=== PATIENT | female | born 1985 | race Hispanic/Latino ===

== ENCOUNTER 2024-09-19 13:52 | Emergency (ER) | payer OTHER ==
--- OUTSIDE RECORDS SUMMARY | 2024-09-19 14:16 | XMS REPORT | Continuity of Care Document ---
Author Name Unknown Address [address] [facility] [address] [place] [address] [facility] thconnect Address [address] [facility] [address] [place] [address] Care Team Providers Care Monogram Technician Name Role Phone Alva Ga Primary Care Physician [phone] Deuce Jordan Attending Clinician Unavailable HAMDIA BLANCO Attending Clinician Unavailable Hamida Blanco MD Attending Clinician [phone] ZACH LARSEN Attending Clinician Unavailable Pob, [facility] Main Attending Clinician Unavailangel luis e Doctor Unassigned, [place] Attending Clinician U navailable JONNA CELESTE Attending Clinician Unavailable Zach Larsen MD Attending Clinician [phone] SUE BACA Attending Clinician Unavailab le RADIOLOGY Attending Clinician Unavailable Zach Larsen MD Attending Clinician [phone] Armando Hebert MD Attending Clinician [phone] GISELA DISLA Attending Clinician Unavailable GISELA DISLA Attending Clinician Unavailable SOLA CARR Attending Clinician Unavaila SOLA Alegria Attending Clinician Unavaila ble Lab, Ang - Db Attending Clinician Unavailable Jonna Espinal Attending Clinician [phone] WHIT MCKINNON Attending Clinician Unavailabl Jordan Askew MDair M Attending Clinician [phone] , [facility] Sleep Lab Bed Attending Clinician Unavail able Lilly CRONIN, Sola Whittington Attending Clinician + [phone] ARMANDO HEBERT Attending Clinician Unavailable [facility] Main Attending Clinician Unavailangel luis Whalen MD, Radha M Attending Clinician [phone] ELHAM RAMOS Attending Clinician Unavailable Doctor Unassigned, [place] Attending Clinician U navailable GINA MUNROE Attending Clinician Unavailab gillian Charamandeep MAGNETIC TAPE TYPEWRITER OPERATORGina Attending Clinician [phone] JELANI PALMA Attending Clinician Unavailable Radiology Attending Clinician Unavailable GLORIA ULU Attending Clinician Unavailable GLORIA LUU Attending Clinician Unavailable DAVE UMAÑA Attending Clinician Unavailable MARCO A DOWELL Attending Clinician Unavailable Char Whitney Attending Clinician [phone] Jes Rich MD Attending Clinician [phone] JES RICH Attending Clinician Unavailable ADRY HARKINS Attending Clinician Unavailable Kesha Gordon Attending Clinician [phone], [employer] Attending Clinician Valencia vailable Adry Urbina Attending Clinician [phone] LOIDA OLMEDO Attending Clinician Unavailable LOIDA OLMEDO Attending Clinician Unavailable CHAR MATHEW Attending Clinician Unavailable Sue Baca DO Attending Clinician [phone] [facility] Attending Clinician UnavailJEAN CLAUDE Hwang Attending Clinician Unavailab le Pcp-Lab Attending Clinician Unavailable KRISTYN CASH Attending Clinician Unavailable KRISTYN CASH Attending Clinician Unavailable DARREN DECKER Attending Clinician Unavailable DARREN DECKER Attending Clinician Unavailable YANETH HUTCHINS Attending Clinician YANETH Bradford Attending Clinician LINCOLN Vargas Attending Clinician Unavailable LINCOLN GARZA Attending Clinician Unavailable Abril Helm MD Attending Clinician [phone] ABRIL HELM Attending Clinician UnavailABRIL Tony Attending Clinician UnavailCASEY Alexandre Attending Clinician UnavailJean Claude Peterson MD Attending Clinician [phone] PEDRO LUIS PELAYO Attending Clinician Unavailable AMARA HELMS Attending Clinician Unavailable Amara Helms MD Attending Clinician [phone] VIVI ERWIN Attending Clinician Unavailable Vivi Humphries Attending Clinician [phone] ISHMAEL ALLEN Attending Clinician Unavail able ISHMAEL ALLEN Attending Clinician Unavail able Ishmael Allen MD Attending Clinician [phone] TAMMI GREEN Attending Clinician Unavailable Tammi Green MD Attending Clinician [phone] [facility] Attending Clinician Unavailable AISHA FIELDS Attending Clinician Unavailable TANNER CAMARA Attending Clinician Unavailable Tanner Turner Attending Clinician [phone] Unknown, Attending Attending Clinician Unavailab Yahaira Ferguson MD Attending Clinician [phone] YAHAIRA HERNANDEZ Attending Clinician Unavailable 1, Carol Mda Procedure Rm Attending Clinician Unav ailable LAINA MUIR Attending Clinician Unavaila Laina Beck Attending Clinician [phone] Елена Laguerre MD Attending Clinician [phone] ELHAM COTTON Attending Clinician Unavailable Elham Mak Attending Clinician [phone] Niki Gastelum RN Attending Clinician Unavailab ЕЛЕНА Jain Attending Clinician Unavailable Deuce Jordan Admitting Clinician Unavailable WHIT MCKINNON Admitting Clinician Unavailabl GINA Barclay Admitting Clinician Unavailab ALVA Song Admitting Clinician Unavail able MARCO A DOWELL Admitting Clinician Unavailable LOIDA OLMEDO Admitting Clinician Unavailable YANETH HUTCHINS Admitting Clinician UnaISHMAEL Smith Admitting Clinician Unavail able VIVI ERWIN Admitting Clinician Unavailable CASEY VALDEZ Admitting Clinician UnavailDARREN Marks Admitting Clinician Unavailable ABRIL HELM Admitting Clinician UnavailAbril Tony MD Admitting Clinician [phone] JR KENNY Admitting Clinician Unavailable Payers Payer Name Policy Type Policy Number Effective Date Expirati on Date Source Problems Condition Name Condition Details Condition Category Status Onset Date Resolution Date Last Treatment Date Treating Clinician Comments Source Chest pain, unspecifie d type Chest pain, unspecifie d type Disease Active 5-24 00:00: 00 [facility] Morbid obesity Morbid obesity Disease Active 5-24 00:00: 00 [facility] Snores Snores Disease Active 24 00:00: 00 [facility] Morbid obesity with body mass index of 40.0-49.9 Morbid obesity with body mass index of 40.0-49.9 Disease Active 7-03 00:00: 00 [facility] Thyroid cancer Thyroid cancer Disease Active 6-14 00:00: 00 [facility] Postoperat janet hypothyroi dism Postoperat janet hypothyroi dism Disease Active 6-14 00:00: 00 [facility] Allergies, Adverse Reactions, Alerts Allergy Name Allergy Type Status Severity Reaction(s) Onset Date Inactive Date Treating Clinician Comments Source codeine Propensi ty to adverse reaction to drug Active 20 00:00: 00 [facility] Codeine Hcl Drug Allergy Active Rash 2-06 00:00: 00 Chest area [facility] Sulfa Dyne Drug Allergy Active Itching 2-06 00:00: 00 Itcyh in her mouth [facility] SULFA DYNE DRUG Active High Hives 0 2-06 00:00: 00 [facility] CODEINE HCL DRUG INGREDI Active Med Hives 0 2-06 00:00: 00 [facility] Codeine Hcl Propensi ty to adverse reaction s Active Hives 0 2-06 00:00: 00 [facility] Sulfa Dyne Propensi ty to adverse reaction s Active Hives 0 2-06 00:00: 00 [facility] Sulfa Antibiot ics - CLASS Propensi ty to adverse reaction to drug Active 09-12 00:00: 00 [facility] Sulfa (Sulfona mide Antibiot ics) DA Active CT 2014-08 00:00: 00 [facility] hydrocod one DA Active CT 2014-08 00:00: 00 [facility] Sulfa (Sulfona mide Antibiot ics) DA Active CT HIVES 2014-08 00:00: 00 [facility] hydrocod one DA Active CT HIVES 2014-08 00:00: 00 [facility] NO KNOWN ALLERGIE S Drug Class Active [facility] Social History Social Habit Start Date Stop Date Quantity Comments Source Gender identity [facility] Alcoholic beverage intake 2024-06-20 00:00:00 2024-06-20 00:00:00 Lifetime non-drinker (finding) [facility] History of Social function 2024-01-08 00:00:00 2024-01-08 00:00:00 [facility] Alcohol intake 2023-11-05 00:00:00 2023-11-05 00:00:00 Lifetime non-drinker (finding) [facility] Tobacco use and exposure 2023-07-13 00:00:00 2023-07-13 00:00:00 Smokeless tobacco non-user [facility] Exposure to SARS-CoV-2 (event) 2022-12-15 00:00:00 2022-12-25 09:16:00 Not sure [facility] Sex assigned at 1985 00:00:00 1985 00:00:00 [facility] Smoking Status Start Date Stop Date Source Tobacco smoking consumption unknown [facility] Never smoked tobacco [facility] Medications Ordered Medication Name Filled Medication Name Start Date Stop Date Current Medication? Ordering Clinician Indication Dosage Frequency Signature (SIG) Comments Components Source Macrobid 100 mg capsule 1-30 00:00: 00 Yes 1mg [facility] tizanidine 4 mg tablet 09-13 00:00: 00 Yes 1mg [facility] ergocalcife rol, vitamin d2, 1,250 mcg (50,000 unit) capsule 2023-08 00:00: 00 09-14 05:59 :00 Yes [id number] Take 1 capsule by mouth weekly for 8 doses. [facility] naltrexone 50 mg tablet 2023-08 00:00: 00 10-18 05:59 :00 Yes [id number] Take 0.5 tablets by mouth daily for 7 days, THEN 0.5 tablets 2 (two) times daily for 83 days. [facility] buPROPion SR 150 mg SR tablet 2023-08 00:00: 00 10-18 05:59 :00 Yes [id number] Take 1 tablet by mouth daily for 7 days, THEN 1 tablet 2 (two) times daily for 83 days. [facility] Cymbalta 30 mg capsule,del ayed release 2023-08 00:00: 00 Yes 1mg [facility] gabapentin 100 mg capsule 2023-08 00:00: 00 Yes 1mg [facility] Imitrex 100 mg tablet 2023-08 00:00: 00 Yes 1mg [facility] Cymbalta 30 mg capsule,del ayed release 2023-08 00:00: 00 Yes 1mg [facility] levothyroxi ne (SYNTHROID) 300 mcg tablet 2023-08 13:29: 05 Yes 300ug Take 1 tablet by mouth in the morning. [facility] dexAMETHaso ne 1 mg tablet 2023-08 00:00: 00 Yes [id number] 1mg Take 1 tablet by mouth SEE-INSTRU CTIONS. Take at 23:00 for dexamethas one suppressio n test, night before blood draw [facility] glycopyrrol ate 1 mg tablet 2023-08 00:00: 00 Yes 1mg [facility] hydroxychlo roquine 200 mg tablet 2023-08 00:00: 00 Yes mg [facility] Synthroid 300 mcg tablet 2024-1 0-07 00:00: 00 Yes mcg [facility] Cymbalta 30 mg capsule,del ayed release 2023-08 0-04 00:00: 00 Yes 1mg [facility] ProAir RespiClick 90 mcg/actuati on breath activated 04-13 00:00: 00 Yes 12mcg/a ctuatio n [facility] Flonase Allergy Relief 50 mcg/actuati on nasal spray,suspe nsion 04-13 00:00: 00 Yes 2mcg/ac tuation [facility] cetirizine 10 mg tablet 04-12 00:00: 00 Yes 1mg [facility] hydroxychlo roquine 200 mg tablet 04-12 00:00: 00 Yes 1mg [facility] tizanidine 4 mg tablet 04-12 00:00: 00 Yes 1mg [facility] Synthroid 300 mcg tablet 04-12 00:00: 00 Yes 1mcg [facility] metformin ER 500 mg tablet,exte nded release 24 hr 03-25 00:00: 00 Yes mg [facility] Synthroid 175 mcg tablet 03-25 00:00: 00 Yes mcg [facility] famotidine 40 mg tablet 03-24 00:00: 00 Yes mg [facility] pantoprazol e 40 mg tablet,greg yed release 03-24 00:00: 00 Yes mg [facility] Pristiq 50 mg tablet,exte nded release 03-23 00:00: 00 Yes 1mg [facility] ergocalcife rol, vitamin d2, 1,250 mcg (50,000 unit) capsule 03-09 00:00: 00 Yes [id number] Take 1 capsule by mouth weekly. [facility] metformin ER 500 mg tablet,exte nded release 24 hr 20 00:00: 00 Yes mg [facility] norethindro ne (contracept janet) 0.35 mg tablet 03-01 00:00: 00 Yes 1mg [facility] Synthroid 175 mcg tablet 2024-0 7-16 00:00: 00 Yes mcg [facility] hydroxychlo roquine 200 mg tablet 02-08 11:11: 31 Yes 200mg Take 1 tablet by mouth in the morning and 1 tablet in the evening. [facility] famotidine 10 mg tablet 02-08 11:11: 31 Yes 10mg Take 1 tablet by mouth in the morning. [facility] Hyoscyamine Sulfate 0.125 mg TbDL 02-08 11:11: 31 Yes 1{tbl} Take 1 tablet by mouth in the morning. [facility] SYNTHROID 175 mcg tablet 02-08 00:00: 00 06-20 00:00 :00 No [id number] Take 2 tablets On Thursday thru Thursday, take one pill on Thursday Brand name only [facility] guanfacine 1 mg tablet 02-01 00:00: 00 Yes 5mg [facility] SYNTHROID 175 mcg tablet 02-01 00:00: 00 02-08 00:00 :00 No 350ug Take 2 tablets by mouth every morning. [facility] TYRVAYA 0.03 mg/spray sprm 01-25 00:00: 00 Yes [facility] hyoscyamine sulfate 0.125 mg tablet 01-21 00:00: 00 Yes mg [facility] tiZANidine 4 mg tablet 01-16 00:00: 00 Yes TAKE ONE (1) TABLET(S) BY MOUTH EVERY SIX TO EIGHT HOURS. [facility] tizanidine 4 mg tablet 01-13 00:00: 00 Yes 1mg [facility] barium sulfate (LIQUID E-Z PAQUE) 60 % (w/v) oral suspension 680 g 01-12 14:15: 00 01-12 14:35 :00 No [id number] 680g 680 g, Oral, ONCE, 1 dose, On Thu01/13/24 at 0915, Routine [facility] sod bicarb-citr ic ac-simeth (E-Z-GAS II) 2.21-1.53 gram/4 gram packet 1 Packet 01-12 14:15: 01-12 14:35 :00 No [id number] 1{packe t} 1 Packet, Oral, ONCE, 1 dose, On Thu01/13/24 at 0915, Routine [facility] metroNIDAZO LE 500 mg tablet 01-11 00:00: 00 Yes 500mg Take 1 tablet by mouth in the morning and 1 tablet at noon and 1 tablet in the evening. [facility] ciprofloxac in HCl 500 mg tablet 01-11 00:00: 00 Yes 500mg Take 1 tablet by mouth in the morning and 1 tablet in the evening. [facility] tizanidine 4 mg capsule 01-10 00:00: 00 Yes 1mg [facility] iopamidol (ISOVUE 370-500 mL) injection 130 mL 01-07 23:15: 00 01-07 23:30 :00 No [id number] 130mL 130 mL, Intravenou s, ONCE, 1 dose, On Thu01/08/24 at 1830, Routine [facility] hydroxychlo roquine 200 mg tablet 01-03 00:00: 00 Yes 1mg [facility] guanfacine 1 mg tablet 12-28 00:00: 00 Yes 5mg [facility] SYNTHROID 175MCG 08 00:00: 00 Yes Bal Benny Rose GABAPENTIN 300MG 12-20 00:00: 00 Yes Bal Benny Rose HYDROXYCHLO R 200MG 12-13 00:00: 00 Yes Bal Benny Rose KETOCONAZOL E 2% SHA 12-06 00:00: 00 Yes [facility] PANTOPRAZOL E 40MG DR 12-06 00:00: 00 Yes [facility] METRONIDAZO L 0.75% CRE 12-06 00:00: 00 Yes [facility] metronidazo le 0.75 % topical cream 12-03 00:00: 00 Yes 1% Bal Benny Rose ketoconazol e 2 % shampoo 12-03 00:00: 00 Yes 1% [facility] pantoprazol e 40 mg tablet,greg yed release 12-03 00:00: 00 Yes 1mg [facility] TAKE HALF OF A TAB BY MOUTH DAILY 11-25 00:00: 00 Yes 1 [facility] SUCRALFATE 1GM 11-18 00:00: 00 Yes [facility] sucralfate 1 gram tablet 11-18 00:00: 00 Yes 1g Take 1 tablet by mouth 4 (four) times daily. [facility] DICYCLOMINE 10MG 11-13 00:00: 00 Yes [facility] TAKE ONE (1) CAPSULE(S) BY MOUTH EVERY EIGHT HOURS NEEDED. 11-12 00:00: 00 Yes [facility] trazodone 50 mg tablet 11-08 00:00: 00 Yes 1mg [facility] traZODone 50 mg tablet 11-08 00:00: 00 Yes [id number] 50mg Take 1 tablet by mouth at bedtime. [facility] clotrimazol e 1 % vaginal cream 11-01 00:00: 00 Yes % [facility] TAKE HALF OF A TAB BY MOUTH DAILY 10-28 00:00: 00 12-28 00:00 :00 No 1 [facility] hydrocortis one 0.5 % topical cream 10-27 00:00: 00 Yes % [facility] hydrocortis one 1 % topical cream 10-27 00:00: 00 Yes % [facility] HYDROCORTIS O 1% RX CRE 10-27 00:00: 00 Yes [facility] cholestyram ine (with sugar) 4 gram powder for susp in a packet 10-23 00:00: 00 Yes gram [facility] Synthroid 175 mcg tablet 10-22 00:00: 00 Yes mcg [facility] MIX ONE (1) PACKET WITH WATER AND TAKE BY MOUTH TWICE DAILY. 10-22 00:00: 00 Yes [facility] iopamidol (ISOVUE 370-500 mL) injection 90 mL 10-16 18:45: 00 10-16 18:30 :00 No [id number] 90mL 90 mL, Intravenou s, ONCE, 1 dose, On 10/17/23 at 1245, Routine [facility] gabapentin 100 mg capsule 10-16 00:00: 00 Yes mg [facility] TAKE ONE (1) CAPSULE(S) BY MOUTH THREE TIMES A DAY FOR SEVEN DAYS, THEN TWO (2) CAPSULES THREE TIMES A DAY FOR SEVEN DAYS, THEN THREE (3) C 10-15 00:00: 00 Yes [facility] gabapentin 100 mg capsule 10-15 00:00: 00 11-29 04:59 :00 No [id number] Take 1 capsule by mouth 3 (three) times daily for 7 days, THEN 2 capsules 3 (three) times daily for 7 days, THEN 3 capsules 3 (three) times daily for 30 days. [facility] guanfacine 1 mg tablet 10-14 00:00: 00 Yes mg [facility] paroxetine 10 mg tablet 10-14 00:00: 00 Yes mg [facility] metformin ER 500 mg tablet,exte nded release 24 hr 10-13 00:00: 00 Yes mg [facility] TAKE ONE (1) TABLET(S) BY MOUTH ONCE A DAY. 10-13 00:00: 00 Yes Bal Rsoe metformin ER 500 mg 24 hr tablet 10-13 00:00: 00 Yes 500mg Take 1 tablet by mouth in the morning. [facility] TAKE 1 TABLET DAILY. 10-13 00:00: 00 12-28 00:00 :00 No 10 [facility] TAKE HALF OF A TAB BY MOUTH DAILY 10-13 00:00: 00 12-28 00:00 :00 No 1 Bal oRse TAKE 1 TABLET BY MOUTH EVERY DAY 10-09 00:00: 00 Yes 500 Bal Rose tc 99m-medrona te (DRAXIMAGE MDP-25) injection 23.3 millicurie 10-02 16:15: 00 10-02 16:15 :00 No [id number] 23.3mCi 23.3 Saranya landu s, ONCE, 1 dose, On Thu10/02/23 at 1015, Routine [facility] ibuprofen 800 mg tablet 09-24 00:00: 00 Yes mg [facility] SYNTHROID 175MCG 09-24 00:00: 00 Yes [facility] TAKE 1 TABLET DAILY. 09-23 00:00: 00 Yes 120 [facility] TAKE 1 TABLET 3 TIMES DAILY WITH FOOD NEEDED. 09-23 00:00: 00 Yes 800 [facility] GALILEO 09/05 00:00: 00 Yes [facility] TAKE HALF OF A TAB BY MOUTH DAILY 09-17 00:00: 00 12-28 00:00 :00 No 1 [facility] TAKE 1 TABLET DAILY. 09-17 00:00: 00 12-28 00:00 :00 No 25 [facility] TAKE ONE (1) TABLET(S) BY MOUTH DAILY. 09-17 00:00: 00 12-28 00:00 :00 No [facility] TAKE 1 CAPSULE BY MOUTH TWICE A DAY NEEDED 08-28 00:00: 00 12-28 00:00 :00 No 300 [facility] TAKE ONE (1) TABLET(S) BY MOUTH ONCE A DAY. - 00:00: 00 12-28 00:00 :00 No 75 [facility] DULoxetine 20 mg capsule - 00:00: 00 Yes 20mg Take 1 capsule by mouth in the morning. [facility] TAKE 1 CAPSULE BY MOUTH ONCE DAILY 08-26 00:00: 00 12-28 00:00 :00 No 10 [facility] TAKE 1 CAPSULE BY MOUTH DAILY 08-26 00:00: 00 12-28 00:00 :00 No 20 [facility] DULOXETINE 20MG DR 08-26 00:00: 00 12-28 00:00 :00 Angelique Rose TAKE ONE (1) CAPSULE(S) BY MOUTH ONCE DAILY. 08-26 00:00: 00 12-28 00:00 :00 No [facility] TAKE BY MOUTH DIRECTED BY PHYSICIANS OFFICE. 2022-08 00:00: 00 12-28 00:00 :00 Angelique Rose ergocalcife rol, vitamin d2, 1,250 mcg (50,000 unit) capsule 2022-08 00:00: 00 03-09 00:00 :00 No [id number] Take 1 capsule by mouth weekly. [facility] TAKE 1 TABLET EVERY 8 HOURS NEEDED FOR NAUSEA AND VOMITING. 2022-08 00:00: 00 12-28 00:00 :00 No 8 [facility] iopamidol (ISOVUE 370-500 mL) injection 120 mL 2022-08 16:45: 00 07-23 15:52 :00 No [id number] 120mL 120 mL, Intravenou s, ONCE, 1 dose, On [facility] 07/23/23 at 1045, Routine [facility] DULOXETINE 30MG DR 2022-08 00:00: 00 12-28 00:00 :00 Angelique Rose DULoxetine (CYMBALTA) 30 mg capsule 2022-08 00:00: 00 08-04 00:00 :00 No [id number] 30mg Take 1 capsule by mouth in the morning. [facility] TAKE 1 CAPSULE TWICE DAILY. 2022-08 00:00: 00 12-28 00:00 :00 No 50 [facility] PREGABALIN 50MG 2022-08 00:00: 00 12-28 00:00 :00 Angelique Rose SYNTHROID 175 mcg tablet 2022-08 00:00: 00 02-01 00:00 :00 No 350ug Take 2 tablets by mouth every morning. [facility] TAKE 2 TABLETS BY MOUTH EVERY MORNING. 2022-08 00:00: 00 12-28 00:00 :00 No Bal Benny Rose TAKE 1 TABLET DAILY. 2022-08 00:00: 12-28 00:00 :00 No 10 Bal Benny Rose predniSONE 10 mg tablet 2022-08 00:00: 00 08-04 00:00 :00 No 10mg Take 1 tablet by mouth in the morning. [facility] Butalbital- Acetaminoph en-Caff 50-300-40 mg per capsule 2022-08 00:00: 00 09-15 00:00 :00 No TAKE ONE (1) CAPSULE(S) BY MOUTH EVERY FOUR TO SIX HOURS NEEDED. [facility] TAKE 1 CAPLET EVERY 4-6 HOURS DAILY NEEDED. 2022-08 00:00: 00 12-28 00:00 :00 No [id number] Bal Rose TAKE 1 TABLET 3 TIMES DAILY NEEDED FOR MUSCLE SPASM. 2022-08 00:00: 00 12-28 00:00 :00 No 10 Bal Rose BUT/APAP/CA F 300MG 2022-08 00:00: 00 12-28 00:00 :00 No [facility] SYNTHROID 25MCG 2022-08 00:00: 00 12-28 00:00 :00 No [facility] SYNTHROID 300MCG 2022-08 00:00: 00 12-28 00:00 :00 Angelique Rose meloxicam 7.5 mg tablet 2022-08 00:00: 00 Yes 7.5mg Take 1 tablet by mouth in the morning. [facility] TAKE ONE (1) TABLET(S) BY MOUTH ONCE A DAY. 2022-08 00:00: 00 12-28 00:00 :00 No 75 Bal Rose sodium iodide I-131 (FOR DIAGNOSTIC) oral solution 2 millicurie 2022-08 15:30: 00 06-02 15:30 :00 No [id number] 2mCi 2 millicurie , Oral, ONCE, 1 dose, On Thu06/02/23 at 1030, Routine [facility] APPLY SPARINGLY TO AFFECTED AREA(S) ONCE DAILY. 2022-08 00:00: 00 12-28 00:00 :00 No 1 [facility] DICLOFENAC 1% GEL 2022-08 00:00: 00 12-28 00:00 :00 No Bal Rose TAKE 1 TABLET DAILY. 05-15 00:00: 00 12-28 00:00 :00 No 75 Bal Rose TAKE 1 CAPSULE EVERY 6 HOURS NEEDED. 05-15 00:00: 00 12-28 00:00 :00 No 10 [facility] SYNTHROID 25MCG 05-15 00:00: 00 12-28 00:00 :00 No [facility] SYNTHROID 300MCG 05-15 00:00: 00 12-28 00:00 :00 Angelique Rose TAKE 2 TABLETS ON DAY 1 THEN TAKE 1 TABLET A DAY FOR 4 DAYS. 05-14 00:00: 00 12-28 00:00 :00 No 250 Bal Rose USE DIRECTED BY PACKAGE INSTRUCTION S. 05-14 00:00: 00 12-28 00:00 :00 No Bal Rose methylPREDN ISolone (MEDROL, RAS,) 4 mg tablets 05-14 00:00: 00 08-04 00:00 :00 No [id number] 84mg Take 21 tablets by mouth SEE-INSTRU CTIONS. follow package directions [facility] INHALE 2 PUFFS EVERY 4 HOURS NEEDED FOR COUGH AND WHEEZE. 05-01 00:00: 00 12-28 00:00 :00 [place] [id number] Bal Rose TAKE 10 ML EVERY 4 TO 6 HOURS NEEDED. 05-01 00:00: 00 12-28 00:00 :00 No [id number] Bal Rose 300 MG NIRMATRELVI R (TWO 150 MG TABLETS) WITH 100 MG RITONAVIR (ONE 100 MG TABLET) WITH ALL THREE TABLETS TAKEN TOGETHER ORALLY TWICE DAILY FOR 5 DAYS 05-01 00:00: 00 12-28 00:00 :00 No Bal Rose TAKE ONE (1) TABLET(S) BY MOUTH AT BEDTIME NEEDED FOR MUSCLE SPASMS. 04-23 00:00: 00 12-28 00:00 :00 No Bal Benny Rose cyclobenzap rine 5 mg tablet 04-23 00:00: 00 09-15 00:00 :00 No [id number] 5mg Take 1 tablet by mouth at bedtime as needed for Muscle Spasms. [facility] iopamidol (ISOVUE 370-500 mL) injection 80 mL 03-30 15:47: 00 03-30 15:47 :00 No [id number] 80mL 80 mL, Intravenou s, ONCE, 1 dose, On Thu03/30/23 at 1100, Routine [facility] TAKE ONE (1) TABLET(S) BY MOUTH TWICE A DAY FOR ONE WEEK THEN TAKE TWO TABLETS TWICE DAILY THEREAFTER. 03-27 00:00: 00 12-28 00:00 :00 No Bal Benny Milton TAKE 1 TABLET DAILY. 03-25 00:00: 00 12-28 00:00 :00 No 300 Bal Benny Milton SYNTHROID 25MCG 03-24 00:00: 00 12-28 00:00 :00 No Bal Rose TAKE 1 TABLET DAILY. 03-19 00:00: 00 12-28 00:00 :00 No 25 Bal Rose LEVOTHYROXI N 300MCG 03-19 00:00: 00 12-28 00:00 :00 No Bal Rose LEVOTHYROXI N 25MCG 03-19 00:00: 00 12-28 00:00 :00 No Bal Rose TAKE 1 CAPSULE AT BEDTIME. 03-16 00:00: 00 12-28 00:00 :00 No 20 Bal Rose 1-2 TABS BID PRN ANXIETY 03-16 00:00: 00 12-28 00:00 :00 No 10 Bal Rose TAKE 1 CAPSULE BY MOUTH ONCE DAILY 03-10 00:00: 00 12-28 00:00 :00 No 60 Bal Rose LEVOTHYROXI N 150MCG 03-09 00:00: 00 12-28 00:00 :00 No Bal Rose CLOTRIMAZOL E 1% CRE 02-25 00:00: 00 12-28 00:00 :00 No Bal Rose ondansetron (ZOFRAN (PF)) injection 4 mg 02-16 16:44: 31 Yes 4mg 4 mg, Slow IV Push, PRN, 1 dose, Starting on Thu02/16/23 at 1144, Until Discontinu ed, Routine, Nausea and Vomiting (N/V), PACU [facility] FENTanyl PF (SUBLIMAZE (PF)) injection 25 mcg 02-16 16:44: 31 02-16 21:15 :10 No 25ug 25 mcg, Slow IV Push, Q5MIN PRN, 4 doses, Starting on Thu02/16/23 at 1144, Until Thu02/16/23 at 1615, Routine, Pain (scale 7-10), PACU [facility] lactated Ringers irrigation solution 02-16 15:39: 00 02-16 16:10 :18 No PRN, Starting on Thu02/16/23 at 1039, Until Thu02/16/23 at 1110, Routine, Intra-op [facility] EPINEPHrine 1:1,000 (1 mg/mL) (ADRENALIN) injection 02-16 15:30: 00 02-16 16:10 :18 No PRN, Starting on Thu02/16/23 at 1030, Until Thu02/16/23 at 1110, Routine, Intra-op [facility] bupivacaine (preserv free) (SENSORCAIN E MPF) 0.25 % (2.5 mg/mL) injection 02-16 15:29: 00 02-16 16:10 :18 No PRN, Starting on Thu02/16/23 at 1029, Until Thu02/16/23 at 1110, Routine, Intra-op [facility] lactated ringers IV infusion 1,000 mL 02-16 12:15: 00 02-16 12:37 :00 No 1000mL at 42 mL/hr, 1,000 mL, IV Infusion, ONCE, 1 dose, On Thu02/16/23 at 0715, Routine, DSU Pre-op [facility] TRAMADOL HCL 50MG 02-16 00:00: 00 12-28 00:00 :00 No Bal Rose aspirin 325 mg tablet 02-16 00:00: 00 03-17 04:59 :00 No [id number] 325mg Take 1 tablet by mouth in the morning and 1 tablet in the evening. Take with meals. Do all this for 28 days. [facility] traMADoL 50 mg tablet 02-16 00:00: 00 02-24 04:59 :00 No [id number] 50mg Take 1 tablet by mouth every 6 (six) hours as needed for Pain (scale 4-6) or Pain (scale 7-10) for up to 7 days. Indication s: acute pain [facility] PANTOPRAZOL E 40MG DR 02-09 00:00: 00 12-28 00:00 :00 No Bal Rose TAKE 1 TABLET AT BEDTIME NEEDED. 01-30 00:00: 00 12-28 00:00 :00 No 10 Bal Rose TAKE 1 TABLET EVERY 12 HOURS DAILY. 01-30 00:00: 00 12-28 00:00 :00 No 250 Bal Rose APPLY SPARINGLY TO AFFECTED AREA(S) TWICE DAILY 01-29 00:00: 00 12-28 00:00 :00 No 1 Bal Rose TAKE 1 TABLET TWICE DAILY UNTIL FINISHED. 01-29 00:00: 00 12-28 00:00 :00 No 500 Bal Rose clotrimazol e 1 % topical cream 01-29 00:00: 00 08-04 00:00 :00 No 1{appli cator} Apply 1 Applicator to area(s) in the morning and 1 Applicator in the evening. [facility] TAKE 1 CAPSULES TWICE DAILY NEEDED FOR ANXIETY 01-28 00:00: 00 12-28 00:00 :00 No 25 Bal Rose LEVOTHYROXI N 150MCG 01-28 00:00: 00 12-28 00:00 :00 No Bal Rose levothyroxi ne (SYNTHROID) 150 mcg tablet 01-28 00:00: 00 05-11 00:00 :00 No [id number] 150ug Take 1 tablet by mouth every morning. [facility] pantoprazol e 40 mg EC tablet 01-14 00:00: 00 Yes 40mg Take 1 tablet by mouth in the morning. [facility] SYNTHROID 300MCG 01-14 00:00: 00 12-28 00:00 :00 No Bal Rose PANTOPRAZOL E 40MG DR 12-31 00:00: 00 12-28 00:00 :00 No [id number] Bal Rose CELECOXIB 200MG 12-25 00:00: 00 12-28 00:00 :00 No Bal Rose celecoxib (CELEBREX) 200 mg capsule 12-25 00:00: 00 01-25 04:59 :00 No [id number] 200mg Take 1 capsule by mouth in the morning for 30 days. [facility] TAKE 1 TABLET BY MOUTH DAILY 12-11 00:00: 00 12-28 00:00 :00 No 5 Bal Rose TAKE 1 TABLET DAILY. 12-05 00:00: 00 12-28 00:00 :00 No 300 Bal Rose PANTOPRAZOL E 40MG DR 12-05 00:00: 00 12-28 00:00 :00 No Bal Rose TAKE 1 CAPSULE BY MOUTH ONCE DAILY 12-05 00:00: 00 12-28 00:00 :00 No 100 Bal Rose gabapentin 100 mg capsule 12-05 00:00: 00 04-09 00:00 :00 No 100mg Take 1 capsule by mouth in the morning. As needed [facility] TAKE 1 TABLET DAILY. 11-12 00:00: 00 12-28 00:00 :00 No 20 Bal Rose TAKE 1 TABLET TWICE DAILY. 11-12 00:00: 00 12-28 00:00 :00 No 10 Bal Rose TAKE 1 CAPSULE AT BEDTIME. 11-12 00:00: 00 12-28 00:00 :00 No 300 Abldemarcus Rose VENTOLIN HFA 200 INH 11-06 00:00: 00 12-28 00:00 :00 No Bal F Milton TAKE 1 CAPSULE AT BEDTIME. 315 00:00: 00 12-28 00:00 :00 No 10 Baldemarucs Rose SYNTHROID 300MCG 3- 00:00: 00 12-28 00:00 :00 No Bal F Milton TAKE 1 TABLET DAILY. 3-10 00:00: 00 12-28 00:00 :00 No 300 Bal Rose TAKE 1 TABLET DAILY. 3-06 00:00: 00 12-28 00:00 :00 No 300 Baldemarcus Rose TAKE 1 TABLET DAILY. 3-03 00:00: 00 12-28 00:00 :00 No 300 Baldemarcus Rose TAKE 1 TABLET DAILY. 3- 00:00: 00 12-28 00:00 :00 No 5 Bal Benny Milton INHALE 2 PUFFS TWICE DAILY. RINSE MOUTH AFTER USE. 2- 00:00: 00 12-28 00:00 :00 No [id number] Bal Benny Milton USE 1 SPRAY IN EACH NOSTRIL ONCE DAILY. 2- 00:00: 00 12-28 00:00 :00 No 50 Bal F Milton INHALE 1 TO 2 PUFFS EVERY 6 HOURS NEEDED. 09-30 00:00: 00 12-28 00:00 :00 [place] [id number] Bal Rose TAKE 2 TABS DAILY THE FIRST 5 DAYS, THEN 1 TAB DAILY THE 2ND 5 DAYS, THEN HALF TAB DAILY THE LAST 5 DAYS 09-30 00:00: 00 12-28 00:00 :00 No 20 Bal Rose FLUTICASONE 50MCG RX SPR 09-30 00:00: 00 12-28 00:00 :00 No Bal Rose INHALE TWO (2) PUFF(S) BY MOUTH TWICE DAILY. RINSE MOUTH AFTER USE. 09-30 00:00: 00 12-28 00:00 :00 No Bal Rose ipratropium -albuteroL (DUONEB) 0.5 mg-3 mg(2.5 mg base)/3 mL nebulizer solution 3 mL 09-23 02:00: 00 09-23 01:11 :00 No [id number] 3mL [facility] albuterol 90 mcg/actuati on inhaler 09-22 00:00: 00 Yes [id number] 2{puff} Inhale 2 Puffs every 4 (four) hours as needed for Shortness of Breath or Wheezing. [facility] BENZONATATE 100MG 09-22 00:00: 00 12-28 00:00 :00 Angelique Bal Rose PREDNISONE 20MG 09-22 00:00: 00 12-28 00:00 :00 No Bal Rose INHALE 2 PUFFS EVERY 4 HOURS NEEDED FOR SHORTNESS OF BREATH OR WHEEZING. 09-22 00:00: 00 12-28 00:00 :00 No Bal Benny Rose benzonatate 100 mg capsule 2 00:00: 00 08-04 00:00 :00 No [id number] 200mg Take 2 capsules by mouth every 8 (eight) hours as needed for Cough. [facility] guaiFENesin 400 mg tablet 2-06 00:00: 00 02-16 00:00 :00 No [id number] 400mg Take 1 tablet by mouth every 4 (four) hours as needed for Cough. [facility] predniSONE 20 mg tablet 2- 00:00: 00 09-28 05:59 :00 No [id number] 40mg Take 2 tablets by mouth in the morning for 5 days. [facility] TAKE 1 TABLET DAILY. 09-12 00:00: 00 12-28 00:00 :00 No 10 Bal Zapata Milton TAKE 1 TABLET BID NEEDED 09-12 00:00: 00 12-28 00:00 :00 No 600 Bal Benny Milton INSTILL 4 DROPS IN THE AFFECTED EAR(S) TWICE DAILY 09-12 00:00: 00 12-28 00:00 :00 No 301 Bal Benny Milton VIENVA 0.1-20 mg-mcg per tablet 09-12 00:00: 00 02-16 00:00 :00 No 1{tbl} Take 1 tablet by mouth in the morning. [facility] predniSONE 10 mg tablet 09-12 00:00: 00 09-22 00:00 :00 No 10mg Take 10 mg by mouth in the morning. [facility] VENTOLIN HFA 200 INH 09-01 00:00: 00 12-28 00:00 :00 No Bal Rose SYNTHROID 200MCG 08-28 00:00: 00 12-28 00:00 :00 No Bal Rose SYNTHROID ORAL 08-28 00:00: 00 07-09 00:00 :00 No 325ug Take 325 mcg by mouth. [facility] FLUCONAZOLE 150MG TAB 08-27 00:00: 00 12-28 00:00 :00 No Bal Rose SYNTHROID 50 mcg tablet 08-27 00:00: 00 01-28 00:00 :00 No TAKE ONE (1) TABLET BY MOUTH ONCE A DAY. [facility] PANTOPRAZOL E 40MG TAB 2021-08 00:00: 00 12-28 00:00 :00 Angelique Rose NAPROXEN 500MG (D1-18) Tablets 2021-08 00:00: 00 12-28 00:00 :00 Angelique Rose ONDANSETRON 4MG ODT 2021-08 00:00: 00 12-28 00:00 :00 Angelique Rose GABAPENTIN 100MG 2021-08 00:00: 00 12-28 00:00 :00 Angelique Rose SYNTHROID 50MCG TAB 2021-08 00:00: 00 12-28 00:00 :00 Angelique Rose CEPHALEXIN 500MG (G-25) Capsules 2021-08 00:00: 00 12-28 00:00 :00 Angelique Rose TAKE 1 TABLET BY MOUTH EVERY 8 HOURS NEEDED FOR PAIN 2021-08 00:00: 00 12-28 00:00 :00 Angelique Rose SYNTHROID 200 MCG Tablets 2021-08 00:00: 00 12-28 00:00 :00 Angelique Rose FLUCONAZOLE 150MG Tablets 2021-08 00:00: 00 12-28 00:00 :00 Angelique Rose Dose Unknown 2021-08 00:00: 00 12-28 00:00 :00 Angelique Rose SYMBICORT 80-4.5 INH 2021-08 00:00: 00 12-28 00:00 :00 Angelique Rose NITROFUR MON 100MG 2021-08 00:00: 00 12-28 00:00 :00 Angelique Rose Dose Unknown 2021-08 00:00: 00 12-28 00:00 :00 Angelique Rose MONTELUKAST 10MG TAB 2021-08 00:00: 00 12-28 00:00 :00 Angelique Rose BUPROP 24 XL 150MG TAB 2021-08 00:00: 00 12-28 00:00 :00 No Bal Zapata Milton Dose Unknown 2021-08 00:00: 00 12-28 00:00 :00 No Bal F Milton Dose Unknown 2021-08 00:00: 00 12-28 00:00 :00 No Bal F Milton Dose Unknown 2021-08 00:00: 00 12-28 00:00 :00 No Bal F Milton Dose Unknown 2021-08 00:00: 00 12-28 00:00 :00 No Bal F Milton Dose Unknown 2021-08 00:00: 00 12-28 00:00 :00 No Bal Zapata Milton Dose Unknown 2021-08 00:00: 00 12-28 00:00 :00 No Bal F Milton Dose Unknown 2021-08 00:00: 00 12-28 00:00 :00 No Bal F Milton Dose Unknown 2021-08 00:00: 00 12-28 00:00 :00 No Bal Rose TAKE 1 TABLET DAILY. 2021-08 00:00: 00 12-28 00:00 :00 No 120unit Bal Rose AZITHROMYCI N 250MG 05-08 00:00: 00 12-28 00:00 :00 No [id number] Bal Rose TAKE ONE (1) TABLET BY MOUTH ONCE A DAY. 05-08 00:00: 00 12-28 00:00 :00 No Bal Rose SYNTHROID 50MCG 4-13 00:00: 00 12-28 00:00 :00 No [id number] Bal Rose Immunizations Ordered Immunization Name Filled Immunization Name Date Status Comments Source Influenza, injectable, Madin Kavita Canine Kidney, preservative-free, quadrivalent Influenza, injectable, Madin Kavita Canine Kidney, preservative-free, quadrivalent 2019-05-12 00:00:00 Completed Bal Rose Influenza, injectable, Madin Simpson Canine Kidney, preservative-free, quadrivalent Influenza, injectable, Madin Simpson Canine Kidney, preservative-free, quadrivalent 2019-05-12 00:00:00 Completed Bal Rose Influenza Virus Vaccine Quad IM, Preserv and ABX Free 6 MO-64 YRS (FLUCELVAX) 2019-05-12 00:00:00 Completed [facility] Influenza, seasonal, inj Influenza, seasonal, inj 2019-04-17 00:00:00 Completed Bal Rose Influenza, seasonal, inj Influenza, seasonal, inj 2019-04-17 00:00:00 Completed Bal Rose Influenza, split virus, trivalent, PF (AFLURIA/FLUARIX/FL ULAVAL/FLUZONE) 2019-04-17 00:00:00 Completed Tdap Tdap 2017-08-27 00:00:00 Completed Bal Rose Tdap Tdap 2017-08-27 00:00:00 Completed Baldemarcus Rose TDAP 2017-08-27 00:00:00 Completed Influenza Virus Vaccine Quad IM, Preserv and ABX Free 6 MO-64 YRS (FLUCELVAX) Unknown Completed [facility] Flu Trivalent Unknown Completed [facility] TDAP Unknown Completed [facility] Influenza Virus Vaccine Quad IM, Preserv and ABX Free 6 MO-64 YRS (FLUCELVAX) Unknown Completed [facility] Flu Trivalent Unknown Completed [facility] TDAP Unknown Completed [facility] Influenza Virus Vaccine Quad IM, Preserv and ABX Free 6 MO-64 YRS (FLUCELVAX) Unknown Completed [facility] Influenza, split virus, trivalent, PF (AFLURIA/FLUARIX/FL ULAVAL/FLUZONE) Unknown Completed [facility] TDAP Unknown Completed [facility] Influenza Virus Vaccine Quad IM, Preserv and ABX Free 6 MO-64 YRS (FLUCELVAX) Unknown Completed [facility] Influenza, split virus, trivalent, PF (AFLURIA/FLUARIX/FL ULAVAL/FLUZONE) Unknown Completed [facility] TDAP Unknown Completed [facility] Vital Signs Vital Name Observation Time Observation Value Comments S ource Systolic blood pressure 2024-06-20 19:09:00 111 mm[Hg] [facility] Diastolic blood pressure 2024-06-20 19:09:00 79 mm[Hg] [facility] Heart rate 2024-06-20 19:09:00 81 /min [facility] Body height 2024-06-20 19:09:00 175.3 cm [facility] Body weight 2024-06-20 19:09:00 130.001 kg [facility] BMI 2024-06-20 19:09:00 42.32 kg/m2 [facility] Oxygen saturation in Arterial blood by Pulse oximetry 2024-06-20 19:09:00 100 /min [facility] Systolic blood pressure 2024-02-09 16:07:00 111 mm[Hg] [facility] Diastolic blood pressure 2024-02-09 16:07:00 76 mm[Hg] [facility] Heart rate 2024-02-09 16:07:00 77 /min [facility] Body temperature 2024-02-09 16:07:00 36.94 Tejal [facility] Respiratory rate 2024-02-09 16:07:00 14 /min [facility] Body height 2024-02-09 16:07:00 175.3 cm [facility] Body weight 2024-02-09 16:07:00 130.455 kg [facility] BMI 2024-02-09 16:07:00 42.47 kg/m2 [facility] Heart rate 2024-01-09 00:45:00 71 /min [facility] Oxygen saturation in Arterial blood by Pulse oximetry 2024-01-09 00:45:00 99 /min [facility] Systolic blood pressure 2024-01-09 00:30:00 126 mm[Hg] [facility] Diastolic blood pressure 2024-01-09 00:30:00 80 mm[Hg] [facility] Body temperature 2024-01-09 00:24:00 36.67 Tejal [facility] Respiratory rate 2024-01-09 00:24:00 16 /min [facility] Body height 2024-01-08 21:26:00 175.3 cm [facility] Body weight 2024-01-08 21:26:00 128.368 kg [facility] BMI 2024-01-08 21:26:00 41.79 kg/m2 [facility] Systolic blood pressure 2024-01-08 19:08:00 106 mm[Hg] [facility] Diastolic blood pressure 2024-01-08 19:08:00 67 mm[Hg] [facility] Heart rate 2024-01-08 19:08:00 77 /min [facility] Respiratory rate 2024-01-08 19:08:00 20 /min [facility] Body height 2024-01-08 19:08:00 175.3 cm [facility] Body weight 2024-01-08 19:08:00 128.549 kg [facility] BMI 2024-01-08 19:08:00 41.85 kg/m2 [facility] Oxygen saturation in Arterial blood by Pulse oximetry 2024-01-08 19:08:00 98 /min [facility] Body temperature 2023-12-01 13:47:00 36.5 Tejal [facility] Body weight 2023-12-01 13:47:00 130.182 kg [facility] BMI 2023-12-01 13:47:00 42.38 kg/m2 [facility] Body height 2023-11-11 14:03:00 175.3 cm [facility] Body weight 2023-11-11 14:03:00 131.044 kg [facility] BMI 2023-11-11 14:03:00 42.66 kg/m2 [facility] Systolic blood pressure 2023-11-05 18:54:00 122 mm[Hg] [facility] Diastolic blood pressure 2023-11-05 18:54:00 78 mm[Hg] [facility] Heart rate 2023-11-05 18:54:00 75 /min [facility] Body temperature 2023-11-05 18:54:00 36.72 Tejal [facility] Body height 2023-11-05 18:54:00 175.3 cm [facility] Body weight 2023-11-05 18:54:00 134.265 kg [facility] BMI 2023-11-05 18:54:00 43.71 kg/m2 [facility] Oxygen saturation in Arterial blood by Pulse oximetry 2023-11-05 18:54:00 100 /min [facility] Systolic blood pressure 2023-10-16 14:27:00 113 mm[Hg] [facility] Diastolic blood pressure 2023-10-16 14:27:00 76 mm[Hg] [facility] Heart rate 2023-10-16 14:27:00 71 /min [facility] Body height 2023-10-16 14:27:00 175.3 cm [facility] Body weight 2023-10-16 14:27:00 130.908 kg [facility] BMI 2023-10-16 14:27:00 42.62 kg/m2 [facility] Oxygen saturation in Arterial blood by Pulse oximetry 2023-10-16 14:27:00 99 /min [facility] Body height 2023-10-14 16:23:00 175.3 cm [facility] Body weight 2023-10-14 16:23:00 129.819 kg [facility] BMI 2023-10-14 16:23:00 42.26 kg/m2 [facility] Body temperature 2023-10-08 14:13:00 36.44 Tejal [facility] Body weight 2023-10-08 14:13:00 131.362 kg [facility] BMI 2023-10-08 14:13:00 42.77 kg/m2 [facility] Systolic blood pressure 2023-09-15 16:37:00 108 mm[Hg] [facility] Diastolic blood pressure 2023-09-15 16:37:00 72 mm[Hg] [facility] Heart rate 2023-09-15 16:37:00 73 /min [facility] Body temperature 2023-09-15 16:37:00 36.28 Tejal [facility] Body height 2023-09-15 16:37:00 175.3 cm [facility] Body weight 2023-09-15 16:37:00 132.36 kg [facility] BMI 2023-09-15 16:37:00 43.09 kg/m2 [facility] Oxygen saturation in Arterial blood by Pulse oximetry 2023-09-15 16:37:00 98 /min [facility] Systolic blood pressure 2023-09-15 14:53:00 114 mm[Hg] [facility] Diastolic blood pressure 2023-09-15 14:53:00 79 mm[Hg] [facility] Heart rate 2023-09-15 14:53:00 71 /min [facility] Body temperature 2023-09-15 14:53:00 35.78 Tejal [facility] Respiratory rate 2023-09-15 14:53:00 16 /min [facility] Body height 2023-09-15 14:53:00 175.3 cm [facility] Body weight 2023-09-15 14:53:00 131.725 kg [facility] BMI 2023-09-15 14:53:00 42.88 kg/m2 [facility] Oxygen saturation in Arterial blood by Pulse oximetry 2023-09-15 14:53:00 100 /min [facility] Systolic blood pressure 2023-08-07 15:04:00 103 mm[Hg] [facility] Diastolic blood pressure 2023-08-07 15:04:00 69 mm[Hg] [facility] Heart rate 2023-08-07 15:04:00 74 /min [facility] Body height 2023-08-07 15:04:00 175.3 cm [facility] Body weight 2023-08-07 15:04:00 130.636 kg [facility] BMI 2023-08-07 15:04:00 42.53 kg/m2 [facility] Oxygen saturation in Arterial blood by Pulse oximetry 2023-08-07 15:04:00 100 /min [facility] Systolic blood pressure 2023-08-06 22:09:00 112 mm[Hg] [facility] Diastolic blood pressure 2023-08-06 22:09:00 74 mm[Hg] [facility] Heart rate 2023-08-06 22:09:00 75 /min [facility] Body temperature 2023-08-06 22:09:00 36.83 Tejal [facility] Respiratory rate 2023-08-06 22:09:00 18 /min [facility] Body height 2023-08-06 22:09:00 175.3 cm [facility] Body weight 2023-08-06 22:09:00 130.636 kg [facility] BMI 2023-08-06 22:09:00 42.53 kg/m2 [facility] Oxygen saturation in Arterial blood by Pulse oximetry 2023-08-06 22:09:00 100 /min [facility] Systolic blood pressure 2023-08-06 20:27:00 112 mm[Hg] [facility] Diastolic blood pressure 2023-08-06 20:27:00 78 mm[Hg] [facility] Heart rate 2023-08-06 20:27:00 78 /min [facility] Respiratory rate 2023-08-06 20:27:00 18 /min [facility] Body height 2023-08-06 20:27:00 175.3 cm [facility] Body weight 2023-08-06 20:27:00 130.636 kg [facility] BMI 2023-08-06 20:27:00 42.53 kg/m2 [facility] Systolic blood pressure 2023-08-04 14:29:00 111 mm[Hg] [facility] Diastolic blood pressure 2023-08-04 14:29:00 77 mm[Hg] [facility] Heart rate 2023-08-04 14:29:00 66 /min [facility] Body temperature 2023-08-04 14:29:00 36.5 Tejal [facility] Respiratory rate 2023-08-04 14:29:00 16 /min [facility] Body height 2023-08-04 14:29:00 175.3 cm [facility] Body weight 2023-08-04 14:29:00 130.908 kg [facility] BMI 2023-08-04 14:29:00 42.62 kg/m2 [facility] Oxygen saturation in Arterial blood by Pulse oximetry 2023-08-04 14:29:00 94 /min [facility] Systolic blood pressure 2023-07-21 14:52:00 102 mm[Hg] [facility] Diastolic blood pressure 2023-07-21 14:52:00 68 mm[Hg] [facility] Heart rate 2023-07-21 14:52:00 65 /min [facility] Respiratory rate 2023-07-21 14:52:00 12 /min [facility] Body height 2023-07-21 14:52:00 175.3 cm [facility] Body weight 2023-07-21 14:52:00 131.543 kg [facility] BMI 2023-07-21 14:52:00 42.83 kg/m2 [facility] Oxygen saturation in Arterial blood by Pulse oximetry 2023-07-21 14:52:00 99 /min [facility] Systolic blood pressure 2023-07-16 20:17:00 112 mm[Hg] [facility] Diastolic blood pressure 2023-07-16 20:17:00 73 mm[Hg] [facility] Heart rate 2023-07-16 20:17:00 76 /min [facility] Oxygen saturation in Arterial blood by Pulse oximetry 2023-07-16 20:17:00 99 /min [facility] Body temperature 2023-07-16 20:16:00 36.94 Tejal [facility] Respiratory rate 2023-07-16 20:16:00 18 /min [facility] Body height 2023-07-16 20:16:00 175.3 cm [facility] Body weight 2023-07-16 20:16:00 131.543 kg [facility] BMI 2023-07-16 20:16:00 42.83 kg/m2 [facility] Systolic blood pressure 2023-07-13 16:48:00 115 mm[Hg] [place] [facility] Diastolic blood pressure 2023-07-13 16:48:00 79 mm[Hg] [facility] Heart rate 2023-07-13 16:48:00 75 /min [facility] Respiratory rate 2023-07-13 16:48:00 18 /min [facility] Body height 2023-07-13 16:48:00 175.3 cm [facility] Body weight 2023-07-13 16:48:00 133.267 kg [facility] BMI 2023-07-13 16:48:00 43.39 kg/m2 [facility] Oxygen saturation in Arterial blood by Pulse oximetry 2023-07-13 16:48:00 99 /min [facility] Systolic blood pressure 2023-07-07 16:29:00 106 mm[Hg] [facility] Diastolic blood pressure 2023-07-07 16:29:00 74 mm[Hg] [facility] Heart rate 2023-07-07 16:29:00 88 /min [facility] Body height 2023-07-07 16:29:00 175.3 cm [facility] Body weight 2023-07-07 16:29:00 132.45 kg [facility] BMI 2023-07-07 16:29:00 43.12 kg/m2 [facility] Oxygen saturation in Arterial blood by Pulse oximetry 2023-07-07 16:29:00 99 /min [facility] Systolic blood pressure 2023-06-25 14:45:00 117 mm[Hg] [facility] Diastolic blood pressure 2023-06-25 14:45:00 81 mm[Hg] [facility] Heart rate 2023-06-25 14:45:00 69 /min [facility] Respiratory rate 2023-06-25 14:45:00 18 /min [facility] Body height 2023-06-25 14:45:00 175.3 cm [facility] Body weight 2023-06-25 14:45:00 132.904 kg [facility] BMI 2023-06-25 14:45:00 43.25 kg/m2 [facility] Systolic blood pressure 2023-06-08 13:59:00 110 mm[Hg] [facility] Diastolic blood pressure 2023-06-08 13:59:00 76 mm[Hg] [facility] Heart rate 2023-06-08 13:59:00 72 /min [facility] Body height 2023-06-08 13:59:00 175.3 cm [facility] Body weight 2023-06-08 13:59:00 134.9 kg [facility] BMI 2023-06-08 13:59:00 43.92 kg/m2 [facility] Oxygen saturation in Arterial blood by Pulse oximetry 2023-06-08 13:59:00 98 /min [facility] Systolic blood pressure 2023-06-03 00:43:00 122 mm[Hg] [facility] Diastolic blood pressure 2023-06-03 00:43:00 94 mm[Hg] [facility] Heart rate 2023-06-03 00:43:00 84 /[facility] Body temperature 2023-06-03 00:43:00 36.56 Tejal [facility] Respiratory rate 2023-06-03 00:43:00 20 /min [facility] Body height 2023-06-03 00:43:00 175.3 cm [facility] Body weight 2023-06-03 00:43:00 102.059 kg [facility] BMI 2023-06-03 00:43:00 33.23 kg/m2 [facility] Oxygen saturation in Arterial blood by Pulse oximetry 2023-06-03 00:43:00 99 /min [facility] Body height 2023-05-14 13:50:00 175.3 cm [facility] Body weight 2023-05-14 13:50:00 131.135 kg [facility] BMI 2023-05-14 13:50:00 42.69 kg/m2 [facility] Systolic blood pressure 2023-05-11 19:24:00 119 mm[Hg] [facility] Diastolic blood pressure 2023-05-11 19:24:00 80 mm[Hg] [facility] Heart rate 2023-05-11 19:24:00 70 /min [facility] Body height 2023-05-11 19:24:00 175.3 cm [facility] Body weight 2023-05-11 19:24:00 130.772 kg [facility] BMI 2023-05-11 19:24:00 42.57 kg/m2 [facility] Oxygen saturation in Arterial blood by Pulse oximetry 2023-05-11 19:24:00 99 /min [facility] Systolic blood pressure 2023-04-23 14:30:00 116 mm[Hg] [facility] Diastolic blood pressure 2023-04-23 14:30:00 80 mm[Hg] [facility] Heart rate 2023-04-23 14:30:00 65 /min [facility] Body height 2023-04-23 14:30:00 175.3 cm [facility] Body weight 2023-04-23 14:30:00 131.407 kg [facility] BMI 2023-04-23 14:30:00 42.78 kg/m2 [facility] Oxygen saturation in Arterial blood by Pulse oximetry 2023-04-23 14:30:00 99 /min [facility] Systolic blood pressure 2023-04-21 15:43:00 106 mm[Hg] [facility] Diastolic blood pressure 2023-04-21 15:43:00 75 mm[Hg] [facility] Heart rate 2023-04-21 15:43:00 74 /min Unive [facility] Respiratory rate 2023-04-21 15:43:00 18 /min [facility] Body height 2023-04-21 15:43:00 175.3 cm [facility] Body weight 2023-04-21 15:43:00 131.316 kg [facility] BMI 2023-04-21 15:43:00 42.75 kg/m2 [facility] Oxygen saturation in Arterial blood by Pulse oximetry 2023-04-21 15:43:00 97 /min [facility] Systolic blood pressure 2023-04-13 23:03:00 115 mm[Hg] [facility] Diastolic blood pressure 2023-04-13 23:03:00 78 mm[Hg] [facility] Heart rate 2023-04-13 23:03:00 79 /min [facility] Body temperature 2023-04-13 23:03:00 37.06 Tejal [facility] Respiratory rate 2023-04-13 23:03:00 16 /min [facility] Body weight 2023-04-13 23:03:00 128.822 kg [facility] BMI 2023-04-13 23:03:00 41.94 kg/m2 [facility] Oxygen saturation in Arterial blood by Pulse oximetry 2023-04-13 23:03:00 98 /min [facility] Systolic blood pressure 2023-04-09 15:46:00 117 mm[Hg] [facility] Diastolic blood pressure 2023-04-09 15:46:00 73 mm[Hg] [facility] Heart rate 2023-04-09 15:46:00 74 /min [facility] Body height 2023-04-09 15:46:00 175.3 cm [facility] Body weight 2023-04-09 15:46:00 129.23 kg [facility] BMI 2023-04-09 15:46:00 42.07 kg/m2 [facility] Oxygen saturation in Arterial blood by Pulse oximetry 2023-04-09 15:46:00 98 /min [facility] Systolic blood pressure 2023-04-06 18:07:00 110 mm[Hg] [facility] Diastolic blood pressure 2023-04-06 18:07:00 71 mm[Hg] [facility] Heart rate 2023-04-06 18:07:00 82 /min Unive [facility] Body temperature 2023-04-06 18:07:00 37.44 Tejal [facility] Body height 2023-04-06 18:07:00 175.3 cm [facility] Body weight 2023-04-06 18:07:00 128.096 kg [facility] BMI 2023-04-06 18:07:00 41.70 kg/m2 [facility] Oxygen saturation in Arterial blood by Pulse oximetry 2023-04-06 18:07:00 99 /min [facility] Body height 2023-03-26 14:09:00 175.3 cm [facility] Body weight 2023-03-26 14:09:00 129.547 kg [facility] BMI 2023-03-26 14:09:00 42.18 kg/m2 [facility] Systolic blood pressure 2023-03-24 13:57:00 104 mm[Hg] [facility] Diastolic blood pressure 2023-03-24 13:57:00 57 mm[Hg] [facility] Heart rate 2023-03-24 13:57:00 67 /min Unive [facility] Respiratory rate 2023-03-24 13:57:00 18 /min [facility] Body height 2023-03-24 13:57:00 175.3 cm [facility] Body weight 2023-03-24 13:57:00 131.135 kg [facility] BMI 2023-03-24 13:57:00 42.69 kg/m2 [facility] Oxygen saturation in Arterial blood by Pulse oximetry 2023-03-24 13:57:00 100 /min [facility] Respiratory rate 2023-02-16 17:39:00 15 /min [facility] Oxygen saturation in Arterial blood by Pulse oximetry 2023-02-16 17:39:00 95 /min [facility] Systolic blood pressure 2023-02-16 17:34:00 106 mm[Hg] [facility] Diastolic blood pressure 2023-02-16 17:34:00 70 mm[Hg] [facility] Heart rate 2023-02-16 17:33:00 71 /min Unive [facility] Body temperature 2023-02-16 16:08:00 36.33 Tejal [facility] Body height 2023-02-10 19:00:00 175.3 cm [facility] Body weight 2023-02-10 19:00:00 129.275 kg [facility] BMI 2023-02-10 19:00:00 42.09 kg/m2 [facility] Respiratory rate 2023-02-16 16:16:00 12 /min [facility] Oxygen saturation in Arterial blood by Pulse oximetry 2023-02-16 16:16:00 100 /min [facility] Systolic blood pressure 2023-02-16 16:13:00 112 mm[Hg] [facility] Diastolic blood pressure 2023-02-16 16:13:00 77 mm[Hg] [facility] Body temperature 2023-02-16 16:08:00 36.33 Tejal [facility] Heart rate 2023-02-16 12:29:00 79 /min Unive [facility] Body height 2023-02-10 19:00:00 175.3 cm [facility] Body weight 2023-02-10 19:00:00 129.275 kg [facility] BMI 2023-02-10 19:00:00 42.09 kg/m2 [facility] Systolic blood pressure 2023-01-30 13:03:00 132 mm[Hg] [facility] Diastolic blood pressure 2023-01-30 13:03:00 80 mm[Hg] [facility] Heart rate 2023-01-30 13:03:00 64 /min Unive [facility] Body height 2023-01-30 13:03:00 175.3 cm [facility] Body weight 2023-01-30 13:03:00 130.182 kg [facility] BMI 2023-01-30 13:03:00 42.38 kg/m2 [facility] Oxygen saturation in Arterial blood by Pulse oximetry 2023-01-30 13:03:00 98 /min [facility] Systolic blood pressure 2023 14:34:00 104 mm[Hg] [facility] Diastolic blood pressure 2023 14:34:00 72 mm[Hg] [facility] Heart rate 2023 14:34:00 76 /min [facility] Body height 2023 14:34:00 175.3 cm [facility] Body weight 2023 14:34:00 129.638 kg [facility] BMI 2023 14:34:00 42.21 kg/m2 [facility] Oxygen saturation in Arterial blood by Pulse oximetry 2023 14:34:00 97 /min [facility] Systolic blood pressure 2022-12-26 16:12:00 103 mm[Hg] [facility] Diastolic blood pressure 2022-12-26 16:12:00 71 mm[Hg] [facility] Heart rate 2022-12-26 16:12:00 78 /min Unive [facility] Respiratory rate 2022-12-26 16:12:00 20 /min [facility] Body height 2022-12-26 16:12:00 175.3 cm [facility] Body weight 2022-12-26 16:12:00 126.644 kg [facility] BMI 2022-12-26 16:12:00 41.23 kg/m2 [facility] Oxygen saturation in Arterial blood by Pulse oximetry 2022-12-26 16:12:00 100 /min [facility] Body height 2022-12-25 15:19:00 175.3 cm [facility] Body weight 2022-12-25 15:19:00 127.007 kg [facility] BMI 2022-12-25 15:19:00 41.35 kg/m2 [facility] Systolic blood pressure 2022-12-13 18:26:00 109 mm[Hg] [facility] Diastolic blood pressure 2022-12-13 18:26:00 75 mm[Hg] [facility] Heart rate 2022-12-13 18:26:00 85 /min Unive [facility] Body temperature 2022-12-13 18:26:00 37 Tejal [facility] Respiratory rate 2022-12-13 18:26:00 17 /min [facility] Body weight 2022-12-13 18:26:00 127.234 kg [facility] BMI 2022-12-13 18:26:00 41.42 kg/m2 [facility] Oxygen saturation in Arterial blood by Pulse oximetry 2022-12-13 18:26:00 100 /min [facility] Systolic blood pressure 2022-09-23 00:55:00 113 mm[Hg] [facility] Diastolic blood pressure 2022-09-23 00:55:00 74 mm[Hg] [facility] Heart rate 2022-09-23 00:55:00 78 /min Unive [facility] Body temperature 2022-09-23 00:55:00 36.67 Tejal [facility] Respiratory rate 2022-09-23 00:55:00 15 /min [facility] Body height 2022-09-23 00:55:00 175.3 cm [facility] Body weight 2022-09-23 00:55:00 124.512 kg [facility] BMI 2022-09-23 00:55:00 40.54 kg/m2 [facility] Oxygen saturation in Arterial blood by Pulse oximetry 2022-09-23 00:55:00 99 /min [facility] BP Systolic 2024-09-15 08:54:00 142 mm[Hg] Tez Rose BP Diastolic 2024-09-15 08:54:00 84 mm[Hg] Luke Rose Weight Measured 2024-09-15 08:54:00 281.00 pounds Bal Rose Height Measured 2024-09-15 08:54:00 69.00 inches [facility] Body Temperature 2024-09-15 08:54:00 97.90 degrees Bal F [facility] Heart Rate 2024-09-15 08:54:00 82.00 /min Alexandra en F [facility] Respiratory Rate 2024-09-15 08:54:00 18.00 /min Bal F [facility] BP Systolic 2024-09-13 17:10:00 125 mm[Hg] Step hen F [facility] BP Diastolic 2024-09-13 17:10:00 79 mm[Hg] Luke phen F [facility] Weight Measured 2024-09-13 17:10:00 280.00 pounds Bal F [facility] Height Measured 2024-09-13 17:10:00 69.00 inches Bal [facility] Body Temperature 2024-09-13 17:10:00 98.40 degrees Bal F [facility] Heart Rate 2024-09-13 17:10:00 89.00 /min Alexandra en [facility] Respiratory Rate 2024-09-13 17:10:00 Bal F Milton BP Systolic 2024-07-22 14:22:00 113 mm[Hg] Step hen F [facility] BP Diastolic 2024-07-22 14:22:00 67 mm[Hg] Luke phen F [facility] Weight Measured 2024-07-22 14:22:00 286.40 pounds Bal F [facility] Height Measured 2024-07-22 14:22:00 69.00 inches Bal F [facility] Body Temperature 2024-07-22 14:22:00 98.40 degrees Bal F [facility] Heart Rate 2024-07-22 14:22:00 83.00 /min Alexandra en [facility] Respiratory Rate 2024-07-22 14:22:00 Bal F Milton BP Systolic 2024-07-07 08:11:00 124 mm[Hg] Step hen F [facility] BP Diastolic 2024-07-07 08:11:00 83 mm[Hg] Luke phen F [facility] Weight Measured 2024-07-07 08:11:00 289.40 pounds Bal F [facility] Height Measured 2024-07-07 08:11:00 69.00 inches Bal F [facility] Body Temperature 2024-07-07 08:11:00 98.20 degrees Bal F [facility] Heart Rate 2024-07-07 08:11:00 71.00 /min Alexandra en [facility] Respiratory Rate 2024-07-07 08:11:00 Bal F Milton BP Systolic 2024-07-04 17:22:00 113 mm[Hg] Step hen F [facility] BP Diastolic 2024-07-04 17:22:00 76 mm[Hg] Luke phen F [facility] Weight Measured 2024-07-04 17:22:00 287.40 pounds Bal F [facility] Height Measured 2024-07-04 17:22:00 69.00 inches Bal F [facility] Body Temperature 2024-07-04 17:22:00 97.90 degrees Bal F [facility] Heart Rate 2024-07-04 17:22:00 96.00 /min Alexandra en F [facility] Respiratory Rate 2024-07-04 17:22:00 Bal F Milton BP Systolic 2024-06-07 17:23:00 111 mm[Hg] Step hen F [facility] BP Diastolic 2024-06-07 17:23:00 76 mm[Hg] Luke phen F [facility] Weight Measured 2024-06-07 17:23:00 283.20 pounds Bal F [facility] Height Measured 2024-06-07 17:23:00 69.00 inches Bal F [facility] Body Temperature 2024-06-07 17:23:00 97.90 degrees Bal F [facility] Heart Rate 2024-06-07 17:23:00 87.00 /min Alexandra en F [facility] Respiratory Rate 2024-06-07 17:23:00 17.00 /min Bal F [facility] BP Systolic 2024-05-20 17:42:00 107 mm[Hg] Step hen F [facility] BP Diastolic 2024-05-20 17:42:00 73 mm[Hg] Luke phen F [facility] Weight Measured 2024-05-20 17:42:00 280.80 pounds Bal F [facility] Height Measured 2024-05-20 17:42:00 69.00 inches Bal F [facility] Body Temperature 2024-05-20 17:42:00 Bal F [facility] Heart Rate 2024-05-20 17:42:00 72.00 /min Alexandra en F [facility] Respiratory Rate 2024-05-20 17:42:00 Bal F Milton BP Systolic 2024-04-12 11:50:00 106 mm[Hg] Step hen F [facility] BP Diastolic 2024-04-12 11:50:00 72 mm[Hg] Luke phen F [facility] Weight Measured 2024-04-12 11:50:00 287.40 pounds Bal F [facility] Height Measured 2024-04-12 11:50:00 69.00 inches Bal F [facility] Body Temperature 2024-04-12 11:50:00 98.20 degrees Bal F [facility] Heart Rate 2024-04-12 11:50:00 84.00 /min Alexandra en [facility] Respiratory Rate 2024-04-12 11:50:00 19.00 /min Bal F [facility] BP Systolic 2024-03-01 13:46:00 Step hen F [facility] BP Diastolic 2024-03-01 13:46:00 Luke phen F [place] Weight Measured 2024-03-01 13:46:00 287.00 pounds Bal F [facility] Height Measured 2024-03-01 13:46:00 Bal F [facility] Body Temperature 2024-03-01 13:46:00 Bal F [facility] Heart Rate 2024-03-01 13:46:00 Alexandra en F [facility] Respiratory Rate 2024-03-01 13:46:00 Bal F Milton BP Systolic 2024-03-01 13:13:00 118 mm[Hg] Step hen F [facility] BP Diastolic 2024-03-01 13:13:00 79 mm[Hg] Luke phen F [facility] Weight Measured 2024-03-01 13:13:00 287.00 pounds Bal F [facility] Height Measured 2024-03-01 13:13:00 69.00 inches Bal F [facility] Body Temperature 2024-03-01 13:13:00 99.10 degrees Bal F [facility] Heart Rate 2024-03-01 13:13:00 97.00 /min Alexandra en F [facility] Respiratory Rate 2024-03-01 13:13:00 18.00 /min Bal F [facility] BP Systolic 2024-02-01 13:45:00 117 mm[Hg] Step hen F [facility] BP Diastolic 2024-02-01 13:45:00 81 mm[Hg] Luke phen F [facility] Weight Measured 2024-02-01 13:45:00 286.20 pounds Bal F [facility] Height Measured 2024-02-01 13:45:00 69.00 inches Bal F [facility] Body Temperature 2024-02-01 13:45:00 98.00 degrees Bal F [facility] Heart Rate 2024-02-01 13:45:00 80.00 /min Alexandra en F [facility] Respiratory Rate 2024-02-01 13:45:00 18.00 /min Bal F [facility] BP Systolic 2024-01-11 08:34:00 111 mm[Hg] Step hen F [facility] BP Diastolic 2024-01-11 08:34:00 78 mm[Hg] Luke phen F [facility] Weight Measured 2024-01-11 08:34:00 284.20 pounds Bal F [facility] Height Measured 2024-01-11 08:34:00 69.00 inches Bal F [facility] Body Temperature 2024-01-11 08:34:00 98.00 degrees Bal F Milton Heart Rate 2024-01-11 08:34:00 63.00 /min Alexandra en F [facility] Respiratory Rate 2024-01-11 08:34:00 18.00 /min Bal F [facility] BP Systolic 2024-01-06 14:56:00 114 mm[Hg] Step hen F [facility] BP Diastolic 2024-01-06 14:56:00 70 mm[Hg] Luke phen F [facility] Weight Measured 2024-01-06 14:56:00 283.20 pounds Bal F [facility] Height Measured 2024-01-06 14:56:00 69.00 inches Bal F [facility] Body Temperature 2024-01-06 14:56:00 98.20 degrees Bal F [facility] Heart Rate 2024-01-06 14:56:00 85.00 /min Alexandra en F [facility] Respiratory Rate 2024-01-06 14:56:00 18.00 /min Bal F [facility] BP Systolic 2024-01-04 10:10:00 108 mm[Hg] Step hen F [facility] BP Diastolic 2024-01-04 10:10:00 73 mm[Hg] Luke phen F [facility] Weight Measured 2024-01-04 10:10:00 286.00 pounds Bal F [facility] Height Measured 2024-01-04 10:10:00 69.00 inches Bal F [facility] Body Temperature 2024-01-04 10:10:00 98.20 degrees Bal F [facility] Heart Rate 2024-01-04 10:10:00 84.00 /min Alexandra en F [place] Respiratory Rate 2024-01-04 10:10:00 Bal F Milton BP Systolic 2023-12-25 09:30:00 121 mm[Hg] Step hen F [facility] BP Diastolic 2023-12-25 09:30:00 88 mm[Hg] Luke phen F [place] Weight Measured 2023-12-25 09:30:00 285.60 pounds Bal F [place] Height Measured 2023-12-25 09:30:00 69.00 inches Bal F [facility] Body Temperature 2023-12-25 09:30:00 98.20 degrees Bal F Milton Heart Rate 2023-12-25 09:30:00 79.00 /min Alexandra en F [facility] Respiratory Rate 2023-12-25 09:30:00 18.00 /min Bal F [facility] BP Systolic 2023-12-04 13:39:00 116 mm[Hg] Step hen F [facility] BP Diastolic 2023-12-04 13:39:00 74 mm[Hg] Luke phen F [facility] Weight Measured 2023-12-04 13:39:00 286.20 pounds Bal F [facility] Height Measured 2023-12-04 13:39:00 69.00 inches Bal F [facility] Body Temperature 2023-12-04 13:39:00 98.20 degrees Bal F [facility] Heart Rate 2023-12-04 13:39:00 77.00 /min Alexandra en F [facility] Respiratory Rate 2023-12-04 13:39:00 18.00 /min Bal F [facility] BP Systolic 2023-11-05 11:05:00 118 mm[Hg] Step hen F [facility] BP Diastolic 2023-11-05 11:05:00 78 mm[Hg] Luke phen F [facility] Weight Measured 2023-11-05 11:05:00 290.40 pounds Bal F [facility] Height Measured 2023-11-05 11:05:00 69.00 inches Bal F [facility] Body Temperature 2023-11-05 11:05:00 98.20 degrees Bal F Milton Heart Rate 2023-11-05 11:05:00 78.00 /min Alexandra en F [facility] Respiratory Rate 2023-11-05 11:05:00 19.00 /min Bal F [facility] BP Systolic 2023-10-28 09:16:00 110 mm[Hg] Step hen F [facility] BP Diastolic 2023-10-28 09:16:00 67 mm[Hg] Luke phen F [facility] Weight Measured 2023-10-28 09:16:00 290.40 pounds Bal F [facility] Height Measured 2023-10-28 09:16:00 69.00 inches Bal F [facility] Body Temperature 2023-10-28 09:16:00 98.20 degrees Bal F [facility] Heart Rate 2023-10-28 09:16:00 80.00 /min Alexandra en F [facility] Respiratory Rate 2023-10-28 09:16:00 18.00 /min Bal F [facility] BP Systolic 2023-09-30 08:41:00 112 mm[Hg] Step hen F [facility] BP Diastolic 2023-09-30 08:41:00 68 mm[Hg] Luke phen F [facility] Weight Measured 2023-09-30 08:41:00 291.20 pounds Bal F [facility] Height Measured 2023-09-30 08:41:00 69.00 inches Bal F [facility] Body Temperature 2023-09-30 08:41:00 98.30 degrees Bal F Milton Heart Rate 2023-09-30 08:41:00 65.00 /min Alexandra en F [facility] Respiratory Rate 2023-09-30 08:41:00 18.00 /min Bal F [facility] BP Systolic 2023-09-23 09:00:00 115 mm[Hg] Step hen F [facility] BP Diastolic 2023-09-23 09:00:00 67 mm[Hg] Luke phen F [facility] Weight Measured 2023-09-23 09:00:00 287.20 pounds Bal F Milton Height Measured 2023-09-23 09:00:00 69.00 inches Bal F [facility] Body Temperature 2023-09-23 09:00:00 98.30 degrees Bal F Milotn Heart Rate 2023-09-23 09:00:00 75.00 /min Alexandra en F [facility] Respiratory Rate 2023-09-23 09:00:00 18.00 /min Bal F [facility] BP Systolic 2023-09-10 13:25:00 106 mm[Hg] Step hen F Milton BP Diastolic 2023-09-10 13:25:00 72 mm[Hg] Luke phen F [facility] Weight Measured 2023-09-10 13:25:00 289.60 pounds Bal F [facility] Height Measured 2023-09-10 13:25:00 69.00 inches Bal F [facility] Body Temperature 2023-09-10 13:25:00 98.90 degrees Bal F [facility] Heart Rate 2023-09-10 13:25:00 84.00 /min Alexandra en F [facility] Respiratory Rate 2023-09-10 13:25:00 18.00 /min Bal F [facility] Height Measured 2023-08-28 09:19:00 69.00 inches Bal F [facility] Body Temperature 2023-08-28 09:19:00 98.20 degrees Bal F Milton Heart Rate 2023-08-28 09:19:00 75.00 /min Alexandra en F [facility] Respiratory Rate 2023-08-28 09:19:00 18.00 /min Bal F [facility] BP Systolic 2023-08-28 09:19:00 103 mm[Hg] Step hen F Milton BP Diastolic 2023-08-28 09:19:00 70 mm[Hg] Luke phen F [facility] Weight Measured 2023-08-28 09:19:00 289.80 pounds Bal F Milton BP Systolic 2023-07-31 10:23:00 114 mm[Hg] Step hen F Milton BP Diastolic 2023-07-31 10:23:00 74 mm[Hg] Luke phen F [facility] Weight Measured 2023-07-31 10:23:00 285.00 pounds Bal F [facility] Height Measured 2023-07-31 10:23:00 69.00 inches Bal F [facility] Body Temperature 2023-07-31 10:23:00 98.20 degrees Bal F Milton Heart Rate 2023-07-31 10:23:00 75.00 /min Alexandra en F [facility] Respiratory Rate 2023-07-31 10:23:00 18.00 /min Bal F [facility] BP Systolic 2023-07-10 13:49:00 108 mm[Hg] Step hen F [facility] BP Diastolic 2023-07-10 13:49:00 72 mm[Hg] Luke phen F [facility] Weight Measured 2023-07-10 13:49:00 290.60 pounds Bal F [facility] Height Measured 2023-07-10 13:49:00 69.00 inches Bal Rose Body Temperature 2023-07-10 13:49:00 98.30 degrees Bal Rose Heart Rate 2023-07-10 13:49:00 83.00 /min Alexandra en Benny Rose Respiratory Rate 2023-07-10 13:49:00 17.00 /min Bal Rose BP Systolic 2023-06-26 08:53:00 106 mm[Hg] Step hen Benny Rose BP Diastolic 2023-06-26 08:53:00 70 mm[Hg] Luke Rose Weight Measured 2023-06-26 08:53:00 292.40 pounds Bal Rose Height Measured 2023-06-26 08:53:00 69.00 inches Bal Rose Body Temperature 2023-06-26 08:53:00 98.30 degrees Bal Rose Heart Rate 2023-06-26 08:53:00 68.00 /min Alexandra en Benny Rose Respiratory Rate 2023-06-26 08:53:00 Bal Rose Procedures Procedure Date / Time Performed Performing Clinician Source MR ABDOMEN WO CONTRAST MRCP 2024-01-29 16:15:32 Whit Mckinnon [facility] TRANSTHORACIC ECHO (TTE) COMPLETE 2024-01-20 15:35:56 Armando Hebert [facility] FL BARIUM SWALLOW ESOPHAGUS 2024-01-13 14:34:25 Whit Mckinnon [facility] CT ANGIOGRAM ABDOMEN/PELVIS 2024-01-08 23:22:36 Gina Munroe [facility] POCT TEST 2024-01-08 22:34:00 Gina Munroe [facility] TEST, SERUM 2024-01-08 21:57:00 Shaneka Gina Tarsha [facility] TROPONIN I 2024-01-08 21:57:00 Shaneka Gina Tarsha [facility] BASIC METABOLIC PANEL (NA, K , CL, CO2, GLUCOSE, BUN, CREATININE, CA) 2024-01-08 21:57:00 Shaneka Gina Tarsha [facility] CBC WITH DIFF 2024-01-08 21:57:00 Shaneka Gina Tarsha [facility] N-TERMINAL PRO-BNP 2024-01-08 21:57:00 Gina Munroe [facility] US ABDOMEN LIMITED 2024-01-06 13:50:47 Whit Mckinnon [facility] MR KNEE RIGHT WO CONTRAST 2023-12-15 13:24:27 Nain Richardson [facility] XR LUMBAR SPINE 2 VW 2023-12-01 14:58:00 Thierno Rodgers [facility] XR HIPS 2 VW RIGHT 2023-12-01 13:37:00 Gloria Luu [facility] XR KNEE 4+ VW RIGHT 2023-12-01 13:37:00 Carla Cologneyoni [facility] VENOUS REFLUX DUPLEX RIGHT - BY VASCULAR LAB 2023-11-17 13:36:11 Marco A Dowell [facility] SLEEP STUDY DATA REPORT 2023-09-29 06:01:00 Doctor Unassigned, [place] [facility] URINALYSIS 2023-09-15 18:29:00 Sue Baca [facility] C4 COMPLEMENT 2023-09-15 18:06:00 Sue Baca [facility] HEPATITIS B SURFACE ANTIGEN 2023-09-15 18:06:00 Sue Baca [facility] HCV ANTIBODY 2023-09-15 18:06:00 Sue Baca [facility] ANTI-CENTROMERE B 2023-09-15 18:06:00 Sue Baca [facility] ANTI-SSB(LA) 2023-09-15 18:06:00 Sue Baca [facility] ANTIPHOSPHOLIPID ANTIBODY TESTS AND EVALUATION 2023-09-15 18:06:00 Sue Baca [facility] ANTIPHOSPHOLIPID ANTIBODY EVALUATION-LT BLUE 2023-09-15 18:06:00 Sue Baca [facility] ANTIPHOSPHOLIPID ANTIBODY EVALUATION-SST 2023-09-15 18:06:00 Sue Baca [facility] XR KNEE 3 VW RIGHT 2023-09-11 21:06:32 Requisition, Paper [facility] US PELVIS COMPLETE WITH TRANSVAGINAL 2023-08-13 19:16:39 Yaneth Hutchins [facility] GAMMA GLUTAMYLTRANSFERASE 2023-08-07 16:14:00 Whit Mckinnon [facility] HEPATIC FUNCTION PANEL (23097) (ALB,T.PRO,BILI T,BU/BC,ALT,AST,ALK PHOS) 2023-08-07 16:14:00 Whit Mckinnon [facility] BASIC METABOLIC PANEL (NA, K , CL, CO2, GLUCOSE, BUN, CREATININE, CA) 2023-08-07 16:14:00 Pratibha Whit [facility] ALPHA FETOPROTEIN 2023-08-07 16:14:00 Pratibha [facility] CBC WITH DIFF 2023-08-07 16:14:00 Pratibha [facility] PROTHROMBIN TIME / INR 2023-08-07 16:14:00 Pratibha Whit [facility] ACTIVATED PARTIAL THRMPLAS FREDY 2023-08-07 16:14:00 Pratibha [facility] HEPATITIS B SURFACE ANTIBODY 2023-08-07 16:14:00 Pratibha [facility] HEPATITIS B SURFACE ANTIGEN 2023-08-07 16:14:00 Pratibha [facility] HCV ANTIBODY 2023-08-07 16:14:00 Pratibha [facility] HBC ANTIBODY (IGM & IGG) 2023-08-07 16:14:00 Pratibha [facility] HAV ANTIBODY (IGG AND IGM) 2023-08-07 16:14:00 Pratibha [facility] CERULOPLASMIN 2023-08-07 16:14:00 Pratibha [facility] ALPHA 1 ANTITRYPSIN 2023-08-07 16:14:00 Prat[facility]ha [facility] ANTI-NUCLEAR ANTIBODY SCREEN 2023-08-04 15:23:00 Sue Baca [facility] HCV ANTIBODY 2023-08-04 15:23:00 Sue Baca [facility] ANTI-NUCLEAR ANTIBODY TITER 2023-08-04 15:23:00 Sue Baca [facility] ANTI-NUCLEAR ANTIBODY-PATHOLOGIST INTERPRETATION 2023-08-04 15:23:00 Sue Baca [facility] REFERRAL- REQUEST/RESPONSE 2023-07-31 06:01:00 Doctor Unassigned, [place] [facility] CT ANGIOGRAM ABDOMEN/PELVIS 2023-07-23 15:51:43 Marco A Dowell [facility] REFERRAL- REQUEST/RESPONSE 2023-07-13 06:01:00 Doctor Unassigned, [place] [facility] [id number] Ultrasound, Pelvic (nonobstetric), Real Time With Image Documentation; Complete 2023-07-02 00:00:00 Bal Rose PATIENT QUESTIONNAIRE 2023-06-25 06:01:00 Doctor Unassigned, [place] [facility] DUPLEX VENOUS LEGS BILATERAL - BY VASCULAR LAB 2023-06-22 17:50:53 Vivi Erwin [facility] MR BRAIN WO CONTRAST 2023-06-21 22:54:42 Ishmael Allen [facility] REFERRAL- REQUEST/RESPONSE 2023-06-05 05:01:00 Doctor Unassigned, [place] [facility] NM THYROID WHOLE BODY TUMOR 2023-06-04 16:54:00 Darren Decker [facility] CONSENT/REFUSAL FOR DIAGNOSI S AND TREATMENT 2023-06-02 23:53:42 Doctor Unassigned, [place] [facility] FREE T4 2023-06-02 15:17:00 Darren Decker [facility] THYROID STIMULATING HORMONE 2023-06-02 15:17:00 Darren Decker [facility] REFERRAL- REQUEST/RESPONSE 2023-05-15 05:01:00 Doctor Unassigned, [place] [facility] MR HIP RIGHT WO CONTRAST 2023-04-29 13:39:53 Vivi Erwin [facility] [id number] Removal Impacted Cerumen Requiring Instrumentation, Unilateral 2023-04-28 00:00:00 Bal Rose REFERRAL- REQUEST/RESPONSE 2023-04-21 05:01:00 Doctor Unassigned, [place] [facility] POCT MOLECULAR STREP 2023-04-13 23:25:00 Unknown, Attending [facility] POCT SARS-COV-2 ANTIGEN (BINAX NOW) 2023-04-13 23:00:00 Tanner Camara [facility] POCT URINALYSIS AUTO 2023-04-06 18:13:00 Laina Muir [facility] BI ULTRASOUND BREAST COMPLET E RIGHT 2023-04-01 15:36:10 Requisition, Paper [facility] BI ULTRASOUND BREAST LIMITED LEFT 2023-04-01 15:36:10 Lena Sellers [facility] BI DIAGNOSTIC TOMOSYNTHESIS BILATERAL 2023-04-01 15:09:58 Requisition, Paper [facility] CT SOFT TISSUE NECK W CONTRAST 2023-03-30 15:56:56 Casey Valdez [facility] REFERRAL- REQUEST/RESPONSE 2023-03-10 05:01:00 Doctor Unassigned, [place] [facility] US HEAD NECK 2023-02-24 15:47:00 Darren Decker [facility] MENISCECTOMY 2023-02-16 14:44:00 Abril Helm [facility] POCT TEST 2023-02-16 12:23:00 Jelani Kurtz [facility] POCT TEST 2023-02-16 12:23:00 Jelani Kurtz [facility] DAY SURGERY - ADC 2023-02-16 05:01:00 Doctor Unassigned, [place] [facility] INSURANCE CORRESPONDENCE 2023-02-11 05:01:00 Doctor Unassigned, [place] [facility] XR CHEST 1 VW 2023-02-10 14:28:20 Vivi Erwin [facility] EXTERNAL PROVIDER RECORDS 2023-02-03 05:01:00 Doctor Unassigned, [place] [facility] EXTERNAL PROVIDER RECORDS 2023-02-03 05:01:00 Doctor Unassigned, [place] [facility] DSU PRE-OP 2023-01-30 05:01:00 Doctor Unassigned, [place] [facility] MR KNEE RIGHT WO CONTRAST 2023-01-28 13:41:40 Vivi Erwin [facility] REFERRAL- REQUEST/RESPONSE 2023-01-07 05:01:00 Doctor Unassigned, [place] [facility] REFERRAL- REQUEST/RESPONSE 2022-12-09 05:01:00 Doctor Unassigned, [place] [facility] ASSIGNMENT OF BENEFITS 2022-11-27 18:56:21 Doctor Unassigned, [place] [facility] REFERRAL- REQUEST/RESPONSE 2022-09-12 06:01:00 Doctor Unassigned, [place] [facility] US PELVIS COMPLETE WITH TRANSVAGINAL 2022-08-07 19:52:50 Requisition, Paper [facility] NO SHOW OR MISSED APPOINTMEN T POLICY ACKNOWLEDGEMENT 2022-08-07 19:06:15 Doctor Unassigned, [place] [facility] PATIENT FINANCIAL POLICY 2022-08-07 19:05:32 Doctor Unassigned, [place] [facility] NOTICE OF PRIVACY PRACTICES 2022-08-07 19:05:14 Doctor Unassigned, [place] [facility] CONSENT/REFUSAL FOR DIAGNOSI S AND TREATMENT 2022-08-07 19:04:58 Doctor Unassigned, [place] [facility] ASSIGNMENT OF BENEFITS 2022-08-07 19:04:42 Doctor Unassigned, [place] [facility] Encounters Start Date/Time End Date/Time Encounter Type Admission Type Attending [facility] Care Department Encounter ID Source 2020-05-17 00:17:00 Inpatient LESLIE MendezEmmanuel wynnu [facility] [id number] [facility] 2024-09-17 10:38:10 2024-09-17 10:38:10 Outpatient SFA [facility] [id number] Bal Benny Milton 2024-09-15 08:45:39 2024-09-15 08:45:39 Outpatient SFA [facility] [id number] Bal Zapata Milton 2024-09-15 00:00:00 2024-09-15 00:00:00 Outpatient Visit [facility] [id number] Bal Zapata Milton 2024-09-13 17:10:20 2024-09-13 17:10:20 Outpatient SFA [facility] [id number] Bal Rose 2024-09-13 00:00:00 2024-09-13 00:00:00 Outpatient Visit SFA [id number] Bal Rose 2024-07-25 00:00:00 2024-08-27 18:17:58 Patient Secure Msg Hamida Blanco [facility] TREASURE?[facility] 1.2.840.114 350.1.13.10 4.2.7.2.686 [id number] [facility] 2024-08-24 09:58:41 2024-08-24 09:58:41 Outpatient SFA [facility] [id number] Bal Rose 2024-08-18 00:00:00 2024-08-18 14:07:29 Patient Secure Msg Hamida Blanco [facility] [place] [facility] 1.2.840.114 350.1.13.10 4.2.7.2.686 [id number] [facility] 2024-07-25 00:00:00 2024-07-25 16:51:21 Patient Secure Msg Hamida Blanco [facility] TREASURE?[facility] [facility] BU[facility] 1.2.840.114 350.1.13.10 4.2.7.2.686 [id number] [facility] 2024-07-25 00:00:00 2024-07-25 16:41:03 Patient Secure Msg Hamida Blanco [facility] TREASURE?[facility] [facility] 1.2.840.114 350.1.13.10 4.2.7.2.686 [id number] [facility] 2024-07-22 00:00:00 2024-07-22 00:00:00 Outpatient Visit SFA [id number] Bal Rose 2024-07-19 00:00:00 2024-07-19 08:53:45 Patient Secure Msg Hamida Blanco [facility] TREASURE?[facility] [facility] BU[facility] 1.2.840.114 350.1.13.10 4.2.7.2.686 [id number] [facility] 2024-07-19 00:00:00 2024-07-19 08:48:23 Patient Secure Msg Hamida Blanco [facility] TREASURE?[facility] BU[facility] 1.2840.114 350.1.13.10 4.2.7.2.686 [id number] [facility] 2024-07-18 00:00:00 2024-07-18 13:30:51 Patient Secure Msg Hamida Blanco [facility] 1.2840.114 350.1.13.10 4.2.7.2.686 [id number] [facility] 2024-07-18 00:00:00 2024-07-18 10:44:24 [facility] [facility] BU[facility] 1.2840.114 350.1.13.10 4.2.7.2.686 [id number] [facility] 2024-07-16 08:30:00 2024-07-16 08:45:00 Ditch Rider Visit Reganb, Adc Lab Main Hamida Blanco Angelia Jefferson, Adc Lab Main [facility] NAL BUILDING 1.2840.114 350.1.13.10 4.2.7.2.686 [id number] [facility] 2024-07-16 08:30:00 2024-07-16 08:30:00 Outpatient R HAMIDA BLANCO [facility] [id number] [facility] 2024-07-07 09:07:55 2024-07-07 09:07:55 Outpatient SFA SFA [id number] Bal Rose 2024-07-07 00:00:00 2024-07-07 00:00:00 Outpatient Visit SFA [id number] Bal Rose 2024-07-04 17:15:13 2024-07-04 17:15:13 Outpatient SFA SFA [id number] Bal Rose 2024-07-04 00:00:00 2024-07-04 00:00:00 Outpatient Visit SFA [id number] Bal Rose 2024-06-20 13:00:00 2024-06-20 13:54:46 Outpatient R UMACHARMAINEChristopher [facility] [id number] [facility] 2024-06-20 13:00:00 2024-06-20 13:54:46 Office Visit Hamida Blanco. [facility] MEDICAL OFFICE BUILDING 1.2.840.114 350.1.13.10 4.2.7.2.686 [id number] [facility] 2024-06-07 17:18:53 2024-06-07 17:18:53 Outpatient SFA SFA [id number] Bal Rose 2024-06-07 00:00:00 2024-06-07 00:00:00 Outpatient Visit SFA [id number] Bal Rose 2024-05-20 17:41:48 2024-05-20 17:41:48 Outpatient SFA SFA [id number] Bal Rose 2024-05-20 00:00:00 2024-05-20 00:00:00 Outpatient Visit SFA [id number] Bal Rose 2024-03-24 00:00:00 2024-04-30 18:28:58 Patient Secure Msg Doctor Unassigned, [place] Doctor Unassigned, [place] [facility] 1.2.840.114 350.1.13.10 4.2.7.2.686 [id number] [facility] 2024-03-17 00:00:00 2024-04-23 18:26:01 Patient Secure Msg Doctor Unassigned, [place] Doctor Unassigned, [place] [facility] BUILD[facility] 1..840.114 350.1.13.10 4.2.7.2.686 [id number] [facility] 2024-04-13 13:49:23 2024-04-13 13:49:23 Outpatient SFA [facility] [id number] Bal Rose 2024-04-13 00:00:00 2024-04-13 00:00:00 Outpatient Visit SFA [id number] Bal Rose 2024-04-12 11:42:31 2024-04-12 11:42:31 Outpatient SFA SFA [id number] Bal Zapata Milton 2024-04-12 00:00:00 2024-04-12 00:00:00 Outpatient Visit SFA [id number] Bal Zapata Milton 2024-03-21 00:00:00 2024-03-29 13:16:14 Telephone Zach Larsen [facility] BUILDING 1.2.840.114 350.1.13.10 4.2.7.2.686 [id number] [facility] 2024-03-29 08:30:00 2024-03-29 08:30:00 Outpatient SUE SIMPSON [facility] [id number] [facility] 2024-03-25 00:00:00 2024-03-25 00:00:00 Outpatient Visit [facility] [id number] Bal Rose 2024-03-23 08:08:01 2024-03-23 08:08:01 Outpatient SFA [facility] [id number] Bal Rose 2024-03-21 00:00:00 2024-03-21 00:00:00 Outpatient R CHAVA [facility] [id number] [facility] 2024-03-16 00:00:00 2024-03-16 00:00:00 Outpatient R RADIOLOGY [facility] [id number] [facility] 2024-03-08 00:00:00 2024-03-11 15:42:04 Telephone Chava Lobojules [facility] 1.2.840.114 350.1.13.10 4.2.7.2.686 [id number] [facility] 2024-03-09 00:00:00 2024-03-09 00:00:00 Outpatient R RADIOLOGY [facility] [id number] [facility] 2024-03-01 13:08:08 2024-03-01 13:08:08 Outpatient SFA [facility] [id number] Bal Rose 2024-03-01 00:00:00 2024-03-01 00:00:00 Outpatient Visit [facility] [id number] Bal Rose 2024-03-01 00:00:00 2024-03-01 00:00:00 Outpatient Visit [facility] [id number] Bal Rose 2024 00:00:00 2024-02-27 18:24:31 Patient Secure Armando Houser [facility] BUILDING 1.2.840.114 350.1.13.10 4.2.7.2.686 [id number] [facility] 2024-02-23 00:00:00 2024-02-23 00:00:00 Outpatient R CHAVAZACH [facility] [id number] [facility] 2024-02-22 00:00:00 2024-02-22 00:00:00 Outpatient R RADIOLOGY [facility] [id number] [facility] 2024-02-22 00:00:00 2024-02-22 00:00:00 Outpatient R RADIOLOGY [facility] [id number] [facility] 2024-02-15 20:00:00 2024-02-15 20:00:00 Outpatient R SOLA CARR STRADECurt [facility] [id number] [facility] 2024-01-08 00:00:00 2024-02-13 18:20:24 Patient Secure Armando Houser [facility] BUILDING 1.2.840.114 350.1.13.10 4.2.7.2.686 [id number] [facility] 2024-02-10 00:00:00 2024-02-10 00:00:00 Outpatient R RADIOLOGY [facility] [id number] [facility] 2024-02-09 11:00:00 2024-02-09 12:35:26 Outpatient R CHAVA ZACH [facility] [id number] [facility] 2024-02-09 11:00:00 2024-02-09 12:35:26 [facility] 1.2.840.114 350.1.13.10 4.2.7.2.686 [id number] [facility] 2024-02-09 12:00:00 2024-02-09 12:12:30 Ditch Rider Visit Lab, [place] - Alfa Chava [facility] MEDICAL OFFICE BUILDING 1.84.114 350.1.13.10 4.2.7.2.686 [id number] [facility] 2024-02-02 00:00:00 2024-02-02 16:36:35 Refill Chava [facility] MEDICAL OFFICE BUILDING 1.84.114 350.1.13.10 4.2.7.2.686 [id number] [facility] 2024-02-02 15:43:52 2024-02-02 15:43:52 Outpatient SFA [facility] [id number] Bal Rose 2024-02-01 00:00:00 2024-02-02 15:27:[address] [facility] 1.840.114 350.1.13.10 4.2.7.2.686 [id number] [facility] 2024-02-01 13:35:15 2024-02-01 13:35:15 Outpatient SFA [facility] [id number] Bal Rose 2024-02-01 00:00:00 2024-02-01 00:00:00 Outpatient Visit [facility] [id number] Bal Rose 2024-01-29 10:01:59 2024-01-29 23:59:00 Outpatient R WHIT MCKINNON [facility] [id number] [facility] 2024-01-29 10:01:59 2024-01-29 23:59:00 Hospital Encounter Whit Mckinnon [facility] 1.84.114 350.1.13.10 4.2.7.2.686 [id number] [facility] 2024-01-28 10:00:00 2024-01-28 10:00:00 Outpatient R GISELA DISLA NAIF GISELA [facility] [id number] [facility] 2024-01-28 09:00:06 2024-01-28 09:00:06 Outpatient SFA SFA [id number] Bal Rose 2024-01-25 00:00:00 2024-01-25 00:00:00 Outpatient R PRATIBHA WHIT [facility] [id number] [facility] 2024 20:00:00 2024 22:30:00 Ditch Rider Visit 1, Adc Sleep Lab Bed Nano Carrsunny Nelsy [facility] 1..840.114 350.1.13.10 4.2.7.2.686 [id number] [facility] 2024 20:00:00 2024 20:00:00 Outpatient R SOLA CARR STRADECurt [facility] [id number] [facility] 2024-01-20 09:39:16 2024-01-20 23:59:00 Outpatient R SHERRY HEBERTARAMIS [facility] [id number] [facility] 2024-01-20 09:39:16 2024-01-20 23:59:00 Hospital Encounter Sherry Hebertaramis [facility] 1..840.114 350.1.13.10 4.2.7.2.686 [id number] [facility] 2024-01-20 11:00:00 2024-01-20 11:15:00 Ditch Rider Visit Pob, Adc Lab Main Armando Hebert Radha Whalen [facility] 1..840.114 350.1.13.10 4.2.7.2.686 [id number] [facility] 2024-01-19 10:06:00 2024-01-19 10:06:00 Outpatient SFA [facility] [id number] Bal Rose 2024-01-18 08:30:00 2024-01-18 08:30:00 Outpatient R ELHAM RAMOS [facility] [id number] [facility] 2024-01-13 08:47:31 2024-01-13 23:59:00 Outpatient R WHIT MCKINNON [facility] [id number] [facility] 2024-01-13 08:30:00 2024-01-13 23:59:00 Hospital Encounter Whit Mckinnon [facility] 1.840.114 350.1.13.10 4.2.7.2.686 [id number] [facility] 2024-01-11 08:33:00 2024-01-11 08:33:00 Outpatient SFA [facility] [id number] Bal Rose 2024-01-11 00:00:00 2024-01-11 00:00:00 Outpatient Visit [facility] [id number] Bal Rose 2023-12-05 00:00:00 2024-01-09 18:09:52 Patient Secure Msg Doctor Unassigned, [place] [facility] 1..840.114 350.1.13.10 4.2.7.2.686 [id number] [facility] 2024-01-08 16:29:00 2024-01-08 19:54:00 Emergency X SHANEKA [facility] ERT [id number] [facility] 2024-01-08 16:29:00 2024-01-08 19:54:00 Emergency Gina Munroe [facility] 1.840.114 350.1.13.10 4.2.7.2.686 [id number] [facility] 2024-01-08 14:45:00 2024-01-08 16:28:00 [facility] 1.2.840.114 350.1.13.10 4.2.7.2.686 [id number] [facility] 2024-01-08 15:00:00 2024-01-08 15:15:00 Ditch Rider Visit Pob, Adc Lab Main Anup [facility] 1.2.840.114 350.1.13.10 4.2.7.2.686 [id number] [facility] 2024-01-08 14:20:00 2024-01-08 14:39:01 Outpatient R ANUP [facility] [id number] [facility] 2024-01-08 14:20:00 2024-01-08 14:39:01 Office Visit Anup [facility] 1.2.840.114 350.1.13.10 4.2.7.2.686 [id number] [facility] 2024-01-07 08:15:00 2024-01-07 08:15:00 Outpatient R GISELA DISLA JAMES [facility] [id number] [facility] 2024-01-06 08:12:52 2024-01-06 23:59:00 Outpatient R WHIT MCKINNON [facility] [id number] [facility] 2024-01-06 08:12:52 2024-01-06 23:59:00 Hospital Encounter Whit Mckinnon [facility] 1.2.840.114 350.1.13.10 4.2.7.2.686 [id number] [facility] 2024-01-06 14:52:02 2024-01-06 14:52:02 Outpatient DANNY [facility] [id number] Bal Rose 2024-01-06 00:00:00 2024-01-06 00:00:00 Outpatient Visit SFA [id number] Bal Rose 2024-01-05 11:30:00 2024-01-05 11:30:00 Outpatient R ZACH LARSEN [facility] [id number] [facility] 2024-01-04 15:19:41 2024-01-04 15:19:41 Outpatient [facility] [id number] Bal Rose 2024-01-04 00:00:00 2024-01-04 00:00:00 Outpatient Visit [facility] [id number] Bal Rose 2023-12-31 09:00:00 2023-12-31 09:00:00 Outpatient R JELANI PALMA [facility] [id number] [facility] 2023-12-29 10:09:20 2023-12-29 10:09:20 Outpatient [facility] [id number] Bal Rose 2023-11-24 00:00:00 2023-12-26 18:09:07 Patient Secure Msg Doctor Unassigned, [place] [facility] [id number] [facility] 2023-12-25 09:23:18 2023-12-25 09:23:18 Outpatient [facility] [id number] Bal Rose 2023-12-25 00:00:00 2023-12-25 00:00:00 Outpatient Visit [facility] [id number] Bal Rose 2023-12-15 07:28:56 2023-12-15 23:59:00 Outpatient R RADIOLOGY [facility] [id number] [facility] 2023-12-15 07:28:56 2023-12-15 23:59:00 Hospital Encounter Radiology [facility] [id number] [id number] [facility] 2023-12-10 08:30:00 2023-12-10 08:30:00 Outpatient R JELANI PALMA [facility] [id number] [facility] 2023-12-09 09:19:19 2023-12-09 09:19:19 Outpatient SFA S[facility] [id number] Bal Rose 2023-12-04 13:34:42 2023-12-04 13:34:42 Outpatient SFA [facility] [id number] Bal Rose 2023-12-04 00:00:00 2023-12-04 00:00:00 Outpatient Visit [facility] [id number] Bal Rose 2023-12-01 09:51:39 2023-12-01 23:59:00 Hospital Encounter Gloria Luu [facility] [id number] [id number] 4.2.7.2.686 [id number] [facility] 2023-12-01 08:19:03 2023-12-01 09:50:00 Outpatient R GLORIA LUU BARDIA [facility] [id number] [facility] 2023-12-01 08:19:03 2023-12-01 09:50:00 Hospital Encounter Gloria Luu [facility] 1.2.840.114 350.1.13.10 4.2.7.2.686 [id number] [facility] 2023-12-01 08:20:00 2023-12-01 09:34:52 Office Visit Gloria Luu [facility] 1.2.840.114 350.1.13.10 4.2.7.2.686 [id number] [facility] 2023-11-26 09:35:40 2023-11-26 09:35:40 Outpatient DANNY [facility] [id number] Bal Rose 2023-11-23 08:20:00 2023-11-23 08:20:00 Outpatient R UMAÑA DAVE [facility] [id number] [facility] 2023-11-20 09:00:00 2023-11-20 09:00:00 Outpatient R [facility] [id number] [facility] 2023-11-17 07:44:51 2023-11-17 23:59:00 Outpatient R MARCO A DOWELL [facility] [id number] [facility] 2023-11-17 07:44:51 2023-11-17 23:59:00 Hospital Encounter Marco [facility] 1..840.114 350.1.13.10 4.2.7.2.686 [id number] [facility] 2023-11-17 00:00:00 2023-11-17 00:00:00 Telephone Char Mathew [facility] 1..840.114 350.1.13.10 4.2.7.2.686 [id number] [facility] 2023-11-12 09:30:00 2023-11-12 09:30:00 Outpatient R JELANI PALMA [facility] [id number] [facility] 2023-11-11 09:00:00 2023-11-11 09:15:00 Office Visit Jes Rich [facility] [employer] [facility]. 1.2.840.114 350.1.13.10 4.2.7.2.686 [id number] [facility] 2023-11-11 09:00:00 2023-11-11 09:00:00 Outpatient R JES RICH SEPEHR [facility] [id number] [facility] 2023-11-09 08:30:00 2023-11-09 08:30:00 Outpatient R JONNA CELESTE [facility] [id number] [facility] 2023-11-05 15:15:00 2023-11-05 15:15:00 Outpatient MARCO A QUISPE [facility] [id number] [facility] 2023-11-05 14:00:00 2023-11-05 14:44:59 Outpatient R MARCO A DOWELL [facility] [id number] [facility] 2023-11-05 14:00:00 2023-11-05 14:44:59 Office Visit Marco A Dowell [facility] 1.2.840.114 350.1.13.10 4.2.7.2.686 [id number] [facility] 2023-11-05 10:58:12 2023-11-05 10:58:12 Outpatient SFA SFA [id number] Bal Rose 2023-10-29 08:58:33 2023-10-29 08:58:33 Outpatient SFA SFA [id number] Bal Rose 2023-10-28 09:01:16 2023-10-28 09:01:16 Outpatient SFA SFA [id number] Bal Rose 2023-10-27 14:53:50 2023-10-27 14:53:50 Outpatient SFA SFA [id number] Bal Rose 2023-10-22 14:15:00 2023-10-22 14:15:00 Outpatient MARCO A QUISPE [facility] [id number] [facility] 2023-10-21 11:15:00 2023-10-21 11:23:00 Outpatient ADRY HENRY [facility] [id number] [facility] 2023-10-21 11:15:00 2023-10-21 11:23:00 Ancillary Visit Kesha Head 1, [employer] Adry Harkins [facility]. 1..840.114 350.1.13.10 4.2.7.2.686 [id number] [facility] 2023-10-17 10:58:29 2023-10-17 23:59:00 Outpatient R LOIDA OLMEDO LUPITA [facility] [id number] [facility] 2023-10-17 10:58:29 2023-10-17 23:59:00 Hospital Encounter Loida Olmedo [facility] 1..840.114 350.1.13.10 4.2.7.2.686 [id number] [facility] 2023-10-16 08:30:00 2023-10-16 09:09:19 [facility] [id number] [facility] 2023-10-16 08:30:00 2023-10-16 09:09:19 Office Visit Elham Ramos [facility] 1..840.114 350.1.13.10 4.2.7.2.686 [id number] [facility] 2023-10-15 11:07:17 2023-10-15 11:07:17 Outpatient SFA [facility] [id number] Bal F Milton 2023-10-14 10:30:00 2023-10-14 11:06:57 Outpatient R JES RICH SEPEHR [facility] [id number] [facility] 2023-10-14 10:30:00 2023-10-14 11:06:57 Office Visit Jes Rich [facility] 1..840.114 350.1.13.10 4.2.7.2.686 [id number] [facility] 2023-10-14 00:00:00 2023-10-14 00:00:00 Telephone Roula, Jonna [facility] 1.2.840.114 350.1.13.10 4.2.7.2.686 [id number] [facility] 2023-10-13 08:20:05 2023-10-13 08:20:05 Outpatient SFA [facility] [id number] Bal Rose 2023-10-09 13:42:13 2023-10-09 13:42:13 Outpatient [facility] [id number] Bal Rose 2023-10-08 08:00:00 2023-10-08 09:18:37 Outpatient R CHAR MATHEW BRIA [facility] [id number] [facility] 2023-10-08 08:00:00 2023-10-08 09:18:37 Office Visit Char Mathew [facility] 1.2.840.114 350.1.13.10 4.2.7.2.686 [id number] [facility] 2023-10-08 00:00:00 2023-10-08 00:00:00 Patient Secure Msg Doctor Unassigned, [place] [facility] 1.2.840.114 350.1.13.10 4.2.7.2.686 [id number] [facility] 2023-10-05 00:00:00 2023-10-05 00:00:00 Telephone Sue Baca [facility] 1.2.840.114 350.1.13.10 4.2.7.2.686 [id number] [facility] 2023-10-02 09:29:16 2023-10-02 23:59:00 Hospital Encounter Sue Baca [facility] 1.2.840.114 350.1.13.10 4.2.7.2.686 [id number] [facility] 2023-10-02 09:29:09 2023-10-02 23:59:00 Outpatient SUE SIMPSON [facility] [id number] [facility] 2023-10-02 09:29:09 2023-10-02 23:59:00 Hospital Encounter Sue Baca [facility] 1.2.840.114 350.1.13.10 4.2.7.2.686 [id number] [facility] 2023-09-30 08:34:05 2023-09-30 08:34:05 Outpatient SFA [facility] [id number] Bal Rose 2023-09-29 09:30:00 2023-09-29 09:45:00 Ditch Rider Visit [facility] Sola Carr [facility] 1..840.114 350.1.13.10 4.2.7.2.686 [id number] [facility] 2023-09-29 09:30:00 2023-09-29 09:30:00 Outpatient R SOLA CARR STRADECurt [facility] [id number] [facility] 2023-09-29 00:00:00 2023-09-29 00:00:00 Orders Only Doctor Unassigned, [place] [facility] 1.2.840.114 350.1.13.10 4.2.7.2.686 [id number] [facility] 2023-09-25 11:30:00 2023-09-25 11:30:00 Outpatient SUE SIMPSON [facility] [id number] [facility] 2023-09-25 00:00:00 2023-09-25 00:00:00 Outpatient ARSENIO SIMPSONMOND [facility] [id number] [facility] 2023-09-25 00:00:00 2023-09-25 00:00:00 Patient Secure Msg Doctor Unassigned, [place] [facility] 1.2.840.114 350.1.13.10 4.2.7.2.686 [id number] [facility] 2023-09-25 00:00:00 2023-09-25 00:00:00 Patient Secure Msg Doctor Unassigned, [place] [facility] 1.2840.114 350.1.13.10 4.2.7.2.686 [id number] [facility] 2023-09-24 09:20:00 2023-09-24 09:20:00 Outpatient GLORIA LEMUS BARDIA [facility] [id number] [facility] 2023-09-23 08:55:44 2023-09-23 08:55:44 Outpatient [facility] [id number] Bal oRse 2023-09-17 08:57:26 2023-09-17 08:57:26 Outpatient [facility] [id number] Bal Rose 2023-09-16 00:00:00 2023-09-16 00:00:00 Telephone Sue Baca [facility] 1.2840.114 350.1.13.10 4.2.7.2.686 [id number] [facility] 2023-09-15 11:30:00 2023-09-15 11:45:00 Ditch Rider Visit Pcp-Lab Sue Baca [facility] 1.2.840.114 350.1.13.10 4.2.7.2.686 [id number] [facility] 2023-09-15 11:00:00 2023-09-15 11:15:46 Office Visit TaviaSue Althea [facility] 1.2.840.114 350.1.13.10 4.2.7.2.686 [id number] [facility] 2023-09-15 09:00:00 2023-09-15 09:30:00 Office Visit Jonna Celeste [facility] 1.2.840.114 350.1.13.10 4.2.7.2.686 [id number] [facility] 2023-09-15 09:00:00 2023-09-15 09:00:00 Outpatient R JONNA CELESTE [facility] [id number] [facility] 2023-09-14 09:30:00 2023-09-14 09:30:00 Outpatient R JERONIMODARREN Barrios DARREN DECKER [facility] [id number] [facility] 2023-09-11 14:40:21 2023-09-11 23:59:00 Outpatient R RADIOLOGY [facility] [id number] [facility] 2023-09-11 14:40:21 2023-09-11 23:59:00 Hospital Encounter Radiology [facility] 1.2.840.114 350.1.13.10 4.2.7.2.686 [id number] [facility] 2023-09-11 00:00:00 2023-09-11 00:00:00 Telephone Sue Baca [facility] 1.2.840.114 350.1.13.10 4.2.7.2.686 [id number] [facility] 2023-09-10 13:18:17 2023-09-10 13:18:17 Outpatient SFA [facility] [id number] Bal Rose 2023-09-08 00:00:00 2023-09-08 00:00:00 Telephone Sue Baca [facility] 1.2.840.114 350.1.13.10 4.2.7.2.686 [id number] [facility] 2023-09-08 00:00:00 2023-09-08 00:00:00 Patient Secure Msg Doctor Unassigned, [place] [facility] 1.2.840.114 350.1.13.10 4.2.7.2.686 [id number] [facility] 2023-09-07 14:30:00 2023-09-07 14:30:00 Outpatient R VELASCO-SHAISTA S, YANETH VELASCO-SHAISTA S, YANETH [facility] [id number] [facility] 2023-09-01 10:00:00 2023-09-01 10:00:00 Outpatient Mitzi LOVEROULA JONNA [facility] [id number] [facility] 2023-08-28 09:20:53 2023-08-28 09:20:53 Outpatient [facility] [id number] Bal Rose 2023-08-26 00:00:00 2023-08-26 00:00:00 Patient Secure Msg Doctor Unassigned, [place] [facility] ANGUS VANN 1.2.840.114 350.1.13.10 4.2.7.2.686 [id number] [facility] 2023-08-25 00:00:00 2023-08-25 00:00:00 [facility] 1.2.840.114 350.1.13.10 4.2.7.2.686 [id number] [facility] 2023-08-20 08:04:43 2023-08-20 08:04:43 Outpatient DANNY [facility] [id number] Bal Rose 2023-08-19 09:30:00 2023-08-19 09:30:00 Outpatient JES MEHTA SEPEHR [facility] [id number] [facility] 2023-08-13 12:27:45 2023-08-13 23:59:00 Outpatient R ROD-SHAISTA S, YANETH VELASCO-SHAISTA S, YANETH [facility] [id number] [facility] 2023-08-13 12:27:45 2023-08-13 23:59:00 Hospital Encounter Yaneth Marino [facility] 1.2840.114 350.1.13.10 4.2.7.2.686 [id number] [facility] 2023-08-12 00:00:00 2023-08-12 00:00:00 Patient Secure Msg Doctor Unassigned, [place] [facility] 1.2840.114 350.1.13.10 4.2.7.2.686 [id number] [facility] 2023-08-11 10:20:48 2023-08-11 10:20:48 Outpatient SFA [facility] [id number] Bal Zapata Milton 2023-08-07 10:15:00 2023-08-07 11:35:26 Ditch Rider Visit Lab, [facility] 1.84.114 350.1.13.10 4.2.7.2.686 [id number] [facility] 2023-08-07 08:45:00 2023-08-07 09:31:56 Outpatient R ABRIL HELM CRAIG [facility] [id number] [facility] 2023-08-07 08:45:00 2023-08-07 09:31:56 Office Visit Abril Helm [facility] 1.84.114 350.1.13.10 4.2.7.2.686 [id number] [facility] 2023-08-07 00:00:00 2023-08-07 00:00:00 Telephone Sue Baca [facility] 1.0.114 350.1.13.10 4.2.7.2.686 [id number] [facility] 2023-08-06 16:30:00 2023-08-06 16:32:15 Outpatient R MARCO A DOWELL [facility] [id number] [facility] 2023-08-06 16:30:00 2023-08-06 16:32:15 Office Visit Marco A Dowell [facility] 1.2.840.114 350.1.13.10 4.2.7.2.686 [id number] [facility] 2023-08-06 14:30:00 2023-08-06 14:54:55 Office Visit Yaneth Marino [facility] 1.2840.114 350.1.13.10 4.2.7.2.686 [id number] [facility] 2023-08-05 00:00:00 2023-08-05 00:00:00 Telephone [facility] 1.2840.114 350.1.13.10 4.2.7.2.686 [id number] [facility] 2023-08-04 09:30:00 2023-08-04 09:45:00 Ditch Rider Visit Pcp-Lab Sue Baca [facility] 1.20.114 350.1.13.10 4.2.7.2.686 [id number] [facility] 2023-08-04 09:30:00 2023-08-04 09:30:00 Outpatient R SUE BACA [facility] [id number] [facility] 2023-08-04 08:30:00 2023-08-04 09:12:18 Office Visit Sue Baca [facility] 1.840.114 350.1.13.10 4.2.7.2.686 [id number] [facility] 2023-07-31 10:17:55 2023-07-31 10:17:55 Outpatient [facility] [id number] Bal Rose 2023-07-31 00:00:00 2023-07-31 00:00:00 Orders Only Doctor Unassigned, [place] [facility] 1.2.840.114 350.1.13.10 4.2.7.2.686 [id number] [facility] 2023-07-30 09:24:04 2023-07-30 09:24:04 Outpatient SFA [facility] [id number] Bal Rose 2023-07-23 08:51:36 2023-07-23 23:59:00 Outpatient MARCO A QUISPE [facility] [id number] [facility] 2023-07-23 08:51:36 2023-07-23 23:59:00 Hospital Encounter Marco A Dowell [facility] 1.2.840.114 350.1.13.10 4.2.7.2.686 [id number] [facility] 2023-07-21 09:00:00 2023-07-21 09:30:00 Office Visit Jean Claude Sho[facility] 1.2.840.114 350.1.13.10 4.2.7.2.686 [id number] [facility] 2023-07-21 09:00:00 2023-07-21 09:00:00 Outpatient JEAN CLAUDE HERNADEZ [facility] [id number] [facility] 2023-07-20 11:23:19 2023-07-20 11:23:19 Outpatient [facility] [id number] Bal Rose 2023-07-16 15:30:00 2023-07-16 15:30:00 Outpatient MARCO A QUISPE [facility] [id number] [facility] 2023-07-16 14:15:00 2023-07-16 14:32:34 Outpatient R MARCO A DOWELL [facility] [id number] [facility] 2023-07-16 14:15:00 2023-07-16 14:32:34 Office Visit Marco A Dowell [facility] 1.2840.114 350.1.13.10 4.2.7.2.686 [id number] [facility] 2023-07-13 11:00:00 2023-07-13 11:32:15 [facility] [id number] [facility] 2023-07-13 11:00:00 2023-07-13 11:32:15 Office Visit Rachel [facility] MEDICAL OFFICE BUILDING 1..840.114 350.1.13.10 4.2.7.2.686 [id number] [facility] 2023-07-13 00:00:00 2023-07-13 00:00:00 Orders Only Doctor Unassigned, [place] [facility] 1.2840.114 350.1.13.10 4.2.7.2.686 [id number] [facility] 2023-07-10 13:43:11 2023-07-10 13:43:11 Outpatient [facility] [id number] Bal Rose 2023-07-07 11:30:00 2023-07-07 11:45:00 Ditch Rider Visit Lab, Priyank Larsen [facility] [place] MEDICAL OFFICE BUILDING 1..840.114 350.1.13.10 4.2.7.2.686 [id number] [facility] 2023-07-07 10:00:00 2023-07-07 11:14:04 Outpatient R ZACH LARSEN [facility] [id number] [facility] 2023-07-07 10:00:00 2023-07-07 11:14:04 [facility] TREASURE?[facility] MED[facility] OFF[facility] BUILD[facility] 1..840.114 350.1.13.10 4.2.7.2.686 [id number] [facility] 2023-07-07 00:00:00 2023-07-07 00:00:00 Patient Secure Msg [facility] MEDICAL OFFICE BUILD[facility] 1..840.114 350.1.13.10 4.2.7.2.686 [id number] [facility] 2023-07-02 11:56:24 2023-07-02 11:56:24 Outpatient [facility]FA [facility] [id number] Bal Rose 2023-06-30 09:46:47 2023-06-30 23:59:00 Outpatient R SCOOTER [facility] [id number] [facility] 2023-06-30 09:46:47 2023-06-30 23:59:00 Hospital Encounter Scooter [facility] MEDICAL OFFICE BUILDING 1..840.114 350.1.13.10 4.2.7.2.686 [id number] [facility] 2023-06-26 08:49:20 2023-06-26 08:49:20 Outpatient SFA [facility] [id number] Bal Rose 2023-06-25 09:00:00 2023-06-25 09:29:40 Outpatient R VIVI ERWIN [facility] [id number] [facility] 2023-06-25 09:00:00 2023-06-25 09:29:40 [facility] [place] MEDICAL OFFICE BUILDING 1..840.114 350.1.13.10 4.2.7.2.686 [id number] [facility] 2023-06-25 00:00:00 2023-06-25 00:00:00 Orders Only Doctor Unassigned, [place] [facility] 1.2.840.114 350.1.13.10 4.2.7.2.686 [id number] [facility] 2023-06-22 10:59:21 2023-06-22 23:59:00 Outpatient R VIVI ERWIN [facility] [id number] [facility] 2023-06-22 10:59:21 2023-06-22 23:59:00 Hospital Encounter Vivi Erwin [facility] N[facility] BUILDING 1..840.114 350.1.13.10 4.2.7.2.686 [id number] [facility] 2023-06-22 09:02:17 2023-06-22 09:02:17 Outpatient DANNY [facility] [id number] Bal Rose 2023-06-21 15:54:40 2023-06-21 23:59:00 Outpatient ISHMAEL BURGESS HOWARD [facility] [id number] [facility] 2023-06-21 15:54:40 2023-06-21 23:59:00 Hospital Encounter Ishmael Allen [facility] 1..840.114 350.1.13.10 4.2.7.2.686 [id number] [facility] 2023-06-17 00:00:00 2023-06-17 00:00:00 Telephone Zach Larsen [facility] 1..840.114 350.1.13.10 4.2.7.2.686 [id number] [facility] 2023-06-16 11:00:00 2023-06-16 11:00:00 Outpatient R ZACH LARSEN [facility] [id number] [facility] 2023-06-10 09:53:30 2023-06-10 09:53:30 Outpatient [facility] [id number] Bal Rose 2023-06-08 09:00:00 2023-06-08 09:34:08 Outpatient ISHMAEL BURGESS HOWARD [facility] [id number] [facility] 2023-06-08 09:00:00 2023-06-08 09:34:08 Office Visit Ishmael [facility] 1.84.114 350.1.13.10 4.2.7.2.686 [id number] [facility] 2023-06-05 14:01:16 2023-06-05 14:01:16 Outpatient [facility] [id number] Bal Rose 2023-06-05 00:00:00 2023-06-05 00:00:00 Orders Only Doctor Unassigned, [place] [facility] 1..114 350.1.13.10 4.2.7.2.686 [id number] [facility] 2023-06-04 10:27:06 2023-06-04 23:59:00 Outpatient R DARREN DECKER YU [facility] [id number] [facility] 2023-06-04 10:27:06 2023-06-04 23:59:00 Hospital Encounter Darren Decker [facility] 1..114 350.1.13.10 4.2.7.2.686 [id number] [facility] [facility] 2023-06-02 19:27:00 2023-06-02 20:23:00 Emergency X TAMMI GREEN [facility] ERT [id number] [facility] 2023-06-02 19:27:00 2023-06-02 20:23:00 Emergency Tammi Green [facility] 1..114 350.1.13.10 4.2.7.2.686 [id number] [facility] 2023-06-02 09:52:20 2023-06-02 19:26:00 Hospital Encounter Darren Decker [facility] 1.2.840.114 350.1.13.10 4.2.7.2.686 [id number] [facility] 2023-06-02 08:30:00 2023-06-02 08:45:00 Ditch Rider Visit [facility] Darren Decker [facility] 1.20.114 350.1.13.10 4.2.7.2.686 [id number] [facility] 2023-06-02 08:30:00 2023-06-02 08:30:00 Outpatient R DARREN DECKER YU [facility] [id number] [facility] 2023-06-02 00:00:00 2023-06-02 00:00:00 Telephone Darren Decker [facility]?JAREK [facility] OFF[facility] 1.114 350.1.13.10 4.2.7.2.686 [id number] [facility] 2023-06-02 00:00:00 2023-06-02 00:00:00 Patient Secure Msg Jeronimo [facility] 1.2.114 350.1.13.10 4.2.7.2.686 [id number] [facility] 2023-05-29 09:35:55 2023-05-29 09:35:55 Outpatient SFA [facility] [id number] Bal Rose 2023-05-25 00:00:00 2023-05-25 00:00:00 Telephone Vivi [facility] 1.20.114 350.1.13.10 4.2.7.2.686 [id number] [facility] 2023-05-25 00:00:00 2023-05-25 00:00:00 Telephone Darren Decker [facility] [place] [facility] 1.2.840.114 350.1.13.10 4.2.7.2.686 [id number] [facility] 2023-05-20 11:00:00 2023-05-20 11:00:00 Outpatient R DARREN DECKER YU [facility] [id number] [facility] 2023-05-15 08:44:24 2023-05-15 08:44:24 Outpatient DANNY [facility] [id number] Bal Rose 2023-05-15 00:00:00 2023-05-15 00:00:00 Orders Only Doctor Unassigned, [place] [facility] 1..840.114 350.1.13.10 4.2.7.2.686 [id number] [facility] 2023-05-15 00:00:00 2023-05-15 00:00:00 Patient Secure Msg Doctor Unassigned, [place] [facility] [place] MED[facility] OFF[facility] BUILD[facility] 1.2.840.114 350.1.13.10 4.2.7.2.686 [id number] [facility] 2023-05-14 09:00:00 2023-05-14 09:15:00 Office Visit Vivi Erwin [facility]?JAREK [facility] MEDICAL OFF[facility] BUILD[facility] 1.2.840.114 350.1.13.10 4.2.7.2.686 [id number] [facility] 2023-05-14 09:00:00 2023-05-14 09:00:00 Outpatient R VIVI ERWIN [facility] [id number] [facility] 2023-05-14 00:00:00 2023-05-14 00:00:00 Telephone Darren Decker [facility] TREASURE?J[facility]K [facility] MED[facility] OFF[facility] BUILD[facility] 1.2.840.114 350.1.13.10 4.2.7.2.686 [id number] [facility] 2023-05-11 15:45:00 2023-05-11 15:45:00 Ditch Rider Visit Lab, Ang - Db Darren Decker [facility] TREASURE?[facility] 1.2.840.114 350.1.13.10 4.2.7.2.686 [id number] [facility] 2023-05-11 14:30:00 2023-05-11 14:59:25 Outpatient R DARREN DECKER [facility] [id number] [facility] 2023-05-11 14:30:00 2023-05-11 14:59:25 Office Visit Darren Decker [facility] TREASURE?[facility] 1.2.840.114 350.1.13.10 4.2.7.2.686 [id number] [facility] 2023-05-11 09:15:00 2023-05-11 09:15:00 Outpatient ABRIL SHARIF CRAIG [facility] [id number] [facility] 2023-05-06 00:00:00 2023-05-06 00:00:00 Telephone Darren Decker [facility]?J[facility]K [facility] 1..840.114 350.1.13.10 4.2.7.2.686 [id number] [facility] 2023-05-01 08:30:00 2023-05-01 08:30:00 Outpatient VIVI ARIZMENDI [facility] [id number] [facility] 2023-04-29 07:33:37 2023-04-29 23:59:00 Outpatient VIVI ARIZMENDI [facility] [id number] [facility] 2023-04-29 07:33:37 2023-04-29 23:59:00 Hospital Encounter Vivi Erwin [facility] 1.840.114 350.1.13.10 4.2.7.2.686 [id number] [facility] 2023-04-28 09:09:55 2023-04-28 09:09:55 Outpatient [facility] [id number] Bal Rose 2023-04-27 11:00:00 2023-04-27 11:00:00 Outpatient ELHAM SANCHEZ [facility] [id number] [facility] 2023-04-25 11:49:31 2023-04-25 11:49:31 Outpatient [facility] [id number] Bal Rose 2023-04-23 09:30:00 2023-04-23 10:03:52 Outpatient R YAIMA VIVI [facility] [id number] [facility] 2023-04-23 09:30:00 2023-04-23 10:03:52 Office Visit Yaima [facility]?JAREK [facility] MEDICAL OFFICE BUILDING 1.840.114 350.1.13.10 4.2.7.2.686 [id number] [facility] 2023-04-23 00:00:00 2023-04-23 00:00:00 Telephone Yaima [facility] TREASURE?JAREK [facility] MEDICAL OFF[facility] BUILD[facility] 1.2.840.114 350.1.13.10 4.2.7.2.686 [id number] [facility] 2023-04-23 00:00:00 2023-04-23 00:00:00 Patient Secure Casey Valdez [facility] 1.2.840.114 350.1.13.10 4.2.7.2.686 [id number] [facility] 2023-04-21 14:30:00 2023-04-21 14:30:00 Outpatient R ELHAM RAMOS [facility] [id number] [facility] 2023-04-21 11:43:03 2023-04-21 11:43:03 Outpatient DANNY DELGADO [id number] Bal Rose 2023-04-21 11:00:00 2023-04-21 11:15:26 [facility] [id number] [facility] 2023-04-21 11:00:00 2023-04-21 11:15:26 Office Visit Wendi Ramosssica [facility] [place] MEDICAL OFFICE BUILDING 1.840.114 350.1.13.10 4.2.7.2.686 [id number] [facility] 2023-04-21 00:00:00 2023-04-21 00:00:00 Orders Only Doctor Unassigned, [place] [facility] 1.840.114 350.1.13.10 4.2.7.2.686 [id number] [facility] 2023-04-17 00:00:00 2023-04-17 00:00:00 Patient Secure Msg Doctor Unassigned, [place] [facility] 1.2840.114 350.1.13.10 4.2.7.2.686 [id number] [facility] 2023-04-16 09:30:00 2023-04-16 09:30:00 Outpatient Mitzi CASEY VALDEZ [facility] [id number] [facility] 2023-04-15 00:00:00 2023-04-15 00:00:00 Patient Secure Msg Darren Decker [facility] [place] MEDICAL OFFICE BUILDING 1.840.114 350.1.13.10 4.2.7.2.686 [id number] [facility] 2023-04-15 00:00:00 2023-04-15 00:00:00 Telephone MarisaCasey [facility] 1.0.114 350.1.13.10 4.2.7.2.686 [id number] [facility] 2023-04-14 10:02:26 2023-04-14 10:02:26 Outpatient SFA SFA [id number] Bal Rose 2023-04-13 17:40:00 2023-04-13 19:15:03 Outpatient R TANNER CAMARA [facility] [id number] [facility] 2023-04-13 17:40:00 2023-04-13 18:00:00 Urgent Care CamaraTanner liu Unknown, Attending [facility] 1..114 350.1.13.10 4.2.7.2.686 [id number] [facility] 2023-04-13 11:25:55 2023-04-13 11:25:55 Outpatient SFA SFA [id number] Bal Rose 2023-04-13 00:00:00 2023-04-13 00:00:00 Patient Secure Yahaira Hernandez [facility] 1..114 350.1.13.10 4.2.7.2.686 [id number] [facility] 2023-04-10 00:00:00 2023-04-10 00:00:00 Telephone [facility]isa [facility] marie [facility] [place] [address] 1.0.114 350.1.13.10 4.2.7.2.686 [id number] [facility] 2023-04-10 00:00:00 2023-04-10 00:00:00 Telephone Ishmael Allen [facility] 1..114 350.1.13.10 4.2.7.2.686 [id number] [facility] 2023-04-09 11:00:00 2023-04-09 14:57:37 Outpatient R YAHAIRA HERNANDEZ [facility] [id number] [facility] 2023-04-09 11:00:00 2023-04-09 11:30:00 Office Visit Yahaira Hernandez 1, Carol Mda Procedure [facility] 1.840.114 350.1.13.10 4.2.7.2.686 [id number] [facility] 2023-04-08 07:28:28 2023-04-08 23:59:00 Outpatient ISHMAEL BURGESS HOWARD [facility] [id number] [facility] 2023-04-08 07:28:28 2023-04-08 23:59:00 Hospital Encounter Ismhael Allen [facility] 1.84.114 350.1.13.10 4.2.7.2.686 [id number] [facility] 2023-04-06 13:00:00 2023-04-06 13:49:46 Outpatient R [facility] [id number] [facility] 2023-04-06 13:00:00 2023-04-06 13:49:46 Office Visit Lily Muirtney [facility] 1.840.114 350.1.13.10 4.2.7.2.686 [id number] [facility] 2023-04-06 09:52:53 2023-04-06 09:52:53 Outpatient DANNY [facility] [id number] Bal Rose 2023-04-02 00:00:00 2023-04-02 00:00:00 Telephone 1, Carol Mda Procedure [facility] 1.84.114 350.1.13.10 4.2.7.2.686 [id number] [facility] 2023-04-01 09:05:57 2023-04-01 23:59:00 Outpatient R RADIOLOGY [facility] [id number] [facility] 2023-04-01 09:05:57 2023-04-01 23:59:00 Hospital Encounter Radiology [facility] 1.2.840.114 350.1.13.10 4.2.7.2.686 [id number] [facility] 2023-04-01 09:05:13 2023-04-01 23:59:00 Hospital Encounter Radiology [facility] 1.20.114 350.1.13.10 4.2.7.2.686 [id number] [facility] 2023-03-31 10:04:09 2023-03-31 10:04:09 Outpatient SFA [facility] [id number] Bal Rose 2023-03-31 00:00:00 2023-03-31 00:00:00 Telephone Casey Valdez [facility] 1.20.114 350.1.13.10 4.2.7.2.686 [id number] [facility] 2023-03-30 09:20:38 2023-03-30 23:59:00 Outpatient R CASEY VALDEZ [facility] [id number] [facility] 2023-03-30 09:20:38 2023-03-30 23:59:00 Hospital Encounter Casey Valdez [facility] 1.2840.114 350.1.13.10 4.2.7.2.686 [id number] [facility] 2023-03-30 00:00:00 2023-03-30 00:00:00 Patient Secure Msg Doctor Unassigned, [place] [facility] 1.2.840.114 350.1.13.10 4.2.7.2.686 [id number] [facility] 2023-03-30 00:00:00 2023-03-30 00:00:00 Telephone Ishmael Allen [facility] 1..840.114 350.1.13.10 4.2.7.2.686 [id number] [facility] 2023-03-26 09:15:00 2023-03-26 09:30:00 Office Visit Reginadyan Cecilleann marie [facility] [place] [place] 1.84.114 350.1.13.10 4.2.7.2.686 [id number] [facility] 2023-03-26 09:15:00 2023-03-26 09:15:00 Outpatient R CASEY VALDEZ [facility] [id number] [facility] 2023-03-25 11:24:10 2023-03-25 11:24:10 Outpatient [facility] [id number] Bal Rose 2023-03-25 00:00:00 2023-03-25 00:00:00 Telephone Ishmael Aleln [facility] 1..840.114 350.1.13.10 4.2.7.2.686 [id number] [facility] 2023-03-24 08:40:00 2023-03-24 10:50:00 Outpatient R ISHMAEL ALLEN [facility] [id number] [facility] 2023-03-24 08:40:00 2023-03-24 10:50:00 Office Visit Ishmael Allen [facility] 1..840.114 350.1.13.10 4.2.7.2.686 [id number] [facility] 2023-03-23 13:39:52 2023-03-23 13:39:52 Outpatient [facility] [id number] Bal Rose 2023-03-10 09:07:34 2023-03-10 09:07:34 Outpatient [facility] [id number] Bal Rose 2023-03-10 00:00:00 2023-03-10 00:00:00 Orders Only Doctor Unassigned, [place] [facility] 1.2.840.114 350.1.13.10 4.2.7.2.686 [id number] [facility] 2023-03-09 15:48:23 2023-03-09 15:48:23 Outpatient [facility] [id number] Bal Rose 2023-03-09 00:00:00 2023-03-09 00:00:00 Patient Secure Msg Doctor Unassigned, [place] [facility] [place] MEDICAL OFFICE BUILDING 1..840.114 350.1.13.10 4.2.7.2.686 [id number] [facility] 2023-03-06 00:00:00 2023-03-06 00:00:00 Telephone Ishmael Allen [facility] [place] MEDICAL OFFICE BUILDING 1.2.840.114 350.1.13.10 4.2.7.2.686 [id number] [facility] 2023-03-03 10:05:24 2023-03-03 10:05:24 Outpatient [facility] [id number] Bal Rose 2023-03-02 14:00:00 2023-03-02 14:00:00 Outpatient VIVI ARIZMENDI [facility] [id number] [facility] 2023-03-02 00:00:00 2023-03-02 00:00:00 Patient Secure Msg Doctor Unassigned, [place] [facility] 1.2.840.114 350.1.13.10 4.2.7.2.686 [id number] [facility] 2023-02-27 10:00:00 2023-02-27 10:15:00 [facility] 1..840.114 350.1.13.10 4.2.7.2.686 [id number] [facility] 2023-02-27 10:00:00 2023-02-27 10:00:00 Outpatient R ERWIN VIVI [facility] [id number] [facility] 2023-02-25 11:06:08 2023-02-25 11:06:08 Outpatient DANNY [facility] [id number] Bal Rose 2023-02-24 09:41:10 2023-02-24 23:59:00 Outpatient R JERONIMO BANKS JERONIMO [facility] [id number] [facility] 2023-02-24 09:41:10 2023-02-24 23:59:00 Hospital Encounter Darren Decker [facility] 1.840.114 350.1.13.10 4.2.7.2.686 [id number] [facility] 2023-02-24 00:00:00 2023-02-24 00:00:00 Telephone Jeronimo Banks [facility] D[facility]Y MEDICAL OFF[facility] BUILDING 1..840.114 350.1.13.10 4.2.7.2.686 [id number] [facility] 2023-02-20 11:30:00 2023-02-20 11:30:00 Outpatient R ELHAM RAMOS [facility] [id number] [facility] 2023-02-20 00:00:00 2023-02-20 00:00:00 [facility] 1..840.114 350.1.13.10 4.2.7.2.686 [id number] [facility] 2023-02-18 13:06:25 2023-02-18 13:06:25 Outpatient SFA [facility] [id number] Bal Rose 2023-02-16 07:08:00 2023-02-16 12:42:00 Outpatient R ABRIL HELM [facility] [id number] [facility] 2023-02-16 07:08:00 2023-02-16 12:42:00 Hospital Encounter Abril Helm [facility] 1.840.114 350.1.13.10 4.2.7.2.686 [id number] [facility] 2023-02-16 09:45:00 2023-02-16 11:19:00 Surgery Abril Helm [facility] [place] 1.2840.114 350.1.13.10 4.2.7.2.686 [id number] [facility] 2023-02-16 00:00:00 2023-02-16 00:00:00 Orders Only Doctor Unassigned, [place] [facility] 1.2840.114 350.1.13.10 4.2.7.2.686 [id number] [facility] 2023-02-16 00:00:00 2023-02-16 00:00:00 Telephone Abril Helm [facility] 1.2.840.114 350.1.13.10 4.2.7.2.686 [id number] [facility] 2023-02-12 08:25:02 2023-02-12 08:25:02 Outpatient SFA [facility] [id number] Bal oRse 2023-02-11 00:00:00 2023-02-11 00:00:00 Telephone Vivi Erwin [facility] [place] MED[facility] OFF[facility] BUILDING 1.2840.114 350.1.13.10 4.2.7.2.686 [id number] [facility] 2023-02-11 00:00:00 2023-02-11 00:00:00 Orders Only Doctor Unassigned, [place] [facility] 1.2840.114 350.1.13.10 4.2.7.2.686 [id number] [facility] 2023-02-10 08:45:31 2023-02-10 08:45:00 Outpatient R YAIMA VIVI [facility] [id number] [facility] 2023-02-10 08:45:00 2023-02-10 08:45:00 Hospital Encounter Vivi Erwin [facility] 1.840.114 350.1.13.10 4.2.7.2.686 [id number] [facility] 2023-02-10 08:00:00 2023-02-10 08:26:16 Ditch Rider Visit Lab, Ang - Db Abril Helm [facility] [place] MED[facility] OFF[facility] BUILDING 1.840.114 350.1.13.10 4.2.7.2.686 [id number] [facility] 2023-02-10 00:00:00 2023-02-10 00:00:00 Telephone Vivi Erwin [facility] [place] [facility] OFF[facility] BUILD[facility] 1.2840.114 350.1.13.10 4.2.7.2.686 [id number] [facility] 2023-02-09 00:00:00 2023-02-09 00:00:00 Telephone Abril Helm [facility] [place] [facility] 1.840.114 350.1.13.10 4.2.7.2.686 [id number] [facility] 2023-02-03 00:00:00 2023-02-03 00:00:00 Prep For Surgery Abril Helm [facility] MEDICAL OFFICE BUILDING 1..840.114 350.1.13.10 4.2.7.2.686 [id number] [facility] 2023-01-30 14:03:11 2023-01-30 14:03:11 Outpatient SFA [facility] [id number] Bal Rose 2023-01-30 08:00:00 2023-01-30 08:15:00 Office Visit Yaima [facility] MEDICAL OFFICE BUILDING 1..840.114 350.1.13.10 4.2.7.2.686 [id number] [facility] 2023-01-30 08:00:00 2023-01-30 08:00:00 Outpatient R YAIMA VIVI [facility] [id number] [facility] 2023-01-30 00:00:00 2023-01-30 00:00:00 Orders Only Doctor Unassigned, [place] [facility] 1.840.114 350.1.13.10 4.2.7.2.686 [id number] [facility] 2023-01-29 10:40:46 2023-01-29 10:40:46 Outpatient SFA [facility] [id number] Bal Rose 2023-01-28 07:56:14 2023-01-28 23:59:00 Outpatient R YAIMA [facility] [id number] [facility] 2023-01-28 07:56:14 2023-01-28 23:59:00 Hospital Encounter Yaima [facility] 1..840.114 350.1.13.10 4.2.7.2.686 [id number] [facility] 2023-01-28 00:00:00 2023-01-28 00:00:00 Patient Secure Darren Crenshaw [facility] TREASURE?[facility] 1.2.840.114 350.1.13.10 4.2.7.2.686 [id number] [facility] 2023-01-22 10:56:09 2023-01-22 10:56:09 Outpatient [facility] [id number] Bal Rose 2023 11:00:00 2023 11:15:00 Ditch Rider Visit Lab, Priyank Decker [facility] TREASURE?JAREK [facility]ILD[facility] 1.2.840.114 350.1.13.10 4.2.7.2.686 [id number] [facility] 2023 09:30:00 2023 10:46:04 Outpatient R DARREN DECKER [facility] [id number] [facility] 2023 09:30:00 2023 10:46:04 Office Visit Jeronimo Darren [facility] TREASURE?JAREK [facility] 1.2.840.114 350.1.13.10 4.2.7.2.686 [id number] [facility] 2023-01-14 00:00:00 2023-01-14 00:00:00 Telephone Vivi Erwin [facility] TREASURE?JAREK [facility] 1.2.840.114 350.1.13.10 4.2.7.2.686 [id number] [facility] 2023-01-08 09:02:27 2023-01-08 09:02:27 Outpatient [facility] [id number] Bal Rose 2023-01-07 00:00:00 2023-01-07 00:00:00 Telephone Yaima [facility] TREASURE?[facility] OFF[facility] BUILD[facility] 1.2.840.114 350.1.13.10 4.2.7.2.686 [id number] [facility] [facility]07 00:00:00 2023-01-07 00:00:00 Orders Only Doctor Unassigned, [place] [facility] 1.2.840.114 350.1.13.10 4.2.7.2.686 [id number] [facility] 2022-12-26 12:15:00 2022-12-26 12:30:00 Ditch Rider Visit Lab, Ishmael Fonseca [facility] [place] [facility] 1..840.114 350.1.13.10 4.2.7.2.686 [id number] [facility] 2022-12-26 10:40:00 2022-12-26 12:12:18 Outpatient R ISHMAEL ALLEN [facility] [id number] [facility] 2022-12-26 10:40:00 2022-12-26 12:12:18 [facility] 1.2.840.114 350.1.13.10 4.2.7.2.686 [id number] [facility] 2022-12-25 10:45:00 2022-12-25 11:15:00 Office Visit Vivi Erwin [facility] 1.2.840.114 350.1.13.10 4.2.7.2.686 [id number] [facility] 2022-12-25 10:45:00 2022-12-25 10:45:00 Outpatient R VIVI ERWIN [facility] [id number] [facility] 2022-12-15 00:00:00 2022-12-15 00:00:00 [place] Laguerre Amanda [facility] 1.84.114 350.1.13.10 4.2.7.2.686 [id number] [facility] 2022-12-13 13:20:00 2022-12-13 14:09:12 Outpatient R ELHAM COTTON [facility] [id number] [facility] 2022-12-13 13:20:00 2022-12-13 14:09:12 Urgent Care Elham Cotton Unknown, Attending [facility] 1.2840.114 350.1.13.10 4.2.7.2.686 [id number] [facility] 2022-12-09 00:00:00 2022-12-09 00:00:00 Orders Only Doctor Unassigned, [place] [facility] 1.20.114 350.1.13.10 4.2.7.2.686 [id number] [facility] 2022-12-05 10:11:16 2022-12-05 10:11:16 Outpatient [facility] [id number] Bal Rose 2022-11-27 13:57:34 2022-11-27 23:59:00 Outpatient R RADIOLOGY [facility] [id number] [facility] 2022-11-27 13:57:34 2022-11-27 23:59:00 Hospital Encounter Radiology [facility] 1.0.114 350.1.13.10 4.2.7.2.686 [id number] [facility] 2022-11-27 00:00:00 2022-11-27 00:00:00 Orders Only Doctor Unassigned, [place] [facility] 1.2840.114 350.1.13.10 4.2.7.2.686 [id number] [facility] 2022-11-19 13:04:31 2022-11-19 13:04:31 Outpatient [facility] [id number] Bal Rose 2022-11-12 17:31:43 2022-11-12 17:31:43 Outpatient [facility] [id number] Bal Rose 2022-11-05 10:35:06 2022-11-05 10:35:06 Outpatient [facility] [id number] Bal Rose 2022-10-16 10:27:13 2022-10-16 10:27:13 Outpatient [facility] [id number] Bal Zapata [place] 2022-09-23 00:00:00 2022-09-23 00:00:00 Letter (Out) Niki Gastelum [facility] 1.840.114 350.1.13.10 4.2.7.2.686 [id number] [facility] 2022-09-22 18:40:00 2022-09-22 19:29:34 Outpatient R ЕЛЕНА LAGUERRE [facility] [id number] [facility] 2022-09-22 18:40:00 2022-09-22 19:29:34 Urgent Care Елена Laguerre Unknown, Attending [facility] 1.2840.114 350.1.13.10 4.2.7.2.686 [id number] [facility] 2022-09-12 00:00:00 2022-09-12 00:00:00 Orders Only Doctor Unassigned, [place] [facility] 1.840.114 350.1.13.10 4.2.7.2.686 [id number] [facility] 2022-08-07 13:07:06 2022-08-07 23:59:00 Outpatient R RADIOLOGY [facility] [id number] [facility] 2022-08-07 13:00:00 2022-08-07 23:59:00 Hospital Encounter Radiology [facility] 1.2.840.114 350.1.13.10 4.2.7.2.686 [id number] [facility] 2020-05-16 12:17:00 2020-05-16 12:17:00 Outpatient Deuce Villela HCARG RMLN [id number] [facility] Results Test Description Test Time Test Comments Results Result Co mments Source CULTURE, URINE 2024-09-17 08:59:57 SPECIMEN NUMBER: [id number] CULTURE, URINE SPECIMEN NUMBER: [id number] SOURCE: URINE REPORT STATUS: FINAL FINAL REPORT: 09/17/2024 <10,000 CFU/ML UROGENITAL JOANN PRESENT NO COMMON PATHOGENS LIPID [id number] 04:26:48* Test Item Value Reference Range Interpretation Comme nts CHOLESTEROL (test code = 2210) 145 MG/DL <200 TRIGLYCERIDES (test code = 2232) 80 MG/DL <150 HDL CHOLESTEROL (test code = 2220) 46 MG/DL >39 CALC LDL CHOL (test code = 2237) 83 MG/DL <100 NOTE: CALCULATED LDL IS BASED ON TROY-MARTINEZ METHOD WHICHINCLUDES ADJUSTABLE TRIGLYCERIDE:VLDL CHOLESTEROL RATIO.THIS FACTOR VARIES BY MEASURED TRIGLYCERIDE AND NON-HDLCHOLESTEROL CONCENTRATIONS WITH INCREASED CALCULATED LDL SEENIN HIGHER TRIGLYCERIDE OR LOWER NON-HDL SPECIMENS. FOR MOREINFORMATION, SEE CLIENT ANNOUNCEMENT AT [email or web address] RISK RATIO LDL/HDL (test code = 2238) 1.80 RATIO <3.22 COMPREHENSIVE METABOLIC [id number] 04:26:48* Test Item Value Reference Range Interpretation Comme nts GLUCOSE (test code = 2217) 118 MG/DL 70-99 H BUN (test code = 2208) 10 MG/DL 6-20 CREATININE (test code = 2214) 1.04 MG/DL 0.60-1.30 eGFR (2020 CKD-EPI) (test co de = 87474) 70 ML/MIN/1.73 >60 CALC BUN/CREAT (test code = 2235) 10 RATIO 6-28 SODIUM (test code = 2231) 143 MEQ/L 133-146 POTASSIUM (test code = 2228) 3.7 MEQ/L 3.5-5.4 CHLORIDE (test code = 5) 105 MEQ/L 95-107 CARBON DIOXIDE (test code = 6) 25 MEQ/L 19-31 CALCIUM (test code = 9) 9.4 MG/DL 8.5-10.5 PROTEIN, TOTAL (test code = 2229) 7.1 G/DL 6.1-8.3 ALBUMIN (test code = 1) 4.4 G/DL 3.5-5.2 CALC GLOBULIN (test code = 2240) 2.7 G/DL 1.9-3.7 CALC A/G RATIO (test code = 2233) 1.6 RATIO 1.0-2.6 BILIRUBIN, TOTAL (test code = 2206) 0.3 MG/DL <=1.2 ALKALINE PHOSPHATASE (test code = 2203) 80 U/L 40-112 AST (test code = 2217) 14 U/L 9-40 ALT (test code = 2218) 7 U/L 5-40 TSH, THIRD [id number] 04:25:46* Test Item Value Reference Range Interpretation Comme [facility] TSH, THIRD GENERATION (test code = 2821) 14.600 UIU/ML 0.400-4.100 H UNLESS OTHERWISE INDICATED, ALL TESTING PERFORMED AT [facility] [address] [place] [address] BLANKET WEAVER: GRACE ARELLANO M.D. CLIA NUMBER [id number] [facility] [place]. [id number] FOOD ALLERGY IgE [id number] 12:53:47* Test Item Value Reference Range Interpretation Comme [facility] EGG WHITE IgE (test code = 17471) <0.10 KU/L <0.35 EGG WHITE CLASS (test code = 09747) 0 PEANUT IgE (test code = 79214) <0.10 KU/L <0.10 PEANUT CLASS (test code = 95711) 0 SOYBEAN IgE (test code = 46702) <0.10 KU/L <0.35 SOYBEAN CLASS (test code = 77783) 0 MILK IgE (test code = 27956) <0.10 KU/L <0.35 MILK CLASS (test code = 78866) 0 CLAM IgE (test code = 62684) <0.10 KU/L <0.35 CLAM CLASS (test code = 39117) 0 SHRIMP IgE (test code = 65581) <0.10 KU/L <0.35 SHRIMP CLASS (test code = 10678) 0 WALNUT IgE (test code = 29418) <0.10 KU/L <0.35 WALNUT CLASS (test code = 69874) 0 COD FISH IgE (test code = 56624) <0.10 KU/L <0.35 COD FISH CLASS (test code = 60159) 0 SCALLOP IgE (test code = 26523) <0.10 KU/L <0.35 SCALLOP CLASS (test code = 49598) 0 WHEAT IgE (test code = 83906) <0.10 KU/L <0.35 WHEAT CLASS (test code = 80294) 0 CORN IgE (test code = 72943) <0.10 KU/L <0.35 CORN CLASS (test code = 91178) 0 SESAME SEED IgE (test code = 42230) <0.10 KU/L <0.35 SESAME SEED CLASS (test code = 98209) 0 FOOD ALLERGY IgE [id number] 00:00:00* Test Item Value Reference Range Interpretation Comme nts EGG WHITE IgE (test code = 89703) <0.10 KU/L PEANUT IgE (test code = 92243) <0.10 KU/L SOYBEAN IgE (test code = 69542) <0.10 KU/L MILK IgE (test code = 97747) <0.10 KU/L CLAM IgE (test code = 29702) <0.10 KU/L SHRIMP IgE (test code = 66457) <0.10 KU/L WALNUT IgE (test code = 61408) <0.10 KU/L COD FISH IgE (test code = 81875) <0.10 KU/L SCALLOP IgE (test code = 75756) <0.10 KU/L WHEAT IgE (test code = 43627) <0.10 KU/L CORN IgE (test code = 86956) <0.10 KU/L SESAME SEED IgE (test code = 42473) <0.10 KU/L Bal F AustinFOOD ALLERGY IgE [id number] 00:00:00* Test Item Value Reference Range Interpretation Comme nts EGG WHITE IgE (test code = 23130) <0.10 KU/L PEANUT IgE (test code = 50962) <0.10 KU/L SOYBEAN IgE (test code = 16317) <0.10 KU/L MILK IgE (test code = 54917) <0.10 KU/L CLAM IgE (test code = 74097) <0.10 KU/L SHRIMP IgE (test code = 18196) <0.10 KU/L WALNUT IgE (test code = 83968) <0.10 KU/L COD FISH IgE (test code = 18878) <0.10 KU/L SCALLOP IgE (test code = 42673) <0.10 KU/L WHEAT IgE (test code = 04370) <0.10 KU/L CORN IgE (test code = 24870) <0.10 KU/L SESAME SEED IgE (test code = 61083) <0.10 KU/L Bal Zapata RUSTOD ALLERGY IgE [id number] 00:00:00* Test Item Value Reference Range Interpretation Comme nts EGG WHITE IgE (test code = 32450) <0.10 KU/L PEANUT IgE (test code = 22558) <0.10 KU/L SOYBEAN IgE (test code = 57187) <0.10 KU/L MILK IgE (test code = 61296) <0.10 KU/L CLAM IgE (test code = 13036) <0.10 KU/L SHRIMP IgE (test code = 57733) <0.10 KU/L WALNUT IgE (test code = 26783) <0.10 KU/L COD FISH IgE (test code = 34392) <0.10 KU/L SCALLOP IgE (test code = 00199) <0.10 KU/L WHEAT IgE (test code = 03553) <0.10 KU/L CORN IgE (test code = 51556) <0.10 KU/L SESAME SEED IgE (test code = 39701) <0.10 KU/L Bal F [place]eneFO[place] ALLERGY IgE [id number] 00:00:00* Test Item Value Reference Range Interpretation Comme nts EGG WHITE IgE (test code = 64747) <0.10 KU/L PEANUT IgE (test code = 69223) <0.10 KU/L SOYBEAN IgE (test code = 23471) <0.10 KU/L MILK IgE (test code = 35043) <0.10 KU/L CLAM IgE (test code = 10733) <0.10 KU/L SHRIMP IgE (test code = 24070) <0.10 KU/L WALNUT IgE (test code = 39190) <0.10 KU/L COD FISH IgE (test code = 31129) <0.10 KU/L SCALLOP IgE (test code = 44191) <0.10 KU/L WHEAT IgE (test code = 85642) <0.10 KU/L CORN IgE (test code = 57655) <0.10 KU/L SESAME SEED IgE (test code = 87053) <0.10 KU/L Bal F RUSTOD ALLERGY IgE [id number] 00:00:00* Test Item Value Reference Range Interpretation Comme nts EGG WHITE IgE (test code = 98090) <0.10 KU/L PEANUT IgE (test code = 73221) <0.10 KU/L SOYBEAN IgE (test code = 65550) <0.10 KU/L MILK IgE (test code = 98257) <0.10 KU/L CLAM IgE (test code = 51872) <0.10 KU/L SHRIMP IgE (test code = 82244) <0.10 KU/L WALNUT IgE (test code = 61057) <0.10 KU/L COD FISH IgE (test code = 63604) <0.10 KU/L SCALLOP IgE (test code = 81046) <0.10 KU/L WHEAT IgE (test code = 64693) <0.10 KU/L CORN IgE (test code = 90046) <0.10 KU/L SESAME SEED IgE (test code = 94273) <0.10 KU/L Bal F RUSTOD ALLERGY IgE [id number] 00:00:00* Test Item Value Reference Range Interpretation Comme nts EGG WHITE IgE (test code = 77410) <0.10 KU/L PEANUT IgE (test code = 39308) <0.10 KU/L SOYBEAN IgE (test code = 61762) <0.10 KU/L MILK IgE (test code = 79272) <0.10 KU/L CLAM IgE (test code = 88985) <0.10 KU/L SHRIMP IgE (test code = 29692) <0.10 KU/L WALNUT IgE (test code = 56284) <0.10 KU/L COD FISH IgE (test code = 58636) <0.10 KU/L SCALLOP IgE (test code = 09575) <0.10 KU/L WHEAT IgE (test code = 13764) <0.10 KU/L CORN IgE (test code = 33066) <0.10 KU/L SESAME SEED IgE (test code = 86079) <0.10 KU/L [facility] [id number] 17:41:19* Test Item Value Reference Range Interpretation Comme nts INTERPRETATION: (test code = 1989) (NOTE) CLASS RANGE(k u/L) INTERPRETATION 0 <0.10 Normal, no specific IgE identified 0/1 0.10-0.34 Equivocal, indeterminate significance 1 0.35-0.69 Low level specific IgE 2 0.70-3.49 Moderate level specific IgE 3 3.50-17.49 High level specific IgE 4 17.50-49.99 Very high levels 5 50.00-99.99 of specific IgE 6 >=100.00 antibodies Note: Test results reflect expanded analytic measurable range. Allergen specific IgE values of 0.10-0.34 kU/L (class 0/1) are of indeterminate significance and may require specific clinical expertise for interpretation. Other than peanut and peanut components, values in this range will not be reported with out of range flagging. Testing performed on [employer] using ImmunoCAP Specific IgE reagents. * If Antibodies are followed by an asterisk (*) they have been developed and their performance characteristics determined by [facility] ([facility]). They have not been cleared or approved by the U.S. Food and Drug Administration (FDA). The FDA has determined that such clearance or approval is not necessary. These assays are intended to be used for clinical purposes. Analyte specific reagents were used. They should not be regarded as investigational or for research. [facility] is regulated under the Clinical Laboratory Improvement Amendments of 1988 (CLIA) as qualified to perform high complexity clinical testing. UNLESS OTHERWISE INDICATED, ALL TESTING PERFORMED AT [facility] [address] [place] [address] BLANKET WEAVER: GRACE ARELLANO M.D. CLIA NUMBER [id number] [place]. [id number] 04:38:47* Test Item Value Reference Range Interpretation Comme nts TESTOSTERONE (test code = 2830) 17 NG/DL <=55 NOTE: TOTAL TESTOSTERONE ASSAY SENSITIVITY IS 12 NG/DL. TO DETERMINE NORMAL VS. SUBNORMAL TESTOSTERONE IN CHILDREN AND WOMEN, CONSIDER TESTING WITH ULTRASENSITIVE TESTOSTERONE. [id number] 00:00:00* Test Item Value Reference Range Interpretation Comme nts TESTOSTERONE (test code = 2830) 17 NG/DL Bal Zapata AustinCPL ALLERGENS [REFLEX]2024-06-02 00:00:00* Test Item Value Reference Range Interpretation Comme nts INTERPRETATION: (test code = 1989) (NOTE) Bal Zapata [id number] 00:00:00* Test Item Value Reference Range Interpretation Comme nts TESTOSTERONE (test code = 2830) 17 NG/DL Bal Zapata AustinCPL ALLERGENS [REFLEX]2024-06-02 00:00:00* Test Item Value Reference Range Interpretation Comme nts INTERPRETATION: (test code = 1989) (NOTE) Bal [id number] 00:00:00* Test Item Value Reference Range Interpretation Comme nts TESTOSTERONE (test code = 2830) 17 NG/DL Bal Zapata AustinCPL ALLERGENS [REFLEX]2024-06-02 00:00:00* Test Item Value Reference Range Interpretation Comme nts INTERPRETATION: (test code = 1989) (NOTE) Bal [id number] 00:00:00* Test Item Value Reference Range Interpretation Comme nts TESTOSTERONE (test code = 2830) 17 NG/DL Bal Zapata AustinCPL ALLERGENS [REFLEX]2024-06-02 00:00:00* Test Item Value Reference Range Interpretation Comme nts INTERPRETATION: (test code = 1989) (NOTE) Bal Zapata [id number] 00:00:00* Test Item Value Reference Range Interpretation Comme nts TESTOSTERONE (test code = 2830) 17 NG/DL Bal Zapata AustinCPL ALLERGENS [REFLEX]2024-06-02 00:00:00* Test Item Value Reference Range Interpretation Comme nts INTERPRETATION: (test code = 1989) (NOTE) Bal [id number] 00:00:00* Test Item Value Reference Range Interpretation Comme nts TESTOSTERONE (test code = 2830) 17 NG/DL Bal RoseCPL ALLERGENS [REFLEX]2024-06-02 00:00:00* Test Item Value Reference Range Interpretation Comme nts INTERPRETATION: (test code = 1989) (NOTE) Bal RoseENVIRONMENTAL IgE PANEL WITH TOTAL [id number] 16:43:34* Test Item Value Reference Range Interpretation Comme nts D. PTERONYSSINUS IgE (test c ode = 21717) <0.10 KU/L <0.35 D. PTERONYS. CLASS (test cod e = 03025) 0 D. FARINAE IgE (test code = 37195) <0.10 KU/L <0.35 D. FARINAE CLASS (test code = 76220) 0 CAT EPITHELIUM IgE (test cod e = 79478) <0.10 KU/L <0.35 CAT EPITHELIUM CLASS (test c ode = 51922) 0 DOG DANDER IgE (test code = 21848) <0.10 KU/L <0.35 DOG DANDER CLASS (test code = 96434) 0 COCKROACH, ZAMBIAN IgE (test code = 61175) <0.10 KU/L <0.35 COCKROACH, GRMN CLS (test co de = 84604) 0 CHICKEN FEATHERS IgE (test c ode = 44506) <0.10 KU/L <0.35 CHICKEN FEATHER CLS (test co de = 29235) 0 GOOSE FEATHERS IgE (test cod e = 13236) <0.10 KU/L <0.35 GOOSE FEATHERS CLASS (test c ode = 67109) 0 IMMUNOGLOBULIN E (IgE) (test code = 96038) 30 KU/L <=219 CPL [id number] 16:21:49* Test Item Value Reference Range Interpretation Comme nts INTERPRETATION: (test code = 1989) (NOTE) CLASS RANGE(k u/L) INTERPRETATION 0 <0.10 Normal, no specific IgE identified 0/1 0.10-0.34 Equivocal, indeterminate significance 1 0.35-0.69 Low level specific IgE 2 0.70-3.49 Moderate level specific IgE 3 3.50-17.49 High level specific IgE 4 17.50-49.99 Very high levels 5 50.00-99.99 of specific IgE 6 >=100.00 antibodies Note: Test results reflect expanded analytic measurable range. Allergen specific IgE values of 0.10-0.34 kU/L (class 0/1) are of indeterminate significance and may require specific clinical expertise for interpretation. Other than peanut and peanut components, values in this range will not be reported with out of range flagging. Testing performed on [employer] using ImmunoCAP Specific IgE reagents. * If Antibodies are followed by an asterisk (*) they have been developed and their performance characteristics determined by [facility] ([facility]). They have not been cleared or approved by the U.S. Food and Drug Administration (FDA). The FDA has determined that such clearance or approval is not necessary. These assays are intended to be used for clinical purposes. Analyte specific reagents were used. They should not be regarded as investigational or for research. [facility] is regulated under the Clinical Laboratory Improvement Amendments of 1988 (CLIA) as qualified to perform high complexity clinical testing. UNLESS OTHERWISE INDICATED, ALL TESTING PERFORMED AT [facility] [address] [place] [address] BLANKET WEAVER: GRACE ARELLANO M.D. CLIA NUMBER [id number] [facility] [place]. [id number] ENVIRONMENTAL IgE PANEL WITH TOTAL [id number] 00:00:00* Test Item Value Reference Range Interpretation Comme nts D. PTERONYSSINUS IgE (test c ode = 35922) <0.10 KU/L D. FARINAE IgE (test code = 88814) <0.10 KU/L CAT EPITHELIUM IgE (test cod e = 97157) <0.10 KU/L DOG DANDER IgE (test code = 91379) <0.10 KU/L COCKROACH, ZAMBIAN IgE (test code = 90898) <0.10 KU/L CHICKEN FEATHERS IgE (test c ode = 28612) <0.10 KU/L GOOSE FEATHERS IgE (test cod e = 53681) <0.10 KU/L IMMUNOGLOBULIN E (IgE) (test code = 82563) 30 KU/L Bal NorwoodL ALLERGENS [REFLEX]2024-05-23 00:00:00* Test Item Value Reference Range Interpretation Comme nts INTERPRETATION: (test code = 1989) (NOTE) Bal RoseENVIRONMENTAL IgE PANEL WITH TOTAL [id number] 00:00:00* Test Item Value Reference Range Interpretation Comme nts D. PTERONYSSINUS IgE (test c ode = 59363) <0.10 KU/L D. FARINAE IgE (test code = 65932) <0.10 KU/L CAT EPITHELIUM IgE (test cod e = 53160) <0.10 KU/L DOG DANDER IgE (test code = 28637) <0.10 KU/L COCKROACH, ZAMBIAN IgE (test code = 79488) <0.10 KU/L CHICKEN FEATHERS IgE (test c ode = 46179) <0.10 KU/L GOOSE FEATHERS IgE (test cod e = 36896) <0.10 KU/L IMMUNOGLOBULIN E (IgE) (test code = 88526) 30 KU/L Bal Zapata AustinCPL ALLERGENS [REFLEX]2024-05-23 00:00:00* Test Item Value Reference Range Interpretation Comme nts INTERPRETATION: (test code = 1989) (NOTE) Bal Zapata AustinENVIRONMENTAL IgE PANEL WITH TOTAL [id number] 00:00:00* Test Item Value Reference Range Interpretation Comme nts D. PTERONYSSINUS IgE (test c ode = 80298) <0.10 KU/L D. FARINAE IgE (test code = 42343) <0.10 KU/L CAT EPITHELIUM IgE (test cod e = 96740) <0.10 KU/L DOG DANDER IgE (test code = 47573) <0.10 KU/L COCKROACH, ZAMBIAN IgE (test code = 25270) <0.10 KU/L CHICKEN FEATHERS IgE (test c ode = 23274) <0.10 KU/L GOOSE FEATHERS IgE (test cod e = 26940) <0.10 KU/L IMMUNOGLOBULIN E (IgE) (test code = 93355) 30 KU/L Bal Benny AustinCPL ALLERGENS [REFLEX]2024-05-23 00:00:00* Test Item Value Reference Range Interpretation Comme nts INTERPRETATION: (test code = 1989) (NOTE) Bal Zapata AustinENVIRONMENTAL IgE PANEL WITH TOTAL [id number] 00:00:00* Test Item Value Reference Range Interpretation Comme nts D. PTERONYSSINUS IgE (test c ode = 05691) <0.10 KU/L D. FARINAE IgE (test code = 31863) <0.10 KU/L CAT EPITHELIUM IgE (test cod e = 95519) <0.10 KU/L DOG DANDER IgE (test code = 66975) <0.10 KU/L COCKROACH, ZAMBIAN IgE (test code = 57550) <0.10 KU/L CHICKEN FEATHERS IgE (test c ode = 19803) <0.10 KU/L GOOSE FEATHERS IgE (test cod e = 97307) <0.10 KU/L IMMUNOGLOBULIN E (IgE) (test code = 63268) 30 KU/L Bal Zapata AustinCPL ALLERGENS [REFLEX]2024-05-23 00:00:00* Test Item Value Reference Range Interpretation Comme nts INTERPRETATION: (test code = 1989) (NOTE) Bal Zapata AustinENVIRONMENTAL IgE PANEL WITH TOTAL [id number] 00:00:00* Test Item Value Reference Range Interpretation Comme nts D. PTERONYSSINUS IgE (test c ode = 46997) <0.10 KU/L D. FARINAE IgE (test code = 76816) <0.10 KU/L CAT EPITHELIUM IgE (test cod e = 34834) <0.10 KU/L DOG DANDER IgE (test code = 25718) <0.10 KU/L COCKROACH, ZAMBIAN IgE (test code = 45695) <0.10 KU/L CHICKEN FEATHERS IgE (test c ode = 67197) <0.10 KU/L GOOSE FEATHERS IgE (test cod e = 07120) <0.10 KU/L IMMUNOGLOBULIN E (IgE) (test code = 79145) 30 KU/L Bal [facility] [REFLEX]2024-05-23 00:00:00* Test Item Value Reference Range Interpretation Comme nts INTERPRETATION: (test code = 1989) (NOTE) Bal Zapata AustinENVIRONMENTAL IgE PANEL WITH TOTAL [id number] 00:00:00* Test Item Value Reference Range Interpretation Comme nts D. PTERONYSSINUS IgE (test c ode = 07126) <0.10 KU/L D. FARINAE IgE (test code = 95897) <0.10 KU/L CAT EPITHELIUM IgE (test cod e = 40905) <0.10 KU/L DOG DANDER IgE (test code = 75188) <0.10 KU/L COCKROACH, ZAMBIAN IgE (test code = 15649) <0.10 KU/L CHICKEN FEATHERS IgE (test c ode = 71908) <0.10 KU/L GOOSE FEATHERS IgE (test cod e = 99681) <0.10 KU/L IMMUNOGLOBULIN E (IgE) (test code = 71365) 30 KU/L Bal Rose[facility] ALLERGENS [REFLEX]2024-05-23 00:00:00* Test Item Value Reference Range Interpretation Comme nts INTERPRETATION: (test code = 1989) (NOTE) Bal [id number] 22:59:04* Test Item Value Reference Range Interpretation Comme nts PROGESTERONE (test code = 2790) 0.20 NG/ML SEE BELOW EXPECTED VALUES FOR PROGESTERONE MALE . . . . . . . . . . . . . . . . NG/ML <0.20 FEMALE FOLLICULAR PHASE . . . . . . . . . NG/ML <0.90 OVULATION . . . . . . . . . . . . NG/ML <12.00 LUTEAL PHASE . . . . . . . . . . . NG/ML 1.83-23.90 POSTMENOPAUSAL . . . . . . . . . . NG/ML <0.20 1ST TRIMESTER. . . . . . . . . . . NG/ML 11.00-44.30 2ND TRIMESTER. . . . . . . . . . . NG/ML 25.40-83.30 3RD TRIMESTER. . . . . . . . . . . NG/ML 58.70-214.00 [id number] 22:59:04* Test Item Value Reference Range Interpretation Comme nts PROLACTIN (test code = 2800) 10.6 NG/ML 5.0-37.0 NOTE: Methodolog y is Zen Severino Electrochemiluminescence Immunoassay (ECLIA). Values obtained with different assays/manufacturers cannot be used interchangeably. Results should not be used as sole basis to establish the presence or absence of malignancy. [id number] 22:59:04* Test Item Value Reference Range Interpretation Comme nts ESTRADIOL (test code = 2505) 55.9 PG/ML SEE BELOW EXPECTED VALUES FOR ESTRADIOL FOR FEMALES >=18 YEARS FOLLICULAR . . . . . . . . . . . . . PG/ML 12.4-233.0 OVULATION. . . . . . . . . . . . . . PG/ML 41.0-398.0 LUTEAL PHASE . . . . . . . . . . . . PG/ML 22.3-341.0 POSTMENOPAUSAL SUPPLEMENTED/NON-SUPP . PG/ML <138.0/<20.0 NOTE: TO DETERMINE NORMAL VS. SUBNORMAL ESTRADIOL IN POSTMENOPAUSAL FEMALES, CONSIDER ULTRASENSITIVE ESTRADIOL ([facility] ORDER CODE 5678). METHODOLOGY IS ZEN SEVERINO ELECTROCHEMILUMINESCENT IMMUNOASSAY WITH A LIMIT OF DETECTION OF 17 PG/ML. FSH + LH [id number] 22:59:04* Test Item Value Reference Range Interpretation Comme nts FOLLICLE STIM HORMONE (test code = 2700) 7.4 IU/L SEE BELOW EXPEC NANCY VALUES FOR FSH FOR FEMALES >17 YEARS FOLLICULAR 3.5-12.5 IU/L MID-CYCLE PEAK 4.7-21.5 IU/L LUTEAL PHASE 1.7-7.7 IU/L POSTMENOPAUSAL 25.8-134.8 IU/L LUTEINIZING HORMONE (test code = 2776) 5.0 IU/L SEE BELOW EXPEC NANCY VALUES FOR LH FOR FEMALES >17 YEARS MALES FEMALES >=18 YEARS 1.8-8.6 IU/L FOLLICULAR 2.4-12.6 IU/L MID-CYCLE PEAK 14.0-95.6 IU/L LUTEAL PHASE 1.0-11.4 IU/L POSTMENOPAUSAL 7.7-58.5 IU/L COMPREHENSIVE METABOLIC [id number] 22:28:14* Test Item Value Reference Range Interpretation Comme nts GLUCOSE (test code = 2217) 112 MG/DL 70-99 H BUN (test code = 2208) 12 MG/DL 6-20 CREATININE (test code = 2214) 0.88 MG/DL 0.60-1.30 eGFR (2020 CKD-EPI) (test co de = 21850) 86 ML/MIN/1.73 >60 CALC BUN/CREAT (test code = 2235) 14 RATIO 6-28 SODIUM (test code = 2230) 140 MEQ/L 133-146 POTASSIUM (test code = 8) 3.9 MEQ/L 3.5-5.4 CHLORIDE (test code = 2215) 104 MEQ/L 95-107 CARBON DIOXIDE (test code = 6) 23 MEQ/L 19-31 CALCIUM (test code = 9) 9.2 MG/DL 8.5-10.5 PROTEIN, TOTAL (test code = 2228) 7.1 G/DL 6.1-8.3 ALBUMIN (test code = 2200) 4.2 G/DL 3.5-5.2 CALC GLOBULIN (test code = 0) 2.9 G/DL 1.9-3.7 CALC A/G RATIO (test code = 2233) 1.4 RATIO 1.0-2.6 BILIRUBIN, TOTAL (test code = 2206) 0.2 MG/DL <=1.2 ALKALINE PHOSPHATASE (test code = 2203) 89 U/L 40-112 AST (test code = 2217) 8 U/L 9-40 L ALT (test code = 2218) <5 U/L 5-40 L HEMOGLOBIN [id number] 02:28:31* Test Item Value Reference Range Interpretation Comme nts HEMOGLOBIN A1c (test code = 74263) 5.8 % 4.2-5.6 H [employer] GUIDELINES FOR HGB A1C: PREDIABETES/INCREASED RISK . . . . . . . 5.7-6.4% DIAGNOSIS OF DIABETES . . . . . . . . . >=6.5% WITH CONFIRMATION OR APPROPRIATE SYMPTOMS NOTE: ASSAY MAY BE AFFECTED BY HEMOGLOBINOPATHIES (SICKLE CELL ANEMIA, S-C DISEASE, OTHERS) OR ARTIFICIALLY LOWERED BY DECREASED RED CELL SURVIVAL (HEMOLYTIC ANEMIAS, BLOOD LOSS, ETC.). CONSIDER ALTERNATE TESTING OR LABORATORY CONSULTATION. [id number] 00:00:00* Test Item Value Reference Range Interpretation Comme nts PROGESTERONE (test code = 2790) 0.20 NG/ML Bal [id number] 00:00:00* Test Item Value Reference Range Interpretation Comme nts PROLACTIN (test code = 2800) 10.6 NG/ML Bal [id number] 00:00:00* Test Item Value Reference Range Interpretation Comme nts ESTRADIOL (test code = 2505) 55.9 PG/ML Bal RoseFSH + LH [id number] 00:00:00* Test Item Value Reference Range Interpretation Comme christopher FOLLICLE STIM HORMONE (test code = 5940) 7.4 IU/L LUTEINIZING HORMONE (test co de = 2776) 5.0 IU/L Bal RoseHEMOGLOBIN [id number] 00:00:00* Test Item Value Reference Range Interpretation Comme christopher HEMOGLOBIN A1c (test code = 13818) 5.8 % Bal RoseCOMPREHENSIVE METABOLIC [id number] 00:00:00* Test Item Value Reference Range Interpretation Comme nts GLUCOSE (test code = 2217) 112 MG/DL BUN (test code = 2208) 12 MG/DL CREATININE (test code = 2214) 0.88 MG/DL eGFR (2020 CKD-EPI) (test co de = 77972) 86 ML/MIN/1.73 CALC BUN/CREAT (test code = 2235) 14 RATIO SODIUM (test code = 2231) 140 MEQ/L POTASSIUM (test code = 2228) 3.9 MEQ/L CHLORIDE (test code = 2215) 104 MEQ/L CARBON DIOXIDE (test code = 2206) 23 MEQ/L CALCIUM (test code = 2209) 9.2 MG/DL PROTEIN, TOTAL (test code = 2229) 7.1 G/DL ALBUMIN (test code = 2201) 4.2 G/DL CALC GLOBULIN (test code = 2240) 2.9 G/DL CALC A/G RATIO (test code = 2234) 1.4 RATIO BILIRUBIN, TOTAL (test code = 2207) 0.2 MG/DL ALKALINE PHOSPHATASE (test code = 2204) 89 U/L AST (test code = 2218) 8 U/L ALT (test code = 2219) <5 U/L Bal [id number] 00:00:00* Test Item Value Reference Range Interpretation Comme christopher PROGESTERONE (test code = 2790) 0.20 NG/ML Bal [id number] 00:00:00* Test Item Value Reference Range Interpretation Comme christopher PROLACTIN (test code = 2800) 10.6 NG/ML Bal [id number] 00:00:00* Test Item Value Reference Range Interpretation Comme nts ESTRADIOL (test code = 2505) 55.9 PG/ML Bal RoseFSH + LH [id number] 00:00:00* Test Item Value Reference Range Interpretation Comme nts FOLLICLE STIM HORMONE (test code = 0790) 7.4 IU/L LUTEINIZING HORMONE (test co de = 2776) 5.0 IU/L Bal RoseHEMOGLOBIN [id number] 00:00:00* Test Item Value Reference Range Interpretation Comme nts HEMOGLOBIN A1c (test code = 70692) 5.8 % Bal RoseCOMPREHENSIVE METABOLIC [id number] 00:00:00* Test Item Value Reference Range Interpretation Comme nts GLUCOSE (test code = 2217) 112 MG/DL BUN (test code = 2208) 12 MG/DL CREATININE (test code = 2214) 0.88 MG/DL eGFR (2020 CKD-EPI) (test co de = 38354) 86 ML/MIN/1.73 CALC BUN/CREAT (test code = 2235) 14 RATIO SODIUM (test code = 2231) 140 MEQ/L POTASSIUM (test code = 2228) 3.9 MEQ/L CHLORIDE (test code = 2215) 104 MEQ/L CARBON DIOXIDE (test code = 2206) 23 MEQ/L CALCIUM (test code = 2209) 9.2 MG/DL PROTEIN, TOTAL (test code = 2229) 7.1 G/DL ALBUMIN (test code = 2201) 4.2 G/DL CALC GLOBULIN (test code = 2240) 2.9 G/DL CALC A/G RATIO (test code = 2234) 1.4 RATIO BILIRUBIN, TOTAL (test code = 2207) 0.2 MG/DL ALKALINE PHOSPHATASE (test code = 2204) 89 U/L AST (test code = 2218) 8 U/L ALT (test code = 2219) <5 U/L Bal [id number] 00:00:00* Test Item Value Reference Range Interpretation Comme nts PROGESTERONE (test code = 2790) 0.20 NG/ML Bal [id number] 00:00:00* Test Item Value Reference Range Interpretation Comme nts PROLACTIN (test code = 2800) 10.6 NG/ML Bal [id number] 00:00:00* Test Item Value Reference Range Interpretation Comme nts ESTRADIOL (test code = 2505) 55.9 PG/ML Bal RoseFSH + LH [id number] 00:00:00* Test Item Value Reference Range Interpretation Comme nts FOLLICLE STIM HORMONE (test code = 2700) 7.4 IU/L LUTEINIZING HORMONE (test co de = 2776) 5.0 IU/L Bal RoseHEMOGLOBIN [id number] 00:00:00* Test Item Value Reference Range Interpretation Comme nts HEMOGLOBIN A1c (test code = 77318) 5.8 % Bal RoseCOMPREHENSIVE METABOLIC [id number] 00:00:00* Test Item Value Reference Range Interpretation Comme nts GLUCOSE (test code = 2217) 112 MG/DL BUN (test code = 2208) 12 MG/DL CREATININE (test code = 2214) 0.88 MG/DL eGFR (2020 CKD-EPI) (test co de = 29523) 86 ML/MIN/1.73 CALC BUN/CREAT (test code = 2235) 14 RATIO SODIUM (test code = 2231) 140 MEQ/L POTASSIUM (test code = 2228) 3.9 MEQ/L CHLORIDE (test code = 2215) 104 MEQ/L CARBON DIOXIDE (test code = 2206) 23 MEQ/L CALCIUM (test code = 2209) 9.2 MG/DL PROTEIN, TOTAL (test code = 2229) 7.1 G/DL ALBUMIN (test code = 2201) 4.2 G/DL CALC GLOBULIN (test code = 2240) 2.9 G/DL CALC A/G RATIO (test code = 2234) 1.4 RATIO BILIRUBIN, TOTAL (test code = 2207) 0.2 MG/DL ALKALINE PHOSPHATASE (test code = 2204) 89 U/L AST (test code = 2218) 8 U/L ALT (test code = 2219) <5 U/L Bal [id number] 00:00:00* Test Item Value Reference Range Interpretation Comme nts PROGESTERONE (test code = 2790) 0.20 NG/ML Bal [id number] 00:00:00* Test Item Value Reference Range Interpretation Comme nts PROLACTIN (test code = 2800) 10.6 NG/ML Bal [id number] 00:00:00* Test Item Value Reference Range Interpretation Comme nts ESTRADIOL (test code = 2505) 55.9 PG/ML Bal RoseFSH + LH [id number] 00:00:00* Test Item Value Reference Range Interpretation Comme nts FOLLICLE STIM HORMONE (test code = 6480) 7.4 IU/L LUTEINIZING HORMONE (test co de = 2776) 5.0 IU/L Bal RoseHEMOGLOBIN [id number] 00:00:00* Test Item Value Reference Range Interpretation Comme nts HEMOGLOBIN A1c (test code = 40701) 5.8 % Bal RoseCOMPREHENSIVE METABOLIC [id number] 00:00:00* Test Item Value Reference Range Interpretation Comme nts GLUCOSE (test code = 2217) 112 MG/DL BUN (test code = 2208) 12 MG/DL CREATININE (test code = 2214) 0.88 MG/DL eGFR (2020 CKD-EPI) (test co de = 34616) 86 ML/MIN/1.73 CALC BUN/CREAT (test code = 2235) 14 RATIO SODIUM (test code = 2231) 140 MEQ/L POTASSIUM (test code = 2228) 3.9 MEQ/L CHLORIDE (test code = 2215) 104 MEQ/L CARBON DIOXIDE (test code = 2206) 23 MEQ/L CALCIUM (test code = 2209) 9.2 MG/DL PROTEIN, TOTAL (test code = 2229) 7.1 G/DL ALBUMIN (test code = 2201) 4.2 G/DL CALC GLOBULIN (test code = 2240) 2.9 G/DL CALC A/G RATIO (test code = 2234) 1.4 RATIO BILIRUBIN, TOTAL (test code = 2207) 0.2 MG/DL ALKALINE PHOSPHATASE (test code = 2204) 89 U/L AST (test code = 2218) 8 U/L ALT (test code = 2219) <5 U/L Bal [id number] 00:00:00* Test Item Value Reference Range Interpretation Comme nts PROGESTERONE (test code = 2790) 0.20 NG/ML Bal [id number] 00:00:00* Test Item Value Reference Range Interpretation Comme christopher PROLACTIN (test code = 2800) 10.6 NG/ML Bal [id number] 00:00:00* Test Item Value Reference Range Interpretation Comme christopher ESTRADIOL (test code = 2505) 55.9 PG/ML Bal RoseFSH + LH [id number] 00:00:00* Test Item Value Reference Range Interpretation Comme christopher FOLLICLE STIM HORMONE (test code = 2700) 7.4 IU/L LUTEINIZING HORMONE (test co de = 2776) 5.0 IU/L Bal RoseHEMOGLOBIN [id number] 00:00:00* Test Item Value Reference Range Interpretation Comme christopher HEMOGLOBIN A1c (test code = 86585) 5.8 % Bal RoseCOMPREHENSIVE METABOLIC [id number] 00:00:00* Test Item Value Reference Range Interpretation Comme christopher GLUCOSE (test code = 2217) 112 MG/DL BUN (test code = 2208) 12 MG/DL CREATININE (test code = 2214) 0.88 MG/DL eGFR (2020 CKD-EPI) (test co de = 88506) 86 ML/MIN/1.73 CALC BUN/CREAT (test code = 2235) 14 RATIO SODIUM (test code = 2231) 140 MEQ/L POTASSIUM (test code = 2228) 3.9 MEQ/L CHLORIDE (test code = 2215) 104 MEQ/L CARBON DIOXIDE (test code = 2206) 23 MEQ/L CALCIUM (test code = 2209) 9.2 MG/DL PROTEIN, TOTAL (test code = 2229) 7.1 G/DL ALBUMIN (test code = 2201) 4.2 G/DL CALC GLOBULIN (test code = 2240) 2.9 G/DL CALC A/G RATIO (test code = 2234) 1.4 RATIO BILIRUBIN, TOTAL (test code = 2207) 0.2 MG/DL ALKALINE PHOSPHATASE (test code = 2204) 89 U/L AST (test code = 2218) 8 U/L ALT (test code = 2219) <5 U/L Bal [id number] 00:00:00* Test Item Value Reference Range Interpretation Comme nts PROGESTERONE (test code = 2790) 0.20 NG/ML Bal [id number] 00:00:00* Test Item Value Reference Range Interpretation Comme christopher PROLACTIN (test code = 2800) 10.6 NG/ML Bal RoseXqnlfhTHBOGYGDE9655-03-23 00:00:00* Test Item Value Reference Range Interpretation Comme nts ESTRADIOL (test code = 9005) 55.9 PG/ML Bal RoseFSH + LH [id number] 00:00:00* Test Item Value Reference Range Interpretation Comme christopher FOLLICLE STIM HORMONE (test code = 2700) 7.4 IU/L LUTEINIZING HORMONE (test co de = 2776) 5.0 IU/L Bal RoseHEMOGLOBIN [id number] 00:00:00* Test Item Value Reference Range Interpretation Comme christopher HEMOGLOBIN A1c (test code = 21566) 5.8 % Bal RoseCOMPREHENSIVE METABOLIC [id number] 00:00:00* Test Item Value Reference Range Interpretation Comme nts GLUCOSE (test code = 2217) 112 MG/DL BUN (test code = 2208) 12 MG/DL CREATININE (test code = 2214) 0.88 MG/DL eGFR (2020 CKD-EPI) (test co de = 32264) 86 ML/MIN/1.73 CALC BUN/CREAT (test code = 2235) 14 RATIO SODIUM (test code = 2231) 140 MEQ/L POTASSIUM (test code = 2228) 3.9 MEQ/L CHLORIDE (test code = 2215) 104 MEQ/L CARBON DIOXIDE (test code = 2206) 23 MEQ/L CALCIUM (test code = 2209) 9.2 MG/DL PROTEIN, TOTAL (test code = 2229) 7.1 G/DL ALBUMIN (test code = 2201) 4.2 G/DL CALC GLOBULIN (test code = 2240) 2.9 G/DL CALC A/G RATIO (test code = 2234) 1.4 RATIO BILIRUBIN, TOTAL (test code = 2207) 0.2 MG/DL ALKALINE PHOSPHATASE (test code = 2204) 89 U/L AST (test code = 2218) 8 U/L ALT (test code = 2219) <5 U/L Bal RosePROTHROMBIN TIME (PT)2024-03-02 00:00:00* Test Item Value Reference Range Interpretation Comme nts PROTHROMBIN TIME (PT) (test code = 1402) 12.6 SECONDS INR (test code = 14165) 0.9 Bal Zapata AustinPROTHROMBIN TIME (PT)2024-03-02 00:00:00* Test Item Value Reference Range Interpretation Comme nts PROTHROMBIN TIME (PT) (test code = 1402) 12.6 SECONDS INR (test code = 02030) 0.9 Bal Zapata AustinPROTHROMBIN TIME (PT)2024-03-02 00:00:00* Test Item Value Reference Range Interpretation Comme nts PROTHROMBIN TIME (PT) (test code = 1402) 12.6 SECONDS INR (test code = 79840) 0.9 Bal Zapata AustinPROTHROMBIN TIME (PT)2024-03-02 00:00:00* Test Item Value Reference Range Interpretation Comme nts PROTHROMBIN TIME (PT) (test code = 1402) 12.6 SECONDS INR (test code = 54581) 0.9 Bal Zapata AustinPROTHROMBIN TIME (PT)2024-03-02 00:00:00* Test Item Value Reference Range Interpretation Comme nts PROTHROMBIN TIME (PT) (test code = 1402) 12.6 SECONDS INR (test code = 25202) 0.9 Bal Zapata AustinPROTHROMBIN TIME (PT)2024-03-02 00:00:00* Test Item Value Reference Range Interpretation Comme nts PROTHROMBIN TIME (PT) (test code = 1402) 12.6 SECONDS INR (test code = 34854) 0.9 Bal Zapata AustinPROTHROMBIN TIME (PT)2024-03-02 00:00:00* Test Item Value Reference Range Interpretation Comme nts PROTHROMBIN TIME (PT) (test code = 1402) 12.6 SECONDS INR (test code = 62647) 0.9 Bal Zapata AustinPROTHROMBIN TIME (PT)2024-03-02 00:00:00* Test Item Value Reference Range Interpretation Comme nts PROTHROMBIN TIME (PT) (test code = 1402) 12.6 SECONDS INR (test code = 02636) 0.9 Bal Zapata AustinPROTHROMBIN TIME (PT)2024-03-02 00:00:00* Test Item Value Reference Range Interpretation Comme nts PROTHROMBIN TIME (PT) (test code = 1402) 12.6 SECONDS INR (test code = 65313) 0.9 Bal Zapata AustinPROTHROMBIN TIME (PT)2024-03-02 00:00:00* Test Item Value Reference Range Interpretation Comme nts PROTHROMBIN TIME (PT) (test code = 1402) 12.6 SECONDS INR (test code = 85511) 0.9 Bal Zapata AustinPROTHROMBIN TIME (PT)2024-03-02 00:00:00* Test Item Value Reference Range Interpretation Comme nts PROTHROMBIN TIME (PT) (test code = 1402) 12.6 SECONDS INR (test code = 59515) 0.9 Bal Zapata AustinPROTHROMBIN TIME (PT)2024-03-02 00:00:00* Test Item Value Reference Range Interpretation Comme nts PROTHROMBIN TIME (PT) (test code = 1402) 12.6 SECONDS INR (test code = 36679) 0.9 Bal Zapata AustinTSH, THIRD [id number] 04:33:16* Test Item Value Reference Range Interpretation Comme nts TSH, THIRD GENERATION (test code = 2821) 0.919 UIU/ML 0.400-4.100 HEMOGLOBIN [id number] 02:32:32* Test Item Value Reference Range Interpretation Comme nts HEMOGLOBIN A1c (test code = 25755) 5.8 % 4.2-5.6 H [employer] GUIDELINES FOR HGB A1C: PREDIABETES/INCREASED RISK . . . . . . . 5.7-6.4% DIAGNOSIS OF DIABETES . . . . . . . . . >=6.5% WITH CONFIRMATION OR APPROPRIATE SYMPTOMS NOTE: ASSAY MAY BE AFFECTED BY HEMOGLOBINOPATHIES (SICKLE CELL ANEMIA, S-C DISEASE, OTHERS) OR ARTIFICIALLY LOWERED BY DECREASED RED CELL SURVIVAL (HEMOLYTIC ANEMIAS, BLOOD LOSS, ETC.). CONSIDER ALTERNATE TESTING OR LABORATORY CONSULTATION. UNLESS OTHERWISE INDICATED, ALL TESTING PERFORMED AT [facility] [address] [place] [id number] BLANKET WEAVER: GRACE ARELLANO M.D. CLIA NUMBER [id number] [place]. [id number] TSH, THIRD [id number] 00:00:00* Test Item Value Reference Range Interpretation Comme nts TSH, THIRD GENERATION (test code = 2821) 0.919 UIU/ML Bal RoseHEMOGLOBIN [id number] 00:00:00* Test Item Value Reference Range Interpretation Comme nts HEMOGLOBIN A1c (test code = 49791) 5.8 % Bal Henriquez, THIRD [id number] 00:00:00* Test Item Value Reference Range Interpretation Comme nts TSH, THIRD GENERATION (test code = 2821) 0.919 UIU/ML Bal RoseHEMOGLOBIN [id number] 00:00:00* Test Item Value Reference Range Interpretation Comme nts HEMOGLOBIN A1c (test code = 29673) 5.8 % Bal Henriquez, THIRD [id number] 00:00:00* Test Item Value Reference Range Interpretation Comme nts TSH, THIRD GENERATION (test code = 2821) 0.919 UIU/ML Bal RoseHEMOGLOBIN [id number] 00:00:00* Test Item Value Reference Range Interpretation Comme nts HEMOGLOBIN A1c (test code = 59553) 5.8 % Bal Henriquez THIRD [id number] 00:00:00* Test Item Value Reference Range Interpretation Comme nts TSH, THIRD GENERATION (test code = 2821) 0.919 UIU/ML Bal RoseHEMOGLOBIN [id number] 00:00:00* Test Item Value Reference Range Interpretation Comme nts HEMOGLOBIN A1c (test code = 15864) 5.8 % Bal Henriquez THIRD [id number] 00:00:00* Test Item Value Reference Range Interpretation Comme nts TSH, THIRD GENERATION (test code = 2821) 0.919 UIU/ML Bal Zapata AustinHEMOGLOBIN [id number] 00:00:00* Test Item Value Reference Range Interpretation Comme nts HEMOGLOBIN A1c (test code = 83172) 5.8 % Bal Henriquez, THIRD [id number] 00:00:00* Test Item Value Reference Range Interpretation Comme nts TSH, THIRD GENERATION (test code = 2821) 0.919 UIU/ML Bal RoseHEMOGLOBIN [id number] 00:00:00* Test Item Value Reference Range Interpretation Comme nts HEMOGLOBIN A1c (test code = 06668) 5.8 % Bal Henriquez THIRD [id number] 00:00:00* Test Item Value Reference Range Interpretation Comme nts TSH, THIRD GENERATION (test code = 2821) 0.919 UIU/ML Bal RoseHEMOGLOBIN [id number] 00:00:00* Test Item Value Reference Range Interpretation Comme nts HEMOGLOBIN A1c (test code = 33650) 5.8 % Bal Henriquez THIRD [id number] 00:00:00* Test Item Value Reference Range Interpretation Comme nts TSH, THIRD GENERATION (test code = 2821) 0.919 UIU/ML Bal RoseHEMOGLOBIN [id number] 00:00:00* Test Item Value Reference Range Interpretation Comme nts HEMOGLOBIN A1c (test code = 24555) 5.8 % Bal Henriquez THIRD [id number] 00:00:00* Test Item Value Reference Range Interpretation Comme nts TSH, THIRD GENERATION (test code = 2821) 0.919 UIU/ML Bal RoseHEMOGLOBIN [id number] 00:00:00* Test Item Value Reference Range Interpretation Comme nts HEMOGLOBIN A1c (test code = 35872) 5.8 % Bal Henriquez THIRD [id number] 00:00:00* Test Item Value Reference Range Interpretation Comme nts TSH, THIRD GENERATION (test code = 2821) 0.919 UIU/ML Bal Zapata AustinHEMOGLOBIN [id number] 00:00:00* Test Item Value Reference Range Interpretation Comme nts HEMOGLOBIN A1c (test code = 45991) 5.8 % Bal Henriquez THIRD [id number] 00:00:00* Test Item Value Reference Range Interpretation Comme nts TSH, THIRD GENERATION (test code = 2821) 0.919 UIU/ML Bal Zapata AustinHEMOGLOBIN [id number] 00:00:00* Test Item Value Reference Range Interpretation Comme nts HEMOGLOBIN A1c (test code = 94306) 5.8 % Bal Henriquez, THIRD [id number] 00:00:00* Test Item Value Reference Range Interpretation Comme nts TSH, THIRD GENERATION (test code = 2821) 0.919 UIU/ML Bal RoseHEMOGLOBIN [id number] 00:00:00* Test Item Value Reference Range Interpretation Comme christopher HEMOGLOBIN A1c (test code = 82134) 5.8 % Bal RoseTSH, THIRD [id number] 00:00:00* Test Item Value Reference Range Interpretation Comme christopher TSH, THIRD GENERATION (test code = 2821) 0.919 UIU/ML Bal RoseHEMOGLOBIN [id number] 00:00:00* Test Item Value Reference Range Interpretation Comme christopher HEMOGLOBIN A1c (test code = 54984) 5.8 % Bal RoseTransthoracic echo (TTE)2024-01-20 20:52:55* Test Item Value Reference Range Interpretation Comme nts Height (test code = 9650596444) 69 in Weight (test code = 9632844083) 283 lbs Systolic BP (test code = 6552006780) 134 mmHg Diastolic BP (test code = 9005042038) 97 mmHg Heart Rate (test code = 6982608520) 84 bpm BSA (test code = 8277721043) 2.39 m2 LV GLS Endo Peak A2C () (test code = 1440302156) -25.60 % LV GLS Endo Peak A3C () (test code = 8155771697) -26.30 % LV GLS Endo Peak A4C () (test code = 9483670959) -29.00 % LV GLS Endo Peak Avg () (test code = 4234513437) -27.00 % LVOT diameter (test code = 2280018574) 3.0 cm LVOT area (test code = 3116386623) 7.30 cm2 Ao root diam (test code = 3871256396) 2.90 cm Aortic root (test code = 8311904645) 2.9 cm Ao root annulus (test code = 0598670445) 2.9 cm LVIDD (test code = 0527526978) 4.30 cm Left Ventricular End Diastolic Volume by Teichholz Method (test code = 1000908) 84.2 mL IVS (test code = 7332780959) 1.34 cm Interventricular Septum Diastolic Thickness by 2D (test code = 6006079) 1.34 cm LVPWD (test code = 5134752367) 1.37 cm PW (test code = 9644454670) 1.37 cm 0.6-1.1 EF(Teich) (test code = 2749092014) 59.70 % LVIDS (test code = 7082988772) 3.00 cm Left Ventricular End Systolic Volume by Teichholz Method (test code = 3120974) 34.0 mL FS (test code = 4754961194) 32 % EF - 2D (test code = 09036584) 59.70 % TR Peak Caro (test code = 2098903614) 175.0 cm/s Triscuspid Valve Regurgitation Peak Gradient (test code = 1624804767) 12.2 mmHg LAV(MOD-sp4) (test code = 4276042912) 20.20 mL E wave decelartion time (test code = 4743636701) 0.13 s MV Peak E Caro (test code = 4067335348) 55.1 cm/s MV Peak A Caro (test code = 3149718203) 44.7 cm/s E/A ratio (test code = 2681136347) 1.23 ratio MV stenosis pressure 1/2 time (test code = 4387134604) 38.8 ms MV Prop V (test code = 8017350576) 26.90 cm/s MV E/e' septal (test code = 7784933656) 14.8 cm/s A4C EF (test code = 2354190920) 56.30 % EF(sp4-el) (test code = 7915757875) 56.80 % SV(MOD-sp4) (test code = 9270179977) 50.00 mL SV(sp4-el) (test code = 6529370695) 52.70 mL Tapse (test code = 5587881653) 2.26 cm LVOT stroke volume (test code = 8056316200) 102.10 cm3 LVOT peak caro (test code = 4777693756) 74.2 cm/s LVOT mn grad (test code = 4561175836) 1.4 mmHg AV LVOT peak gradient (test code = 5076289215) 2.20 mmHg LVOT peak VTI (test code = 0209380669) 14.0 cm LV V1 mean (test code = 8332712682) 56.10 cm/s Aortic valve mean velocity (test code = 5674393943) 65.9 cm/s Ao peak caro (test code = 0737193600) 80.8 cm/s Ao VTI (test code = 8736573779) 18.6 cm AV area by cont VTI (test code = 5186422344) 5.5 cm2 AV area peak caro (test code = 4313994494) 6.7 cm2 Ao max PG (test code = 8968993091) 2.60 mm[Hg] AV peak gradient (test code = 3538931978) 2.6 mmHg AV valve area (test code = 1806835840) 5.50 cm2 AV mean gradient (test code = 0513120703) 1.79 mmHg Radiology Study observation (narrative) (test code = 47994-8) ED (test code = ED) ?Left?Ventricle: Left ventricle size is normal. Normal wall thickness. Normal wall motion. Normal systolic function with a visually estimated EF of 55 - 60%. GLS -27%. Normal diastolic function. ?Right?Ventricle: Right ventricle size is normal. Normal systolic function. ?Tricuspid?Valve: Insufficient tricuspid regurgitation jet to estimate RVSP . ?RA pressure is 0-5 mmHg. Left VentricleLeft ventricle size is normal. Normal wall thickness. Normal wall motion. Normal systolic function with a visually estimated EF of 55 - 60%. GLS -27%. Normal diastolic function.Right VentricleRight ventricle size is normal. Normal systolic function.Left AtriumLeft atrium size is normal.Right AtriumRight atrium size is normal.IVC/SVCIVC diameter is less than or equal to 21 mm and decreases greater than 50% during inspiration; therefore the estimated right atrial pressure is normal (~0-5 mmHg).Mitral ValveMitral valve structure is normal. Trace transvalvular regurgitation.Tricusp id ValveTricuspid valve structure is normal. Trace transvalvular regurgitation. Insufficient tricuspid regurgitation jet to estimate RVSP . RA pressure is 0-5 mmHg.Aortic ValveTricuspid.Pulmon ic ValveNot well visualized. Trace transvalvular regurgitation.Ascendi ng AortaNormal sized aorta.PericardiumThe pericardium is normal. No pericardial effusion.Study DetailsStudy quality experienced technical difficulty. A complete echocardiogram was performed using 2D, color flow Doppler, spectral Doppler and strain. [facility] SW[facility] [id number] 14:52:09 HISTORY: Dysphagia. History of acute gastric ulcer. TECHNIQUE: Barium swallow/esophagram were obtained using gas producingeffervescent granules, thick barium and thin barium with digitalfluoroscopic technique done by me with the patient in multiple upright andrecumbent positions. FINDINGS: Swallowing function appear normal. Esophagus appears of normalsize and shape with no focal mucosal lesions. No stricture or diverticulaseen. I was able to visualize hiatal hernia with Valsalva technique. Nogastroesophageal reflux. However, retrograde reflux within lower esophaguswas noted. CONCLUSIONS: Small sliding-type hiatal hernia without gastroesophagealreflux. Small amount of retrograde intraesophage al reflux was noted in thelower esophagus.[facility]EN/[id number] 00:19:09Exam: CT Angiography Abdomen and Pelvis With Contrast, 01/08/2024 5:30 PM. Ordering Physician: NANDA MUNROE. History: Right lower extremity edema for one year. Comparison: None. Technique: CT angiography of the abdomen and pelvis was performed withintravenous contrast. Multiplanar reformats were obtained. ?3D MIP imageswere rendered. ?CT was performed according to ALARA (As Low As ReasonablyAchievable). Technical Quality: Adequate. Findings: CTA Abdomen:Vascular: There is no abdominal aortic aneurysm or dissection. Celiacartery shows no significant stenosis. Major celiac artery branches arepatent. Superior mesenteric artery shows no significant stenosis. Major SMAbranches are patent. ?Right renal artery shows no significant stenosis. Left renal artery shows no significant stenosis. Inferior mesenteric arteryshows no significant stenosis. Lower Thorax: Lung bases are clear. Heart size is normal. There is a smallhiatal hernia. ? Organs: Hepatic dome is partially excluded from the examination. Visualizedliver, pancreas, spleen, and adrenal glands are within normal limits.Biliary Tree: Gallbladder is surgically absent. There is no pancreatic orbiliary duct dilatation. Urinary Tract: Kidneys are symmetric in size. There is no hydronephrosis orhydroureter. Peritoneal/Retroperitoneal: There is no free air or free fluid. Lymph Nodes: There is no abdominal adenopathy. Body Wall: Unremarkable. Gastrointestinal: Stomach is mildly distended with fluid and gas.Fluid-filled, nondilated small bowel loops are noted. There is no evidenceof bowel obstruction. Appendix is normal. There is a thickened appearanceof the transverse, descending, and rectosigmoid colonic wall. Wallthickeningis likely exaggerated by nondistended state. Osseous: Unremarkable. CTA Pelvis:Vascular: Bilateral common iliac arteries show no significant stenosis.Bilateral internal iliac arteries show no significant stenosis. Bilateralexternal iliac arteries show no significant stenosis. ?Bilateral commonfemoral arteries show no significant stenosis. Visualized proximalsuperficial femoral and profunda femoris arteries are patent. Genitourinary: Urinary bladder is unremarkable. Uterus and adnexa are notenlar ged. Peritoneal/Extraperitoneal: There is no pelvic free fluid. ?There is nopelvic adenopathy. Osseous: Unremarkable.[facility] CULTURE, [id number] 00:00:00* Test Item Value Reference Range Interpretation Comme nts CULTURE, URINE (test code = 67039) SPECIMEN NUMBER: [id number] Bal TreviñoLTURE, [id number] 00:00:00* Test Item Value Reference Range Interpretation Comme nts CULTURE, URINE (test code = 78028) SPECIMEN NUMBER: [id number] Bal RoseCULTURE, [id number] 00:00:00* Test Item Value Reference Range Interpretation Comme nts CULTURE, URINE (test code = 47572) SPECIMEN NUMBER: [id number] Bal RoseCULTURE, [id number] 00:00:00* Test Item Value Reference Range Interpretation Comme nts CULTURE, URINE (test code = 85651) SPECIMEN NUMBER: [id number] Bal RoseCULTURE, [id number] 00:00:00* Test Item Value Reference Range Interpretation Comme nts CULTURE, URINE (test code = 04995) SPECIMEN NUMBER: [id number] Bal RoseCULTURE, [id number] 00:00:00* Test Item Value Reference Range Interpretation Comme nts CULTURE, URINE (test code = 03569) SPECIMEN NUMBER: [id number] Bal RoseCULTURE, [id number] 00:00:00* Test Item Value Reference Range Interpretation Comme nts CULTURE, URINE (test code = 46621) SPECIMEN NUMBER: [id number] Bal RoseCULTURE, [id number] 00:00:00* Test Item Value Reference Range Interpretation Comme nts CULTURE, URINE (test code = 27710) SPECIMEN NUMBER: [id number] Bal RoseCULTURE, [id number] 00:00:00* Test Item Value Reference Range Interpretation Comme nts CULTURE, URINE (test code = 00473) SPECIMEN NUMBER: [id number] Bal TreviñoLTISABEL, [id number] 00:00:00* Test Item Value Reference Range Interpretation Comme nts CULTURE, URINE (test code = 22782) SPECIMEN NUMBER: [id number] Bal RoseCULTURE, [id number] 00:00:00* Test Item Value Reference Range Interpretation Comme nts CULTURE, URINE (test code = 29840) SPECIMEN NUMBER: [id number] Bal RoseCULTISABEL, [id number] 00:00:00* Test Item Value Reference Range Interpretation Comme nts CULTURE, URINE (test code = 03938) SPECIMEN NUMBER: [id number] Bal RoseCULTISABEL, [id number] 00:00:00* Test Item Value Reference Range Interpretation Comme nts CULTURE, URINE (test code = 69700) SPECIMEN NUMBER: [id number] Bal RoseCULTISABEL, [id number] 00:00:00* Test Item Value Reference Range Interpretation Comme nts CULTURE, URINE (test code = 89599) SPECIMEN NUMBER: [id number] Bal RosePREGNANCY TEST, [id number] 23:00:35* Test Item Value Reference Range Interpretation Comme nts PREG SERUM (test code = 0229917606) Negative ED (test code = ED) Less than 10 IU/L. ?If low titer or ectopic is suspected, resubmit specimen in 48-72 hours. [facility] [id number] 22:48:52* Test Item Value Reference Range Interpretation Comme nts TROPONIN I (test code = 4641695609) 0.000 ng/mL <=0.034 ED (test code = ED) Reference (Normal) Range (defined by the 99th percentile reference limit): <= 0.034 ng/mL Note: Cardiac troponin begins to rise 3-4 hours after the onset of ischemia. Repeat in 4-6 hours if the sample was drawn within 3-4 hours of the onset of the symptom and found normal. Diagnosis of myocardial injury is made with acute changes in cTn concentrations with at least one serial sample above the 99th percentile upper reference limit (URL), taken together with the patient's clinical presentation. Biotin has been reported to cause a negative bias, interpret results relative to patient's use of biotin. Lab Interpretation (test code = 85893-3) Normal [facility] TexasN-TERMINAL [id number] 22:46:13* Test Item Value Reference Range Interpretation Comme nts NT-proBNP (test code = 16574-8) 125 pg/mL <=125 Lab Interpretation (test cod e = 90250-9) Normal [facility] METABOLIC PANEL (NA, K, CL, CO2, GLUCOSE, BUN, CREATININE, CA)[id number] 22:37:13* Test Item Value Reference Range Interpretation Comme nts NA (test code = 0433532563) 138 mmol/L 135-145 K (test code = 1914015756) 3.8 mmol/L 3.5-5.0 CL (test code = 4743636441) 103 mmol/L 98-108 CO2 TOTAL (test code = 4592614737) 26 mmol/L 23-31 AGAP (test code = 6663579234) 9 2-16 BUN (test code = 2996590426) 17 mg/dL 7-23 GLUCOSE (test code = 1739535151) 99 mg/dL 70-110 CREATININE (test code = 2160-0) 0.92 mg/dL 0.50-1.04 CALCIUM (test code = 6547333211) 9.3 mg/dL 8.6-10.6 eGFR (test code = 20269-8) 81.9 mL/min/1.73m2 CKD-EPI eGFR (20 21). Assuming creatinine has been stable day-to-day for at least three months, the eGFR indicates Category G2 (60 - 89 mL/min/1.73 m2) [facility] TexasPOCT [id number] 22:34:00* Test Item Value Reference Range Interpretation Comme nts POCT PREG (test code = 1605) Negative On board controls acceptable with C Line (test code = 3574) Yes Lab Interpretation (test cod e = 03185-0) Normal [facility] WITH [id number] 22:24:09* Test Item Value Reference Range Interpretation Comme nts WBC (test code = 6690-2) 10.94 4.30-11.10 RBC (test code = 789-8) 4.70 3.93-5.25 HGB (test code = 718-7) 12.4 g/dL 11.6-15.0 HCT (test code = 4544-3) 39.8 % 35.7-45.2 MCV (test code = 787-2) 84.7 fL 80.6-95.5 MCH (test code = 785-6) 26.4 pg 25.9-32.8 MCHC (test code = 786-4) 31.2 g/dL 31.6-35.1 L RDW-SD (test code = 84130-1) 44.8 fL 39.0-49.9 RDW-CV (test code = 788-0) 14.6 % 12.0-15.5 PLT (test code = 777-3) 275 166-358 MPV (test code = 54749-8) 10.3 fL 9.5-12.9 NRBC/100 WBC (test code = 9833311392) 0.0 0.0-10.0 NRBC x10^3 (test code = 9807363949) See_Comment [Automated messa ge] The system which generated this result transmitted reference range: 10*3/?L. The reference range was not used to interpret this result as normal/abnormal. GRAN MAT (NEUT) % (test code = 770-8) 68.9 % IMM GRAN % (test code = 0979481122) 0.40 % LYMPH % (test code = 736-9) 23.7 % MONO % (test code = 5905-5) 5.5 % EOS % (test code = 713-8) 0.8 % BASO % (test code = 706-2) 0.7 % GRAN MAT x10^3(ANC) (test code = 8916494375) 7.54 10*3/uL 1.88-7.09 H IMM GRAN x10^3 (test code = 2784725700) 0.04 10*3/uL 0.00-0.06 LYMPH x10^3 (test code = 731-0) 2.59 10*3/uL 1.32-3.29 MONO x10^3 (test code = 742-7) 0.60 10*3/uL 0.33-0.92 EOS x10^3 (test code = 711-2) 0.09 10*3/uL 0.03-0.39 BASO x10^3 (test code = 704-7) 0.08 10*3/uL 0.01-0.07 H Lab Interpretation (test code = 79639-4) Abnormal [facility] ABDOMEN [id number] 13:56:38HISTORY: Hepatomegaly. TECHNIQUE: Upper abdominal organs were evaluated in multiple planes withthe patient in multiple different positions, without and with colorimaging. FINDINGS: Liver is 17.9 cm, spleen is 10.9 cm. Liver parenchyma ismoderately coarsened and increased in echotexture, with poor visualizationof the proportional parenchyma as well as diaphragm. No free fluid in theupper abdomen or aortic aneurysm detected. Visualized portions of thepancreas appear normal. Hepatic and portal venous system appear patent,with hepatopetal portal flow noted. Gallbladder appears to be removed. Common hepatic duct is 3.8 mm. CONCLUSIONS:1. Mild hepatomegaly with moderately coarsened echotexture ofthe liverparenchyma, consistent with chronic primary liver disease. No focal liverlesions visualized.2. S/P cholecystectomy.[facility] TexasCBC W/AUTO DIFF WITH [id number] 04:00:46* Test Item Value Reference Range Interpretation Comme nts WBC (test code = 1001) 10.8 K/UL 3.5-11.0 RBC (test code = 1002) 4.80 M/UL 3.80-5.40 HEMOGLOBIN (test code = 1003) 12.3 G/DL 11.5-15.5 HEMATOCRIT (test code = 1004) 38.9 % 34.0-45.0 MCV (test code = 1005) 81.0 fL 80.0-99.0 MCH (test code = 1006) 25.6 PG 25.0-33.0 MCHC (test code = 1007) 31.6 G/DL 31.0-36.0 RDW (test code = 1038) 14.1 % 11.5-15.0 NEUTROPHILS (test code = 1008) 71.7 % LYMPHOCYTES (test code = 1010) 21.4 % MONOCYTES (test code = 1011) 5.3 % EOSINOPHILS (test code = 1012) 0.6 % BASOPHILS (test code = 1013) 0.6 % IMMATURE GRANULOCYTES (test code = 1036) 0.4 % NUCLEATED RBCS (test code = 1065) 0.0 /100 WBC'S See_Comment [Automated message] The system which generated this result transmitted reference range: 0.0. The reference range was not used to interpret this result as normal/abnormal. PLATELET COUNT (test code = 1015) 287 K/UL 130-400 ABSOLUTE NEUTROPHILS (test code = 1066) 7.72 K/UL 1.50-7.50 H ABSOLUTE LYMPHOCYTES (test code = 1067) 2.31 K/UL 1.00-4.00 ABSOLUTE MONOCYTES (test code = 1068) 0.57 K/UL 0.20-1.00 ABSOLUTE EOSINOPHILS (test code = 1040) 0.07 K/UL 0.00-0.50 ABSOLUTE BASOPHILS (test code = 1069) 0.06 K/UL 0.00-0.20 ABS IMMATURE GRANULOCYTES (test code = 1020) 0.04 K/UL 0.00-0.10 ABS NUCLEATED RBCS (test code = 18821) 0.00 K/UL 0.00-0.11 UNLESS OTHER [place] INDICATED, ALL TESTING PERFORMED AT [facility] [address] [place] [id number] BLANKET WEAVER: GRACE ARELLANO M.D. CLIA NUMBER [id number] [facility] [place]. [id number] CBC W/AUTO [id number] 00:00:00* Test Item Value Reference Range Interpretation Comme nts WBC (test code = 1001) 10.8 K/UL RBC (test code = 1002) 4.80 M/UL HEMOGLOBIN (test code = 1003) 12.3 G/DL HEMATOCRIT (test code = 1004) 38.9 % MCV (test code = 1005) 81.0 fL MCH (test code = 1006) 25.6 PG MCHC (test code = 1007) 31.6 G/DL RDW (test code = 1038) 14.1 % NEUTROPHILS (test code = 1008) 71.7 % LYMPHOCYTES (test code = 1010) 21.4 % MONOCYTES (test code = 1011) 5.3 % EOSINOPHILS (test code = 1012) 0.6 % BASOPHILS (test code = 1013) 0.6 % IMMATURE GRANULOCYTES (test code = 1036) 0.4 % NUCLEATED RBCS (test code = 1065) 0.0 /100WBC'S PLATELET COUNT (test code = 1015) 287 K/UL ABSOLUTE NEUTROPHILS (test c ode = 1066) 7.72 K/UL ABSOLUTE LYMPHOCYTES (test c ode = 1067) 2.31 K/UL ABSOLUTE MONOCYTES (test cod e = 1068) 0.57 K/UL ABSOLUTE EOSINOPHILS (test c ode = 1040) 0.07 K/UL ABSOLUTE BASOPHILS (test cod e = 1069) 0.06 K/UL ABS IMMATURE GRANULOCYTES (t est code = 1020) 0.04 K/UL ABS NUCLEATED RBCS (test cod e = 68401) 0.00 K/UL [facility] [id number] 00:00:00* Test Item Value Reference Range Interpretation Comme nts WBC (test code = 1001) 10.8 K/UL RBC (test code = 1002) 4.80 M/UL HEMOGLOBIN (test code = 1003) 12.3 G/DL HEMATOCRIT (test code = 1004) 38.9 % MCV (test code = 1005) 81.0 fL MCH (test code = 1006) 25.6 PG MCHC (test code = 1007) 31.6 G/DL RDW (test code = 1038) 14.1 % NEUTROPHILS (test code = 1008) 71.7 % LYMPHOCYTES (test code = 1010) 21.4 % MONOCYTES (test code = 1011) 5.3 % EOSINOPHILS (test code = 1012) 0.6 % BASOPHILS (test code = 1013) 0.6 % IMMATURE GRANULOCYTES (test code = 1036) 0.4 % NUCLEATED RBCS (test code = 1065) 0.0 /100WBC'S PLATELET COUNT (test code = 1015) 287 K/UL ABSOLUTE NEUTROPHILS (test c ode = 1066) 7.72 K/UL ABSOLUTE LYMPHOCYTES (test c ode = 1067) 2.31 K/UL ABSOLUTE MONOCYTES (test cod e = 1068) 0.57 K/UL ABSOLUTE EOSINOPHILS (test c ode = 1040) 0.07 K/UL ABSOLUTE BASOPHILS (test cod e = 1069) 0.06 K/UL ABS IMMATURE GRANULOCYTES (t est code = 1020) 0.04 K/UL ABS NUCLEATED RBCS (test cod e = 58531) 0.00 K/UL Bal Zapata [employer] W/AUTO [id number] 00:00:00* Test Item Value Reference Range Interpretation Comme nts WBC (test code = 1001) 10.8 K/UL RBC (test code = 1002) 4.80 M/UL HEMOGLOBIN (test code = 1003) 12.3 G/DL HEMATOCRIT (test code = 1004) 38.9 % MCV (test code = 1005) 81.0 fL MCH (test code = 1006) 25.6 PG MCHC (test code = 1007) 31.6 G/DL RDW (test code = 1038) 14.1 % NEUTROPHILS (test code = 1008) 71.7 % LYMPHOCYTES (test code = 1010) 21.4 % MONOCYTES (test code = 1011) 5.3 % EOSINOPHILS (test code = 1012) 0.6 % BASOPHILS (test code = 1013) 0.6 % IMMATURE GRANULOCYTES (test code = 1036) 0.4 % NUCLEATED RBCS (test code = 1065) 0.0 /100WBC'S PLATELET COUNT (test code = 1015) 287 K/UL ABSOLUTE NEUTROPHILS (test c ode = 1066) 7.72 K/UL ABSOLUTE LYMPHOCYTES (test c ode = 1067) 2.31 K/UL ABSOLUTE MONOCYTES (test cod e = 1068) 0.57 K/UL ABSOLUTE EOSINOPHILS (test c ode = 1040) 0.07 K/UL ABSOLUTE BASOPHILS (test cod e = 1069) 0.06 K/UL ABS IMMATURE GRANULOCYTES (t est code = 1020) 0.04 K/UL ABS NUCLEATED RBCS (test cod e = 91458) 0.00 K/UL Bal Zapata [employer] W/AUTO [id number] 00:00:00* Test Item Value Reference Range Interpretation Comme nts WBC (test code = 1001) 10.8 K/UL RBC (test code = 1002) 4.80 M/UL HEMOGLOBIN (test code = 1003) 12.3 G/DL HEMATOCRIT (test code = 1004) 38.9 % MCV (test code = 1005) 81.0 fL MCH (test code = 1006) 25.6 PG MCHC (test code = 1007) 31.6 G/DL RDW (test code = 1038) 14.1 % NEUTROPHILS (test code = 1008) 71.7 % LYMPHOCYTES (test code = 1010) 21.4 % MONOCYTES (test code = 1011) 5.3 % EOSINOPHILS (test code = 1012) 0.6 % BASOPHILS (test code = 1013) 0.6 % IMMATURE GRANULOCYTES (test code = 1036) 0.4 % NUCLEATED RBCS (test code = 1065) 0.0 /100WBC'S PLATELET COUNT (test code = 1015) 287 K/UL ABSOLUTE NEUTROPHILS (test c ode = 1066) 7.72 K/UL ABSOLUTE LYMPHOCYTES (test c ode = 1067) 2.31 K/UL ABSOLUTE MONOCYTES (test cod e = 1068) 0.57 K/UL ABSOLUTE EOSINOPHILS (test c ode = 1040) 0.07 K/UL ABSOLUTE BASOPHILS (test cod e = 1069) 0.06 K/UL ABS IMMATURE GRANULOCYTES (t est code = 1020) 0.04 K/UL ABS NUCLEATED RBCS (test cod e = 33433) 0.00 K/UL [facility] [id number] 00:00:00* Test Item Value Reference Range Interpretation Comme nts WBC (test code = 1001) 10.8 K/UL RBC (test code = 1002) 4.80 M/UL HEMOGLOBIN (test code = 1003) 12.3 G/DL HEMATOCRIT (test code = 1004) 38.9 % MCV (test code = 1005) 81.0 fL MCH (test code = 1006) 25.6 PG MCHC (test code = 1007) 31.6 G/DL RDW (test code = 1038) 14.1 % NEUTROPHILS (test code = 1008) 71.7 % LYMPHOCYTES (test code = 1010) 21.4 % MONOCYTES (test code = 1011) 5.3 % EOSINOPHILS (test code = 1012) 0.6 % BASOPHILS (test code = 1013) 0.6 % IMMATURE GRANULOCYTES (test code = 1036) 0.4 % NUCLEATED RBCS (test code = 1065) 0.0 /100WBC'S PLATELET COUNT (test code = 1015) 287 K/UL ABSOLUTE NEUTROPHILS (test c ode = 1066) 7.72 K/UL ABSOLUTE LYMPHOCYTES (test c ode = 1067) 2.31 K/UL ABSOLUTE MONOCYTES (test cod e = 1068) 0.57 K/UL ABSOLUTE EOSINOPHILS (test c ode = 1040) 0.07 K/UL ABSOLUTE BASOPHILS (test cod e = 1069) 0.06 K/UL ABS IMMATURE GRANULOCYTES (t est code = 1020) 0.04 K/UL ABS NUCLEATED RBCS (test cod e = 15578) 0.00 K/UL Bal [facility]apata [facility]AUT[facility] [id number] 00:00:00* Test Item Value Reference Range Interpretation Comme nts WBC (test code = 1001) 10.8 K/UL RBC (test code = 1002) 4.80 M/UL HEMOGLOBIN (test code = 1003) 12.3 G/DL HEMATOCRIT (test code = 1004) 38.9 % MCV (test code = 1005) 81.0 fL MCH (test code = 1006) 25.6 PG MCHC (test code = 1007) 31.6 G/DL RDW (test code = 1038) 14.1 % NEUTROPHILS (test code = 1008) 71.7 % LYMPHOCYTES (test code = 1010) 21.4 % MONOCYTES (test code = 1011) 5.3 % EOSINOPHILS (test code = 1012) 0.6 % BASOPHILS (test code = 1013) 0.6 % IMMATURE GRANULOCYTES (test code = 1036) 0.4 % NUCLEATED RBCS (test code = 1065) 0.0 /100WBC'S PLATELET COUNT (test code = 1015) 287 K/UL ABSOLUTE NEUTROPHILS (test c ode = 1066) 7.72 K/UL ABSOLUTE LYMPHOCYTES (test c ode = 1067) 2.31 K/UL ABSOLUTE MONOCYTES (test cod e = 1068) 0.57 K/UL ABSOLUTE EOSINOPHILS (test c ode = 1040) 0.07 K/UL ABSOLUTE BASOPHILS (test cod e = 1069) 0.06 K/UL ABS IMMATURE GRANULOCYTES (t est code = 1020) 0.04 K/UL ABS NUCLEATED RBCS (test cod e = 83622) 0.00 K/UL Bal RoseCBC W/AUTO [id number] 00:00:00* Test Item Value Reference Range Interpretation Comme nts WBC (test code = 1001) 10.8 K/UL RBC (test code = 1002) 4.80 M/UL HEMOGLOBIN (test code = 1003) 12.3 G/DL HEMATOCRIT (test code = 1004) 38.9 % MCV (test code = 1005) 81.0 fL MCH (test code = 1006) 25.6 PG MCHC (test code = 1007) 31.6 G/DL RDW (test code = 1038) 14.1 % NEUTROPHILS (test code = 1008) 71.7 % LYMPHOCYTES (test code = 1010) 21.4 % MONOCYTES (test code = 1011) 5.3 % EOSINOPHILS (test code = 1012) 0.6 % BASOPHILS (test code = 1013) 0.6 % IMMATURE GRANULOCYTES (test code = 1036) 0.4 % NUCLEATED RBCS (test code = 1065) 0.0 /100WBC'S PLATELET COUNT (test code = 1015) 287 K/UL ABSOLUTE NEUTROPHILS (test c ode = 1066) 7.72 K/UL ABSOLUTE LYMPHOCYTES (test c ode = 1067) 2.31 K/UL ABSOLUTE MONOCYTES (test cod e = 1068) 0.57 K/UL ABSOLUTE EOSINOPHILS (test c ode = 1040) 0.07 K/UL ABSOLUTE BASOPHILS (test cod e = 1069) 0.06 K/UL ABS IMMATURE GRANULOCYTES (t est code = 1020) 0.04 K/UL ABS NUCLEATED RBCS (test cod e = 40035) 0.00 K/UL Bal RoseCBC W/AUTO [id number] 00:00:00* Test Item Value Reference Range Interpretation Comme nts WBC (test code = 1001) 10.8 K/UL RBC (test code = 1002) 4.80 M/UL HEMOGLOBIN (test code = 1003) 12.3 G/DL HEMATOCRIT (test code = 1004) 38.9 % MCV (test code = 1005) 81.0 fL MCH (test code = 1006) 25.6 PG MCHC (test code = 1007) 31.6 G/DL RDW (test code = 1038) 14.1 % NEUTROPHILS (test code = 1008) 71.7 % LYMPHOCYTES (test code = 1010) 21.4 % MONOCYTES (test code = 1011) 5.3 % EOSINOPHILS (test code = 1012) 0.6 % BASOPHILS (test code = 1013) 0.6 % IMMATURE GRANULOCYTES (test code = 1036) 0.4 % NUCLEATED RBCS (test code = 1065) 0.0 /100WBC'S PLATELET COUNT (test code = 1015) 287 K/UL ABSOLUTE NEUTROPHILS (test c ode = 1066) 7.72 K/UL ABSOLUTE LYMPHOCYTES (test c ode = 1067) 2.31 K/UL ABSOLUTE MONOCYTES (test cod e = 1068) 0.57 K/UL ABSOLUTE EOSINOPHILS (test c ode = 1040) 0.07 K/UL ABSOLUTE BASOPHILS (test cod e = 1069) 0.06 K/UL ABS IMMATURE GRANULOCYTES (t est code = 1020) 0.04 K/UL ABS NUCLEATED RBCS (test cod e = 48502) 0.00 K/UL Bal Zapata [facility] W/AUTO [id number] 00:00:00* Test Item Value Reference Range Interpretation Comme nts WBC (test code = 1001) 10.8 K/UL RBC (test code = 1002) 4.80 M/UL HEMOGLOBIN (test code = 1003) 12.3 G/DL HEMATOCRIT (test code = 1004) 38.9 % MCV (test code = 1005) 81.0 fL MCH (test code = 1006) 25.6 PG MCHC (test code = 1007) 31.6 G/DL RDW (test code = 1038) 14.1 % NEUTROPHILS (test code = 1008) 71.7 % LYMPHOCYTES (test code = 1010) 21.4 % MONOCYTES (test code = 1011) 5.3 % EOSINOPHILS (test code = 1012) 0.6 % BASOPHILS (test code = 1013) 0.6 % IMMATURE GRANULOCYTES (test code = 1036) 0.4 % NUCLEATED RBCS (test code = 1065) 0.0 /100WBC'S PLATELET COUNT (test code = 1015) 287 K/UL ABSOLUTE NEUTROPHILS (test c ode = 1066) 7.72 K/UL ABSOLUTE LYMPHOCYTES (test c ode = 1067) 2.31 K/UL ABSOLUTE MONOCYTES (test cod e = 1068) 0.57 K/UL ABSOLUTE EOSINOPHILS (test c ode = 1040) 0.07 K/UL ABSOLUTE BASOPHILS (test cod e = 1069) 0.06 K/UL ABS IMMATURE GRANULOCYTES (t est code = 1020) 0.04 K/UL ABS NUCLEATED RBCS (test cod e = 28686) 0.00 K/UL [facility] [id number] 00:00:00* Test Item Value Reference Range Interpretation Comme nts WBC (test code = 1001) 10.8 K/UL RBC (test code = 1002) 4.80 M/UL HEMOGLOBIN (test code = 1003) 12.3 G/DL HEMATOCRIT (test code = 1004) 38.9 % MCV (test code = 1005) 81.0 fL MCH (test code = 1006) 25.6 PG MCHC (test code = 1007) 31.6 G/DL RDW (test code = 1038) 14.1 % NEUTROPHILS (test code = 1008) 71.7 % LYMPHOCYTES (test code = 1010) 21.4 % MONOCYTES (test code = 1011) 5.3 % EOSINOPHILS (test code = 1012) 0.6 % BASOPHILS (test code = 1013) 0.6 % IMMATURE GRANULOCYTES (test code = 1036) 0.4 % NUCLEATED RBCS (test code = 1065) 0.0 /100WBC'S PLATELET COUNT (test code = 1015) 287 K/UL ABSOLUTE NEUTROPHILS (test c ode = 1066) 7.72 K/UL ABSOLUTE LYMPHOCYTES (test c ode = 1067) 2.31 K/UL ABSOLUTE MONOCYTES (test cod e = 1068) 0.57 K/UL ABSOLUTE EOSINOPHILS (test c ode = 1040) 0.07 K/UL ABSOLUTE BASOPHILS (test cod e = 1069) 0.06 K/UL ABS IMMATURE GRANULOCYTES (t est code = 1020) 0.04 K/UL ABS NUCLEATED RBCS (test cod e = 06929) 0.00 K[facility] [id number] 00:00:00* Test Item Value Reference Range Interpretation Comme nts WBC (test code = 1001) 10.8 K/UL RBC (test code = 1002) 4.80 M/UL HEMOGLOBIN (test code = 1003) 12.3 G/DL HEMATOCRIT (test code = 1004) 38.9 % MCV (test code = 1005) 81.0 fL MCH (test code = 1006) 25.6 PG MCHC (test code = 1007) 31.6 G/DL RDW (test code = 1038) 14.1 % NEUTROPHILS (test code = 1008) 71.7 % LYMPHOCYTES (test code = 1010) 21.4 % MONOCYTES (test code = 1011) 5.3 % EOSINOPHILS (test code = 1012) 0.6 % BASOPHILS (test code = 1013) 0.6 % IMMATURE GRANULOCYTES (test code = 1036) 0.4 % NUCLEATED RBCS (test code = 1065) 0.0 /100WBC'S PLATELET COUNT (test code = 1015) 287 K/UL ABSOLUTE NEUTROPHILS (test c ode = 1066) 7.72 K/UL ABSOLUTE LYMPHOCYTES (test c ode = 1067) 2.31 K/UL ABSOLUTE MONOCYTES (test cod e = 1068) 0.57 K/UL ABSOLUTE EOSINOPHILS (test c ode = 1040) 0.07 K/UL ABSOLUTE BASOPHILS (test cod e = 1069) 0.06 K/UL ABS IMMATURE GRANULOCYTES (t est code = 1020) 0.04 K/UL ABS NUCLEATED RBCS (test cod e = [id number]) 0.00 K/[facility] [id number] 00:00:00* Test Item Value Reference Range Interpretation Comme nts WBC (test code = 1001) 10.8 K/UL RBC (test code = 1002) 4.80 M/UL HEMOGLOBIN (test code = 1003) 12.3 G/DL HEMATOCRIT (test code = 1004) 38.9 % MCV (test code = 1005) 81.0 fL MCH (test code = 1006) 25.6 PG MCHC (test code = 1007) 31.6 G/DL RDW (test code = 1038) 14.1 % NEUTROPHILS (test code = 1008) 71.7 % LYMPHOCYTES (test code = 1010) 21.4 % MONOCYTES (test code = 1011) 5.3 % EOSINOPHILS (test code = 1012) 0.6 % BASOPHILS (test code = 1013) 0.6 % IMMATURE GRANULOCYTES (test code = 1036) 0.4 % NUCLEATED RBCS (test code = 1065) 0.0 /100WBC'S PLATELET COUNT (test code = 1015) 287 K/UL ABSOLUTE NEUTROPHILS (test c ode = 1066) 7.72 K/UL ABSOLUTE LYMPHOCYTES (test c ode = 1067) 2.31 K/UL ABSOLUTE MONOCYTES (test cod e = 1068) 0.57 K/UL ABSOLUTE EOSINOPHILS (test c ode = 1040) 0.07 K/UL ABSOLUTE BASOPHILS (test cod e = 1069) 0.06 K/UL ABS IMMATURE GRANULOCYTES (t est code = 1020) 0.04 K/UL ABS NUCLEATED RBCS (test cod e = 48066) 0.00 K/UL Bal Zapata [employer] W/AUTO [id number] 00:00:00* Test Item Value Reference Range Interpretation Comme nts WBC (test code = 1001) 10.8 K/UL RBC (test code = 1002) 4.80 M/UL HEMOGLOBIN (test code = 1003) 12.3 G/DL HEMATOCRIT (test code = 1004) 38.9 % MCV (test code = 1005) 81.0 fL MCH (test code = 1006) 25.6 PG MCHC (test code = 1007) 31.6 G/DL RDW (test code = 1038) 14.1 % NEUTROPHILS (test code = 1008) 71.7 % LYMPHOCYTES (test code = 1010) 21.4 % MONOCYTES (test code = 1011) 5.3 % EOSINOPHILS (test code = 1012) 0.6 % BASOPHILS (test code = 1013) 0.6 % IMMATURE GRANULOCYTES (test code = 1036) 0.4 % NUCLEATED RBCS (test code = 1065) 0.0 /100WBC'S PLATELET COUNT (test code = 1015) 287 K/UL ABSOLUTE NEUTROPHILS (test c ode = 1066) 7.72 K/UL ABSOLUTE LYMPHOCYTES (test c ode = 1067) 2.31 K/UL ABSOLUTE MONOCYTES (test cod e = 1068) 0.57 K/UL ABSOLUTE EOSINOPHILS (test c ode = 1040) 0.07 K/UL ABSOLUTE BASOPHILS (test cod e = 1069) 0.06 K/UL ABS IMMATURE GRANULOCYTES (t est code = 1020) 0.04 K/UL ABS NUCLEATED RBCS (test cod e = 76952) 0.00 K/UL Bal Zapata AustinCBC W/AUTO [id number] 00:00:00* Test Item Value Reference Range Interpretation Comme nts WBC (test code = 1001) 10.8 K/UL RBC (test code = 1002) 4.80 M/UL HEMOGLOBIN (test code = 1003) 12.3 G/DL HEMATOCRIT (test code = 1004) 38.9 % MCV (test code = 1005) 81.0 fL MCH (test code = 1006) 25.6 PG MCHC (test code = 1007) 31.6 G/DL RDW (test code = 1038) 14.1 % NEUTROPHILS (test code = 1008) 71.7 % LYMPHOCYTES (test code = 1010) 21.4 % MONOCYTES (test code = 1011) 5.3 % EOSINOPHILS (test code = 1012) 0.6 % BASOPHILS (test code = 1013) 0.6 % IMMATURE GRANULOCYTES (test code = 1036) 0.4 % NUCLEATED RBCS (test code = 1065) 0.0 /100WBC'S PLATELET COUNT (test code = 1015) 287 K/UL ABSOLUTE NEUTROPHILS (test c ode = 1066) 7.72 K/UL ABSOLUTE LYMPHOCYTES (test c ode = 1067) 2.31 K/UL ABSOLUTE MONOCYTES (test cod e = 1068) 0.57 K/UL ABSOLUTE EOSINOPHILS (test c ode = 1040) 0.07 K/UL ABSOLUTE BASOPHILS (test cod e = 1069) 0.06 K/UL ABS IMMATURE GRANULOCYTES (t est code = 1020) 0.04 K/UL ABS NUCLEATED RBCS (test cod e = 45877) 0.00 K/UL Bal Zapata [facility] W/AUTO [id number] 00:00:00* Test Item Value Reference Range Interpretation Comme nts WBC (test code = 1001) 10.8 K/UL RBC (test code = 1002) 4.80 M/UL HEMOGLOBIN (test code = 1003) 12.3 G/DL HEMATOCRIT (test code = 1004) 38.9 % MCV (test code = 1005) 81.0 fL MCH (test code = 1006) 25.6 PG MCHC (test code = 1007) 31.6 G/DL RDW (test code = 1038) 14.1 % NEUTROPHILS (test code = 1008) 71.7 % LYMPHOCYTES (test code = 1010) 21.4 % MONOCYTES (test code = 1011) 5.3 % EOSINOPHILS (test code = 1012) 0.6 % BASOPHILS (test code = 1013) 0.6 % IMMATURE GRANULOCYTES (test code = 1036) 0.4 % NUCLEATED RBCS (test code = 1065) 0.0 /100WBC'S PLATELET COUNT (test code = 1015) 287 K/UL ABSOLUTE NEUTROPHILS (test c ode = 1066) 7.72 K/UL ABSOLUTE LYMPHOCYTES (test c ode = 1067) 2.31 K/UL ABSOLUTE MONOCYTES (test cod e = 1068) 0.57 K/UL ABSOLUTE EOSINOPHILS (test c ode = 1040) 0.07 K/UL ABSOLUTE BASOPHILS (test cod e = 1069) 0.06 K/UL ABS IMMATURE GRANULOCYTES (t est code = 1020) 0.04 K/UL ABS NUCLEATED RBCS (test cod e = 33006) 0.00 K/UL Bal Zapata [facility] W/AUTO [id number] 00:00:00* Test Item Value Reference Range Interpretation Comme nts WBC (test code = 1001) 10.8 K/UL RBC (test code = 1002) 4.80 M/UL HEMOGLOBIN (test code = 1003) 12.3 G/DL HEMATOCRIT (test code = 1004) 38.9 % MCV (test code = 1005) 81.0 fL MCH (test code = 1006) 25.6 PG MCHC (test code = 1007) 31.6 G/DL RDW (test code = 1038) 14.1 % NEUTROPHILS (test code = 1008) 71.7 % LYMPHOCYTES (test code = 1010) 21.4 % MONOCYTES (test code = 1011) 5.3 % EOSINOPHILS (test code = 1012) 0.6 % BASOPHILS (test code = 1013) 0.6 % IMMATURE GRANULOCYTES (test code = 1036) 0.4 % NUCLEATED RBCS (test code = 1065) 0.0 /100WBC'S PLATELET COUNT (test code = 1015) 287 K/UL ABSOLUTE NEUTROPHILS (test c ode = 1066) 7.72 K/UL ABSOLUTE LYMPHOCYTES (test c ode = 1067) 2.31 K/UL ABSOLUTE MONOCYTES (test cod e = 1068) 0.57 K/UL ABSOLUTE EOSINOPHILS (test c ode = 1040) 0.07 K/UL ABSOLUTE BASOPHILS (test cod e = 1069) 0.06 K/UL ABS IMMATURE GRANULOCYTES (t est code = 1020) 0.04 K/UL ABS NUCLEATED RBCS (test cod e = 49355) 0.00 K/UL Bal RoseMR KNEE RIGHT WO [id number] 18:16:10EXAM: MR KNEE RIGHT WO CONTRAST HISTORY: 38 years-old Female; Provided indication: ?External orders. History independently obtained from [facility]: History of right knee medial andlateral meniscectomy on 02/16/2023 COMPARISON: Right knee MRI performed on 02/03/2023 TECHNIQUE: Multiplanar and multisequence MR imaging of the right knee wasperformed without contrast. BONE AND JOINT: The background bone marrow signal is unremarkable. No focal osseous lesionor acute fracture. A large volume joint effusion is present with synovialthickening. Tricompartmental osteophytosis and joint space narrowing areseen.Lateral patellar tilting or translation is seen. 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 High-gradechondromalacia is also seen along the lateral femoral condyle andweightbearing lateral tibial plateau surfaces. Areas of intermediate gradechondral thinning are appreciated at the medial tibiofemoral compartments. MENISCI: Changes of medial meniscus meniscectomy are present. ? Changes of lateral meniscus meniscectomy are present. The anterior horn andbody are extruded laterally still extruded laterally. New undersurfacetears are seen at the posterior body. LIGAMENTS AND TENDONS: The cruciate ligaments, medial collateral ligament, lateral collateralligamentous complex, extensor mechanism, lateral patellofemoralretinaculum, and medial patellofemoral ligament are intact. SOFT TISSUES: No muscle atrophy is demonstrated. No solid soft tissue masses are present. Nonspecific edema is visualized in the posterior subcutaneous fat.Susceptibility artifact at the medial infrapatellar soft tissues is againseen and probably represents a foreign body.[facility] [id number] 15:23:53EXAM: XR LUMBAR SPINE 2 VW HISTORY: pain COMPARISON: None.[facility] TexasCHLAMYDIA, NAAT, [id number] 19:09:22* Test Item Value Reference Range Interpretation Comme nts CHLAMYDIA, NAAT, URINE (test code = 90395) NEGATIVE NEGATIVE Testing is perfo rmed with [employer] 6800/8800 systems usingreal-time polymerase chain reaction (PCR) method. A negative result does not exclude low level infection, specimensampling error, or collection error. GONORRHEA, NAAT, [id number] 19:09:22* Test Item Value Reference Range Interpretation Comme nts GONORRHEA, NAAT, URINE (test code = 17893) NEGATIVE NEGATIVE Testing is perfo rmed with [employer] 6800/8800 systems usingreal-time polymerase chain reaction (PCR) method. A negative result does not exclude low level infection, specimensampling error, or collection error. VAGINAL PATHOGENS DNA [id number] 11:17:07* Test Item Value Reference Range Interpretation Comme nts FREDY SPECIES (test code = 09739) NEGATIVE NEGATIVE G. VAGINALIS (test code = 93819) NEGATIVE NEGATIVE T. VAGINALIS (test code = 13991) NEGATIVE NEGATIVE Note: The EXFO VPIII Microbial Identification Testis a DNA probe test intended for use in the detectionand identification of Fredy species, Gardnerellavaginalis and Trichomonas vaginalis nucleic acid. UNLESS OTHERWISE INDICATED, ALL TESTING PERFORMED AT [facility] [address] [place] [address] BLANKET WEAVER: GRACE ARELLANO M.D. CLIA NUMBER [id number] [facility] [place]. [id number] HIV 1/2 4TH GEN, RFLX [id number] 05:29:32* Test Item Value Reference Range Interpretation Comme nts HIV 1/2 4TH GEN, RFLX CONF ( test code = 3514) NON-REACTIVE NON-REACTIVE [id number] 03:41:53* Test Item Value Reference Range Interpretation Comme nts RPR RESULT (test code = 3501) NON-REACTIVE NON-REACTIVE RPR TITER (test code = 3500) NOT INDIC. TITER NOT INDIC. CHLAMYDIA, AMPLIFIED, [id number] 00:00:00* Test Item Value Reference Range Interpretation Comme nts CHLAMYDIA, NAAT, URINE (test code = 79756) NEGATIVE Bal RoseGC, AMPLIFIED, [id number] 00:00:00* Test Item Value Reference Range Interpretation Comme nts GONORRHEA, NAAT, URINE (test code = 00552) NEGATIVE Bal Zapata AustinVAGINAL PATHOGENS DNA [id number] 00:00:00* Test Item Value Reference Range Interpretation Comme nts FREDY SPECIES (test code = ) NEGATIVE G. VAGINALIS (test code = 36649) NEGATIVE T. VAGINALIS (test code = 87681) NEGATIVE Bal Zapata AustinHIV 1/2 4TH GEN, RFLX [id number] 00:00:00* Test Item Value Reference Range Interpretation Comme nts HIV 1/2 4TH GEN, RFLX CONF ( test code = 3514) NON-REACTIVE Bal Zapata [id number] 00:00:00* Test Item Value Reference Range Interpretation Comme nts RPR RESULT (test code = 3501) NON-REACTIVE RPR TITER (test code = 3500) NOT INDIC. TITER Bal Zapata AustinCHLAMYDIA, AMPLIFIED, [id number] 00:00:00* Test Item Value Reference Range Interpretation Comme nts CHLAMYDIA, NAAT, URINE (test code = 44558) NEGATIVE Bal Zapata AustinGC, AMPLIFIED, [id number] 00:00:00* Test Item Value Reference Range Interpretation Comme nts GONORRHEA, NAAT, URINE (test code = 25916) NEGATIVE Bal RoseVAGINAL PATHOGENS DNA [id number] 00:00:00* Test Item Value Reference Range Interpretation Comme nts FREDY SPECIES (test code = ) NEGATIVE G. VAGINALIS (test code = 15867) NEGATIVE T. VAGINALIS (test code = 60450) NEGATIVE Bal Zapata AustinHIV 1/2 4TH GEN, RFLX [id number] 00:00:00* Test Item Value Reference Range Interpretation Comme nts HIV 1/2 4TH GEN, RFLX CONF ( test code = 3514) NON-REACTIVE Bal Zapata [id number] 00:00:00* Test Item Value Reference Range Interpretation Comme nts RPR RESULT (test code = 3501) NON-REACTIVE RPR TITER (test code = 3500) NOT INDIC. TITER Bal Zapata AustinCHLAMYDIA, AMPLIFIED, [id number] 00:00:00* Test Item Value Reference Range Interpretation Comme nts CHLAMYDIA, NAAT, URINE (test code = 06648) NEGATIVE Bal Zapata AustinGC, AMPLIFIED, [id number] 00:00:00* Test Item Value Reference Range Interpretation Comme nts GONORRHEA, NAAT, URINE (test code = 64393) NEGATIVE Bal Zapata AustinVAGINAL PATHOGENS DNA [id number] 00:00:00* Test Item Value Reference Range Interpretation Comme nts FREDY SPECIES (test code = ) NEGATIVE G. VAGINALIS (test code = 80667) NEGATIVE T. VAGINALIS (test code = 27977) NEGATIVE Bal Zapata AustinHIV 1/2 4TH GEN, RFLX [id number] 00:00:00* Test Item Value Reference Range Interpretation Comme nts HIV 1/2 4TH GEN, RFLX CONF ( test code = 3514) NON-REACTIVE Bal Zapata [id number] 00:00:00* Test Item Value Reference Range Interpretation Comme nts RPR RESULT (test code = 3501) NON-REACTIVE RPR TITER (test code = 3500) NOT INDIC. TITER Bal RoseCHLAMYDIA, AMPLIFIED, [id number] 00:00:00* Test Item Value Reference Range Interpretation Comme nts CHLAMYDIA, NAAT, URINE (test code = 66222) NEGATIVE Bal RoseGC, AMPLIFIED, [id number] 00:00:00* Test Item Value Reference Range Interpretation Comme nts GONORRHEA, NAAT, URINE (test code = 45712) NEGATIVE Bal Zapata AustinVAGINAL PATHOGENS DNA [id number] 00:00:00* Test Item Value Reference Range Interpretation Comme nts FREDY SPECIES (test code = ) NEGATIVE G. VAGINALIS (test code = 21420) NEGATIVE T. VAGINALIS (test code = 19213) NEGATIVE Bal Zapata AustinHIV 1/2 4TH GEN, RFLX [id number] 00:00:00* Test Item Value Reference Range Interpretation Comme nts HIV 1/2 4TH GEN, RFLX CONF ( test code = 3514) NON-REACTIVE Bal Zapata [id number] 00:00:00* Test Item Value Reference Range Interpretation Comme nts RPR RESULT (test code = 3501) NON-REACTIVE RPR TITER (test code = 3500) NOT INDIC. TITER Bal F AustinCHLAMYDIA, AMPLIFIED, [id number] 00:00:00* Test Item Value Reference Range Interpretation Comme nts CHLAMYDIA, NAAT, URINE (test code = 45065) NEGATIVE Bal Zapata AustinGC, AMPLIFIED, [id number] 00:00:00* Test Item Value Reference Range Interpretation Comme nts GONORRHEA, NAAT, URINE (test code = 17129) NEGATIVE Bal Zapata AustinVAGINAL PATHOGENS DNA [id number] 00:00:00* Test Item Value Reference Range Interpretation Comme nts FREDY SPECIES (test code = ) NEGATIVE G. VAGINALIS (test code = 25800) NEGATIVE T. VAGINALIS (test code = 34090) NEGATIVE Bal Zapata AustinHIV 1/2 4TH GEN, RFLX [id number] 00:00:00* Test Item Value Reference Range Interpretation Comme nts HIV 1/2 4TH GEN, RFLX CONF ( test code = 3514) NON-REACTIVE Bal [id number] 00:00:00* Test Item Value Reference Range Interpretation Comme nts RPR RESULT (test code = 3501) NON-REACTIVE RPR TITER (test code = 3500) NOT INDIC. TITER Bal RoseCHLAMYDIA, AMPLIFIED, [id number] 00:00:00* Test Item Value Reference Range Interpretation Comme nts CHLAMYDIA, NAAT, URINE (test code = 36836) NEGATIVE Bal RoseGC, AMPLIFIED, [id number] 00:00:00* Test Item Value Reference Range Interpretation Comme nts GONORRHEA, NAAT, URINE (test code = 25736) NEGATIVE Bal Zapata AustinVAGINAL PATHOGENS DNA [id number] 00:00:00* Test Item Value Reference Range Interpretation Comme nts FREDY SPECIES (test code = 17030) NEGATIVE G. VAGINALIS (test code = 87053) NEGATIVE T. VAGINALIS (test code = 20675) NEGATIVE Bal Zapata AustinHIV 1/2 4TH GEN, RFLX [id number] 00:00:00* Test Item Value Reference Range Interpretation Comme nts HIV 1/2 4TH GEN, RFLX CONF ( test code = 3514) NON-REACTIVE Bal Zapata [id number] 00:00:00* Test Item Value Reference Range Interpretation Comme nts RPR RESULT (test code = 3501) NON-REACTIVE RPR TITER (test code = 3500) NOT INDIC. TITER Bal Zapata AustinCHLAMYDIA, AMPLIFIED, [id number] 00:00:00* Test Item Value Reference Range Interpretation Comme nts CHLAMYDIA, NAAT, URINE (test code = 99334) NEGATIVE Bal Zapata AustinGC, AMPLIFIED, [id number] 00:00:00* Test Item Value Reference Range Interpretation Comme nts GONORRHEA, NAAT, URINE (test code = 63234) NEGATIVE Bal Zapata AustinVAGINAL PATHOGENS DNA [id number] 00:00:00* Test Item Value Reference Range Interpretation Comme nts FREDY SPECIES (test code = 25945) NEGATIVE G. VAGINALIS (test code = 85191) NEGATIVE T. VAGINALIS (test code = 79193) NEGATIVE Bal Zapata AustinHIV 1/2 4TH GEN, RFLX [id number] 00:00:00* Test Item Value Reference Range Interpretation Comme nts HIV 1/2 4TH GEN, RFLX CONF ( test code = 3514) NON-REACTIVE Bal Zapata [id number] 00:00:00* Test Item Value Reference Range Interpretation Comme nts RPR RESULT (test code = 3501) NON-REACTIVE RPR TITER (test code = 3500) NOT INDIC. TITER Bal RoseCHLAMYDIA, AMPLIFIED, [id number] 00:00:00* Test Item Value Reference Range Interpretation Comme nts CHLAMYDIA, NAAT, URINE (test code = 27323) NEGATIVE Bal Zapata AustinGC, AMPLIFIED, [id number] 00:00:00* Test Item Value Reference Range Interpretation Comme nts GONORRHEA, NAAT, URINE (test code = 34955) NEGATIVE Bal Zapata AustinVAGINAL PATHOGENS DNA [id number] 00:00:00* Test Item Value Reference Range Interpretation Comme nts FREDY SPECIES (test code = 07091) NEGATIVE G. VAGINALIS (test code = 40319) NEGATIVE T. VAGINALIS (test code = 62575) NEGATIVE Bal Zapata AustinHIV 1/2 4TH GEN, RFLX [id number] 00:00:00* Test Item Value Reference Range Interpretation Comme nts HIV 1/2 4TH GEN, RFLX CONF ( test code = 3514) NON-REACTIVE Bal Zapata [id number] 00:00:00* Test Item Value Reference Range Interpretation Comme nts RPR RESULT (test code = 3501) NON-REACTIVE RPR TITER (test code = 3500) NOT INDIC. TITER Bal Zapata AustinCHLAMYDIA, AMPLIFIED, [id number] 00:00:00* Test Item Value Reference Range Interpretation Comme nts CHLAMYDIA, NAAT, URINE (test code = 43016) NEGATIVE Bal Zapata AustinGC, AMPLIFIED, [id number] 00:00:00* Test Item Value Reference Range Interpretation Comme nts GONORRHEA, NAAT, URINE (test code = 82695) NEGATIVE Bal RsoeVAGINAL PATHOGENS DNA [id number] 00:00:00* Test Item Value Reference Range Interpretation Comme nts FREDY SPECIES (test code = 68472) NEGATIVE G. VAGINALIS (test code = 11123) NEGATIVE T. VAGINALIS (test code = 83859) NEGATIVE Bal RoseHIV 1/2 4TH GEN, RFLX [id number] 00:00:00* Test Item Value Reference Range Interpretation Comme nts HIV 1/2 4TH GEN, RFLX CONF ( test code = 3514) NON-REACTIVE Bal [id number] 00:00:00* Test Item Value Reference Range Interpretation Comme nts RPR RESULT (test code = 3501) NON-REACTIVE RPR TITER (test code = 3500) NOT INDIC. TITER Bal RoseCHLAMYDIA, AMPLIFIED, [id number] 00:00:00* Test Item Value Reference Range Interpretation Comme nts CHLAMYDIA, NAAT, URINE (test code = 52833) NEGATIVE Bal Zapata AustinGC, AMPLIFIED, [id number] 00:00:00* Test Item Value Reference Range Interpretation Comme nts GONORRHEA, NAAT, URINE (test code = 39157) NEGATIVE Bal RoseVAGINAL PATHOGENS DNA [id number] 00:00:00* Test Item Value Reference Range Interpretation Comme nts FREDY SPECIES (test code = 34699) NEGATIVE G. VAGINALIS (test code = 59793) NEGATIVE T. VAGINALIS (test code = 08904) NEGATIVE Bal Zapata AustinHIV 1/2 4TH GEN, RFLX [id number] 00:00:00* Test Item Value Reference Range Interpretation Comme nts HIV 1/2 4TH GEN, RFLX CONF ( test code = 3514) NON-REACTIVE Bal Zapata [id number] 00:00:00* Test Item Value Reference Range Interpretation Comme nts RPR RESULT (test code = 3501) NON-REACTIVE RPR TITER (test code = 3500) NOT INDIC. TITER Bal Zapata AustinCHLAMYDIA, AMPLIFIED, [id number] 00:00:00* Test Item Value Reference Range Interpretation Comme nts CHLAMYDIA, NAAT, URINE (test code = 70842) NEGATIVE Bal Zapata AustinGC, AMPLIFIED, [id number] 00:00:00* Test Item Value Reference Range Interpretation Comme nts GONORRHEA, NAAT, URINE (test code = 20931) NEGATIVE Bal RoseVAGINAL PATHOGENS DNA [id number] 00:00:00* Test Item Value Reference Range Interpretation Comme nts FREDY SPECIES (test code = 56546) NEGATIVE G. VAGINALIS (test code = 55273) NEGATIVE T. VAGINALIS (test code = 84782) NEGATIVE Bal RoseHIV 1/2 4TH GEN, RFLX [id number] 00:00:00* Test Item Value Reference Range Interpretation Comme nts HIV 1/2 4TH GEN, RFLX CONF ( test code = 3514) NON-REACTIVE Bal [id number] 00:00:00* Test Item Value Reference Range Interpretation Comme nts RPR RESULT (test code = 3501) NON-REACTIVE RPR TITER (test code = 3500) NOT INDIC. TITER Bal Zapata AustinCHLAMYDIA, AMPLIFIED, [id number] 00:00:00* Test Item Value Reference Range Interpretation Comme nts CHLAMYDIA, NAAT, URINE (test code = 34579) NEGATIVE Bal Zapata AustinGC, AMPLIFIED, [id number] 00:00:00* Test Item Value Reference Range Interpretation Comme nts GONORRHEA, NAAT, URINE (test code = 86490) NEGATIVE Bal Zapata AustinVAGINAL PATHOGENS DNA [id number] 00:00:00* Test Item Value Reference Range Interpretation Comme nts FREDY SPECIES (test code = ) NEGATIVE G. VAGINALIS (test code = 23529) NEGATIVE T. VAGINALIS (test code = 51648) NEGATIVE Bal RoseHIV 1/2 4TH GEN, RFLX [id number] 00:00:00* Test Item Value Reference Range Interpretation Comme nts HIV 1/2 4TH GEN, RFLX CONF ( test code = 3514) NON-REACTIVE Bal Zapata [id number] 00:00:00* Test Item Value Reference Range Interpretation Comme nts RPR RESULT (test code = 3501) NON-REACTIVE RPR TITER (test code = 3500) NOT INDIC. TITER Bal RoseCHLAMYDIA, AMPLIFIED, [id number] 00:00:00* Test Item Value Reference Range Interpretation Comme nts CHLAMYDIA, NAAT, URINE (test code = 20058) NEGATIVE Bal RoseGC, AMPLIFIED, [id number] 00:00:00* Test Item Value Reference Range Interpretation Comme nts GONORRHEA, NAAT, URINE (test code = 96070) NEGATIVE Bal RoseVAGINAL PATHOGENS DNA [id number] 00:00:00* Test Item Value Reference Range Interpretation Comme nts FREDY SPECIES (test code = ) NEGATIVE G. VAGINALIS (test code = 50571) NEGATIVE T. VAGINALIS (test code = 10955) NEGATIVE Bal RoseHIV 1/2 4TH GEN, RFLX [id number] 00:00:00* Test Item Value Reference Range Interpretation Comme nts HIV 1/2 4TH GEN, RFLX CONF ( test code = 3514) NON-REACTIVE Bal Zapata [id number] 00:00:00* Test Item Value Reference Range Interpretation Comme nts RPR RESULT (test code = 3501) NON-REACTIVE RPR TITER (test code = 3500) NOT INDIC. TITER Bal RoseCHLAMYDIA, AMPLIFIED, [id number] 00:00:00* Test Item Value Reference Range Interpretation Comme nts CHLAMYDIA, NAAT, URINE (test code = 58861) NEGATIVE Bal Zapata AustinGC, AMPLIFIED, [id number] 00:00:00* Test Item Value Reference Range Interpretation Comme nts GONORRHEA, NAAT, URINE (test code = 16678) NEGATIVE Bal Zapata AustinVAGINAL PATHOGENS DNA [id number] 00:00:00* Test Item Value Reference Range Interpretation Comme nts FREDY SPECIES (test code = ) NEGATIVE G. VAGINALIS (test code = 24466) NEGATIVE T. VAGINALIS (test code = 54033) NEGATIVE Bal Zapata AustinHIV 1/2 4TH GEN, RFLX [id number] 00:00:00* Test Item Value Reference Range Interpretation Comme nts HIV 1/2 4TH GEN, RFLX CONF ( test code = 3514) NON-REACTIVE Bal Zapata [id number] 00:00:00* Test Item Value Reference Range Interpretation Comme nts RPR RESULT (test code = 3501) NON-REACTIVE RPR TITER (test code = 3500) NOT INDIC. TITER Bal Zapata AustinCHLAMYDIA, AMPLIFIED, [id number] 00:00:00* Test Item Value Reference Range Interpretation Comme nts CHLAMYDIA, NAAT, URINE (test code = 52596) NEGATIVE Bal RoseGC, AMPLIFIED, [id number] 00:00:00* Test Item Value Reference Range Interpretation Comme nts GONORRHEA, NAAT, URINE (test code = 32045) NEGATIVE Bal RoseVAGINAL PATHOGENS DNA [id number] 00:00:00* Test Item Value Reference Range Interpretation Comme nts FREDY SPECIES (test code = ) NEGATIVE G. VAGINALIS (test code = 77992) NEGATIVE T. VAGINALIS (test code = 33302) NEGATIVE Bal Zapata AustinHIV 1/2 4TH GEN, RFLX [id number] 00:00:00* Test Item Value Reference Range Interpretation Comme nts HIV 1/2 4TH GEN, RFLX CONF ( test code = 3514) NON-REACTIVE Bal Zapata [id number] 00:00:00* Test Item Value Reference Range Interpretation Comme nts RPR RESULT (test code = 3501) NON-REACTIVE RPR TITER (test code = 3500) NOT INDIC. TITER Bal Zapata AustinCHLAMYDIA, AMPLIFIED, [id number] 00:00:00* Test Item Value Reference Range Interpretation Comme nts CHLAMYDIA, NAAT, URINE (test code = 24221) NEGATIVE Bal Zapata AustinGC, AMPLIFIED, [id number] 00:00:00* Test Item Value Reference Range Interpretation Comme nts GONORRHEA, NAAT, URINE (test code = 12909) NEGATIVE Bal Zapata AustinVAGINAL PATHOGENS DNA [id number] 00:00:00* Test Item Value Reference Range Interpretation Comme nts FREDY SPECIES (test code = ) NEGATIVE G. VAGINALIS (test code = 57460) NEGATIVE T. VAGINALIS (test code = 73035) NEGATIVE Bal RoseHIV 1/2 4TH GEN, RFLX [id number] 00:00:00* Test Item Value Reference Range Interpretation Comme nts HIV 1/2 4TH GEN, RFLX CONF ( test code = 3514) NON-REACTIVE Bal Zapata [id number] 00:00:00* Test Item Value Reference Range Interpretation Comme nts RPR RESULT (test code = 3501) NON-REACTIVE RPR TITER (test code = 3500) NOT INDIC. TITER Bal RoseCHLAMYDIA, AMPLIFIED, [id number] 00:00:00* Test Item Value Reference Range Interpretation Comme nts CHLAMYDIA, NAAT, URINE (test code = 99780) NEGATIVE Bal Zapata AustinGC, AMPLIFIED, [id number] 00:00:00* Test Item Value Reference Range Interpretation Comme nts GONORRHEA, NAAT, URINE (test code = 23391) NEGATIVE Bal Zapata AustinVAGINAL PATHOGENS DNA [id number] 00:00:00* Test Item Value Reference Range Interpretation Comme nts FREDY SPECIES (test code = ) NEGATIVE G. VAGINALIS (test code = 27349) NEGATIVE T. VAGINALIS (test code = 46880) NEGATIVE Bal Zapata AustinHIV 1/2 4TH GEN, RFLX [id number] 00:00:00* Test Item Value Reference Range Interpretation Comme nts HIV 1/2 4TH GEN, RFLX CONF ( test code = 3514) NON-REACTIVE Bal Zpaata [id number] 00:00:00* Test Item Value Reference Range Interpretation Comme nts RPR RESULT (test code = 3501) NON-REACTIVE RPR TITER (test code = 3500) NOT INDIC. TITER Bal RoseCHLAMYDIA, AMPLIFIED, [id number] 00:00:00* Test Item Value Reference Range Interpretation Comme nts CHLAMYDIA, NAAT, URINE (test code = 78751) NEGATIVE Bal RoseGC, AMPLIFIED, [id number] 00:00:00* Test Item Value Reference Range Interpretation Comme nts GONORRHEA, NAAT, URINE (test code = 17200) NEGATIVE Bal oRseVAGINAL PATHOGENS DNA [id number] 00:00:00* Test Item Value Reference Range Interpretation Comme nts FREDY SPECIES (test code = 39078) NEGATIVE G. VAGINALIS (test code = 68053) NEGATIVE T. VAGINALIS (test code = 08276) NEGATIVE Bal RoseHIV 1/2 4TH GEN, RFLX [id number] 00:00:00* Test Item Value Reference Range Interpretation Comme nts HIV 1/2 4TH GEN, RFLX CONF ( test code = 3514) NON-REACTIVE Bal [id number] 00:00:00* Test Item Value Reference Range Interpretation Comme nts RPR RESULT (test code = 3501) NON-REACTIVE RPR TITER (test code = 3500) NOT INDIC. TITER Bal Palumbo, [id number] 12:15:41SPECIMEN NUMBER: [id number] CULTURE, URINE SPECIMEN NUMBER: [id number] SPECIMEN COMMENT: URINE SOURCE: URINE REPORT STATUS: FINAL FINAL REPORT: 10/30/2023 10-50,000 CFU/ML UROGENITAL JOANN PRESENT NO COMMON PATHOGENSCULTURE, [id number] 00:00:00* Test Item Value Reference Range Interpretation Comme nts CULTURE, URINE (test code = 60778) SPECIMEN NUMBER: [id number] Bal TreviñoLTISABEL, [id number] 00:00:00* Test Item Value Reference Range Interpretation Comme nts CULTURE, URINE (test code = 55955) SPECIMEN NUMBER: [id number] Bal TreviñoLTISABEL, [id number] 00:00:00* Test Item Value Reference Range Interpretation Comme nts CULTURE, URINE (test code = 34655) SPECIMEN NUMBER: [id number] Bal TreviñoLTISABEL, [id number] 00:00:00* Test Item Value Reference Range Interpretation Comme nts CULTURE, URINE (test code = 43400) SPECIMEN NUMBER: [id number] Bal Palumbo [id number] 00:00:00* Test Item Value Reference Range Interpretation Comme nts CULTURE, URINE (test code = 79861) SPECIMEN NUMBER: [id number] Bal Palumbo [id number] 00:00:00* Test Item Value Reference Range Interpretation Comme nts CULTURE, URINE (test code = 64804) SPECIMEN NUMBER: [id number] Bal Palumbo [id number] 00:00:00* Test Item Value Reference Range Interpretation Comme nts CULTURE, URINE (test code = 80192) SPECIMEN NUMBER: [id number] Bal Palumbo [id number] 00:00:00* Test Item Value Reference Range Interpretation Comme nts CULTURE, URINE (test code = 64248) SPECIMEN NUMBER: [id number] Bal Palumbo [id number] 00:00:00* Test Item Value Reference Range Interpretation Comme nts CULTURE, URINE (test code = 45780) SPECIMEN NUMBER: [id number] Bal Palumbo [id number] 00:00:00* Test Item Value Reference Range Interpretation Comme nts CULTURE, URINE (test code = 65948) SPECIMEN NUMBER: [id number] Bal Palumbo [id number] 00:00:00* Test Item Value Reference Range Interpretation Comme nts CULTURE, URINE (test code = 58117) SPECIMEN NUMBER: [id number] Bal Palumbo, [id number] 00:00:00* Test Item Value Reference Range Interpretation Comme nts CULTURE, URINE (test code = 63207) SPECIMEN NUMBER: [id number] Bal Palumbo, [id number] 00:00:00* Test Item Value Reference Range Interpretation Comme nts CULTURE, URINE (test code = 17309) SPECIMEN NUMBER: [id number] Bal Palumbo, [id number] 00:00:00* Test Item Value Reference Range Interpretation Comme nts CULTURE, URINE (test code = 25998) SPECIMEN NUMBER: [id number] Bal Palumbo, [id number] 00:00:00* Test Item Value Reference Range Interpretation Comme nts CULTURE, URINE (test code = 03101) SPECIMEN NUMBER: [id number] Bal Palumbo, [id number] 00:00:00* Test Item Value Reference Range Interpretation Comme nts CULTURE, URINE (test code = 46531) SPECIMEN NUMBER: [id number] Bal Palumbo, [id number] 00:00:00* Test Item Value Reference Range Interpretation Comme nts CULTURE, URINE (test code = 77316) SPECIMEN NUMBER: [id number] Bal Palumbo, [id number] 00:00:00* Test Item Value Reference Range Interpretation Comme nts CULTURE, URINE (test code = 56829) SPECIMEN NUMBER: [id number] Bal Zapata AustinVAGINAL PATHOGENS DNA [id number] 12:24:23* Test Item Value Reference Range Interpretation Comme nts FREDY SPECIES (test code = ) NEGATIVE NEGATIVE G. VAGINALIS (test code = 35002) NEGATIVE NEGATIVE T. VAGINALIS (test code = 78801) NEGATIVE NEGATIVE Note: The [employer] [facility] VPIII Microbial Identification Testis a DNA probe test intended for use in the detectionand identification of Fredy species, Gardnerellavaginalis and Trichomonas vaginalis nucleic acid. UNLESS OTHERWISE INDICATED, ALL TESTING PERFORMED AT [facility] [address] [place] [address] BLANKET WEAVER: GRACE ARELLANO M.D. CLIA NUMBER [id number] [facility] [place]. [id number] VAGINAL PATHOGENS DNA [id number] 00:00:00* Test Item Value Reference Range Interpretation Comme nts FREDY SPECIES (test code = 79056) NEGATIVE G. VAGINALIS (test code = 70920) NEGATIVE T. VAGINALIS (test code = 42583) NEGATIVE Bal F AustinVAGINAL PATHOGENS DNA [id number] 00:00:00* Test Item Value Reference Range Interpretation Comme nts FREDY SPECIES (test code = 37123) NEGATIVE G. VAGINALIS (test code = 22350) NEGATIVE T. VAGINALIS (test code = 46062) NEGATIVE Bal Zapata AustinVAGINAL PATHOGENS DNA [id number] 00:00:00* Test Item Value Reference Range Interpretation Comme nts FREDY SPECIES (test code = 20319) NEGATIVE G. VAGINALIS (test code = 82172) NEGATIVE T. VAGINALIS (test code = 64713) NEGATIVE Bal Benny AustinVAGINAL PATHOGENS DNA [id number] 00:00:00* Test Item Value Reference Range Interpretation Comme nts FREDY SPECIES (test code = 00715) NEGATIVE G. VAGINALIS (test code = 15326) NEGATIVE T. VAGINALIS (test code = 12367) NEGATIVE Bal F AustinVAGINAL PATHOGENS DNA [id number] 00:00:00* Test Item Value Reference Range Interpretation Comme nts FREDY SPECIES (test code = 64260) NEGATIVE G. VAGINALIS (test code = 21085) NEGATIVE T. VAGINALIS (test code = 11094) NEGATIVE Bal F AustinVAGINAL PATHOGENS DNA [id number] 00:00:00* Test Item Value Reference Range Interpretation Comme nts FREDY SPECIES (test code = 58193) NEGATIVE G. VAGINALIS (test code = 18398) NEGATIVE T. VAGINALIS (test code = 37717) NEGATIVE Bal F AustinVAGINAL PATHOGENS DNA [id number] 00:00:00* Test Item Value Reference Range Interpretation Comme nts FREDY SPECIES (test code = 70205) NEGATIVE G. VAGINALIS (test code = 51643) NEGATIVE T. VAGINALIS (test code = 15482) NEGATIVE Bal F AustinVAGINAL PATHOGENS DNA [id number] 00:00:00* Test Item Value Reference Range Interpretation Comme nts FREDY SPECIES (test code = 12725) NEGATIVE G. VAGINALIS (test code = 06696) NEGATIVE T. VAGINALIS (test code = 87758) NEGATIVE Bal F AustinVAGINAL PATHOGENS DNA [id number] 00:00:00* Test Item Value Reference Range Interpretation Comme nts FREDY SPECIES (test code = 79875) NEGATIVE G. VAGINALIS (test code = 44593) NEGATIVE T. VAGINALIS (test code = 87610) NEGATIVE Bal F AustinVAGINAL PATHOGENS DNA [id number] 00:00:00* Test Item Value Reference Range Interpretation Comme nts FREDY SPECIES (test code = 78911) NEGATIVE G. VAGINALIS (test code = 92013) NEGATIVE T. VAGINALIS (test code = 79236) NEGATIVE Bal Benny AustinVAGINAL PATHOGENS DNA [id number] 00:00:00* Test Item Value Reference Range Interpretation Comme nts FREDY SPECIES (test code = 21539) NEGATIVE G. VAGINALIS (test code = 17232) NEGATIVE T. VAGINALIS (test code = 13671) NEGATIVE Bal Zapata AustinVAGINAL PATHOGENS DNA [id number] 00:00:00* Test Item Value Reference Range Interpretation Comme nts FREDY SPECIES (test code = 33064) NEGATIVE G. VAGINALIS (test code = 10437) NEGATIVE T. VAGINALIS (test code = 17964) NEGATIVE Bal F AustinVAGINAL PATHOGENS DNA [id number] 00:00:00* Test Item Value Reference Range Interpretation Comme nts FREDY SPECIES (test code = 53242) NEGATIVE G. VAGINALIS (test code = 77504) NEGATIVE T. VAGINALIS (test code = 61644) NEGATIVE Bal F AustinVAGINAL PATHOGENS DNA [id number] 00:00:00* Test Item Value Reference Range Interpretation Comme nts FREDY SPECIES (test code = 45825) NEGATIVE G. VAGINALIS (test code = 01348) NEGATIVE T. VAGINALIS (test code = 59729) NEGATIVE Bal F AustinVAGINAL PATHOGENS DNA [id number] 00:00:00* Test Item Value Reference Range Interpretation Comme nts FREDY SPECIES (test code = 43648) NEGATIVE G. VAGINALIS (test code = 66829) NEGATIVE T. VAGINALIS (test code = 18801) NEGATIVE Bal Zapata AustinVAGINAL PATHOGENS DNA [id number] 00:00:00* Test Item Value Reference Range Interpretation Comme nts FREDY SPECIES (test code = 19036) NEGATIVE G. VAGINALIS (test code = 71928) NEGATIVE T. VAGINALIS (test code = 33853) NEGATIVE Bal F AustinVAGINAL PATHOGENS DNA [id number] 00:00:00* Test Item Value Reference Range Interpretation Comme nts FREDY SPECIES (test code = 42154) NEGATIVE G. VAGINALIS (test code = 15821) NEGATIVE T. VAGINALIS (test code = 92563) NEGATIVE Bal F AustinVAGINAL PATHOGENS DNA [id number] 00:00:00* Test Item Value Reference Range Interpretation Comme nts FREDY SPECIES (test code = ) NEGATIVE G. VAGINALIS (test code = ) NEGATIVE T. VAGINALIS (test code = ) NEGATIVE Bal RoseCOMPREHENSIVE METABOLIC [id number] 00:00:00* Test Item Value Reference Range Interpretation Comme nts GLUCOSE (test code = 7) 108 MG/DL BUN (test code = 2208) 10 MG/DL CREATININE (test code = 2214) 0.79 MG/DL eGFR (2020 CKD-EPI) (test co de = 12159) 98 ML/MIN/1.73 CALC BUN/CREAT (test code = 2235) 13 RATIO SODIUM (test code = 2231) 140 MEQ/L POTASSIUM (test code = 2228) 4.2 MEQ/L CHLORIDE (test code = 2215) 103 MEQ/L CARBON DIOXIDE (test code = 2206) 25 MEQ/L CALCIUM (test code = 2209) 9.7 MG/DL PROTEIN, TOTAL (test code = 2229) 7.2 G/DL ALBUMIN (test code = 2201) 4.4 G/DL CALC GLOBULIN (test code = 2240) 2.8 G/DL CALC A/G RATIO (test code = 2234) 1.6 RATIO BILIRUBIN, TOTAL (test code = 2207) 0.2 MG/DL ALKALINE PHOSPHATASE (test code = 2204) 91 U/L AST (test code = 2218) 12 U/L ALT (test code = 2219) 8 U/L Bal RoseTHYROID II PROFILE (TU, T4, T7, TSH)2023-10-01 00:00:00* Test Item Value Reference Range Interpretation Comme nts T-UPTAKE (test code = 2817) 33.1 % THYROX. BIND. CAPAC. (test c ode = 89682) 1.0 T4 (THYROXINE) (test code = 2819) 8.9 UG/DL CORRECTED T4 (FTI) (test cod e = 2820) 8.9 UG/DL TSH, THIRD GENERATION (test code = 2821) 4.130 UIU/ML Bal RoseSEDIMENTATION [id number] 00:00:00* Test Item Value Reference Range Interpretation Comme nts SEDIMENTATION RATE (test cod e = 1017) 24 MM/HOUR Bal Zapata AustinC-REACTIVE [id number] 00:00:00* Test Item Value Reference Range Interpretation Comme christopher C-REACTIVE PROTEIN (test cod e = 3513) 0.9 MG/DL Bal RoseLIPID [id number] 00:00:00* Test Item Value Reference Range Interpretation Comme nts CHOLESTEROL (test code = 2210) 129 MG/DL TRIGLYCERIDES (test code = 2232) 52 MG/DL HDL CHOLESTEROL (test code = 2220) 54 MG/DL CALC LDL CHOL (test code = 2237) 62 MG/DL RISK RATIO LDL/HDL (test cod e = 2238) 1.15 RATIO Bal RoseHEMOGLOBIN [id number] 00:00:00* Test Item Value Reference Range Interpretation Comme nts HEMOGLOBIN A1c (test code = 97744) 6.1 % Bal RoseCOMPREHENSIVE METABOLIC [id number] 00:00:00* Test Item Value Reference Range Interpretation Comme nts GLUCOSE (test code = 2217) 108 MG/DL BUN (test code = 2208) 10 MG/DL CREATININE (test code = 2214) 0.79 MG/DL eGFR (2020 CKD-EPI) (test co de = 19260) 98 ML/MIN/1.73 CALC BUN/CREAT (test code = 2235) 13 RATIO SODIUM (test code = 2231) 140 MEQ/L POTASSIUM (test code = 2228) 4.2 MEQ/L CHLORIDE (test code = 2215) 103 MEQ/L CARBON DIOXIDE (test code = 2206) 25 MEQ/L CALCIUM (test code = 2209) 9.7 MG/DL PROTEIN, TOTAL (test code = 2229) 7.2 G/DL ALBUMIN (test code = 2201) 4.4 G/DL CALC GLOBULIN (test code = 2240) 2.8 G/DL CALC A/G RATIO (test code = 2234) 1.6 RATIO BILIRUBIN, TOTAL (test code = 2207) 0.2 MG/DL ALKALINE PHOSPHATASE (test code = 2204) 91 U/L AST (test code = 2218) 12 U/L ALT (test code = 2219) 8 U/L Bal RoseTHYROID II PROFILE (TU, T4, T7, TSH)2023-10-01 00:00:00* Test Item Value Reference Range Interpretation Comme nts T-UPTAKE (test code = 2817) 33.1 % THYROX. BIND. CAPAC. (test c ode = 30895) 1.0 T4 (THYROXINE) (test code = 2819) 8.9 UG/DL CORRECTED T4 (FTI) (test cod e = 2820) 8.9 UG/DL TSH, THIRD GENERATION (test code = 2821) 4.130 UIU/ML Bal Zapata AustinSEDIMENTATION [id number] 00:00:00* Test Item Value Reference Range Interpretation Comme nts SEDIMENTATION RATE (test cod e = 1017) 24 MM/HOUR Bal RoseC-REACTIVE [id number] 00:00:00* Test Item Value Reference Range Interpretation Comme nts C-REACTIVE PROTEIN (test cod e = 3513) 0.9 MG/DL Bal RoseLIPID [id number] 00:00:00* Test Item Value Reference Range Interpretation Comme nts CHOLESTEROL (test code = 2210) 129 MG/DL TRIGLYCERIDES (test code = 2232) 52 MG/DL HDL CHOLESTEROL (test code = 2220) 54 MG/DL CALC LDL CHOL (test code = 2237) 62 MG/DL RISK RATIO LDL/HDL (test cod e = 2238) 1.15 RATIO Bal RoseHEMOGLOBIN [id number] 00:00:00* Test Item Value Reference Range Interpretation Comme nts HEMOGLOBIN A1c (test code = 85112) 6.1 % Bal RoseCOMPREHENSIVE METABOLIC [id number] 00:00:00* Test Item Value Reference Range Interpretation Comme nts GLUCOSE (test code = 2217) 108 MG/DL BUN (test code = 2208) 10 MG/DL CREATININE (test code = 2214) 0.79 MG/DL eGFR (2020 CKD-EPI) (test co de = 20629) 98 ML/MIN/1.73 CALC BUN/CREAT (test code = 2235) 13 RATIO SODIUM (test code = 2231) 140 MEQ/L POTASSIUM (test code = 2228) 4.2 MEQ/L CHLORIDE (test code = 2215) 103 MEQ/L CARBON DIOXIDE (test code = 2206) 25 MEQ/L CALCIUM (test code = 2209) 9.7 MG/DL PROTEIN, TOTAL (test code = 2229) 7.2 G/DL ALBUMIN (test code = 2201) 4.4 G/DL CALC GLOBULIN (test code = 2240) 2.8 G/DL CALC A/G RATIO (test code = 2234) 1.6 RATIO BILIRUBIN, TOTAL (test code = 2207) 0.2 MG/DL ALKALINE PHOSPHATASE (test code = 2204) 91 U/L AST (test code = 2218) 12 U/L ALT (test code = 2219) 8 U/L Bal RoseTHYROID II PROFILE (TU, T4, T7, TSH)2023-10-01 00:00:00* Test Item Value Reference Range Interpretation Comme nts T-UPTAKE (test code = 2817) 33.1 % THYROX. BIND. CAPAC. (test c ode = 08015) 1.0 T4 (THYROXINE) (test code = 2819) 8.9 UG/DL CORRECTED T4 (FTI) (test cod e = 2820) 8.9 UG/DL TSH, THIRD GENERATION (test code = 2821) 4.130 UIU/ML Bal RoseSEDIMENTATION [id number] 00:00:00* Test Item Value Reference Range Interpretation Comme nts SEDIMENTATION RATE (test cod e = 1017) 24 MM/HOUR Bal RoseC-REACTIVE [id number] 00:00:00* Test Item Value Reference Range Interpretation Comme nts C-REACTIVE PROTEIN (test cod e = 3513) 0.9 MG/DL Bal RoseLIPID [id number] 00:00:00* Test Item Value Reference Range Interpretation Comme nts CHOLESTEROL (test code = 2210) 129 MG/DL TRIGLYCERIDES (test code = 2232) 52 MG/DL HDL CHOLESTEROL (test code = 2220) 54 MG/DL CALC LDL CHOL (test code = 2237) 62 MG/DL RISK RATIO LDL/HDL (test cod e = 2238) 1.15 RATIO Bal RoseHEMOGLOBIN [id number] 00:00:00* Test Item Value Reference Range Interpretation Comme nts HEMOGLOBIN A1c (test code = 52572) 6.1 % Bal RoseCOMPREHENSIVE METABOLIC [id number] 00:00:00* Test Item Value Reference Range Interpretation Comme nts GLUCOSE (test code = 2217) 108 MG/DL BUN (test code = 8) 10 MG/DL CREATININE (test code = 2214) 0.79 MG/DL eGFR (2020 CKD-EPI) (test co de = 71469) 98 ML/MIN/1.73 CALC BUN/CREAT (test code = 2235) 13 RATIO SODIUM (test code = 2231) 140 MEQ/L POTASSIUM (test code = 2228) 4.2 MEQ/L CHLORIDE (test code = 2215) 103 MEQ/L CARBON DIOXIDE (test code = 2206) 25 MEQ/L CALCIUM (test code = 2209) 9.7 MG/DL PROTEIN, TOTAL (test code = 2229) 7.2 G/DL ALBUMIN (test code = 2201) 4.4 G/DL CALC GLOBULIN (test code = 2240) 2.8 G/DL CALC A/G RATIO (test code = 2234) 1.6 RATIO BILIRUBIN, TOTAL (test code = 2207) 0.2 MG/DL ALKALINE PHOSPHATASE (test code = 2204) 91 U/L AST (test code = 2218) 12 U/L ALT (test code = 2219) 8 U/L Bal Zapata AbileneTHYROID II PROFILE (TU, T4, T7, TSH)2023-10-01 00:00:00* Test Item Value Reference Range Interpretation Comme nts T-UPTAKE (test code = 2817) 33.1 % THYROX. BIND. CAPAC. (test c ode = 09979) 1.0 T4 (THYROXINE) (test code = 2819) 8.9 UG/DL CORRECTED T4 (FTI) (test cod e = 2820) 8.9 UG/DL TSH, THIRD GENERATION (test code = 2821) 4.130 UIU/ML Bal Zapata AbileneSEDIMENTATION [id number] 00:00:00* Test Item Value Reference Range Interpretation Comme nts SEDIMENTATION RATE (test cod e = 1017) 24 MM/HOUR Bal Zapata AbileneC-REACTIVE [id number] 00:00:00* Test Item Value Reference Range Interpretation Comme nts C-REACTIVE PROTEIN (test cod e = 3513) 0.9 MG/DL Bal Zaapta AbileneLIPID [id number] 00:00:00* Test Item Value Reference Range Interpretation Comme nts CHOLESTEROL (test code = 2210) 129 MG/DL TRIGLYCERIDES (test code = 2232) 52 MG/DL HDL CHOLESTEROL (test code = 2220) 54 MG/DL CALC LDL CHOL (test code = 2237) 62 MG/DL RISK RATIO LDL/HDL (test cod e = 2238) 1.15 RATIO Bal RoseHEMOGLOBIN [id number] 00:00:00* Test Item Value Reference Range Interpretation Comme nts HEMOGLOBIN A1c (test code = 89596) 6.1 % Bal RoseCOMPREHENSIVE METABOLIC [id number] 00:00:00* Test Item Value Reference Range Interpretation Comme nts GLUCOSE (test code = 2217) 108 MG/DL BUN (test code = 2208) 10 MG/DL CREATININE (test code = 2214) 0.79 MG/DL eGFR (2020 CKD-EPI) (test co de = 65816) 98 ML/MIN/1.73 CALC BUN/CREAT (test code = 2235) 13 RATIO SODIUM (test code = 2231) 140 MEQ/L POTASSIUM (test code = 2228) 4.2 MEQ/L CHLORIDE (test code = 2215) 103 MEQ/L CARBON DIOXIDE (test code = 2206) 25 MEQ/L CALCIUM (test code = 2209) 9.7 MG/DL PROTEIN, TOTAL (test code = 2229) 7.2 G/DL ALBUMIN (test code = 2201) 4.4 G/DL CALC GLOBULIN (test code = 2240) 2.8 G/DL CALC A/G RATIO (test code = 2234) 1.6 RATIO BILIRUBIN, TOTAL (test code = 2207) 0.2 MG/DL ALKALINE PHOSPHATASE (test code = 2204) 91 U/L AST (test code = 2218) 12 U/L ALT (test code = 2219) 8 U/L Bal RoseTHYROID II PROFILE (TU, T4, T7, TSH)2023-10-01 00:00:00* Test Item Value Reference Range Interpretation Comme nts T-UPTAKE (test code = 2817) 33.1 % THYROX. BIND. CAPAC. (test c ode = 61811) 1.0 T4 (THYROXINE) (test code = 2819) 8.9 UG/DL CORRECTED T4 (FTI) (test cod e = 2820) 8.9 UG/DL TSH, THIRD GENERATION (test code = 2821) 4.130 UIU/ML Bal RoseSEDIMENTATION [id number] 00:00:00* Test Item Value Reference Range Interpretation Comme nts SEDIMENTATION RATE (test cod e = 1017) 24 MM/HOUR Bal RoseC-REACTIVE [id number] 00:00:00* Test Item Value Reference Range Interpretation Comme christopher C-REACTIVE PROTEIN (test cod e = 3513) 0.9 MG/DL Bal RoseLIPID [id number] 00:00:00* Test Item Value Reference Range Interpretation Comme nts CHOLESTEROL (test code = 2210) 129 MG/DL TRIGLYCERIDES (test code = 2232) 52 MG/DL HDL CHOLESTEROL (test code = 2220) 54 MG/DL CALC LDL CHOL (test code = 2237) 62 MG/DL RISK RATIO LDL/HDL (test cod e = 2238) 1.15 RATIO Bal RoseHEMOGLOBIN [id number] 00:00:00* Test Item Value Reference Range Interpretation Comme christopher HEMOGLOBIN A1c (test code = 72597) 6.1 % Bal RoseCOMPREHENSIVE METABOLIC [id number] 00:00:00* Test Item Value Reference Range Interpretation Comme nts GLUCOSE (test code = 2217) 108 MG/DL BUN (test code = 2208) 10 MG/DL CREATININE (test code = 2214) 0.79 MG/DL eGFR (2020 CKD-EPI) (test co de = 15021) 98 ML/MIN/1.73 CALC BUN/CREAT (test code = 2235) 13 RATIO SODIUM (test code = 2231) 140 MEQ/L POTASSIUM (test code = 2228) 4.2 MEQ/L CHLORIDE (test code = 2215) 103 MEQ/L CARBON DIOXIDE (test code = 2206) 25 MEQ/L CALCIUM (test code = 2209) 9.7 MG/DL PROTEIN, TOTAL (test code = 2229) 7.2 G/DL ALBUMIN (test code = 2201) 4.4 G/DL CALC GLOBULIN (test code = 2240) 2.8 G/DL CALC A/G RATIO (test code = 2234) 1.6 RATIO BILIRUBIN, TOTAL (test code = 2207) 0.2 MG/DL ALKALINE PHOSPHATASE (test code = 2204) 91 U/L AST (test code = 2218) 12 U/L ALT (test code = 2219) 8 U/L Bal RoseTHYROID II PROFILE (TU, T4, T7, TSH)2023-10-01 00:00:00* Test Item Value Reference Range Interpretation Comme nts T-UPTAKE (test code = 2817) 33.1 % THYROX. BIND. CAPAC. (test c ode = 62519) 1.0 T4 (THYROXINE) (test code = 2819) 8.9 UG/DL CORRECTED T4 (FTI) (test cod e = 2820) 8.9 UG/DL TSH, THIRD GENERATION (test code = 2821) 4.130 UIU/ML Bal RoseSEDIMENTATION [id number] 00:00:00* Test Item Value Reference Range Interpretation Comme nts SEDIMENTATION RATE (test cod e = 1017) 24 MM/HOUR Bal RoseC-REACTIVE [id number] 00:00:00* Test Item Value Reference Range Interpretation Comme nts C-REACTIVE PROTEIN (test cod e = 3513) 0.9 MG/DL Bal RoseLIPID [id number] 00:00:00* Test Item Value Reference Range Interpretation Comme nts CHOLESTEROL (test code = 2210) 129 MG/DL TRIGLYCERIDES (test code = 2232) 52 MG/DL HDL CHOLESTEROL (test code = 2220) 54 MG/DL CALC LDL CHOL (test code = 2237) 62 MG/DL RISK RATIO LDL/HDL (test cod e = 2238) 1.15 RATIO Bal RoseHEMOGLOBIN [id number] 00:00:00* Test Item Value Reference Range Interpretation Comme nts HEMOGLOBIN A1c (test code = 11727) 6.1 % Bal RoseCOMPREHENSIVE METABOLIC [id number] 00:00:00* Test Item Value Reference Range Interpretation Comme nts GLUCOSE (test code = 2217) 108 MG/DL BUN (test code = 2208) 10 MG/DL CREATININE (test code = 2214) 0.79 MG/DL eGFR (2020 CKD-EPI) (test co de = 52479) 98 ML/MIN/1.73 CALC BUN/CREAT (test code = 2235) 13 RATIO SODIUM (test code = 2231) 140 MEQ/L POTASSIUM (test code = 2228) 4.2 MEQ/L CHLORIDE (test code = 2215) 103 MEQ/L CARBON DIOXIDE (test code = 2206) 25 MEQ/L CALCIUM (test code = 2209) 9.7 MG/DL PROTEIN, TOTAL (test code = 2229) 7.2 G/DL ALBUMIN (test code = 2201) 4.4 G/DL CALC GLOBULIN (test code = 2240) 2.8 G/DL CALC A/G RATIO (test code = 2234) 1.6 RATIO BILIRUBIN, TOTAL (test code = 2207) 0.2 MG/DL ALKALINE PHOSPHATASE (test code = 220) 91 U/L AST (test code = 221) 12 U/L ALT (test code = 2219) 8 U/L Bal RoseTHYROID II PROFILE (TU, T4, T7, TSH)[id number] 00:00:00* Test Item Value Reference Range Interpretation Comme nts T-UPTAKE (test code = 2817) 33.1 % THYROX. BIND. CAPAC. (test c ode = 02863) 1.0 T4 (THYROXINE) (test code = 2819) 8.9 UG/DL CORRECTED T4 (FTI) (test cod e = 2820) 8.9 UG/DL TSH, THIRD GENERATION (test code = 2821) 4.130 UIU/ML Bal RoseSEDIMENTATION [id number] 00:00:00* Test Item Value Reference Range Interpretation Comme nts SEDIMENTATION RATE (test cod e = 1017) 24 MM/HOUR Bal RoseC-REACTIVE [id number] 00:00:00* Test Item Value Reference Range Interpretation Comme nts C-REACTIVE PROTEIN (test cod e = 3513) 0.9 MG/DL Bal RoseLIPID [id number] 00:00:00* Test Item Value Reference Range Interpretation Comme nts CHOLESTEROL (test code = 2210) 129 MG/DL TRIGLYCERIDES (test code = 2232) 52 MG/DL HDL CHOLESTEROL (test code = 2220) 54 MG/DL CALC LDL CHOL (test code = 2237) 62 MG/DL RISK RATIO LDL/HDL (test cod e = 2238) 1.15 RATIO Bal RoseHEMOGLOBIN [id number] 00:00:00* Test Item Value Reference Range Interpretation Comme nts HEMOGLOBIN A1c (test code = 56215) 6.1 % Bal RoseCOMPREHENSIVE METABOLIC [id number] 00:00:00* Test Item Value Reference Range Interpretation Comme nts GLUCOSE (test code = 2217) 108 MG/DL BUN (test code = 2208) 10 MG/DL CREATININE (test code = 2214) 0.79 MG/DL eGFR (2020 CKD-EPI) (test co de = 73490) 98 ML/MIN/1.73 CALC BUN/CREAT (test code = 2235) 13 RATIO SODIUM (test code = 2231) 140 MEQ/L POTASSIUM (test code = 2228) 4.2 MEQ/L CHLORIDE (test code = 2215) 103 MEQ/L CARBON DIOXIDE (test code = 2206) 25 MEQ/L CALCIUM (test code = 2209) 9.7 MG/DL PROTEIN, TOTAL (test code = 2229) 7.2 G/DL ALBUMIN (test code = 2201) 4.4 G/DL CALC GLOBULIN (test code = 2240) 2.8 G/DL CALC A/G RATIO (test code = 2234) 1.6 RATIO BILIRUBIN, TOTAL (test code = 2207) 0.2 MG/DL ALKALINE PHOSPHATASE (test code = 2204) 91 U/L AST (test code = 2218) 12 U/L ALT (test code = 2219) 8 U/L Bal RoseTHYROID II PROFILE (TU, T4, T7, TSH)2023-10-01 00:00:00* Test Item Value Reference Range Interpretation Comme nts T-UPTAKE (test code = 2817) 33.1 % THYROX. BIND. CAPAC. (test c ode = 68805) 1.0 T4 (THYROXINE) (test code = 2819) 8.9 UG/DL CORRECTED T4 (FTI) (test cod e = 2820) 8.9 UG/DL TSH, THIRD GENERATION (test code = 2821) 4.130 UIU/ML Bal RoseSEDIMENTATION [id number] 00:00:00* Test Item Value Reference Range Interpretation Comme nts SEDIMENTATION RATE (test cod e = 1017) 24 MM/HOUR Bal RoseC-REACTIVE [id number] 00:00:00* Test Item Value Reference Range Interpretation Comme nts C-REACTIVE PROTEIN (test cod e = 3513) 0.9 MG/DL Bal RoseLIPID [id number] 00:00:00* Test Item Value Reference Range Interpretation Comme nts CHOLESTEROL (test code = 2210) 129 MG/DL TRIGLYCERIDES (test code = 2232) 52 MG/DL HDL CHOLESTEROL (test code = 2220) 54 MG/DL CALC LDL CHOL (test code = 2237) 62 MG/DL RISK RATIO LDL/HDL (test cod e = 2238) 1.15 RATIO Bal RoseHEMOGLOBIN [id number] 00:00:00* Test Item Value Reference Range Interpretation Comme nts HEMOGLOBIN A1c (test code = 98471) 6.1 % Bal RoseCOMPREHENSIVE METABOLIC [id number] 00:00:00* Test Item Value Reference Range Interpretation Comme nts GLUCOSE (test code = 2217) 108 MG/DL BUN (test code = 2208) 10 MG/DL CREATININE (test code = 2214) 0.79 MG/DL eGFR (2020 CKD-EPI) (test co de = 64481) 98 ML/MIN/1.73 CALC BUN/CREAT (test code = 2235) 13 RATIO SODIUM (test code = 2231) 140 MEQ/L POTASSIUM (test code = 2228) 4.2 MEQ/L CHLORIDE (test code = 2215) 103 MEQ/L CARBON DIOXIDE (test code = 2206) 25 MEQ/L CALCIUM (test code = 2209) 9.7 MG/DL PROTEIN, TOTAL (test code = 2229) 7.2 G/DL ALBUMIN (test code = 2201) 4.4 G/DL CALC GLOBULIN (test code = 2240) 2.8 G/DL CALC A/G RATIO (test code = 2234) 1.6 RATIO BILIRUBIN, TOTAL (test code = 2207) 0.2 MG/DL ALKALINE PHOSPHATASE (test code = 2204) 91 U/L AST (test code = 2218) 12 U/L ALT (test code = 2219) 8 U/L Bal RoseTHYROID II PROFILE (TU, T4, T7, TSH)2023-10-01 00:00:00* Test Item Value Reference Range Interpretation Comme nts T-UPTAKE (test code = 2817) 33.1 % THYROX. BIND. CAPAC. (test c ode = 78159) 1.0 T4 (THYROXINE) (test code = 2819) 8.9 UG/DL CORRECTED T4 (FTI) (test cod e = 2820) 8.9 UG/DL TSH, THIRD GENERATION (test code = 2821) 4.130 UIU/ML Bal RoseSEDIMENTATION [id number] 00:00:00* Test Item Value Reference Range Interpretation Comme nts SEDIMENTATION RATE (test cod e = 1017) 24 MM/HOUR Bal Zapata AustinC-REACTIVE [id number] 00:00:00* Test Item Value Reference Range Interpretation Comme nts C-REACTIVE PROTEIN (test cod e = 3513) 0.9 MG/DL Bal RoseLIPID [id number] 00:00:00* Test Item Value Reference Range Interpretation Comme nts CHOLESTEROL (test code = 2210) 129 MG/DL TRIGLYCERIDES (test code = 2232) 52 MG/DL HDL CHOLESTEROL (test code = 2220) 54 MG/DL CALC LDL CHOL (test code = 2237) 62 MG/DL RISK RATIO LDL/HDL (test cod e = 2238) 1.15 RATIO Bal RoseHEMOGLOBIN [id number] 00:00:00* Test Item Value Reference Range Interpretation Comme nts HEMOGLOBIN A1c (test code = 01802) 6.1 % Bal RoseCOMPREHENSIVE METABOLIC [id number] 00:00:00* Test Item Value Reference Range Interpretation Comme nts GLUCOSE (test code = 2217) 108 MG/DL BUN (test code = 2208) 10 MG/DL CREATININE (test code = 2214) 0.79 MG/DL eGFR (2020 CKD-EPI) (test co de = 97489) 98 ML/MIN/1.73 CALC BUN/CREAT (test code = 2235) 13 RATIO SODIUM (test code = 2231) 140 MEQ/L POTASSIUM (test code = 2228) 4.2 MEQ/L CHLORIDE (test code = 2215) 103 MEQ/L CARBON DIOXIDE (test code = 2206) 25 MEQ/L CALCIUM (test code = 2209) 9.7 MG/DL PROTEIN, TOTAL (test code = 2229) 7.2 G/DL ALBUMIN (test code = 2201) 4.4 G/DL CALC GLOBULIN (test code = 2240) 2.8 G/DL CALC A/G RATIO (test code = 2234) 1.6 RATIO BILIRUBIN, TOTAL (test code = 2207) 0.2 MG/DL ALKALINE PHOSPHATASE (test code = 2204) 91 U/L AST (test code = 2218) 12 U/L ALT (test code = 2219) 8 U/L Bal RoseTHYROID II PROFILE (TU, T4, T7, TSH)2023-10-01 00:00:00* Test Item Value Reference Range Interpretation Comme nts T-UPTAKE (test code = 2817) 33.1 % THYROX. BIND. CAPAC. (test c ode = 79215) 1.0 T4 (THYROXINE) (test code = 2819) 8.9 UG/DL CORRECTED T4 (FTI) (test cod e = 2820) 8.9 UG/DL TSH, THIRD GENERATION (test code = 2821) 4.130 UIU/ML Bal RoseSEDIMENTATION [id number] 00:00:00* Test Item Value Reference Range Interpretation Comme nts SEDIMENTATION RATE (test cod e = 1017) 24 MM/HOUR Bal RoseC-REACTIVE [id number] 00:00:00* Test Item Value Reference Range Interpretation Comme nts C-REACTIVE PROTEIN (test cod e = 3513) 0.9 MG/DL Bal RoseLIPID [id number] 00:00:00* Test Item Value Reference Range Interpretation Comme nts CHOLESTEROL (test code = 2210) 129 MG/DL TRIGLYCERIDES (test code = 2232) 52 MG/DL HDL CHOLESTEROL (test code = 2220) 54 MG/DL CALC LDL CHOL (test code = 2237) 62 MG/DL RISK RATIO LDL/HDL (test cod e = 2238) 1.15 RATIO Bal RoseHEMOGLOBIN [id number] 00:00:00* Test Item Value Reference Range Interpretation Comme nts HEMOGLOBIN A1c (test code = 71007) 6.1 % Bal RoseCOMPREHENSIVE METABOLIC [id number] 00:00:00* Test Item Value Reference Range Interpretation Comme nts GLUCOSE (test code = 221) 108 MG/DL BUN (test code = 2207) 10 MG/DL CREATININE (test code = 2214) 0.79 MG/DL eGFR (2020 CKD-EPI) (test co de = 18019) 98 ML/MIN/1.73 CALC BUN/CREAT (test code = 2235) 13 RATIO SODIUM (test code = 2231) 140 MEQ/L POTASSIUM (test code = 2228) 4.2 MEQ/L CHLORIDE (test code = 2215) 103 MEQ/L CARBON DIOXIDE (test code = 2206) 25 MEQ/L CALCIUM (test code = 2209) 9.7 MG/DL PROTEIN, TOTAL (test code = 2229) 7.2 G/DL ALBUMIN (test code = 2201) 4.4 G/DL CALC GLOBULIN (test code = 2240) 2.8 G/DL CALC A/G RATIO (test code = 2234) 1.6 RATIO BILIRUBIN, TOTAL (test code = 2207) 0.2 MG/DL ALKALINE PHOSPHATASE (test code = 220) 91 U/L AST (test code = 2218) 12 U/L ALT (test code = 2219) 8 U/L Bal RoseTHYROID II PROFILE (TU, T4, T7, TSH)2023-10-01 00:00:00* Test Item Value Reference Range Interpretation Comme nts T-UPTAKE (test code = 2817) 33.1 % THYROX. BIND. CAPAC. (test c ode = 89463) 1.0 T4 (THYROXINE) (test code = 2819) 8.9 UG/DL CORRECTED T4 (FTI) (test cod e = 2820) 8.9 UG/DL TSH, THIRD GENERATION (test code = 2821) 4.130 UIU/ML Bal RoseSEDIMENTATION [id number] 00:00:00* Test Item Value Reference Range Interpretation Comme nts SEDIMENTATION RATE (test cod e = 1017) 24 MM/HOUR Bal RoseC-REACTIVE [id number] 00:00:00* Test Item Value Reference Range Interpretation Comme nts C-REACTIVE PROTEIN (test cod e = 3513) 0.9 MG/DL Bal RoseLIPID [id number] 00:00:00* Test Item Value Reference Range Interpretation Comme nts CHOLESTEROL (test code = 2210) 129 MG/DL TRIGLYCERIDES (test code = 2232) 52 MG/DL HDL CHOLESTEROL (test code = 2220) 54 MG/DL CALC LDL CHOL (test code = 2237) 62 MG/DL RISK RATIO LDL/HDL (test cod e = 2238) 1.15 RATIO Bal RoseHEMOGLOBIN [id number] 00:00:00* Test Item Value Reference Range Interpretation Comme nts HEMOGLOBIN A1c (test code = 09245) 6.1 % Bal RoseCOMPREHENSIVE METABOLIC [id number] 00:00:00* Test Item Value Reference Range Interpretation Comme nts GLUCOSE (test code = 2217) 108 MG/DL BUN (test code = 2208) 10 MG/DL CREATININE (test code = 2214) 0.79 MG/DL eGFR (2020 CKD-EPI) (test co de = 88280) 98 ML/MIN/1.73 CALC BUN/CREAT (test code = 2235) 13 RATIO SODIUM (test code = 2231) 140 MEQ/L POTASSIUM (test code = 2228) 4.2 MEQ/L CHLORIDE (test code = 2215) 103 MEQ/L CARBON DIOXIDE (test code = 2206) 25 MEQ/L CALCIUM (test code = 2209) 9.7 MG/DL PROTEIN, TOTAL (test code = 2229) 7.2 G/DL ALBUMIN (test code = 2201) 4.4 G/DL CALC GLOBULIN (test code = 2240) 2.8 G/DL CALC A/G RATIO (test code = 2234) 1.6 RATIO BILIRUBIN, TOTAL (test code = 2207) 0.2 MG/DL ALKALINE PHOSPHATASE (test code = 2204) 91 U/L AST (test code = 2218) 12 U/L ALT (test code = 2219) 8 U/L Bal RoseTHYROID II PROFILE (TU, T4, T7, TSH)2023-10-01 00:00:00* Test Item Value Reference Range Interpretation Comme nts T-UPTAKE (test code = 2817) 33.1 % THYROX. BIND. CAPAC. (test c ode = 33692) 1.0 T4 (THYROXINE) (test code = 2819) 8.9 UG/DL CORRECTED T4 (FTI) (test cod e = 2820) 8.9 UG/DL TSH, THIRD GENERATION (test code = 2821) 4.130 UIU/ML Bal RoseSEDIMENTATION [id number] 00:00:00* Test Item Value Reference Range Interpretation Comme nts SEDIMENTATION RATE (test cod e = 1017) 24 MM/HOUR Bal RoseC-REACTIVE [id number] 00:00:00* Test Item Value Reference Range Interpretation Comme nts C-REACTIVE PROTEIN (test cod e = 3513) 0.9 MG/DL Bal RoseLIPID [id number] 00:00:00* Test Item Value Reference Range Interpretation Comme nts CHOLESTEROL (test code = 2210) 129 MG/DL TRIGLYCERIDES (test code = 2232) 52 MG/DL HDL CHOLESTEROL (test code = 2220) 54 MG/DL CALC LDL CHOL (test code = 2237) 62 MG/DL RISK RATIO LDL/HDL (test cod e = 2238) 1.15 RATIO Bal RoseHEMOGLOBIN [id number] 00:00:00* Test Item Value Reference Range Interpretation Comme nts HEMOGLOBIN A1c (test code = 67633) 6.1 % Bal RoseCOMPREHENSIVE METABOLIC [id number] 00:00:00* Test Item Value Reference Range Interpretation Comme nts GLUCOSE (test code = 2217) 108 MG/DL BUN (test code = 2208) 10 MG/DL CREATININE (test code = 2214) 0.79 MG/DL eGFR (2020 CKD-EPI) (test co de = 15233) 98 ML/MIN/1.73 CALC BUN/CREAT (test code = 2235) 13 RATIO SODIUM (test code = 2231) 140 MEQ/L POTASSIUM (test code = 2228) 4.2 MEQ/L CHLORIDE (test code = 2215) 103 MEQ/L CARBON DIOXIDE (test code = 2206) 25 MEQ/L CALCIUM (test code = 2209) 9.7 MG/DL PROTEIN, TOTAL (test code = 2229) 7.2 G/DL ALBUMIN (test code = 2201) 4.4 G/DL CALC GLOBULIN (test code = 2240) 2.8 G/DL CALC A/G RATIO (test code = 2234) 1.6 RATIO BILIRUBIN, TOTAL (test code = 2207) 0.2 MG/DL ALKALINE PHOSPHATASE (test code = 2204) 91 U/L AST (test code = 2218) 12 U/L ALT (test code = 2219) 8 U/L Bal RoseTHYROID II PROFILE (TU, T4, T7, TSH)2023-10-01 00:00:00* Test Item Value Reference Range Interpretation Comme nts T-UPTAKE (test code = 2817) 33.1 % THYROX. BIND. CAPAC. (test c ode = 48078) 1.0 T4 (THYROXINE) (test code = 2819) 8.9 UG/DL CORRECTED T4 (FTI) (test cod e = 2820) 8.9 UG/DL TSH, THIRD GENERATION (test code = 2821) 4.130 UIU/ML Bal RoseSEDIMENTATION [id number] 00:00:00* Test Item Value Reference Range Interpretation Comme nts SEDIMENTATION RATE (test cod e = 1017) 24 MM/HOUR Bal RoseC-REACTIVE [id number] 00:00:00* Test Item Value Reference Range Interpretation Comme nts C-REACTIVE PROTEIN (test cod e = 3513) 0.9 MG/DL Bal RoseLIPID [id number] 00:00:00* Test Item Value Reference Range Interpretation Comme nts CHOLESTEROL (test code = 2210) 129 MG/DL TRIGLYCERIDES (test code = 2232) 52 MG/DL HDL CHOLESTEROL (test code = 2220) 54 MG/DL CALC LDL CHOL (test code = 2237) 62 MG/DL RISK RATIO LDL/HDL (test cod e = 2238) 1.15 RATIO Bal RoseHEMOGLOBIN [id number] 00:00:00* Test Item Value Reference Range Interpretation Comme nts HEMOGLOBIN A1c (test code = 56048) 6.1 % Bal RoseCOMPREHENSIVE METABOLIC [id number] 00:00:00* Test Item Value Reference Range Interpretation Comme nts GLUCOSE (test code = 2217) 108 MG/DL BUN (test code = 2208) 10 MG/DL CREATININE (test code = 2214) 0.79 MG/DL eGFR (2020 CKD-EPI) (test co de = 82296) 98 ML/MIN/1.73 CALC BUN/CREAT (test code = 2235) 13 RATIO SODIUM (test code = 2231) 140 MEQ/L POTASSIUM (test code = 2228) 4.2 MEQ/L CHLORIDE (test code = 2215) 103 MEQ/L CARBON DIOXIDE (test code = 2206) 25 MEQ/L CALCIUM (test code = 2209) 9.7 MG/DL PROTEIN, TOTAL (test code = 2229) 7.2 G/DL ALBUMIN (test code = 2201) 4.4 G/DL CALC GLOBULIN (test code = 2240) 2.8 G/DL CALC A/G RATIO (test code = 2234) 1.6 RATIO BILIRUBIN, TOTAL (test code = 2207) 0.2 MG/DL ALKALINE PHOSPHATASE (test code = 2204) 91 U/L AST (test code = 2218) 12 U/L ALT (test code = 2219) 8 U/L Bal RoseTHYROID II PROFILE (TU, T4, T7, TSH)2023-10-01 00:00:00* Test Item Value Reference Range Interpretation Comme nts T-UPTAKE (test code = 2817) 33.1 % THYROX. BIND. CAPAC. (test c ode = 37199) 1.0 T4 (THYROXINE) (test code = 2819) 8.9 UG/DL CORRECTED T4 (FTI) (test cod e = 2820) 8.9 UG/DL TSH, THIRD GENERATION (test code = 2821) 4.130 UIU/ML Bal RoseSEDIMENTATION [id number] 00:00:00* Test Item Value Reference Range Interpretation Comme nts SEDIMENTATION RATE (test cod e = 1017) 24 MM/HOUR Bal RoseC-REACTIVE [id number] 00:00:00* Test Item Value Reference Range Interpretation Comme nts C-REACTIVE PROTEIN (test cod e = 3513) 0.9 MG/DL Bal RoseLIPID [id number] 00:00:00* Test Item Value Reference Range Interpretation Comme nts CHOLESTEROL (test code = 2210) 129 MG/DL TRIGLYCERIDES (test code = 2232) 52 MG/DL HDL CHOLESTEROL (test code = 2220) 54 MG/DL CALC LDL CHOL (test code = 2237) 62 MG/DL RISK RATIO LDL/HDL (test cod e = 2238) 1.15 RATIO Bal RoseHEMOGLOBIN [id number] 00:00:00* Test Item Value Reference Range Interpretation Comme nts HEMOGLOBIN A1c (test code = 67942) 6.1 % Bal Zapata AustinCOMPREHENSIVE METABOLIC [id number] 00:00:00* Test Item Value Reference Range Interpretation Comme nts GLUCOSE (test code = 2217) 108 MG/DL BUN (test code = 2208) 10 MG/DL CREATININE (test code = 2214) 0.79 MG/DL eGFR (2020 CKD-EPI) (test co de = 97643) 98 ML/MIN/1.73 CALC BUN/CREAT (test code = 2235) 13 RATIO SODIUM (test code = 2231) 140 MEQ/L POTASSIUM (test code = 2228) 4.2 MEQ/L CHLORIDE (test code = 2215) 103 MEQ/L CARBON DIOXIDE (test code = 2206) 25 MEQ/L CALCIUM (test code = 2209) 9.7 MG/DL PROTEIN, TOTAL (test code = 2229) 7.2 G/DL ALBUMIN (test code = 2201) 4.4 G/DL CALC GLOBULIN (test code = 2240) 2.8 G/DL CALC A/G RATIO (test code = 2234) 1.6 RATIO BILIRUBIN, TOTAL (test code = 2207) 0.2 MG/DL ALKALINE PHOSPHATASE (test code = 2204) 91 U/L AST (test code = 2218) 12 U/L ALT (test code = 2219) 8 U/L Bal F AbileneTHYROID II PROFILE (TU, T4, T7, TSH)2023-10-01 00:00:00* Test Item Value Reference Range Interpretation Comme nts T-UPTAKE (test code = 2817) 33.1 % THYROX. BIND. CAPAC. (test c ode = 22466) 1.0 T4 (THYROXINE) (test code = 2819) 8.9 UG/DL CORRECTED T4 (FTI) (test cod e = 2820) 8.9 UG/DL TSH, THIRD GENERATION (test code = 2821) 4.130 UIU/ML Bal Benny AbileneSEDIMENTATION [id number] 00:00:00* Test Item Value Reference Range Interpretation Comme nts SEDIMENTATION RATE (test cod e = 1017) 24 MM/HOUR Bal F MiltonC-REACTIVE [id number] 00:00:00* Test Item Value Reference Range Interpretation Comme nts C-REACTIVE PROTEIN (test cod e = 3513) 0.9 MG/DL Bal RoseLIPID [id number] 00:00:00* Test Item Value Reference Range Interpretation Comme nts CHOLESTEROL (test code = 2210) 129 MG/DL TRIGLYCERIDES (test code = 2232) 52 MG/DL HDL CHOLESTEROL (test code = 2220) 54 MG/DL CALC LDL CHOL (test code = 2237) 62 MG/DL RISK RATIO LDL/HDL (test cod e = 2238) 1.15 RATIO Bal RoseHEMOGLOBIN [id number] 00:00:00* Test Item Value Reference Range Interpretation Comme nts HEMOGLOBIN A1c (test code = 65716) 6.1 % Bal RoseCOMPREHENSIVE METABOLIC [id number] 00:00:00* Test Item Value Reference Range Interpretation Comme nts GLUCOSE (test code = 2217) 108 MG/DL BUN (test code = 2208) 10 MG/DL CREATININE (test code = 2214) 0.79 MG/DL eGFR (2020 CKD-EPI) (test co de = 50507) 98 ML/MIN/1.73 CALC BUN/CREAT (test code = 2235) 13 RATIO SODIUM (test code = 2231) 140 MEQ/L POTASSIUM (test code = 2228) 4.2 MEQ/L CHLORIDE (test code = 2215) 103 MEQ/L CARBON DIOXIDE (test code = 2206) 25 MEQ/L CALCIUM (test code = 2209) 9.7 MG/DL PROTEIN, TOTAL (test code = 2229) 7.2 G/DL ALBUMIN (test code = 2201) 4.4 G/DL CALC GLOBULIN (test code = 2240) 2.8 G/DL CALC A/G RATIO (test code = 2234) 1.6 RATIO BILIRUBIN, TOTAL (test code = 2207) 0.2 MG/DL ALKALINE PHOSPHATASE (test code = 2204) 91 U/L AST (test code = 2218) 12 U/L ALT (test code = 2219) 8 U/L Bal RoseTHYROID II PROFILE (TU, T4, T7, TSH)2023-10-01 00:00:00* Test Item Value Reference Range Interpretation Comme nts T-UPTAKE (test code = 2817) 33.1 % THYROX. BIND. CAPAC. (test c ode = 00374) 1.0 T4 (THYROXINE) (test code = 2819) 8.9 UG/DL CORRECTED T4 (FTI) (test cod e = 2820) 8.9 UG/DL TSH, THIRD GENERATION (test code = 2821) 4.130 UIU/ML Bal RoseSEDIMENTATION [id number] 00:00:00* Test Item Value Reference Range Interpretation Comme nts SEDIMENTATION RATE (test cod e = 1017) 24 MM/HOUR Bal RoseC-REACTIVE [id number] 00:00:00* Test Item Value Reference Range Interpretation Comme nts C-REACTIVE PROTEIN (test cod e = 3513) 0.9 MG/DL Bal RoseLIPID [id number] 00:00:00* Test Item Value Reference Range Interpretation Comme nts CHOLESTEROL (test code = 2210) 129 MG/DL TRIGLYCERIDES (test code = 2232) 52 MG/DL HDL CHOLESTEROL (test code = 2220) 54 MG/DL CALC LDL CHOL (test code = 2237) 62 MG/DL RISK RATIO LDL/HDL (test cod e = 2238) 1.15 RATIO Bal RoseHEMOGLOBIN [id number] 00:00:00* Test Item Value Reference Range Interpretation Comme nts HEMOGLOBIN A1c (test code = 39689) 6.1 % Bal RoseCOMPREHENSIVE METABOLIC [id number] 00:00:00* Test Item Value Reference Range Interpretation Comme nts GLUCOSE (test code = 2217) 108 MG/DL BUN (test code = 2208) 10 MG/DL CREATININE (test code = 2214) 0.79 MG/DL eGFR (2020 CKD-EPI) (test co de = 06102) 98 ML/MIN/1.73 CALC BUN/CREAT (test code = 2235) 13 RATIO SODIUM (test code = 2231) 140 MEQ/L POTASSIUM (test code = 2228) 4.2 MEQ/L CHLORIDE (test code = 2215) 103 MEQ/L CARBON DIOXIDE (test code = 2206) 25 MEQ/L CALCIUM (test code = 2209) 9.7 MG/DL PROTEIN, TOTAL (test code = 2229) 7.2 G/DL ALBUMIN (test code = 2201) 4.4 G/DL CALC GLOBULIN (test code = 2240) 2.8 G/DL CALC A/G RATIO (test code = 2234) 1.6 RATIO BILIRUBIN, TOTAL (test code = 2207) 0.2 MG/DL ALKALINE PHOSPHATASE (test code = 2204) 91 U/L AST (test code = 2218) 12 U/L ALT (test code = 2219) 8 U/L Bal RoseTHYROID II PROFILE (TU, T4, T7, TSH)2023-10-01 00:00:00* Test Item Value Reference Range Interpretation Comme nts T-UPTAKE (test code = 2817) 33.1 % THYROX. BIND. CAPAC. (test c ode = 15047) 1.0 T4 (THYROXINE) (test code = 2819) 8.9 UG/DL CORRECTED T4 (FTI) (test cod e = 2820) 8.9 UG/DL TSH, THIRD GENERATION (test code = 2821) 4.130 UIU/ML Bal RoseSEDIMENTATION [id number] 00:00:00* Test Item Value Reference Range Interpretation Comme nts SEDIMENTATION RATE (test cod e = 1017) 24 MM/HOUR Bal RoseC-REACTIVE [id number] 00:00:00* Test Item Value Reference Range Interpretation Comme nts C-REACTIVE PROTEIN (test cod e = 3513) 0.9 MG/DL Bal RoseLIPID [id number] 00:00:00* Test Item Value Reference Range Interpretation Comme nts CHOLESTEROL (test code = 2210) 129 MG/DL TRIGLYCERIDES (test code = 2232) 52 MG/DL HDL CHOLESTEROL (test code = 2220) 54 MG/DL CALC LDL CHOL (test code = 2237) 62 MG/DL RISK RATIO LDL/HDL (test cod e = 2238) 1.15 RATIO Bal RoseHEMOGLOBIN [id number] 00:00:00* Test Item Value Reference Range Interpretation Comme nts HEMOGLOBIN A1c (test code = 84103) 6.1 % Bal RoseCOMPREHENSIVE METABOLIC [id number] 00:00:00* Test Item Value Reference Range Interpretation Comme nts GLUCOSE (test code = 2217) 108 MG/DL BUN (test code = 2208) 10 MG/DL CREATININE (test code = 2214) 0.79 MG/DL eGFR (2020 CKD-EPI) (test co de = 80086) 98 ML/MIN/1.73 CALC BUN/CREAT (test code = 2235) 13 RATIO SODIUM (test code = 2231) 140 MEQ/L POTASSIUM (test code = 2228) 4.2 MEQ/L CHLORIDE (test code = 2215) 103 MEQ/L CARBON DIOXIDE (test code = 2206) 25 MEQ/L CALCIUM (test code = 2209) 9.7 MG/DL PROTEIN, TOTAL (test code = 2229) 7.2 G/DL ALBUMIN (test code = 2201) 4.4 G/DL CALC GLOBULIN (test code = 2240) 2.8 G/DL CALC A/G RATIO (test code = 2234) 1.6 RATIO BILIRUBIN, TOTAL (test code = 2207) 0.2 MG/DL ALKALINE PHOSPHATASE (test code = 220) 91 U/L AST (test code = 221) 12 U/L ALT (test code = 2219) 8 U/L Bal RoseTHYROID II PROFILE (TU, T4, T7, TSH)2023-10-01 00:00:00* Test Item Value Reference Range Interpretation Comme nts T-UPTAKE (test code = 2817) 33.1 % THYROX. BIND. CAPAC. (test c ode = 78712) 1.0 T4 (THYROXINE) (test code = 2819) 8.9 UG/DL CORRECTED T4 (FTI) (test cod e = 2820) 8.9 UG/DL TSH, THIRD GENERATION (test code = 2821) 4.130 UIU/ML Bal RoseSEDIMENTATION [id number] 00:00:00* Test Item Value Reference Range Interpretation Comme nts SEDIMENTATION RATE (test cod e = 1017) 24 MM/HOUR Bal Zapata [place]-REACTIVE [id number] 00:00:00* Test Item Value Reference Range Interpretation Comme nts C-REACTIVE PROTEIN (test cod e = 3513) 0.9 MG/DL Bal RoseLIPID [id number] 00:00:00* Test Item Value Reference Range Interpretation Comme nts CHOLESTEROL (test code = 2210) 129 MG/DL TRIGLYCERIDES (test code = 2232) 52 MG/DL HDL CHOLESTEROL (test code = 2220) 54 MG/DL CALC LDL CHOL (test code = 2237) 62 MG/DL RISK RATIO LDL/HDL (test cod e = 2238) 1.15 RATIO Bal RoseHEMOGLOBIN [id number] 00:00:00* Test Item Value Reference Range Interpretation Comme nts HEMOGLOBIN A1c (test code = 95485) 6.1 % Bal RoseAnti-Centromere [id number] 19:10:41* Test Item Value Reference Range Interpretation Comme nts ANTI-CENTR (test code = 0999233788) Negative Negative ED (test code = ED) Positive - Antibod y detected.Negative - No antibody detected. Lab Interpretation (test code = 88361-2) [facility]-SCL-[id number] 19:10:41* Test Item Value Reference Range Interpretation Comme nts ANTI-SCL70 (test code = 6749186794) Negative Negative ED (test code = ED) Positive - Antibod y detected.Negative - No antibody detected. Lab Interpretation (test code = 23697-0) [facility]-SM/[id number] 19:10:41* Test Item Value Reference Range Interpretation Comme nts ANTI-SMRNP (test code = 1569264816) Negative Negative ED (test code = ED) Positive - Antibod y detected.Negative - No antibody detected. Lab Interpretation (test code = 17588-8) [facility]SSA(RO)2023-09-16 19:10:41* Test Item Value Reference Range Interpretation Comme nts ANTI-SSA(RO) (test code = 4457783742) Negative Negative ED (test code = ED) Positive - Antibod y detected.Negative - No antibody detected. Lab Interpretation (test code = 12335-9) [facility]-SSB(LA)2023-09-16 19:10:41* Test Item Value Reference Range Interpretation Comme nts Anti-SSB(LA) (test code = 1542889932) Negative Negative ED (test code = ED) Positive - Antibod y detected.Negative - No antibody detected. Lab Interpretation (test code = 79210-7) [id number]:20:08* Test Item Value Reference Range Interpretation Comme nts HCV Ab (test code = 44601-4) Negative HCV Semi-Quantitative (test code = 07604-0) [facility]01 [facility] [id number] 22:20:08* Test Item Value Reference Range Interpretation Comme nts HCV Ab (test code = 70402-0) Negative HCV Semi-Quantitative (test code = 47695-1) 0.01 [facility] [id number] 22:03:00 * Test Item Value Reference Range Interpretation Comme nts HBsAg Semi-Quantitative (rocío t code = 5195-3) 0.[address] [facility] B Surface Zlhiadt4862-70-12 22:03:00 * Test Item Value Reference Range Interpretation Comme nts HBsAg Semi-Quantitative (rocío t code = 5195-3) 0.10 Negative [facility] Bttkstwfci5553-02-89 21:25:34* Test Item Value Reference Range Interpretation Comme nts C3 (test code = 7446809299) 149 mg/dL 86-184 Lab Interpretation (test cod e = 27031-7) Normal [facility] Wipvbgyamj6419-30-17 21:25:34* Test Item Value Reference Range Interpretation Comme nts C4 (test code = 7820677844) 32 mg/dL 20-59 Lab Interpretation (test cod e = 60177-3) Normal [facility] Awtuooadlo4664-98-94 21:25:34* Test Item Value Reference Range Interpretation Comme nts C3 (test code = 7097415001) 149 mg/dL 86-184 Lab Interpretation (test cod e = 01085-9) Normal [facility] Poyylvhryy7926-31-06 21:25:34* Test Item Value Reference Range Interpretation Comme nts C4 (test code = 5556086208) 32 mg/dL 20-59 Lab Interpretation (test cod e = 91281-1) Normal [facility] KNEE 3 VW [id number] 21:26:14ORDERING PHYSICIAN: ALVA MARINO HISTORY: Right knee pain TECHNIQUE: Right knee radiographs, 3 views. COMPARISON: 11/27/2022 FINDINGS:Bones and joints: No acute fracture or dislocation. No joint effusion.Lateral compartment osteophytosis. Soft tissues: Within normal limits.[facility] PELVIS COMPLETE WITH SGBDIMFRCQAY0848-54-00 19:26:41HISTORY: ?Pelvic pain TECHNIQUE: Both transabdominal and transvaginal pelvic ultrasound studieswerecompleted by the technologist. FINDINGS: Comparison has been made with CT scan of 07/23/2023 and ultrasoundstudy of July 2022. Uterus is of normal size and shape, alignment and retroflexed position inthe pelvis, measures approximately 8.3 x 4.7 x 7.4 cm in size withhomogeneous echo texture of the myometrium. Small nabothian cysts are seenin the cervix. Endometrial echo complex is 17 mm. Small amount of freefluid noted in the cul-de-sac. Right ovary is 2.5 x 2.4 x 1.7 cm ( 5.62 ml) and left ovary is 2.4 x 2.2 x1.6 cm ( 4.64 ml). 10 mm cyst noted on the surface of the left ovary.Additional subcentimeter follicles are present in both ovaries. CONCLUSIONS: 1. Normal size uterus with no focalmyometrial lesions seen.2. Thickened endometrium is likely physiologic.3. Bilateral ovarian cysts, small amount of fluid in the pelvis, consistentwith physiologic changes. [facility]Ceruloplasmin2023-12-23 16:55:41* Test Item Value Reference Range Interpretation Comme nts CERULO (test code = 9678344495) 40 mg/dL 25-63 Lab Interpretation (test cod e = 85051-5) Normal [facility] 1 Quvgdlcritm5247-86-20 16:55:41* Test Item Value Reference Range Interpretation Comme nts Anti-Trypsin (test code = 7625456001) 206 mg/dL 83-199 H Lab Interpretation (test cod e = 81748-1) Abnormal [facility]av Antibody (IgG and IgM)2023-08-07 22:12:11 * Test Item Value Reference Range Interpretation Comme nts HAV Total (test code = 3781057159) Negative HAVT Semi-Quantitative (test code = 6197617375) 1.47 [facility]bc Antibody (IgM & IgG)2023-08-07 22:12:11* Test Item Value Reference Range Interpretation Comme nts HBC (test code = 2865383598) Negative HBC Semi-Quantitative (test code = 3885447602) 3.19 [facility]cv Ioopvfmv9626-65-82 22:12:11* Test Item Value Reference Range Interpretation Comme [facility] HCV Ab (test code = 10671-4) Negative HCV Semi-Quantitative (test code = 13958-2) 0.01 [facility] Surface Mpfhwewo7988-61-79 22:12:11* Test Item Value Reference Range Interpretation Comme nts HBsAB (test code = 3563609435) Negative HBsAb Semi-Quantitative (test code = 2052315690) 0.00 mIU/mL ED (test code = ED) Interpretation: ?Hepatitis B Surface Antibody ? Negative - Patient is considered to be not immune to infection with HBV. ? ? Positive - Anti-HBs detected at greater than or equal to 12 mIU/mL. ?Patient is considered to be immune to infection with HBV. ? [facility]av Antibody (IgG and IgM)2023-08-07 22:12:11 * Test Item Value Reference Range Interpretation Comme [facility] HAV Total (test code = 6817125174) Negative HAVT Semi-Quantitative (test code = 4733681378) 1.47 [facility]bc Antibody (IgM & IgG)2023-08-07 22:12:11* Test Item Value Reference Range Interpretation Comme [facility] HBC (test code = 3195619467) Negative HBC Semi-Quantitative (test code = 0497040823) 3.19 [facility] Mykbfnst1396-65-75 22:12:11* Test Item Value Reference Range Interpretation Comme [facility] HCV Ab (test code = 91102-5) Negative HCV Semi-Quantitative (test code = 94248-9) 0.01 [facility] Surface Fadlnysc2447-51-12 22:12:11* Test Item Value Reference Range Interpretation Comme nts HBsAB (test code = 1191036697) Negative HBsAb Semi-Quantitative (test code = 7995350652) 0.00 mIU/mL ED (test code = ED) Interpretation: ?Hepatitis B Surface Antibody ? Negative - Patient is considered to be not immune to infection with HBV. ? ? Positive - Anti-HBs detected at greater than or equal to 12 mIU/mL. ?Patient is considered to be immune to infection with HBV. ? [facility]Alpha Danivvsjoow7992-37-49 21:57:48* Test Item Value Reference Range Interpretation Comme nts AFP (test code = 8645741506) 1.0 ng/mL <=7.5 ED (test code = ED) Biotin has been reported to cause a negative bias, interpret results relative to patient's use of biotin. Lab Interpretation (test code = 98677-6) Normal [facility] Myomryujbfb7066-18-14 21:57:48* Test Item Value Reference Range Interpretation Comme nts AFP (test code = 3001646379) 1.0 ng/mL <=7.5 ED (test code = ED) Biotin has been reported to cause a negative bias, interpret results relative to patient's use of biotin. Lab Interpretation (test code = 42121-1) Normal [facility] TexasHep[facility] B Surface Ubqlvus0314-81-76 21:56:12 * Test Item Value Reference Range Interpretation Comme nts HBsAg Semi-Quantitative (rocío t code = 5195-3) 0.[address] [facility] B Surface Foujhlz5995-86-38 21:56:12 * Test Item Value Reference Range Interpretation Comme nts HBsAg Semi-Quantitative (rocío t code = 5195-3) 0.08 Negative [facility] (NA, K, CL, CO2, GLUCOSE, BUN, CREATININE, CA)2023-08-07 21:02:05* Test Item Value Reference Range Interpretation Comme nts NA (test code = 1130845604) 140 mmol/L 135-145 K (test code = 2779152564) 4.0 mmol/L 3.5-5.0 CL (test code = 4838683934) 105 mmol/L 98-108 CO2 TOTAL (test code = 9269253018) 24 mmol/L 23-31 AGAP (test code = 4737071609) 11 2-16 BUN (test code = 6158028868) 12 mg/dL 7-23 GLUCOSE (test code = 9422602813) 100 mg/dL 70-110 CREATININE (test code = 4074665823) 0.73 mg/dL 0.50-1.04 CALCIUM (test code = 5519517721) 9.6 mg/dL 8.6-10.6 eGFR (test code = 47228-1) 108.1 mL/min/1.73m2 CKD-EPI eGFR (20 21). Assuming creatinine has been stable day-to-day for at least three months, the eGFR indicates Category G1 (>= 90 mL/min/1.73 m2) [facility] Metabolic Panel (NA, K, CL, CO2, GLUCOSE, BUN, CREATININE, CA)2023-08-07 21:02:05* Test Item Value Reference Range Interpretation Comme nts NA (test code = 9135523131) 140 mmol/L 135-145 K (test code = 9213131352) 4.0 mmol/L 3.5-5.0 CL (test code = 8939361707) 105 mmol/L 98-108 CO2 TOTAL (test code = 2466094414) 24 mmol/L 23-31 AGAP (test code = 5582109484) 11 2-16 BUN (test code = 3454943872) 12 mg/dL 7-23 GLUCOSE (test code = 8571745214) 100 mg/dL 70-110 CREATININE (test code = 0304149991) 0.73 mg/dL 0.50-1.04 CALCIUM (test code = 2601388228) 9.6 mg/dL 8.6-10.6 eGFR (test code = 89641-9) 108.1 mL/min/1.73m2 CKD-EPI eGFR (20 21). Assuming creatinine has been stable day-to-day for at least three months, the eGFR indicates Category G1 (>= 90 mL/min/1.73 m2) [facility]Hep[facility] Function Panel (57250) (ALB,T.PRO,BILI T,BU/BC,ALT,AST,ALK PHOS)2023-08-07 20:46:02* Test Item Value Reference Range Interpretation Comme nts TOTAL BILI (test code = 6388731235) 0.5 mg/dL 0.1-1.1 BILI UNCON (test code = 0309720479) 0.2 mg/dL 0.1-1.1 BILI CONJ (test code = 0074678601) 0.0 mg/dL 0.0-0.3 T PROTEIN (test code = 4174257385) 7.7 g/dL 6.3-8.2 ALBUMIN (test code = 7339122398) 4.1 g/dL 3.5-5.0 ALK PHOS (test code = 9366052788) 82 U/L 34-122 ALTv (test code = 1742-6) 10 U/L 5-35 AST(SGOT) (test code = 7812615269) 19 U/L 13-40 Lab Interpretation (test cod e = 66054-9) Normal [facility]Hep[facility] Function [facility] (56107) (ALB,T.PRO,BILI T,BU/BC,ALT,AST,ALK PHOS)2023-08-07 20:46:02* Test Item Value Reference Range Interpretation Comme nts TOTAL BILI (test code = 8718544070) 0.5 mg/dL 0.1-1.1 BILI UNCON (test code = 6360642392) 0.2 mg/dL 0.1-1.1 BILI CONJ (test code = 3357377486) 0.0 mg/dL 0.0-0.3 T PROTEIN (test code = 3908939943) 7.7 g/dL 6.3-8.2 ALBUMIN (test code = 3091218313) 4.1 g/dL 3.5-5.0 ALK PHOS (test code = 4591268633) 82 U/L 34-122 ALTv (test code = 1742-6) 10 U/L 5-35 AST(SGOT) (test code = 6599151988) 19 U/L 13-40 Lab Interpretation (test cod e = 19477-3) Normal [facility]Gamma Wfkppzkbnmwieufredm6898-26-72 20:46:01* Test Item Value Reference Range Interpretation Comme nts GGT (test code = 2081630814) 20 U/L 13-40 Lab Interpretation (test cod e = 47520-3) Normal [facility]Gamma Idufjtiqychusubtodz9477-00-91 20:46:01* Test Item Value Reference Range Interpretation Comme nts GGT (test code = 3521739428) 20 U/L -40 Lab Interpretation (test cod e = 34613-3) Normal [facility]Cbc with Mehx8268-20-85 20:27:41* Test Item Value Reference Range Interpretation Comme nts WBC (test code = 6690-2) 7.42 See_Comment [Automated messa ge] The system which generated this result transmitted reference range: 4.30 - 11.10 10*3/?L. The reference range was not used to interpret this result as normal/abnormal. RBC (test code = 789-8) 4.60 See_Comment [Automated what3wordsa ge] The system which generated this result transmitted reference range: 3.93 - 5.25 10*6/?L. The reference range was not used to interpret this result as normal/abnormal. HGB (test code = 718-7) 12.3 g/dL 11.6-15.0 HCT (test code = 4544-3) 39.1 % 35.7-45.2 MCV (test code = 787-2) 85.0 fL 80.6-95.5 MCH (test code = 785-6) 26.7 pg 25.9-32.8 MCHC (test code = 786-4) 31.5 g/dL 31.6-35.1 L RDW-SD (test code = 02584-0) 42.8 fL 39.0-49.9 RDW-CV (test code = 788-0) 13.9 % 12.0-15.5 PLT (test code = 777-3) 280 See_Comment [Automated what3wordsa ge] The system which generated this result transmitted reference range: 166 - 358 10*3/?L. The reference range was not used to interpret this result as normal/abnormal. MPV (test code = 24584-7) 11.1 fL 9.5-12.9 NRBC/100 WBC (test code = 0987818716) 0.0 See_Comment [Automated RESPACE ssage] The system which generated this result transmitted reference range: 0.0 - 10.0 /100 WBCs. The reference range was not used to interpret this result as normal/abnormal. NRBC x10^3 (test code = 9319077004) See_Comment [Automated what3wordsa ge] The system which generated this result transmitted reference range: 10*3/?L. The reference range was not used to interpret this result as normal/abnormal. GRAN MAT (NEUT) % (test code = 770-8) 64.4 % IMM GRAN % (test code = 7667570522) 0.30 % LYMPH % (test code = 736-9) 27.8 % MONO % (test code = 5905-5) 5.1 % EOS % (test code = 713-8) 1.6 % BASO % (test code = 706-2) 0.8 % GRAN MAT x10^3(ANC) (test code = 7898608018) 4.78 10*3/uL 1.88-7.09 IMM GRAN x10^3 (test code = 6808144094) 0.00-0.06 LYMPH x10^3 (test code = 731-0) 2.06 10*3/uL 1.32-3.29 MONO x10^3 (test code = 742-7) 0.38 10*3/uL 0.33-0.92 EOS x10^3 (test code = 711-2) 0.12 10*3/uL 0.03-0.39 BASO x10^3 (test code = 704-7) 0.06 10*3/uL 0.01-0.07 Lab Interpretation (test code = 06611-6) Abnormal [facility] with Dasm8227-50-43 20:27:41* Test Item Value Reference Range Interpretation Comme nts WBC (test code = 6690-2) 7.42 See_Comment [Automated what3wordsa ge] The system which generated this result transmitted reference range: 4.30 - 11.10 10*3/?L. The reference range was not used to interpret this result as normal/abnormal. RBC (test code = 789-8) 4.60 See_Comment [Automated what3wordsa ge] The system which generated this result transmitted reference range: 3.93 - 5.25 10*6/?L. The reference range was not used to interpret this result as normal/abnormal. HGB (test code = 718-7) 12.3 g/dL 11.6-15.0 HCT (test code = 4544-3) 39.1 % 35.7-45.2 MCV (test code = 787-2) 85.0 fL 80.6-95.5 MCH (test code = 785-6) 26.7 pg 25.9-32.8 MCHC (test code = 786-4) 31.5 g/dL 31.6-35.1 L RDW-SD (test code = 04870-1) 42.8 fL 39.0-49.9 RDW-CV (test code = 788-0) 13.9 % 12.0-15.5 PLT (test code = 777-3) 280 See_Comment [Automated messa ge] The system which generated this result transmitted reference range: 166 - 358 10*3/?L. The reference range was not used to interpret this result as normal/abnormal. MPV (test code = 32828-9) 11.1 fL 9.5-12.9 NRBC/100 WBC (test code = 2142319469) 0.0 See_Comment [Automated me ssage] The system which generated this result transmitted reference range: 0.0 - 10.0 /100 WBCs. The reference range was not used to interpret this result as normal/abnormal. NRBC x10^3 (test code = 2013439893) See_Comment [Automated messa ge] The system which generated this result transmitted reference range: 10*3/?L. The reference range was not used to interpret this result as normal/abnormal. GRAN MAT (NEUT) % (test code = 770-8) 64.4 % IMM GRAN % (test code = 1712576325) 0.30 % LYMPH % (test code = 736-9) 27.8 % MONO % (test code = 5905-5) 5.1 % EOS % (test code = 713-8) 1.6 % BASO % (test code = 706-2) 0.8 % GRAN MAT x10^3(ANC) (test code = 3060129307) 4.78 10*3/uL 1.88-7.09 IMM GRAN x10^3 (test code = 4768539863) 0.00-0.06 LYMPH x10^3 (test code = 731-0) 2.06 10*3/uL 1.32-3.29 MONO x10^3 (test code = 742-7) 0.38 10*3/uL 0.33-0.92 EOS x10^3 (test code = 711-2) 0.12 10*3/uL 0.03-0.39 BASO x10^3 (test code = 704-7) 0.06 10*3/uL 0.01-0.07 Lab Interpretation (test code = 39949-5) Abnormal [facility] TexasPROTHROMBIN [facility] / [id number] 20:16:38* Test Item Value Reference Range Interpretation Comme nts PROTIME PATIENT (test code = 5964-2) 13.1 See_Comment [Automated messa ge] The system which generated this result transmitted reference range: 12.0 - 14.7 Seconds. The reference range was not used to interpret this result as normal/abnormal. INR (test code = 6301-6) 1.0 Normal INR <1.1; Warfarin Therapeutic range 2.0 to 3.0 or 2.5 to 3.5, depending upon the indications. Lab Interpretation (test code = 85180-3) Normal [facility] TexasActivated Partial Thrmplas Klv2393-74-17 20:16:38* Test Item Value Reference Range Interpretation Comme [facility] APTT Patient (test code = 3173-2) 30 See_Comment [Automated message] The system which generated this result transmitted reference range: 23 - 38 Seconds. The reference range was not used to interpret this result as normal/abnormal. ED (test code = ED) The [facility] patient population mean normal value for aPTT is 30 seconds. Lab Interpretation (test code = 14968-0) Normal [facility] TexasPROTHROMBIN TIME / [id number] 20:16:38* Test Item Value Reference Range Interpretation Comme nts PROTIME PATIENT (test code = 5964-2) 13.1 See_Comment [Automated what3wordsa flexReceipts] The system which generated this result transmitted reference range: 12.0 - 14.7 Seconds. The reference range was not used to interpret this result as normal/abnormal. INR (test code = 6301-6) 1.0 Normal INR <1.1; Warfarin Therapeutic range 2.0 to 3.0 or 2.5 to 3.5, depending upon the indications. Lab Interpretation (test code = 29980-1) Normal [facility] Thrmplas Xzb4362-88-56 20:16:38* Test Item Value Reference Range Interpretation Comme [facility] APTT Patient (test code = 3173-2) 30 See_Comment [Automated message] The system which generated this result transmitted reference range: 23 - 38 Seconds. The reference range was not used to interpret this result as normal/abnormal. ED (test code = ED) The [facility] patient population mean normal value for aPTT is 30 seconds. Lab Interpretation (test code = 33159-1) Normal [facility] Texas[facility]-Nuclear Antibody-Pathologist Gdoswcijlirznw8569-23-82 02:34:13ANA - Pathologist InterpretationANA HEp-2 IIFA Pathologist Interpretation Report Patient Name: Merissa Morton? ?Antinuclear Antibody (JEANA) Test (Anti-Cell Antibodies Test) Indirect Imm unofluorescence Assay on HEp-2 Cells Screening titer: 1:80 (adults, > 18 years old), 1:40 (pediatrics, <= 18 years old)?Result: The antinuclear antibody (JEANA) test is positive, demonstrating the AC-4/5-Speckled Pattern with a titer of 1:80. A titer greater than or equal to 1:160 is generally considered to be clinically significant. ? General Remarks: The AC-4/5-Speckled Pattern is one of the least specific JEANA immunofluorescent patterns, associated with many autoantibodies, including antibodies against SS-A (Ro), SS-B (La), Mi-2, TIF1- gamma, TIF1-beta, Ku, U1RNP, U2RNP, Sheehan, RNA polymerase III, and other currently unspecified autoantigens. As such, this pattern may be found in a wide variety of systemic autoimmune rheumatic diseases, including Sjogren's syndrome, systemic lupus erythematosus (SLE), systemic sclerosis, mixed connective tissue disease (MCTD), undifferentiated connective tissue disease (UCTD), dermatomyositis, polymyositis, and systemic sclerosis-autoimmune myopathy overlap syndrome. Additionally, a nuclear speckled pattern may be found in organ-specific autoimmune diseases (such as autoimmune thyroid disease, autoimmune hepatitis, etc.), other types of autoimmune disease, and certain non- autoimmune diseases/conditions. This pattern may also be seen in relatively healthy individuals, particularly at lower titers. For more information, the International Consensus on JEANA Patterns (ICAP) guidelines can be found at www.anapatterns.org. These clinical associations are not absolute but may serve as a guide to differential diagnosis formation and/or subsequent follow-up test selection in the appropriate clinical setting. Importantly, a nuclear speckled pattern with a titer of 1:80 is a non-specific finding whose clinical meaningfulness is uncertain and dependent on the patient's overall clinical presentation. This is because up to approximately 10-12% of individuals in the general healthy population are estimated to have a positive JEANA with a titer of at least 1:80. A positive JEAAN may be seen in even higher percentages in the healthy elderly population and in individuals with a family history of rheumatic disease. The JEANA may also be positive in conditions besides systemic autoimmune rheumatic diseases (SARDs), such as in other types of autoimmune disease; in a variety of inflammatory, infectious, and neoplastic conditions; and with certain medication usage. However, while higher JEANA titers generally increase the overall likelihood of a SARD in patients presenting with symptoms suggestive of SARD, SARD may occasionally present with low JEANA titers. Clinical correlation - with possibly repeating the JEANA and any other clinically indicated subserologies - is therefore needed to accurately assess the clinical significance of this non-specific JEANA result as it pertains to the patient's overall clinical presentation. References: - Ramya White, Danyel R, Kenn J, Emery MESA, Zackary LORENZO. Guidelines for clinical use of the antinuclear antibody test and tests for specific autoantibodies to nuclear antigens. [place] [employer]. Arch Pathol Lab Med. 2000;124(1):71-81. doi:10.5858/4069-440-6225-GFCUOT ?- Jas Davis, Roger CONTRERAS, Laquita Oh. Rational use of blood tests in the evaluation of rheumatic diseases. Mo Med. 2012;109(1):59- 63. The JEANA test isan important screening test for systemic autoimmune rheumatic disease (SARD). However, the JEANA testis non-specific for SARD and may be positive in a variety of clinical settings, including autoimmune, inflammatory, infectious, and neoplastic/malignant conditions, as well as due to certain medications. Additionally, JEANA positivity may be seen in varying percentages of healthy individuals, especially at lower titers, in the healthy elderly population, and in individuals with a family history of rheumatic disease. Therefore, a diagnosis cannot be based exclusively on JEANA detection and/or pattern and thus should be made via the integration of patient history, physical exam findings, and other diagnostic tests as clinically indicated. Ana Moeller MD ?08/06/2023 ?8:31 PM 08/06/2023 8:34 [facility]-Nuclear Antibody Rqkha3390-13-92 22:14:17 * Test Item Value Reference Range Interpretation Comme nts JEANA Titer by IFA (test code = 8385199298) 1:80 JEANA Pattern (test code = 6906932716) Speckled DE (test code = ED) Anti-nuclear antib odies are seen in a variety of autoimmune diseases and may also be seen in low titers in otherwise normal individuals without evidence of autoimmune disease. In general, a titer greater than or equal to 1:160 is considered significant. For further information, contact the appropriate Specialist. For additional JEANA tests, refer to the Laboratory Test Directory. The specimen will be held for 7 days. [facility] TexasAnti-Nuclear Antibody Atvkfg5100-75-49 23:13:06* Test Item Value Reference Range Interpretation Comme nts JEANA (test code = 7648527800) Positive Negative A ED (test code = ED) Negative: ?No Anti-Nuclear Antibodies detected by IFA. Positive: ?JEANA IFA screen performed with a 1:80 dilution in adults and a 1:40 dilution in pediatrics. ?A titer is performed and reported separately when the JEANA is "Positive" or when "Cytoplasmic staining is observed." Lab Interpretation (test code = 77332-3) Abnormal [facility] Texas[facility]cv Kbknvqix6838-33-43 20:26:18* Test Item Value Reference Range Interpretation Comme [facility] HCV Ab (test code = 62801-2) Negative HCV Semi-Quantitative (test code = 47018-2) 0.01 [facility] TexasTSH, THIRD WIKSQOMISC5458-43-05 06:04:59* Test Item Value Reference Range Interpretation Comme [facility] TSH, THIRD GENERATION (test code = 2821) 0.735 UIU/ML 0.400-4.100 UNLESS OTHERWISE INDICATED, ALL TESTING PERFORMED AT [facility] [address] [place] [address] BLANKET WEAVER: GRACE ARELLANO M.D. CLIA NUMBER [id number] [facility] [place]. [id number] COMPREHENSIVE METABOLIC [id number] 05:53:16* Test Item Value Reference Range Interpretation Comme nts GLUCOSE (test code = 2217) 105 MG/DL 70-99 H BUN (test code = 220) 15 MG/DL 6-20 CREATININE (test code = 2214) 0.89 MG/DL 0.60-1.30 eGFR (2020 CKD-EPI) (test co de = 11801) 85 ML/MIN/1.73 >60 CALC BUN/CREAT (test code = 2235) 17 RATIO 6-28 SODIUM (test code = 223) 138 MEQ/L 133-146 POTASSIUM (test code = 2228) 4.0 MEQ/L 3.5-5.4 CHLORIDE (test code = 2215) 102 MEQ/L 95-107 CARBON DIOXIDE (test code = 2206) 25 MEQ/L 19-31 CALCIUM (test code = 2209) 9.0 MG/DL 8.5-10.5 PROTEIN, TOTAL (test code = 2229) 7.5 G/DL 6.1-8.3 ALBUMIN (test code = 2201) 4.5 G/DL 3.5-5.2 CALC GLOBULIN (test code = 2240) 3.0 G/DL 1.9-3.7 CALC A/G RATIO (test code = 2234) 1.5 RATIO 1.0-2.6 BILIRUBIN, TOTAL (test code = 2207) 0.2 MG/DL <=1.2 ALKALINE PHOSPHATASE (test code = 2204) 98 U/L 40-112 AST (test code = 2218) 12 U/L 9-40 ALT (test code = 2219) 7 U/L 5-40 LIPID [id number] 05:53:16* Test Item Value Reference Range Interpretation Comme nts CHOLESTEROL (test code = 2210) 124 MG/DL <200 TRIGLYCERIDES (test code = 2232) 64 MG/DL <150 HDL CHOLESTEROL (test code = 2220) 46 MG/DL >39 CALC LDL CHOL (test code = 2237) 64 MG/DL <100 NOTE: CALCULATED LDL IS BASED ON TROY-MARTINEZ METHOD WHICHINCLUDES ADJUSTABLE TRIGLYCERIDE:VLDL CHOLESTEROL RATIO.THIS FACTOR VARIES BY MEASURED TRIGLYCERIDE AND NON-HDLCHOLESTEROL CONCENTRATIONS WITH INCREASED CALCULATED LDL SEENIN HIGHER TRIGLYCERIDE OR LOWER NON-HDL SPECIMENS. FOR MOREINFORMATION, SEE CLIENT ANNOUNCEMENT AT [email or web address] RISK RATIO LDL/HDL (test code = 2238) 1.39 RATIO <3.22 CBC W/AUTO DIFF WITH [id number] 04:33:17* Test Item Value Reference Range Interpretation Comme nts WBC (test code = 1001) 7.2 K/UL 3.5-11.0 RBC (test code = 1002) 4.21 M/UL 3.80-5.40 HEMOGLOBIN (test code = 1003) 11.7 G/DL 11.5-15.5 HEMATOCRIT (test code = 1004) 35.1 % 34.0-45.0 MCV (test code = 1005) 83.4 fL 80.0-99.0 MCH (test code = 1006) 27.8 PG 25.0-33.0 MCHC (test code = 1007) 33.3 G/DL 31.0-36.0 RDW (test code = 1038) 14.2 % 11.5-15.0 NEUTROPHILS (test code = 1008) 62.4 % LYMPHOCYTES (test code = 1010) 28.4 % MONOCYTES (test code = 1011) 6.4 % EOSINOPHILS (test code = 1012) 1.5 % BASOPHILS (test code = 1013) 1.0 % IMMATURE GRANULOCYTES (test code = 1036) 0.3 % NUCLEATED RBCS (test code = 1065) 0.0 /100 WBC'S See_Comment [Automated what3wordsa ge] The system which generated this result transmitted reference range: 0.0. The reference range was not used to interpret this result as normal/abnormal. PLATELET COUNT (test code = 1015) 258 K/UL 130-400 ABSOLUTE NEUTROPHILS (test code = 1066) 4.51 K/UL 1.50-7.50 ABSOLUTE LYMPHOCYTES (test code = 1067) 2.05 K/UL 1.00-4.00 ABSOLUTE MONOCYTES (test code = 1068) 0.46 K/UL 0.20-1.00 ABSOLUTE EOSINOPHILS (test code = 1040) 0.11 K/UL 0.00-0.50 ABSOLUTE BASOPHILS (test code = 1069) 0.07 K/UL 0.00-0.20 ABS IMMATURE GRANULOCYTES (test code = 1020) 0.02 K/UL 0.00-0.10 ABS NUCLEATED RBCS (test code = 04532) 0.00 K/UL 0.00-0.11 HEMOGLOBIN [id number] 04:16:13* Test Item Value Reference Range Interpretation Comme nts HEMOGLOBIN A1c (test code = 23743) 6.0 % 4.2-5.6 H [employer] GUIDELINES FOR HGB A1C: PREDIABETES/INCREASED RISK . . . . . . . 5.7-6.4% DIAGNOSIS OF DIABETES . . . . . . . . . >=6.5% WITH CONFIRMATION OR APPROPRIATE SYMPTOMS NOTE: ASSAY MAY BE AFFECTED BY HEMOGLOBINOPATHIES (SICKLE CELL ANEMIA, S-C DISEASE, OTHERS) OR ARTIFICIALLY LOWERED BY DECREASED RED CELL SURVIVAL (HEMOLYTIC ANEMIAS, BLOOD LOSS, ETC.). CONSIDER ALTERNATE TESTING OR LABORATORY CONSULTATION. LIPID [id number] 00:00:00* Test Item Value Reference Range Interpretation Comme nts CHOLESTEROL (test code = 2210) 124 MG/DL TRIGLYCERIDES (test code = 2232) 64 MG/DL HDL CHOLESTEROL (test code = 2220) 46 MG/DL CALC LDL CHOL (test code = 2237) 64 MG/DL RISK RATIO LDL/HDL (test cod e = 2238) 1.39 RATIO Bal RoseHEMOGLOBIN [id number] 00:00:00* Test Item Value Reference Range Interpretation Comme nts HEMOGLOBIN A1c (test code = 69685) 6.0 % Bal RoseTSH, THIRD [id number] 00:00:00* Test Item Value Reference Range Interpretation Comme nts TSH, THIRD GENERATION (test code = 2821) 0.735 UIU/ML Bal RoseCBC W/AUTO [id number] 00:00:00* Test Item Value Reference Range Interpretation Comme nts WBC (test code = 1001) 7.2 K/UL RBC (test code = 1002) 4.21 M/UL HEMOGLOBIN (test code = 1003) 11.7 G/DL HEMATOCRIT (test code = 1004) 35.1 % MCV (test code = 1005) 83.4 fL MCH (test code = 1006) 27.8 PG MCHC (test code = 1007) 33.3 G/DL RDW (test code = 1038) 14.2 % NEUTROPHILS (test code = 1008) 62.4 % LYMPHOCYTES (test code = 1010) 28.4 % MONOCYTES (test code = 1011) 6.4 % EOSINOPHILS (test code = 1012) 1.5 % BASOPHILS (test code = 1013) 1.0 % IMMATURE GRANULOCYTES (test code = 1036) 0.3 % NUCLEATED RBCS (test code = 1065) 0.0 /100WBC'S PLATELET COUNT (test code = 1015) 258 K/UL ABSOLUTE NEUTROPHILS (test c ode = 1066) 4.51 K/UL ABSOLUTE LYMPHOCYTES (test c ode = 1067) 2.05 K/UL ABSOLUTE MONOCYTES (test cod e = 1068) 0.46 K/UL ABSOLUTE EOSINOPHILS (test c ode = 1040) 0.11 K/UL ABSOLUTE BASOPHILS (test cod e = 1069) 0.07 K/UL ABS IMMATURE GRANULOCYTES (t est code = 1020) 0.02 K/UL ABS NUCLEATED RBCS (test cod e = 84738) 0.00 K/UL Bal RoseCOMPREHENSIVE METABOLIC [id number] 00:00:00* Test Item Value Reference Range Interpretation Comme nts GLUCOSE (test code = 2217) 105 MG/DL BUN (test code = 2208) 15 MG/DL CREATININE (test code = 2214) 0.89 MG/DL eGFR (2020 CKD-EPI) (test co de = 85941) 85 ML/MIN/1.73 CALC BUN/CREAT (test code = 2235) 17 RATIO SODIUM (test code = 2231) 138 MEQ/L POTASSIUM (test code = 2228) 4.0 MEQ/L CHLORIDE (test code = 2215) 102 MEQ/L CARBON DIOXIDE (test code = 2206) 25 MEQ/L CALCIUM (test code = 2209) 9.0 MG/DL PROTEIN, TOTAL (test code = 2229) 7.5 G/DL ALBUMIN (test code = 2201) 4.5 G/DL CALC GLOBULIN (test code = 2240) 3.0 G/DL CALC A/G RATIO (test code = 2234) 1.5 RATIO BILIRUBIN, TOTAL (test code = 2207) 0.2 MG/DL ALKALINE PHOSPHATASE (test code = 2204) 98 U/L AST (test code = 2218) 12 U/L ALT (test code = 2219) 7 U/L Bal RoesLIPID [id number] 00:00:00* Test Item Value Reference Range Interpretation Comme nts CHOLESTEROL (test code = 2210) 124 MG/DL TRIGLYCERIDES (test code = 2232) 64 MG/DL HDL CHOLESTEROL (test code = 2220) 46 MG/DL CALC LDL CHOL (test code = 2237) 64 MG/DL RISK RATIO LDL/HDL (test cod e = 2238) 1.39 RATIO Bal RoseHEMOGLOBIN [id number] 00:00:00* Test Item Value Reference Range Interpretation Comme christopher HEMOGLOBIN A1c (test code = 17810) 6.0 % Bal RoseTSH, THIRD [id number] 00:00:00* Test Item Value Reference Range Interpretation Comme christopher TSH, THIRD GENERATION (test code = 2821) 0.735 UIU/ML Bal RoseCBC W/AUTO [id number] 00:00:00* Test Item Value Reference Range Interpretation Comme christopher WBC (test code = 1001) 7.2 K/UL RBC (test code = 1002) 4.21 M/UL HEMOGLOBIN (test code = 1003) 11.7 G/DL HEMATOCRIT (test code = 1004) 35.1 % MCV (test code = 1005) 83.4 fL MCH (test code = 1006) 27.8 PG MCHC (test code = 1007) 33.3 G/DL RDW (test code = 1038) 14.2 % NEUTROPHILS (test code = 1008) 62.4 % LYMPHOCYTES (test code = 1010) 28.4 % MONOCYTES (test code = 1011) 6.4 % EOSINOPHILS (test code = 1012) 1.5 % BASOPHILS (test code = 1013) 1.0 % IMMATURE GRANULOCYTES (test code = 1036) 0.3 % NUCLEATED RBCS (test code = 1065) 0.0 /100WBC'S PLATELET COUNT (test code = 1015) 258 K/UL ABSOLUTE NEUTROPHILS (test c ode = 1066) 4.51 K/UL ABSOLUTE LYMPHOCYTES (test c ode = 1067) 2.05 K/UL ABSOLUTE MONOCYTES (test cod e = 1068) 0.46 K/UL ABSOLUTE EOSINOPHILS (test c ode = 1040) 0.11 K/UL ABSOLUTE BASOPHILS (test cod e = 1069) 0.07 K/UL ABS IMMATURE GRANULOCYTES (t est code = 1020) 0.02 K/UL ABS NUCLEATED RBCS (test cod e = 54932) 0.00 K/UL Bal RoseCOMPREHENSIVE METABOLIC [id number] 00:00:00* Test Item Value Reference Range Interpretation Comme nts GLUCOSE (test code = 2217) 105 MG/DL BUN (test code = 2208) 15 MG/DL CREATININE (test code = 2214) 0.89 MG/DL eGFR (2020 CKD-EPI) (test co de = 62531) 85 ML/MIN/1.73 CALC BUN/CREAT (test code = 2235) 17 RATIO SODIUM (test code = 2231) 138 MEQ/L POTASSIUM (test code = 2228) 4.0 MEQ/L CHLORIDE (test code = 2215) 102 MEQ/L CARBON DIOXIDE (test code = 2206) 25 MEQ/L CALCIUM (test code = 2209) 9.0 MG/DL PROTEIN, TOTAL (test code = 2229) 7.5 G/DL ALBUMIN (test code = 2201) 4.5 G/DL CALC GLOBULIN (test code = 2240) 3.0 G/DL CALC A/G RATIO (test code = 2234) 1.5 RATIO BILIRUBIN, TOTAL (test code = 2207) 0.2 MG/DL ALKALINE PHOSPHATASE (test code = 2204) 98 U/L AST (test code = 2218) 12 U/L ALT (test code = 2219) 7 U/L Bal RoseLIPID [id number] 00:00:00* Test Item Value Reference Range Interpretation Comme nts CHOLESTEROL (test code = 2210) 124 MG/DL TRIGLYCERIDES (test code = 2232) 64 MG/DL HDL CHOLESTEROL (test code = 2220) 46 MG/DL CALC LDL CHOL (test code = 2237) 64 MG/DL RISK RATIO LDL/HDL (test cod e = 2238) 1.39 RATIO Bal RoseHEMOGLOBIN [id number] 00:00:00* Test Item Value Reference Range Interpretation Comme nts HEMOGLOBIN A1c (test code = 07638) 6.0 % Bal Zapata MiltonTSH, THIRD [id number] 00:00:00* Test Item Value Reference Range Interpretation Comme nts TSH, THIRD GENERATION (test code = 2821) 0.735 UIU/ML Bal RoseCBC W/AUTO [id number] 00:00:00* Test Item Value Reference Range Interpretation Comme nts WBC (test code = 1001) 7.2 K/UL RBC (test code = 1002) 4.21 M/UL HEMOGLOBIN (test code = 1003) 11.7 G/DL HEMATOCRIT (test code = 1004) 35.1 % MCV (test code = 1005) 83.4 fL MCH (test code = 1006) 27.8 PG MCHC (test code = 1007) 33.3 G/DL RDW (test code = 1038) 14.2 % NEUTROPHILS (test code = 1008) 62.4 % LYMPHOCYTES (test code = 1010) 28.4 % MONOCYTES (test code = 1011) 6.4 % EOSINOPHILS (test code = 1012) 1.5 % BASOPHILS (test code = 1013) 1.0 % IMMATURE GRANULOCYTES (test code = 1036) 0.3 % NUCLEATED RBCS (test code = 1065) 0.0 /100WBC'S PLATELET COUNT (test code = 1015) 258 K/UL ABSOLUTE NEUTROPHILS (test c ode = 1066) 4.51 K/UL ABSOLUTE LYMPHOCYTES (test c ode = 1067) 2.05 K/UL ABSOLUTE MONOCYTES (test cod e = 1068) 0.46 K/UL ABSOLUTE EOSINOPHILS (test c ode = 1040) 0.11 K/UL ABSOLUTE BASOPHILS (test cod e = 1069) 0.07 K/UL ABS IMMATURE GRANULOCYTES (t est code = 1020) 0.02 K/UL ABS NUCLEATED RBCS (test cod e = 26624) 0.00 K/UL Bal RoseCOMPREHENSIVE METABOLIC [id number] 00:00:00* Test Item Value Reference Range Interpretation Comme nts GLUCOSE (test code = 2217) 105 MG/DL BUN (test code = 2208) 15 MG/DL CREATININE (test code = 2214) 0.89 MG/DL eGFR (2020 CKD-EPI) (test co de = 52527) 85 ML/MIN/1.73 CALC BUN/CREAT (test code = 2235) 17 RATIO SODIUM (test code = 2231) 138 MEQ/L POTASSIUM (test code = 2228) 4.0 MEQ/L CHLORIDE (test code = 2215) 102 MEQ/L CARBON DIOXIDE (test code = 2206) 25 MEQ/L CALCIUM (test code = 2209) 9.0 MG/DL PROTEIN, TOTAL (test code = 2229) 7.5 G/DL ALBUMIN (test code = 2201) 4.5 G/DL CALC GLOBULIN (test code = 2240) 3.0 G/DL CALC A/G RATIO (test code = 2234) 1.5 RATIO BILIRUBIN, TOTAL (test code = 2207) 0.2 MG/DL ALKALINE PHOSPHATASE (test code = 2204) 98 U/L AST (test code = 2218) 12 U/L ALT (test code = 2219) 7 U/L Bal RoseLIPID [id number] 00:00:00* Test Item Value Reference Range Interpretation Comme nts CHOLESTEROL (test code = 2210) 124 MG/DL TRIGLYCERIDES (test code = 2232) 64 MG/DL HDL CHOLESTEROL (test code = 0) 46 MG/DL CALC LDL CHOL (test code = 2237) 64 MG/DL RISK RATIO LDL/HDL (test cod e = 2238) 1.39 RATIO Bal RoseHEMOGLOBIN [id number] 00:00:00* Test Item Value Reference Range Interpretation Comme nts HEMOGLOBIN A1c (test code = 00277) 6.0 % Bal SuazoH, THIRD [id number] 00:00:00* Test Item Value Reference Range Interpretation Comme nts TSH, THIRD GENERATION (test code = 2821) 0.735 UIU/ML Bal RoseCBC W/AUTO [id number] 00:00:00* Test Item Value Reference Range Interpretation Comme nts WBC (test code = 1001) 7.2 K/UL RBC (test code = 1002) 4.21 M/UL HEMOGLOBIN (test code = 1003) 11.7 G/DL HEMATOCRIT (test code = 1004) 35.1 % MCV (test code = 1005) 83.4 fL MCH (test code = 1006) 27.8 PG MCHC (test code = 1007) 33.3 G/DL RDW (test code = 1038) 14.2 % NEUTROPHILS (test code = 1008) 62.4 % LYMPHOCYTES (test code = 1010) 28.4 % MONOCYTES (test code = 1011) 6.4 % EOSINOPHILS (test code = 1012) 1.5 % BASOPHILS (test code = 1013) 1.0 % IMMATURE GRANULOCYTES (test code = 1036) 0.3 % NUCLEATED RBCS (test code = 1065) 0.0 /100WBC'S PLATELET COUNT (test code = 1015) 258 K/UL ABSOLUTE NEUTROPHILS (test c ode = 1066) 4.51 K/UL ABSOLUTE LYMPHOCYTES (test c ode = 1067) 2.05 K/UL ABSOLUTE MONOCYTES (test cod e = 1068) 0.46 K/UL ABSOLUTE EOSINOPHILS (test c ode = 1040) 0.11 K/UL ABSOLUTE BASOPHILS (test cod e = 1069) 0.07 K/UL ABS IMMATURE GRANULOCYTES (t est code = 1020) 0.02 K/UL ABS NUCLEATED RBCS (test cod e = 75131) 0.00 K/UL Bal RoseCOMPREHENSIVE METABOLIC [id number] 00:00:00* Test Item Value Reference Range Interpretation Comme nts GLUCOSE (test code = 2217) 105 MG/DL BUN (test code = 2208) 15 MG/DL CREATININE (test code = 2214) 0.89 MG/DL eGFR (2020 CKD-EPI) (test co de = 55612) 85 ML/MIN/1.73 CALC BUN/CREAT (test code = 2235) 17 RATIO SODIUM (test code = 2231) 138 MEQ/L POTASSIUM (test code = 2228) 4.0 MEQ/L CHLORIDE (test code = 2215) 102 MEQ/L CARBON DIOXIDE (test code = 2206) 25 MEQ/L CALCIUM (test code = 2209) 9.0 MG/DL PROTEIN, TOTAL (test code = 2229) 7.5 G/DL ALBUMIN (test code = 2201) 4.5 G/DL CALC GLOBULIN (test code = 2240) 3.0 G/DL CALC A/G RATIO (test code = 2234) 1.5 RATIO BILIRUBIN, TOTAL (test code = 2207) 0.2 MG/DL ALKALINE PHOSPHATASE (test code = 2204) 98 U/L AST (test code = 2218) 12 U/L ALT (test code = 2219) 7 U/L Bal RoseLIPID [id number] 00:00:00* Test Item Value Reference Range Interpretation Comme nts CHOLESTEROL (test code = 2210) 124 MG/DL TRIGLYCERIDES (test code = 2232) 64 MG/DL HDL CHOLESTEROL (test code = 2220) 46 MG/DL CALC LDL CHOL (test code = 2237) 64 MG/DL RISK RATIO LDL/HDL (test cod e = 2238) 1.39 RATIO Bal RoseHEMOGLOBIN [id number] 00:00:00* Test Item Value Reference Range Interpretation Comme nts HEMOGLOBIN A1c (test code = 16095) 6.0 % Bal RoseTSH, THIRD [id number] 00:00:00* Test Item Value Reference Range Interpretation Comme nts TSH, THIRD GENERATION (test code = 2821) 0.735 UIU/ML Bal RoseCBC W/AUTO [id number] 00:00:00* Test Item Value Reference Range Interpretation Comme nts WBC (test code = 1001) 7.2 K/UL RBC (test code = 1002) 4.21 M/UL HEMOGLOBIN (test code = 1003) 11.7 G/DL HEMATOCRIT (test code = 1004) 35.1 % MCV (test code = 1005) 83.4 fL MCH (test code = 1006) 27.8 PG MCHC (test code = 1007) 33.3 G/DL RDW (test code = 1038) 14.2 % NEUTROPHILS (test code = 1008) 62.4 % LYMPHOCYTES (test code = 1010) 28.4 % MONOCYTES (test code = 1011) 6.4 % EOSINOPHILS (test code = 1012) 1.5 % BASOPHILS (test code = 1013) 1.0 % IMMATURE GRANULOCYTES (test code = 1036) 0.3 % NUCLEATED RBCS (test code = 1065) 0.0 /100WBC'S PLATELET COUNT (test code = 1015) 258 K/UL ABSOLUTE NEUTROPHILS (test c ode = 1066) 4.51 K/UL ABSOLUTE LYMPHOCYTES (test c ode = 1067) 2.05 K/UL ABSOLUTE MONOCYTES (test cod e = 1068) 0.46 K/UL ABSOLUTE EOSINOPHILS (test c ode = 1040) 0.11 K/UL ABSOLUTE BASOPHILS (test cod e = 1069) 0.07 K/UL ABS IMMATURE GRANULOCYTES (t est code = 1020) 0.02 K/UL ABS NUCLEATED RBCS (test cod e = 05424) 0.00 K/UL Bal RoseCOMPREHENSIVE METABOLIC [id number] 00:00:00* Test Item Value Reference Range Interpretation Comme nts GLUCOSE (test code = 2217) 105 MG/DL BUN (test code = 2208) 15 MG/DL CREATININE (test code = 2214) 0.89 MG/DL eGFR (2020 CKD-EPI) (test co de = 44102) 85 ML/MIN/1.73 CALC BUN/CREAT (test code = 2235) 17 RATIO SODIUM (test code = 2231) 138 MEQ/L POTASSIUM (test code = 2228) 4.0 MEQ/L CHLORIDE (test code = 2215) 102 MEQ/L CARBON DIOXIDE (test code = 2206) 25 MEQ/L CALCIUM (test code = 2209) 9.0 MG/DL PROTEIN, TOTAL (test code = 2229) 7.5 G/DL ALBUMIN (test code = 2201) 4.5 G/DL CALC GLOBULIN (test code = 2240) 3.0 G/DL CALC A/G RATIO (test code = 2234) 1.5 RATIO BILIRUBIN, TOTAL (test code = 2207) 0.2 MG/DL ALKALINE PHOSPHATASE (test code = 2204) 98 U/L AST (test code = 2218) 12 U/L ALT (test code = 2219) 7 U/L Bal RoseLIPID [id number] 00:00:00* Test Item Value Reference Range Interpretation Comme nts CHOLESTEROL (test code = 2210) 124 MG/DL TRIGLYCERIDES (test code = 2232) 64 MG/DL HDL CHOLESTEROL (test code = 2220) 46 MG/DL CALC LDL CHOL (test code = 2237) 64 MG/DL RISK RATIO LDL/HDL (test cod e = 2238) 1.39 RATIO Bal RoseHEMOGLOBIN [id number] 00:00:00* Test Item Value Reference Range Interpretation Comme nts HEMOGLOBIN A1c (test code = 33210) 6.0 % Bal RoseTSH, THIRD [id number] 00:00:00* Test Item Value Reference Range Interpretation Comme nts TSH, THIRD GENERATION (test code = 2821) 0.735 UIU/ML Bal RoseCBC W/AUTO [id number] 00:00:00* Test Item Value Reference Range Interpretation Comme nts WBC (test code = 1001) 7.2 K/UL RBC (test code = 1002) 4.21 M/UL HEMOGLOBIN (test code = 1003) 11.7 G/DL HEMATOCRIT (test code = 1004) 35.1 % MCV (test code = 1005) 83.4 fL MCH (test code = 1006) 27.8 PG MCHC (test code = 1007) 33.3 G/DL RDW (test code = 1038) 14.2 % NEUTROPHILS (test code = 1008) 62.4 % LYMPHOCYTES (test code = 1010) 28.4 % MONOCYTES (test code = 1011) 6.4 % EOSINOPHILS (test code = 1012) 1.5 % BASOPHILS (test code = 1013) 1.0 % IMMATURE GRANULOCYTES (test code = 1036) 0.3 % NUCLEATED RBCS (test code = 1065) 0.0 /100WBC'S PLATELET COUNT (test code = 1015) 258 K/UL ABSOLUTE NEUTROPHILS (test c ode = 1066) 4.51 K/UL ABSOLUTE LYMPHOCYTES (test c ode = 1067) 2.05 K/UL ABSOLUTE MONOCYTES (test cod e = 1068) 0.46 K/UL ABSOLUTE EOSINOPHILS (test c ode = 1040) 0.11 K/UL ABSOLUTE BASOPHILS (test cod e = 1069) 0.07 K/UL ABS IMMATURE GRANULOCYTES (t est code = 1020) 0.02 K/UL ABS NUCLEATED RBCS (test cod e = 92462) 0.00 K/UL Bal RoseCOMPREHENSIVE METABOLIC [id number] 00:00:00* Test Item Value Reference Range Interpretation Comme nts GLUCOSE (test code = 2217) 105 MG/DL BUN (test code = 2208) 15 MG/DL CREATININE (test code = 2214) 0.89 MG/DL eGFR (2020 CKD-EPI) (test co de = 79950) 85 ML/MIN/1.73 CALC BUN/CREAT (test code = 2235) 17 RATIO SODIUM (test code = 2231) 138 MEQ/L POTASSIUM (test code = 2228) 4.0 MEQ/L CHLORIDE (test code = 2215) 102 MEQ/L CARBON DIOXIDE (test code = 2206) 25 MEQ/L CALCIUM (test code = 2209) 9.0 MG/DL PROTEIN, TOTAL (test code = 2229) 7.5 G/DL ALBUMIN (test code = 2201) 4.5 G/DL CALC GLOBULIN (test code = 2240) 3.0 G/DL CALC A/G RATIO (test code = 2234) 1.5 RATIO BILIRUBIN, TOTAL (test code = 2207) 0.2 MG/DL ALKALINE PHOSPHATASE (test code = 2204) 98 U/L AST (test code = 2218) 12 U/L ALT (test code = 2219) 7 U/L Bal RoseLIPID [id number] 00:00:00* Test Item Value Reference Range Interpretation Comme nts CHOLESTEROL (test code = 2210) 124 MG/DL TRIGLYCERIDES (test code = 2232) 64 MG/DL HDL CHOLESTEROL (test code = 2220) 46 MG/DL CALC LDL CHOL (test code = 2237) 64 MG/DL RISK RATIO LDL/HDL (test cod e = 2238) 1.39 RATIO Bal RoseHEMOGLOBIN [id number] 00:00:00* Test Item Value Reference Range Interpretation Comme christopher HEMOGLOBIN A1c (test code = 40562) 6.0 % Bal RoseTSH, THIRD [id number] 00:00:00* Test Item Value Reference Range Interpretation Comme christopher TSH, THIRD GENERATION (test code = 2821) 0.735 UIU/ML Bal RoseCBC W/AUTO [id number] 00:00:00* Test Item Value Reference Range Interpretation Comme nts WBC (test code = 1001) 7.2 K/UL RBC (test code = 1002) 4.21 M/UL HEMOGLOBIN (test code = 1003) 11.7 G/DL HEMATOCRIT (test code = 1004) 35.1 % MCV (test code = 1005) 83.4 fL MCH (test code = 1006) 27.8 PG MCHC (test code = 1007) 33.3 G/DL RDW (test code = 1038) 14.2 % NEUTROPHILS (test code = 1008) 62.4 % LYMPHOCYTES (test code = 1010) 28.4 % MONOCYTES (test code = 1011) 6.4 % EOSINOPHILS (test code = 1012) 1.5 % BASOPHILS (test code = 1013) 1.0 % IMMATURE GRANULOCYTES (test code = 1036) 0.3 % NUCLEATED RBCS (test code = 1065) 0.0 /100WBC'S PLATELET COUNT (test code = 1015) 258 K/UL ABSOLUTE NEUTROPHILS (test c ode = 1066) 4.51 K/UL ABSOLUTE LYMPHOCYTES (test c ode = 1067) 2.05 K/UL ABSOLUTE MONOCYTES (test cod e = 1068) 0.46 K/UL ABSOLUTE EOSINOPHILS (test c ode = 1040) 0.11 K/UL ABSOLUTE BASOPHILS (test cod e = 1069) 0.07 K/UL ABS IMMATURE GRANULOCYTES (t est code = 1020) 0.02 K/UL ABS NUCLEATED RBCS (test cod e = 40137) 0.00 K/UL Bal RoseCOMPREHENSIVE METABOLIC [id number] 00:00:00* Test Item Value Reference Range Interpretation Comme nts GLUCOSE (test code = 2217) 105 MG/DL BUN (test code = 2208) 15 MG/DL CREATININE (test code = 2214) 0.89 MG/DL eGFR (2020 CKD-EPI) (test co de = 49293) 85 ML/MIN/1.73 CALC BUN/CREAT (test code = 2235) 17 RATIO SODIUM (test code = 2231) 138 MEQ/L POTASSIUM (test code = 2228) 4.0 MEQ/L CHLORIDE (test code = 2215) 102 MEQ/L CARBON DIOXIDE (test code = 2206) 25 MEQ/L CALCIUM (test code = 2209) 9.0 MG/DL PROTEIN, TOTAL (test code = 2229) 7.5 G/DL ALBUMIN (test code = 2201) 4.5 G/DL CALC GLOBULIN (test code = 2240) 3.0 G/DL CALC A/G RATIO (test code = 2234) 1.5 RATIO BILIRUBIN, TOTAL (test code = 2207) 0.2 MG/DL ALKALINE PHOSPHATASE (test code = 2204) 98 U/L AST (test code = 2218) 12 U/L ALT (test code = 2219) 7 U/L Bal RoseLIPID [id number] 00:00:00* Test Item Value Reference Range Interpretation Comme nts CHOLESTEROL (test code = 2210) 124 MG/DL TRIGLYCERIDES (test code = 2232) 64 MG/DL HDL CHOLESTEROL (test code = 2220) 46 MG/DL CALC LDL CHOL (test code = 2237) 64 MG/DL RISK RATIO LDL/HDL (test cod e = 2238) 1.39 RATIO Bal RoseHEMOGLOBIN [id number] 00:00:00* Test Item Value Reference Range Interpretation Comme nts HEMOGLOBIN A1c (test code = 49808) 6.0 % Bal RoseTSH, THIRD [id number] 00:00:00* Test Item Value Reference Range Interpretation Comme christopher TSH, THIRD GENERATION (test code = 2821) 0.735 UIU/ML Bal RoseCBC W/AUTO [id number] 00:00:00* Test Item Value Reference Range Interpretation Comme nts WBC (test code = 1001) 7.2 K/UL RBC (test code = 1002) 4.21 M/UL HEMOGLOBIN (test code = 1003) 11.7 G/DL HEMATOCRIT (test code = 1004) 35.1 % MCV (test code = 1005) 83.4 fL MCH (test code = 1006) 27.8 PG MCHC (test code = 1007) 33.3 G/DL RDW (test code = 1038) 14.2 % NEUTROPHILS (test code = 1008) 62.4 % LYMPHOCYTES (test code = 1010) 28.4 % MONOCYTES (test code = 1011) 6.4 % EOSINOPHILS (test code = 1012) 1.5 % BASOPHILS (test code = 1013) 1.0 % IMMATURE GRANULOCYTES (test code = 1036) 0.3 % NUCLEATED RBCS (test code = 1065) 0.0 /100WBC'S PLATELET COUNT (test code = 1015) 258 K/UL ABSOLUTE NEUTROPHILS (test c ode = 1066) 4.51 K/UL ABSOLUTE LYMPHOCYTES (test c ode = 1067) 2.05 K/UL ABSOLUTE MONOCYTES (test cod e = 1068) 0.46 K/UL ABSOLUTE EOSINOPHILS (test c ode = 1040) 0.11 K/UL ABSOLUTE BASOPHILS (test cod e = 1069) 0.07 K/UL ABS IMMATURE GRANULOCYTES (t est code = 1020) 0.02 K/UL ABS NUCLEATED RBCS (test cod e = 97860) 0.00 K/UL Bal RoseCOMPREHENSIVE METABOLIC [id number] 00:00:00* Test Item Value Reference Range Interpretation Comme nts GLUCOSE (test code = 2217) 105 MG/DL BUN (test code = 2208) 15 MG/DL CREATININE (test code = 2214) 0.89 MG/DL eGFR (2020 CKD-EPI) (test co de = 37171) 85 ML/MIN/1.73 CALC BUN/CREAT (test code = 2235) 17 RATIO SODIUM (test code = 2231) 138 MEQ/L POTASSIUM (test code = 2228) 4.0 MEQ/L CHLORIDE (test code = 2215) 102 MEQ/L CARBON DIOXIDE (test code = 2206) 25 MEQ/L CALCIUM (test code = 2209) 9.0 MG/DL PROTEIN, TOTAL (test code = 2229) 7.5 G/DL ALBUMIN (test code = 2201) 4.5 G/DL CALC GLOBULIN (test code = 2240) 3.0 G/DL CALC A/G RATIO (test code = 2234) 1.5 RATIO BILIRUBIN, TOTAL (test code = 2207) 0.2 MG/DL ALKALINE PHOSPHATASE (test code = 2204) 98 U/L AST (test code = 2218) 12 U/L ALT (test code = 2219) 7 U/L Bal RoseLIPID [id number] 00:00:00* Test Item Value Reference Range Interpretation Comme nts CHOLESTEROL (test code = 2210) 124 MG/DL TRIGLYCERIDES (test code = 2232) 64 MG/DL HDL CHOLESTEROL (test code = 2220) 46 MG/DL CALC LDL CHOL (test code = 2237) 64 MG/DL RISK RATIO LDL/HDL (test cod e = 2238) 1.39 RATIO Bal RoseHEMOGLOBIN [id number] 00:00:00* Test Item Value Reference Range Interpretation Comme nts HEMOGLOBIN A1c (test code = 06841) 6.0 % Bal RoseTSH, THIRD [id number] 00:00:00* Test Item Value Reference Range Interpretation Comme nts TSH, THIRD GENERATION (test code = 2821) 0.735 UIU/ML Bal RoseCBC W/AUTO [id number] 00:00:00* Test Item Value Reference Range Interpretation Comme nts WBC (test code = 1001) 7.2 K/UL RBC (test code = 1002) 4.21 M/UL HEMOGLOBIN (test code = 1003) 11.7 G/DL HEMATOCRIT (test code = 1004) 35.1 % MCV (test code = 1005) 83.4 fL MCH (test code = 1006) 27.8 PG MCHC (test code = 1007) 33.3 G/DL RDW (test code = 1038) 14.2 % NEUTROPHILS (test code = 1008) 62.4 % LYMPHOCYTES (test code = 1010) 28.4 % MONOCYTES (test code = 1011) 6.4 % EOSINOPHILS (test code = 1012) 1.5 % BASOPHILS (test code = 1013) 1.0 % IMMATURE GRANULOCYTES (test code = 1036) 0.3 % NUCLEATED RBCS (test code = 1065) 0.0 /100WBC'S PLATELET COUNT (test code = 1015) 258 K/UL ABSOLUTE NEUTROPHILS (test c ode = 1066) 4.51 K/UL ABSOLUTE LYMPHOCYTES (test c ode = 1067) 2.05 K/UL ABSOLUTE MONOCYTES (test cod e = 1068) 0.46 K/UL ABSOLUTE EOSINOPHILS (test c ode = 1040) 0.11 K/UL ABSOLUTE BASOPHILS (test cod e = 1069) 0.07 K/UL ABS IMMATURE GRANULOCYTES (t est code = 1020) 0.02 K/UL ABS NUCLEATED RBCS (test cod e = 96755) 0.00 K/UL Bal F AustinCOMPREHENSIVE METABOLIC [id number] 00:00:00* Test Item Value Reference Range Interpretation Comme nts GLUCOSE (test code = 2217) 105 MG/DL BUN (test code = 2208) 15 MG/DL CREATININE (test code = 2214) 0.89 MG/DL eGFR (2020 CKD-EPI) (test co de = 58468) 85 ML/MIN/1.73 CALC BUN/CREAT (test code = 2235) 17 RATIO SODIUM (test code = 2231) 138 MEQ/L POTASSIUM (test code = 2228) 4.0 MEQ/L CHLORIDE (test code = 2215) 102 MEQ/L CARBON DIOXIDE (test code = 2206) 25 MEQ/L CALCIUM (test code = 2209) 9.0 MG/DL PROTEIN, TOTAL (test code = 2229) 7.5 G/DL ALBUMIN (test code = 2201) 4.5 G/DL CALC GLOBULIN (test code = 2240) 3.0 G/DL CALC A/G RATIO (test code = 2234) 1.5 RATIO BILIRUBIN, TOTAL (test code = 2207) 0.2 MG/DL ALKALINE PHOSPHATASE (test code = 2204) 98 U/L AST (test code = 2218) 12 U/L ALT (test code = 2219) 7 U/L Bal RoseLIPID [id number] 00:00:00* Test Item Value Reference Range Interpretation Comme nts CHOLESTEROL (test code = 2210) 124 MG/DL TRIGLYCERIDES (test code = 2232) 64 MG/DL HDL CHOLESTEROL (test code = 2220) 46 MG/DL CALC LDL CHOL (test code = 2237) 64 MG/DL RISK RATIO LDL/HDL (test cod e = 2238) 1.39 RATIO Bal RoseHEMOGLOBIN [id number] 00:00:00* Test Item Value Reference Range Interpretation Comme christopher HEMOGLOBIN A1c (test code = 78438) 6.0 % Bal RoseTSH, THIRD [id number] 00:00:00* Test Item Value Reference Range Interpretation Comme christopher TSH, THIRD GENERATION (test code = 2821) 0.735 UIU/ML Bal RoseCBC W/AUTO [id number] 00:00:00* Test Item Value Reference Range Interpretation Comme nts WBC (test code = 1001) 7.2 K/UL RBC (test code = 1002) 4.21 M/UL HEMOGLOBIN (test code = 1003) 11.7 G/DL HEMATOCRIT (test code = 1004) 35.1 % MCV (test code = 1005) 83.4 fL MCH (test code = 1006) 27.8 PG MCHC (test code = 1007) 33.3 G/DL RDW (test code = 1038) 14.2 % NEUTROPHILS (test code = 1008) 62.4 % LYMPHOCYTES (test code = 1010) 28.4 % MONOCYTES (test code = 1011) 6.4 % EOSINOPHILS (test code = 1012) 1.5 % BASOPHILS (test code = 1013) 1.0 % IMMATURE GRANULOCYTES (test code = 1036) 0.3 % NUCLEATED RBCS (test code = 1065) 0.0 /100WBC'S PLATELET COUNT (test code = 1015) 258 K/UL ABSOLUTE NEUTROPHILS (test c ode = 1066) 4.51 K/UL ABSOLUTE LYMPHOCYTES (test c ode = 1067) 2.05 K/UL ABSOLUTE MONOCYTES (test cod e = 1068) 0.46 K/UL ABSOLUTE EOSINOPHILS (test c ode = 1040) 0.11 K/UL ABSOLUTE BASOPHILS (test cod e = 1069) 0.07 K/UL ABS IMMATURE GRANULOCYTES (t est code = 1020) 0.02 K/UL ABS NUCLEATED RBCS (test cod e = 32591) 0.00 K/UL Bal RoseCOMPREHENSIVE METABOLIC [id number] 00:00:00* Test Item Value Reference Range Interpretation Comme nts GLUCOSE (test code = 2217) 105 MG/DL BUN (test code = 2208) 15 MG/DL CREATININE (test code = 2214) 0.89 MG/DL eGFR (2020 CKD-EPI) (test co de = 05880) 85 ML/MIN/1.73 CALC BUN/CREAT (test code = 2235) 17 RATIO SODIUM (test code = 2231) 138 MEQ/L POTASSIUM (test code = 2228) 4.0 MEQ/L CHLORIDE (test code = 2215) 102 MEQ/L CARBON DIOXIDE (test code = 2206) 25 MEQ/L CALCIUM (test code = 2209) 9.0 MG/DL PROTEIN, TOTAL (test code = 2229) 7.5 G/DL ALBUMIN (test code = 2201) 4.5 G/DL CALC GLOBULIN (test code = 2240) 3.0 G/DL CALC A/G RATIO (test code = 2234) 1.5 RATIO BILIRUBIN, TOTAL (test code = 2207) 0.2 MG/DL ALKALINE PHOSPHATASE (test code = 2204) 98 U/L AST (test code = 2218) 12 U/L ALT (test code = 2219) 7 U/L Bal Zapata MiltonLIPID [id number] 00:00:00* Test Item Value Reference Range Interpretation Comme nts CHOLESTEROL (test code = 2210) 124 MG/DL TRIGLYCERIDES (test code = 2232) 64 MG/DL HDL CHOLESTEROL (test code = 2220) 46 MG/DL CALC LDL CHOL (test code = 2237) 64 MG/DL RISK RATIO LDL/HDL (test cod e = 2238) 1.39 RATIO Bal RoseHEMOGLOBIN [id number] 00:00:00* Test Item Value Reference Range Interpretation Comme nts HEMOGLOBIN A1c (test code = 78184) 6.0 % Bal RoseTSH, THIRD [id number] 00:00:00* Test Item Value Reference Range Interpretation Comme nts TSH, THIRD GENERATION (test code = 2821) 0.735 UIU/ML Bal RoseCBC W/AUTO [id number] 00:00:00* Test Item Value Reference Range Interpretation Comme nts WBC (test code = 1001) 7.2 K/UL RBC (test code = 1002) 4.21 M/UL HEMOGLOBIN (test code = 1003) 11.7 G/DL HEMATOCRIT (test code = 1004) 35.1 % MCV (test code = 1005) 83.4 fL MCH (test code = 1006) 27.8 PG MCHC (test code = 1007) 33.3 G/DL RDW (test code = 1038) 14.2 % NEUTROPHILS (test code = 1008) 62.4 % LYMPHOCYTES (test code = 1010) 28.4 % MONOCYTES (test code = 1011) 6.4 % EOSINOPHILS (test code = 1012) 1.5 % BASOPHILS (test code = 1013) 1.0 % IMMATURE GRANULOCYTES (test code = 1036) 0.3 % NUCLEATED RBCS (test code = 1065) 0.0 /100WBC'S PLATELET COUNT (test code = 1015) 258 K/UL ABSOLUTE NEUTROPHILS (test c ode = 1066) 4.51 K/UL ABSOLUTE LYMPHOCYTES (test c ode = 1067) 2.05 K/UL ABSOLUTE MONOCYTES (test cod e = 1068) 0.46 K/UL ABSOLUTE EOSINOPHILS (test c ode = 1040) 0.11 K/UL ABSOLUTE BASOPHILS (test cod e = 1069) 0.07 K/UL ABS IMMATURE GRANULOCYTES (t est code = 1020) 0.02 K/UL ABS NUCLEATED RBCS (test cod e = 98018) 0.00 K/UL Bal RoseCOMPREHENSIVE METABOLIC [id number] 00:00:00* Test Item Value Reference Range Interpretation Comme nts GLUCOSE (test code = 2217) 105 MG/DL BUN (test code = 2208) 15 MG/DL CREATININE (test code = 2214) 0.89 MG/DL eGFR (2020 CKD-EPI) (test co de = 87336) 85 ML/MIN/1.73 CALC BUN/CREAT (test code = 2235) 17 RATIO SODIUM (test code = 2231) 138 MEQ/L POTASSIUM (test code = 2228) 4.0 MEQ/L CHLORIDE (test code = 2215) 102 MEQ/L CARBON DIOXIDE (test code = 2206) 25 MEQ/L CALCIUM (test code = 2209) 9.0 MG/DL PROTEIN, TOTAL (test code = 2229) 7.5 G/DL ALBUMIN (test code = 2201) 4.5 G/DL CALC GLOBULIN (test code = 2240) 3.0 G/DL CALC A/G RATIO (test code = 2234) 1.5 RATIO BILIRUBIN, TOTAL (test code = 2207) 0.2 MG/DL ALKALINE PHOSPHATASE (test code = 2204) 98 U/L AST (test code = 2218) 12 U/L ALT (test code = 2219) 7 U/L Bal RoseLIPID [id number] 00:00:00* Test Item Value Reference Range Interpretation Comme nts CHOLESTEROL (test code = 2210) 124 MG/DL TRIGLYCERIDES (test code = 2232) 64 MG/DL HDL CHOLESTEROL (test code = 2220) 46 MG/DL CALC LDL CHOL (test code = 2237) 64 MG/DL RISK RATIO LDL/HDL (test cod e = 2238) 1.39 RATIO Bal RoseHEMOGLOBIN [id number] 00:00:00* Test Item Value Reference Range Interpretation Comme nts HEMOGLOBIN A1c (test code = 05985) 6.0 % Bal RoseTSH, THIRD [id number] 00:00:00* Test Item Value Reference Range Interpretation Comme nts TSH, THIRD GENERATION (test code = 2821) 0.735 UIU/ML Bal RoseCBC W/AUTO [id number] 00:00:00* Test Item Value Reference Range Interpretation Comme nts WBC (test code = 1001) 7.2 K/UL RBC (test code = 1002) 4.21 M/UL HEMOGLOBIN (test code = 1003) 11.7 G/DL HEMATOCRIT (test code = 1004) 35.1 % MCV (test code = 1005) 83.4 fL MCH (test code = 1006) 27.8 PG MCHC (test code = 1007) 33.3 G/DL RDW (test code = 1038) 14.2 % NEUTROPHILS (test code = 1008) 62.4 % LYMPHOCYTES (test code = 1010) 28.4 % MONOCYTES (test code = 1011) 6.4 % EOSINOPHILS (test code = 1012) 1.5 % BASOPHILS (test code = 1013) 1.0 % IMMATURE GRANULOCYTES (test code = 1036) 0.3 % NUCLEATED RBCS (test code = 1065) 0.0 /100WBC'S PLATELET COUNT (test code = 1015) 258 K/UL ABSOLUTE NEUTROPHILS (test c ode = 1066) 4.51 K/UL ABSOLUTE LYMPHOCYTES (test c ode = 1067) 2.05 K/UL ABSOLUTE MONOCYTES (test cod e = 1068) 0.46 K/UL ABSOLUTE EOSINOPHILS (test c ode = 1040) 0.11 K/UL ABSOLUTE BASOPHILS (test cod e = 1069) 0.07 K/UL ABS IMMATURE GRANULOCYTES (t est code = 1020) 0.02 K/UL ABS NUCLEATED RBCS (test cod e = 91002) 0.00 K/UL Bal Zapata MiltonCOMPREHENSIVE METABOLIC [id number] 00:00:00* Test Item Value Reference Range Interpretation Comme nts GLUCOSE (test code = 2217) 105 MG/DL BUN (test code = 2208) 15 MG/DL CREATININE (test code = 2214) 0.89 MG/DL eGFR (2020 CKD-EPI) (test co de = 76023) 85 ML/MIN/1.73 CALC BUN/CREAT (test code = 2235) 17 RATIO SODIUM (test code = 2231) 138 MEQ/L POTASSIUM (test code = 2228) 4.0 MEQ/L CHLORIDE (test code = 2215) 102 MEQ/L CARBON DIOXIDE (test code = 2206) 25 MEQ/L CALCIUM (test code = 2209) 9.0 MG/DL PROTEIN, TOTAL (test code = 2229) 7.5 G/DL ALBUMIN (test code = 2201) 4.5 G/DL CALC GLOBULIN (test code = 2240) 3.0 G/DL CALC A/G RATIO (test code = 2234) 1.5 RATIO BILIRUBIN, TOTAL (test code = 2207) 0.2 MG/DL ALKALINE PHOSPHATASE (test code = 2204) 98 U/L AST (test code = 2218) 12 U/L ALT (test code = 2219) 7 U/L Bal RoseLIPID [id number] 00:00:00* Test Item Value Reference Range Interpretation Comme nts CHOLESTEROL (test code = 2210) 124 MG/DL TRIGLYCERIDES (test code = 2232) 64 MG/DL HDL CHOLESTEROL (test code = 2220) 46 MG/DL CALC LDL CHOL (test code = 2237) 64 MG/DL RISK RATIO LDL/HDL (test cod e = 2238) 1.39 RATIO Bal RoseHEMOGLOBIN [id number] 00:00:00* Test Item Value Reference Range Interpretation Comme nts HEMOGLOBIN A1c (test code = 31339) 6.0 % Bal RoseTSH, THIRD [id number] 00:00:00* Test Item Value Reference Range Interpretation Comme nts TSH, THIRD GENERATION (test code = 2821) 0.735 UIU/ML Bal RoseCBC W/AUTO [id number] 00:00:00* Test Item Value Reference Range Interpretation Comme nts WBC (test code = 1001) 7.2 K/UL RBC (test code = 1002) 4.21 M/UL HEMOGLOBIN (test code = 1003) 11.7 G/DL HEMATOCRIT (test code = 1004) 35.1 % MCV (test code = 1005) 83.4 fL MCH (test code = 1006) 27.8 PG MCHC (test code = 1007) 33.3 G/DL RDW (test code = 1038) 14.2 % NEUTROPHILS (test code = 1008) 62.4 % LYMPHOCYTES (test code = 1010) 28.4 % MONOCYTES (test code = 1011) 6.4 % EOSINOPHILS (test code = 1012) 1.5 % BASOPHILS (test code = 1013) 1.0 % IMMATURE GRANULOCYTES (test code = 1036) 0.3 % NUCLEATED RBCS (test code = 1065) 0.0 /100WBC'S PLATELET COUNT (test code = 1015) 258 K/UL ABSOLUTE NEUTROPHILS (test c ode = 1066) 4.51 K/UL ABSOLUTE LYMPHOCYTES (test c ode = 1067) 2.05 K/UL ABSOLUTE MONOCYTES (test cod e = 1068) 0.46 K/UL ABSOLUTE EOSINOPHILS (test c ode = 1040) 0.11 K/UL ABSOLUTE BASOPHILS (test cod e = 1069) 0.07 K/UL ABS IMMATURE GRANULOCYTES (t est code = 1020) 0.02 K/UL ABS NUCLEATED RBCS (test cod e = 06656) 0.00 K/UL Bal Zapata MiltonCOMPREHENSIVE METABOLIC [id number] 00:00:00* Test Item Value Reference Range Interpretation Comme nts GLUCOSE (test code = 2217) 105 MG/DL BUN (test code = 2208) 15 MG/DL CREATININE (test code = 2214) 0.89 MG/DL eGFR (2020 CKD-EPI) (test co de = 65040) 85 ML/MIN/1.73 CALC BUN/CREAT (test code = 2235) 17 RATIO SODIUM (test code = 2231) 138 MEQ/L POTASSIUM (test code = 2228) 4.0 MEQ/L CHLORIDE (test code = 2215) 102 MEQ/L CARBON DIOXIDE (test code = 2206) 25 MEQ/L CALCIUM (test code = 2209) 9.0 MG/DL PROTEIN, TOTAL (test code = 2229) 7.5 G/DL ALBUMIN (test code = 2201) 4.5 G/DL CALC GLOBULIN (test code = 2240) 3.0 G/DL CALC A/G RATIO (test code = 2234) 1.5 RATIO BILIRUBIN, TOTAL (test code = 2207) 0.2 MG/DL ALKALINE PHOSPHATASE (test code = 2204) 98 U/L AST (test code = 2218) 12 U/L ALT (test code = 2219) 7 U/L Bal RoseLIPID [id number] 00:00:00* Test Item Value Reference Range Interpretation Comme nts CHOLESTEROL (test code = 2210) 124 MG/DL TRIGLYCERIDES (test code = 2232) 64 MG/DL HDL CHOLESTEROL (test code = 2220) 46 MG/DL CALC LDL CHOL (test code = 2237) 64 MG/DL RISK RATIO LDL/HDL (test cod e = 2238) 1.39 RATIO Bal RoseHEMOGLOBIN [id number] 00:00:00* Test Item Value Reference Range Interpretation Comme nts HEMOGLOBIN A1c (test code = 49642) 6.0 % Bal RoseTSH, THIRD [id number] 00:00:00* Test Item Value Reference Range Interpretation Comme nts TSH, THIRD GENERATION (test code = 2821) 0.735 UIU/ML Bal RoseCBC W/AUTO [id number] 00:00:00* Test Item Value Reference Range Interpretation Comme nts WBC (test code = 1001) 7.2 K/UL RBC (test code = 1002) 4.21 M/UL HEMOGLOBIN (test code = 1003) 11.7 G/DL HEMATOCRIT (test code = 1004) 35.1 % MCV (test code = 1005) 83.4 fL MCH (test code = 1006) 27.8 PG MCHC (test code = 1007) 33.3 G/DL RDW (test code = 1038) 14.2 % NEUTROPHILS (test code = 1008) 62.4 % LYMPHOCYTES (test code = 1010) 28.4 % MONOCYTES (test code = 1011) 6.4 % EOSINOPHILS (test code = 1012) 1.5 % BASOPHILS (test code = 1013) 1.0 % IMMATURE GRANULOCYTES (test code = 1036) 0.3 % NUCLEATED RBCS (test code = 1065) 0.0 /100WBC'S PLATELET COUNT (test code = 1015) 258 K/UL ABSOLUTE NEUTROPHILS (test c ode = 1066) 4.51 K/UL ABSOLUTE LYMPHOCYTES (test c ode = 1067) 2.05 K/UL ABSOLUTE MONOCYTES (test cod e = 1068) 0.46 K/UL ABSOLUTE EOSINOPHILS (test c ode = 1040) 0.11 K/UL ABSOLUTE BASOPHILS (test cod e = 1069) 0.07 K/UL ABS IMMATURE GRANULOCYTES (t est code = 1020) 0.02 K/UL ABS NUCLEATED RBCS (test cod e = 25545) 0.00 K/UL Bal RoseCOMPREHENSIVE METABOLIC [id number] 00:00:00* Test Item Value Reference Range Interpretation Comme nts GLUCOSE (test code = 2217) 105 MG/DL BUN (test code = 2208) 15 MG/DL CREATININE (test code = 2214) 0.89 MG/DL eGFR (2020 CKD-EPI) (test co de = 52867) 85 ML/MIN/1.73 CALC BUN/CREAT (test code = 2235) 17 RATIO SODIUM (test code = 223) 138 MEQ/L POTASSIUM (test code = 2228) 4.0 MEQ/L CHLORIDE (test code = 2215) 102 MEQ/L CARBON DIOXIDE (test code = 2206) 25 MEQ/L CALCIUM (test code = 2209) 9.0 MG/DL PROTEIN, TOTAL (test code = 222) 7.5 G/DL ALBUMIN (test code = 2201) 4.5 G/DL CALC GLOBULIN (test code = 2240) 3.0 G/DL CALC A/G RATIO (test code = 2234) 1.5 RATIO BILIRUBIN, TOTAL (test code = 2207) 0.2 MG/DL ALKALINE PHOSPHATASE (test code = 2204) 98 U/L AST (test code = 2218) 12 U/L ALT (test code = 2219) 7 U/L Bal RoseLIPID [id number] 00:00:00* Test Item Value Reference Range Interpretation Comme nts CHOLESTEROL (test code = 2210) 124 MG/DL TRIGLYCERIDES (test code = 2232) 64 MG/DL HDL CHOLESTEROL (test code = 2220) 46 MG/DL CALC LDL CHOL (test code = 2237) 64 MG/DL RISK RATIO LDL/HDL (test cod e = 2238) 1.39 RATIO Bal RoseHEMOGLOBIN [id number] 00:00:00* Test Item Value Reference Range Interpretation Comme nts HEMOGLOBIN A1c (test code = 72528) 6.0 % Bal Zapata MiltonTSH, THIRD [id number] 00:00:00* Test Item Value Reference Range Interpretation Comme nts TSH, THIRD GENERATION (test code = 2821) 0.735 UIU/ML Bal RoseCBC W/AUTO [id number] 00:00:00* Test Item Value Reference Range Interpretation Comme nts WBC (test code = 1001) 7.2 K/UL RBC (test code = 1002) 4.21 M/UL HEMOGLOBIN (test code = 1003) 11.7 G/DL HEMATOCRIT (test code = 1004) 35.1 % MCV (test code = 1005) 83.4 fL MCH (test code = 1006) 27.8 PG MCHC (test code = 1007) 33.3 G/DL RDW (test code = 1038) 14.2 % NEUTROPHILS (test code = 1008) 62.4 % LYMPHOCYTES (test code = 1010) 28.4 % MONOCYTES (test code = 1011) 6.4 % EOSINOPHILS (test code = 1012) 1.5 % BASOPHILS (test code = 1013) 1.0 % IMMATURE GRANULOCYTES (test code = 1036) 0.3 % NUCLEATED RBCS (test code = 1065) 0.0 /100WBC'S PLATELET COUNT (test code = 1015) 258 K/UL ABSOLUTE NEUTROPHILS (test c ode = 1066) 4.51 K/UL ABSOLUTE LYMPHOCYTES (test c ode = 1067) 2.05 K/UL ABSOLUTE MONOCYTES (test cod e = 1068) 0.46 K/UL ABSOLUTE EOSINOPHILS (test c ode = 1040) 0.11 K/UL ABSOLUTE BASOPHILS (test cod e = 1069) 0.07 K/UL ABS IMMATURE GRANULOCYTES (t est code = 1020) 0.02 K/UL ABS NUCLEATED RBCS (test cod e = 03424) 0.00 K/UL Bal Zapata MiltonCOMPREHENSIVE METABOLIC [id number] 00:00:00* Test Item Value Reference Range Interpretation Comme nts GLUCOSE (test code = 2217) 105 MG/DL BUN (test code = 2208) 15 MG/DL CREATININE (test code = 2214) 0.89 MG/DL eGFR (2020 CKD-EPI) (test co de = 84949) 85 ML/MIN/1.73 CALC BUN/CREAT (test code = 2235) 17 RATIO SODIUM (test code = 2231) 138 MEQ/L POTASSIUM (test code = 2228) 4.0 MEQ/L CHLORIDE (test code = 2215) 102 MEQ/L CARBON DIOXIDE (test code = 2206) 25 MEQ/L CALCIUM (test code = 2209) 9.0 MG/DL PROTEIN, TOTAL (test code = 2229) 7.5 G/DL ALBUMIN (test code = 2201) 4.5 G/DL CALC GLOBULIN (test code = 2240) 3.0 G/DL CALC A/G RATIO (test code = 2234) 1.5 RATIO BILIRUBIN, TOTAL (test code = 2207) 0.2 MG/DL ALKALINE PHOSPHATASE (test code = 2204) 98 U/L AST (test code = 2218) 12 U/L ALT (test code = 2219) 7 U/L Bal RoseLIPID [id number] 00:00:00* Test Item Value Reference Range Interpretation Comme nts CHOLESTEROL (test code = 2210) 124 MG/DL TRIGLYCERIDES (test code = 2232) 64 MG/DL HDL CHOLESTEROL (test code = 2220) 46 MG/DL CALC LDL CHOL (test code = 2237) 64 MG/DL RISK RATIO LDL/HDL (test cod e = 2238) 1.39 RATIO Bal RoseHEMOGLOBIN [id number] 00:00:00* Test Item Value Reference Range Interpretation Comme nts HEMOGLOBIN A1c (test code = 14209) 6.0 % Bal RoseTSH, THIRD [id number] 00:00:00* Test Item Value Reference Range Interpretation Comme nts TSH, THIRD GENERATION (test code = 2821) 0.735 UIU/ML Bal RoseCBC W/AUTO [id number] 00:00:00* Test Item Value Reference Range Interpretation Comme nts WBC (test code = 1001) 7.2 K/UL RBC (test code = 1002) 4.21 M/UL HEMOGLOBIN (test code = 1003) 11.7 G/DL HEMATOCRIT (test code = 1004) 35.1 % MCV (test code = 1005) 83.4 fL MCH (test code = 1006) 27.8 PG MCHC (test code = 1007) 33.3 G/DL RDW (test code = 1038) 14.2 % NEUTROPHILS (test code = 1008) 62.4 % LYMPHOCYTES (test code = 1010) 28.4 % MONOCYTES (test code = 1011) 6.4 % EOSINOPHILS (test code = 1012) 1.5 % BASOPHILS (test code = 1013) 1.0 % IMMATURE GRANULOCYTES (test code = 1036) 0.3 % NUCLEATED RBCS (test code = 1065) 0.0 /100WBC'S PLATELET COUNT (test code = 1015) 258 K/UL ABSOLUTE NEUTROPHILS (test c ode = 1066) 4.51 K/UL ABSOLUTE LYMPHOCYTES (test c ode = 1067) 2.05 K/UL ABSOLUTE MONOCYTES (test cod e = 1068) 0.46 K/UL ABSOLUTE EOSINOPHILS (test c ode = 1040) 0.11 K/UL ABSOLUTE BASOPHILS (test cod e = 1069) 0.07 K/UL ABS IMMATURE GRANULOCYTES (t est code = 1020) 0.02 K/UL ABS NUCLEATED RBCS (test cod e = 95670) 0.00 K/UL Bal RoseCOMPREHENSIVE METABOLIC [id number] 00:00:00* Test Item Value Reference Range Interpretation Comme nts GLUCOSE (test code = 2217) 105 MG/DL BUN (test code = 2208) 15 MG/DL CREATININE (test code = 2214) 0.89 MG/DL eGFR (2020 CKD-EPI) (test co de = 68946) 85 ML/MIN/1.73 CALC BUN/CREAT (test code = 2235) 17 RATIO SODIUM (test code = 2231) 138 MEQ/L POTASSIUM (test code = 2228) 4.0 MEQ/L CHLORIDE (test code = 2215) 102 MEQ/L CARBON DIOXIDE (test code = 2206) 25 MEQ/L CALCIUM (test code = 2209) 9.0 MG/DL PROTEIN, TOTAL (test code = 2229) 7.5 G/DL ALBUMIN (test code = 2201) 4.5 G/DL CALC GLOBULIN (test code = 2240) 3.0 G/DL CALC A/G RATIO (test code = 2234) 1.5 RATIO BILIRUBIN, TOTAL (test code = 2207) 0.2 MG/DL ALKALINE PHOSPHATASE (test code = 2204) 98 U/L AST (test code = 2218) 12 U/L ALT (test code = 2219) 7 U/L Bal RoseLIPID [id number] 00:00:00* Test Item Value Reference Range Interpretation Comme nts CHOLESTEROL (test code = 2210) 124 MG/DL TRIGLYCERIDES (test code = 2232) 64 MG/DL HDL CHOLESTEROL (test code = 2220) 46 MG/DL CALC LDL CHOL (test code = 2237) 64 MG/DL RISK RATIO LDL/HDL (test cod e = 2238) 1.39 RATIO Bal RoseHEMOGLOBIN [id number] 00:00:00* Test Item Value Reference Range Interpretation Comme nts HEMOGLOBIN A1c (test code = 83624) 6.0 % Bla SuazoH, THIRD [id number] 00:00:00* Test Item Value Reference Range Interpretation Comme nts TSH, THIRD GENERATION (test code = 2821) 0.735 UIU/ML Bal RoseCBC W/AUTO [id number] 00:00:00* Test Item Value Reference Range Interpretation Comme nts WBC (test code = 1001) 7.2 K/UL RBC (test code = 1002) 4.21 M/UL HEMOGLOBIN (test code = 1003) 11.7 G/DL HEMATOCRIT (test code = 1004) 35.1 % MCV (test code = 1005) 83.4 fL MCH (test code = 1006) 27.8 PG MCHC (test code = 1007) 33.3 G/DL RDW (test code = 1038) 14.2 % NEUTROPHILS (test code = 1008) 62.4 % LYMPHOCYTES (test code = 1010) 28.4 % MONOCYTES (test code = 1011) 6.4 % EOSINOPHILS (test code = 1012) 1.5 % BASOPHILS (test code = 1013) 1.0 % IMMATURE GRANULOCYTES (test code = 1036) 0.3 % NUCLEATED RBCS (test code = 1065) 0.0 /100WBC'S PLATELET COUNT (test code = 1015) 258 K/UL ABSOLUTE NEUTROPHILS (test c ode = 1066) 4.51 K/UL ABSOLUTE LYMPHOCYTES (test c ode = 1067) 2.05 K/UL ABSOLUTE MONOCYTES (test cod e = 1068) 0.46 K/UL ABSOLUTE EOSINOPHILS (test c ode = 1040) 0.11 K/UL ABSOLUTE BASOPHILS (test cod e = 1069) 0.07 K/UL ABS IMMATURE GRANULOCYTES (t est code = 1020) 0.02 K/UL ABS NUCLEATED RBCS (test cod e = 76320) 0.00 K/UL Bal RoseCOMPREHENSIVE METABOLIC [id number] 00:00:00* Test Item Value Reference Range Interpretation Comme nts GLUCOSE (test code = 2217) 105 MG/DL BUN (test code = 220) 15 MG/DL CREATININE (test code = 2214) 0.89 MG/DL eGFR (2020 CKD-EPI) (test co de = 74386) 85 ML/MIN/1.73 CALC BUN/CREAT (test code = 2235) 17 RATIO SODIUM (test code = 2231) 138 MEQ/L POTASSIUM (test code = 2228) 4.0 MEQ/L CHLORIDE (test code = 2215) 102 MEQ/L CARBON DIOXIDE (test code = 2206) 25 MEQ/L CALCIUM (test code = 2209) 9.0 MG/DL PROTEIN, TOTAL (test code = 2229) 7.5 G/DL ALBUMIN (test code = 2201) 4.5 G/DL CALC GLOBULIN (test code = 2240) 3.0 G/DL CALC A/G RATIO (test code = 2234) 1.5 RATIO BILIRUBIN, TOTAL (test code = 7) 0.2 MG/DL ALKALINE PHOSPHATASE (test code = 2204) 98 U/L AST (test code = 221) 12 U/L ALT (test code = 2219) 7 U/L Bal RoseLIPID [id number] 00:00:00* Test Item Value Reference Range Interpretation Comme nts CHOLESTEROL (test code = 2210) 124 MG/DL TRIGLYCERIDES (test code = 2232) 64 MG/DL HDL CHOLESTEROL (test code = 2220) 46 MG/DL CALC LDL CHOL (test code = 2237) 64 MG/DL RISK RATIO LDL/HDL (test cod e = 2238) 1.39 RATIO Bal RoseHEMOGLOBIN [id number] 00:00:00* Test Item Value Reference Range Interpretation Comme nts HEMOGLOBIN A1c (test code = 72760) 6.0 % Bal RoseTSH, THIRD [id number] 00:00:00* Test Item Value Reference Range Interpretation Comme [facility] TSH, THIRD GENERATION (test code = 2821) 0.735 UIU/ML Bal RoseCBC W/AUTO [id number] 00:00:00* Test Item Value Reference Range Interpretation Comme nts WBC (test code = 1001) 7.2 K/UL RBC (test code = 1002) 4.21 M/UL HEMOGLOBIN (test code = 1003) 11.7 G/DL HEMATOCRIT (test code = 1004) 35.1 % MCV (test code = 1005) 83.4 fL MCH (test code = 1006) 27.8 PG MCHC (test code = 1007) 33.3 G/DL RDW (test code = 1038) 14.2 % NEUTROPHILS (test code = 1008) 62.4 % LYMPHOCYTES (test code = 1010) 28.4 % MONOCYTES (test code = 1011) 6.4 % EOSINOPHILS (test code = 1012) 1.5 % BASOPHILS (test code = 1013) 1.0 % IMMATURE GRANULOCYTES (test code = 1036) 0.3 % NUCLEATED RBCS (test code = 1065) 0.0 /100WBC'S PLATELET COUNT (test code = 1015) 258 K/UL ABSOLUTE NEUTROPHILS (test c ode = 1066) 4.51 K/UL ABSOLUTE LYMPHOCYTES (test c ode = 1067) 2.05 K/UL ABSOLUTE MONOCYTES (test cod e = 1068) 0.46 K/UL ABSOLUTE EOSINOPHILS (test c ode = 1040) 0.11 K/UL ABSOLUTE BASOPHILS (test cod e = 1069) 0.07 K/UL ABS IMMATURE GRANULOCYTES (t est code = 1020) 0.02 K/UL ABS NUCLEATED RBCS (test cod e = 34093) 0.00 K/UL Bal RoseCOMPREHENSIVE METABOLIC [id number] 00:00:00* Test Item Value Reference Range Interpretation Comme nts GLUCOSE (test code = 2217) 105 MG/DL BUN (test code = 2208) 15 MG/DL CREATININE (test code = 2214) 0.89 MG/DL eGFR (2020 CKD-EPI) (test co de = 41446) 85 ML/MIN/1.73 CALC BUN/CREAT (test code = 2235) 17 RATIO SODIUM (test code = 2231) 138 MEQ/L POTASSIUM (test code = 2228) 4.0 MEQ/L CHLORIDE (test code = 2215) 102 MEQ/L CARBON DIOXIDE (test code = 2206) 25 MEQ/L CALCIUM (test code = 2209) 9.0 MG/DL PROTEIN, TOTAL (test code = 2229) 7.5 G/DL ALBUMIN (test code = 2201) 4.5 G/DL CALC GLOBULIN (test code = 2240) 3.0 G/DL CALC A/G RATIO (test code = 2234) 1.5 RATIO BILIRUBIN, TOTAL (test code = 2207) 0.2 MG/DL ALKALINE PHOSPHATASE (test code = 2204) 98 U/L AST (test code = 2218) 12 U/L ALT (test code = 2219) 7 U/L Bal Zapata AustinTHYROID STIMULATING [id number] 19:53:27* Test Item Value Reference Range Interpretation Comme nts TSH (test code = 5673987371) 146.00 See_Comment H [Automated messa ge] The system which generated this result transmitted reference range: 0.45 - 4.70 mIU/L. The reference range was not used to interpret this result as normal/abnormal. Lab Interpretation (test code = 44979-5) Abnormal [facility] [id number] 18:38:11* Test Item Value Reference Range Interpretation Comme nts FREE T4 (test code = 5830002928) 0.15 See_Comment L [Automated messa ge] The system which generated this result transmitted reference range: 0.78 - 2.20 ng/dL:. The reference range was not used to interpret this result as normal/abnormal. Lab Interpretation (test code = 73853-7) Abnormal [facility] MOLECULAR [id number] 23:33:03* Test Item Value Reference Range Interpretation Comme nts POCT Molecular Strep (test c ode = 17914-2) Negative Negative Lab Interpretation (test cod e = 00440-0) Normal [facility] SARS-COV-2 ANTIGEN (BINAX NOW)2023-04-13 23:15:00* Test Item Value Reference Range Interpretation Comme nts POCT SARS-COV-2 ANTIGEN (rocío t code = 73972-2) Not Detected Not Detected On board controls acceptable with C Line (test code = 3574) Yes Lab Interpretation (test cod e = 42289-3) Normal [facility] URINALYSIS, [id number] 18:14:00 * Test Item Value Reference Range Interpretation Comme nts POCT U SP GRAV (test code = 3255) 1.025 mg/dl 1.005-1.025 POCT PH U (test code = 3254) 5.5 mg/dl 5-8 POCT U LEUK EST (test code = 3263) negative Negative - Negative POCT U NIT (test code = 3262) negative Negative - Negati ve POCT U PROT (test code = 3259) trace Negative - Negative POCT U GLU (test code = 3256) negative Negative - Negati ve POCT U KETONE (test code = 3258) negative Negative - Negative POCT U UROBILI (test code = 3260) 0.2 mg/dl 0.2-1 POCT U BILI (test code = 3261) negative Negative - Negative POCT U BLD (test code = 3257) moderate Negative - Negati ve POCT U COLOR (test code = 3266) yellow POCT U APPEAR (test code = 3267) clear Lab Interpretation (test cod e = 01504-5) [id number] 18:14:00 * Test Item Value Reference Range Interpretation Comme nts POCT U SP GRAV (test code = 3255) 1.025 mg/dl 1.005-1.025 POCT PH U (test code = 3254) 5.5 mg/dl 5-8 POCT U LEUK EST (test code = 3263) negative Negative - Negative POCT U NIT (test code = 3262) negative Negative - Negati ve POCT U PROT (test code = 3259) trace Negative - Negative POCT U GLU (test code = 3256) negative Negative - Negati ve POCT U KETONE (test code = 3258) negative Negative - Negative POCT U UROBILI (test code = 3260) 0.2 mg/dl 0.2-1 POCT U BILI (test code = 3261) negative Negative - Negative POCT U BLD (test code = 3257) moderate Negative - Negati ve POCT U COLOR (test code = 3266) yellow POCT U APPEAR (test code = 3267) clear Lab Interpretation (test cod e = 34879-6) Normal [facility] AUTOIMMUNE PANEL REFLEX TO [id number] 00:00:00* Test Item Value Reference Range Interpretation Comme nts ANTI-NUCLEAR ANTIBODIES (rocío t code = 3506) NEGATIVE JEANA PATTERN (REPORTED TITER) (test code = 73699) SEE BELOW HOMOGENEOUS (test code = 74284) NEGATIVE TITER SPECKLED (test code = 010538) NEGATIVE TITER DENSE FINE SPECKLED (test co de = 19650) NEGATIVE TITER CENTROMERE (test code = 659925) NEGATIVE TITER COARSE SPECKLED (test code = 461159) NEGATIVE TITER DISCRETE NUCLEAR DOTS (test code = 023440) NEGATIVE TITER NUCLEOLAR (test code = 968097) NEGATIVE TITER NUCLEAR MEMBRANE (test code = 165507) NEGATIVE TITER CYTO. RETICULAR (JESSICA) (test code = 584906) NEGATIVE COMMENTS (test code = 903981) NONE METHOD (test code = 28788) (NOTE) SJOGREN'S SS-A ANTIBODY (rocío t code = 17363) <0.2 AI SJOGREN'S SS-B ANTIBODY (rocío t code = 09213) <0.2 AI SHEEHAN (Sm) ANTIBODY (test co de = 62515) <0.2 AI LOAN CLERK ANTIBODY (test code = 87318) <0.2 AI SCL-70 ANTIBODY (test code = 4606) <0.2 AI Nadeen-1 ANTIBODY (test code = 4680) <0.2 AI CENTROMERE B ANTIBODY (test code = 4630) <0.2 AI RIBOSOMAL P ANTIBODY (test code = 68390) <0.2 AI CHROMATIN ANTIBODY (test cod e = 38602) <0.2 AI THYROID PEROXIDASE AB (test code = 60604) <9 IU/ML COMPLEMENT C3 (test code = 3509) 164 MG/DL COMPLEMENT C4 (test code = 3510) 35 MG/DL RHEUMATOID FACTOR, QUANT (te st code = 3502) <10 IU/ML dsDNA ANTIBODY (test code = 50837) 2.0 dsDNA ANTIBODY REFLEX (test code = 02179) (NOTE) Bal Tejada AUTOIMMUNE PANEL REFLEX TO [id number] 00:00:00* Test Item Value Reference Range Interpretation Comme nts ANTI-NUCLEAR ANTIBODIES (rocío t code = 3506) NEGATIVE JEANA PATTERN (REPORTED TITER) (test code = 28604) SEE BELOW HOMOGENEOUS (test code = 78328) NEGATIVE TITER SPECKLED (test code = 525643) NEGATIVE TITER DENSE FINE SPECKLED (test co de = 64098) NEGATIVE TITER CENTROMERE (test code = 239020) NEGATIVE TITER COARSE SPECKLED (test code = 545566) NEGATIVE TITER DISCRETE NUCLEAR DOTS (test code = 115654) NEGATIVE TITER NUCLEOLAR (test code = 172681) NEGATIVE TITER NUCLEAR MEMBRANE (test code = 109101) NEGATIVE TITER CYTO. RETICULAR (JESSICA) (test code = 338555) NEGATIVE COMMENTS (test code = 609558) NONE METHOD (test code = 28170) (NOTE) SJOGREN'S SS-A ANTIBODY (rocío t code = 72805) <0.2 AI SJOGREN'S SS-B ANTIBODY (rocío t code = 95663) <0.2 AI SHEEHAN (Sm) ANTIBODY (test co de = 11172) <0.2 AI LOAN CLERK ANTIBODY (test code = 35797) <0.2 AI SCL-70 ANTIBODY (test code = 4606) <0.2 AI Nadeen-1 ANTIBODY (test code = 4680) <0.2 AI CENTROMERE B ANTIBODY (test code = 4630) <0.2 AI RIBOSOMAL P ANTIBODY (test code = 63957) <0.2 AI CHROMATIN ANTIBODY (test cod e = 22332) <0.2 AI THYROID PEROXIDASE AB (test code = 96728) <9 IU/ML COMPLEMENT C3 (test code = 3509) 164 MG/DL COMPLEMENT C4 (test code = 3510) 35 MG/DL RHEUMATOID FACTOR, QUANT (te st code = 3502) <10 IU/ML dsDNA ANTIBODY (test code = 79013) 2.0 dsDNA ANTIBODY REFLEX (test code = 16648) (NOTE) Bal Tejada AUTOIMMUNE PANEL REFLEX TO [id number] 00:00:00* Test Item Value Reference Range Interpretation Comme nts ANTI-NUCLEAR ANTIBODIES (rocío t code = 3506) NEGATIVE JEANA PATTERN (REPORTED TITER) (test code = 89078) SEE BELOW HOMOGENEOUS (test code = 05933) NEGATIVE TITER SPECKLED (test code = 472654) NEGATIVE TITER DENSE FINE SPECKLED (test co de = 82096) NEGATIVE TITER CENTROMERE (test code = 342658) NEGATIVE TITER COARSE SPECKLED (test code = 942077) NEGATIVE TITER DISCRETE NUCLEAR DOTS (test code = 875574) NEGATIVE TITER NUCLEOLAR (test code = 453865) NEGATIVE TITER NUCLEAR MEMBRANE (test code = 788946) NEGATIVE TITER CYTO. RETICULAR (JESSICA) (test code = 185274) NEGATIVE COMMENTS (test code = 146827) NONE METHOD (test code = 82408) (NOTE) SJOGREN'S SS-A ANTIBODY (rocío t code = 32394) <0.2 AI SJOGREN'S SS-B ANTIBODY (rocío t code = 98356) <0.2 AI SHEEHAN (Sm) ANTIBODY (test co de = 37114) <0.2 AI LOAN CLERK ANTIBODY (test code = 05580) <0.2 AI SCL-70 ANTIBODY (test code = 4606) <0.2 AI Nadeen-1 ANTIBODY (test code = 4680) <0.2 AI CENTROMERE B ANTIBODY (test code = 4630) <0.2 AI RIBOSOMAL P ANTIBODY (test code = 28529) <0.2 AI CHROMATIN ANTIBODY (test cod e = 86372) <0.2 AI THYROID PEROXIDASE AB (test code = 66555) <9 IU/ML COMPLEMENT C3 (test code = 3509) 164 MG/DL COMPLEMENT C4 (test code = 3510) 35 MG/DL RHEUMATOID FACTOR, QUANT (te st code = 3502) <10 IU/ML dsDNA ANTIBODY (test code = 24579) 2.0 dsDNA ANTIBODY REFLEX (test code = 10347) (NOTE) Bal Tejada AUTOIMMUNE PANEL REFLEX TO [id number] 00:00:00* Test Item Value Reference Range Interpretation Comme nts ANTI-NUCLEAR ANTIBODIES (rocío t code = 3506) NEGATIVE JEANA PATTERN (REPORTED TITER) (test code = 10112) SEE BELOW HOMOGENEOUS (test code = 16150) NEGATIVE TITER SPECKLED (test code = 670253) NEGATIVE TITER DENSE FINE SPECKLED (test co de = 18281) NEGATIVE TITER CENTROMERE (test code = 870456) NEGATIVE TITER COARSE SPECKLED (test code = 192069) NEGATIVE TITER DISCRETE NUCLEAR DOTS (test code = 677159) NEGATIVE TITER NUCLEOLAR (test code = 223641) NEGATIVE TITER NUCLEAR MEMBRANE (test code = 879547) NEGATIVE TITER CYTO. RETICULAR (JESSICA) (test code = 196795) NEGATIVE COMMENTS (test code = 888420) NONE METHOD (test code = 64216) (NOTE) SJOGREN'S SS-A ANTIBODY (rocío t code = 43531) <0.2 AI SJOGREN'S SS-B ANTIBODY (rocío t code = 76240) <0.2 AI SHEEHAN (Sm) ANTIBODY (test co de = 11417) <0.2 AI LOAN CLERK ANTIBODY (test code = 18162) <0.2 AI SCL-70 ANTIBODY (test code = 4606) <0.2 AI Nadeen-1 ANTIBODY (test code = 4680) <0.2 AI CENTROMERE B ANTIBODY (test code = 4630) <0.2 AI RIBOSOMAL P ANTIBODY (test code = 59180) <0.2 AI CHROMATIN ANTIBODY (test cod e = 78107) <0.2 AI THYROID PEROXIDASE AB (test code = 58757) <9 IU/ML COMPLEMENT C3 (test code = 3509) 164 MG/DL COMPLEMENT C4 (test code = 3510) 35 MG/DL RHEUMATOID FACTOR, QUANT (te st code = 3502) <10 IU/ML dsDNA ANTIBODY (test code = 61859) 2.0 dsDNA ANTIBODY REFLEX (test code = 19181) (NOTE) Bal Zapata Mallory AUTOIMMUNE PANEL REFLEX TO [id number] 00:00:00* Test Item Value Reference Range Interpretation Comme nts ANTI-NUCLEAR ANTIBODIES (rocío t code = 3506) NEGATIVE JEANA PATTERN (REPORTED TITER) (test code = 01078) SEE BELOW HOMOGENEOUS (test code = 62742) NEGATIVE TITER SPECKLED (test code = 915118) NEGATIVE TITER DENSE FINE SPECKLED (test co de = 21152) NEGATIVE TITER CENTROMERE (test code = 464704) NEGATIVE TITER COARSE SPECKLED (test code = 054899) NEGATIVE TITER DISCRETE NUCLEAR DOTS (test code = 574698) NEGATIVE TITER NUCLEOLAR (test code = 898146) NEGATIVE TITER NUCLEAR MEMBRANE (test code = 446055) NEGATIVE TITER CYTO. RETICULAR (JESSICA) (test code = 582556) NEGATIVE COMMENTS (test code = 183854) NONE METHOD (test code = 11978) (NOTE) SJOGREN'S SS-A ANTIBODY (rocío t code = 20589) <0.2 AI SJOGREN'S SS-B ANTIBODY (rocío t code = 13782) <0.2 AI SHEEHAN (Sm) ANTIBODY (test co de = 18392) <0.2 AI LOAN CLERK ANTIBODY (test code = 39773) <0.2 AI SCL-70 ANTIBODY (test code = 4606) <0.2 AI Nadeen-1 ANTIBODY (test code = 4680) <0.2 AI CENTROMERE B ANTIBODY (test code = 4630) <0.2 AI RIBOSOMAL P ANTIBODY (test code = 12187) <0.2 AI CHROMATIN ANTIBODY (test cod e = 60773) <0.2 AI THYROID PEROXIDASE AB (test code = 95721) <9 IU/ML COMPLEMENT C3 (test code = 3509) 164 MG/DL COMPLEMENT C4 (test code = 3510) 35 MG/DL RHEUMATOID FACTOR, QUANT (te st code = 3502) <10 IU/ML dsDNA ANTIBODY (test code = 72234) 2.0 dsDNA ANTIBODY REFLEX (test code = 37918) (NOTE) Bal RoseJEANA AUTOIMMUNE PANEL REFLEX TO [id number] 00:00:00* Test Item Value Reference Range Interpretation Comme nts ANTI-NUCLEAR ANTIBODIES (rocío t code = 3506) NEGATIVE JEANA PATTERN (REPORTED TITER) (test code = 06539) SEE BELOW HOMOGENEOUS (test code = 98062) NEGATIVE TITER SPECKLED (test code = 511726) NEGATIVE TITER DENSE FINE SPECKLED (test co de = 41757) NEGATIVE TITER CENTROMERE (test code = 472682) NEGATIVE TITER COARSE SPECKLED (test code = 612798) NEGATIVE TITER DISCRETE NUCLEAR DOTS (test code = 953167) NEGATIVE TITER NUCLEOLAR (test code = 628158) NEGATIVE TITER NUCLEAR MEMBRANE (test code = 801095) NEGATIVE TITER CYTO. RETICULAR (JESSICA) (test code = 254600) NEGATIVE COMMENTS (test code = 934429) NONE METHOD (test code = 57425) (NOTE) SJOGREN'S SS-A ANTIBODY (rocío t code = 95000) <0.2 AI SJOGREN'S SS-B ANTIBODY (rocío t code = 78334) <0.2 AI SHEEHAN (Sm) ANTIBODY (test co de = 98545) <0.2 AI LOAN CLERK ANTIBODY (test code = 16572) <0.2 AI SCL-70 ANTIBODY (test code = 4606) <0.2 AI Nadeen-1 ANTIBODY (test code = 4680) <0.2 AI CENTROMERE B ANTIBODY (test code = 4630) <0.2 AI RIBOSOMAL P ANTIBODY (test code = 92180) <0.2 AI CHROMATIN ANTIBODY (test cod e = 12695) <0.2 AI THYROID PEROXIDASE AB (test code = 22920) <9 IU/ML COMPLEMENT C3 (test code = 3509) 164 MG/DL COMPLEMENT C4 (test code = 3510) 35 MG/DL RHEUMATOID FACTOR, QUANT (te st code = 3502) <10 IU/ML dsDNA ANTIBODY (test code = 72470) 2.0 dsDNA ANTIBODY REFLEX (test code = 39537) (NOTE) Bal Tejada AUTOIMMUNE PANEL REFLEX TO [id number] 00:00:00* Test Item Value Reference Range Interpretation Comme nts ANTI-NUCLEAR ANTIBODIES (rocío t code = 3506) NEGATIVE JEANA PATTERN (REPORTED TITER) (test code = 82618) SEE BELOW HOMOGENEOUS (test code = 02722) NEGATIVE TITER SPECKLED (test code = 625726) NEGATIVE TITER DENSE FINE SPECKLED (test co de = 98707) NEGATIVE TITER CENTROMERE (test code = 310291) NEGATIVE TITER COARSE SPECKLED (test code = 405803) NEGATIVE TITER DISCRETE NUCLEAR DOTS (test code = 816942) NEGATIVE TITER NUCLEOLAR (test code = 339858) NEGATIVE TITER NUCLEAR MEMBRANE (test code = 921950) NEGATIVE TITER CYTO. RETICULAR (JESSICA) (test code = 483657) NEGATIVE COMMENTS (test code = 652159) NONE METHOD (test code = 63360) (NOTE) SJOGREN'S SS-A ANTIBODY (rocío t code = 74526) <0.2 AI SJOGREN'S SS-B ANTIBODY (rocío t code = 01046) <0.2 AI SHEEHAN (Sm) ANTIBODY (test co de = 66372) <0.2 AI LOAN CLERK ANTIBODY (test code = 32464) <0.2 AI SCL-70 ANTIBODY (test code = 4606) <0.2 AI Nadeen-1 ANTIBODY (test code = 4680) <0.2 AI CENTROMERE B ANTIBODY (test code = 4630) <0.2 AI RIBOSOMAL P ANTIBODY (test code = 86521) <0.2 AI CHROMATIN ANTIBODY (test cod e = 53767) <0.2 AI THYROID PEROXIDASE AB (test code = 12515) <9 IU/ML COMPLEMENT C3 (test code = 3509) 164 MG/DL COMPLEMENT C4 (test code = 3510) 35 MG/DL RHEUMATOID FACTOR, QUANT (te st code = 3502) <10 IU/ML dsDNA ANTIBODY (test code = 31802) 2.0 dsDNA ANTIBODY REFLEX (test code = 25720) (NOTE) Bal Tejada AUTOIMMUNE PANEL REFLEX TO [id number] 00:00:00* Test Item Value Reference Range Interpretation Comme nts ANTI-NUCLEAR ANTIBODIES (rocío t code = 3506) NEGATIVE JEANA PATTERN (REPORTED TITER) (test code = 37956) SEE BELOW HOMOGENEOUS (test code = 15351) NEGATIVE TITER SPECKLED (test code = 754060) NEGATIVE TITER DENSE FINE SPECKLED (test co de = 17294) NEGATIVE TITER CENTROMERE (test code = 136663) NEGATIVE TITER COARSE SPECKLED (test code = 603344) NEGATIVE TITER DISCRETE NUCLEAR DOTS (test code = 148103) NEGATIVE TITER NUCLEOLAR (test code = 948797) NEGATIVE TITER NUCLEAR MEMBRANE (test code = 397855) NEGATIVE TITER CYTO. RETICULAR (JESSICA) (test code = 015317) NEGATIVE COMMENTS (test code = 185294) NONE METHOD (test code = 08576) (NOTE) SJOGREN'S SS-A ANTIBODY (rocío t code = 91431) <0.2 AI SJOGREN'S SS-B ANTIBODY (rocío t code = 61291) <0.2 AI SHEEHAN (Sm) ANTIBODY (test co de = 66010) <0.2 AI LOAN CLERK ANTIBODY (test code = 40383) <0.2 AI SCL-70 ANTIBODY (test code = 4606) <0.2 AI Nadeen-1 ANTIBODY (test code = 4680) <0.2 AI CENTROMERE B ANTIBODY (test code = 4630) <0.2 AI RIBOSOMAL P ANTIBODY (test code = 50475) <0.2 AI CHROMATIN ANTIBODY (test cod e = 75954) <0.2 AI THYROID PEROXIDASE AB (test code = 75572) <9 IU/ML COMPLEMENT C3 (test code = 3509) 164 MG/DL COMPLEMENT C4 (test code = 3510) 35 MG/DL RHEUMATOID FACTOR, QUANT (te st code = 3502) <10 IU/ML dsDNA ANTIBODY (test code = 78502) 2.0 dsDNA ANTIBODY REFLEX (test code = 42907) (NOTE) Bal Tejada AUTOIMMUNE PANEL REFLEX TO [id number] 00:00:00* Test Item Value Reference Range Interpretation Comme nts ANTI-NUCLEAR ANTIBODIES (rocío t code = 3506) NEGATIVE JEANA PATTERN (REPORTED TITER) (test code = 07322) SEE BELOW HOMOGENEOUS (test code = 33583) NEGATIVE TITER SPECKLED (test code = 202851) NEGATIVE TITER DENSE FINE SPECKLED (test co de = 21825) NEGATIVE TITER CENTROMERE (test code = 166839) NEGATIVE TITER COARSE SPECKLED (test code = 441006) NEGATIVE TITER DISCRETE NUCLEAR DOTS (test code = 630201) NEGATIVE TITER NUCLEOLAR (test code = 381322) NEGATIVE TITER NUCLEAR MEMBRANE (test code = 444392) NEGATIVE TITER CYTO. RETICULAR (JESSICA) (test code = 079639) NEGATIVE COMMENTS (test code = 371756) NONE METHOD (test code = 23642) (NOTE) SJOGREN'S SS-A ANTIBODY (rocío t code = 91931) <0.2 AI SJOGREN'S SS-B ANTIBODY (rocío t code = 17136) <0.2 AI SHEEHAN (Sm) ANTIBODY (test co de = 20314) <0.2 AI LOAN CLERK ANTIBODY (test code = 56406) <0.2 AI SCL-70 ANTIBODY (test code = 4606) <0.2 AI Nadeen-1 ANTIBODY (test code = 4680) <0.2 AI CENTROMERE B ANTIBODY (test code = 4630) <0.2 AI RIBOSOMAL P ANTIBODY (test code = 67836) <0.2 AI CHROMATIN ANTIBODY (test cod e = 73001) <0.2 AI THYROID PEROXIDASE AB (test code = 02423) <9 IU/ML COMPLEMENT C3 (test code = 3509) 164 MG/DL COMPLEMENT C4 (test code = 3510) 35 MG/DL RHEUMATOID FACTOR, QUANT (te st code = 3502) <10 IU/ML dsDNA ANTIBODY (test code = 83838) 2.0 dsDNA ANTIBODY REFLEX (test code = 91929) (NOTE) Bal Tejada AUTOIMMUNE PANEL REFLEX TO [id number] 00:00:00* Test Item Value Reference Range Interpretation Comme nts ANTI-NUCLEAR ANTIBODIES (rocío t code = 3506) NEGATIVE JEANA PATTERN (REPORTED TITER) (test code = 09672) SEE BELOW HOMOGENEOUS (test code = 81216) NEGATIVE TITER SPECKLED (test code = 078320) NEGATIVE TITER DENSE FINE SPECKLED (test co de = 10123) NEGATIVE TITER CENTROMERE (test code = 430195) NEGATIVE TITER COARSE SPECKLED (test code = 949511) NEGATIVE TITER DISCRETE NUCLEAR DOTS (test code = 499738) NEGATIVE TITER NUCLEOLAR (test code = 176540) NEGATIVE TITER NUCLEAR MEMBRANE (test code = 668290) NEGATIVE TITER CYTO. RETICULAR (JESSICA) (test code = 067521) NEGATIVE COMMENTS (test code = 405173) NONE METHOD (test code = 46605) (NOTE) SJOGREN'S SS-A ANTIBODY (rocío t code = 16773) <0.2 AI SJOGREN'S SS-B ANTIBODY (rocío t code = 24595) <0.2 AI SHEEHAN (Sm) ANTIBODY (test co de = 69064) <0.2 AI LOAN CLERK ANTIBODY (test code = 27343) <0.2 AI SCL-70 ANTIBODY (test code = 4606) <0.2 AI Nadeen-1 ANTIBODY (test code = 4680) <0.2 AI CENTROMERE B ANTIBODY (test code = 4630) <0.2 AI RIBOSOMAL P ANTIBODY (test code = 54638) <0.2 AI CHROMATIN ANTIBODY (test cod e = 01407) <0.2 AI THYROID PEROXIDASE AB (test code = 23009) <9 IU/ML COMPLEMENT C3 (test code = 3509) 164 MG/DL COMPLEMENT C4 (test code = 3510) 35 MG/DL RHEUMATOID FACTOR, QUANT (te st code = 3502) <10 IU/ML dsDNA ANTIBODY (test code = 21956) 2.0 dsDNA ANTIBODY REFLEX (test code = 46939) (NOTE) Bal Benny Tejada AUTOIMMUNE PANEL REFLEX TO [id number] 00:00:00* Test Item Value Reference Range Interpretation Comme nts ANTI-NUCLEAR ANTIBODIES (rocío t code = 3506) NEGATIVE JEANA PATTERN (REPORTED TITER) (test code = 86869) SEE BELOW HOMOGENEOUS (test code = 68710) NEGATIVE TITER SPECKLED (test code = 536379) NEGATIVE TITER DENSE FINE SPECKLED (test co de = 67187) NEGATIVE TITER CENTROMERE (test code = 279357) NEGATIVE TITER COARSE SPECKLED (test code = 146118) NEGATIVE TITER DISCRETE NUCLEAR DOTS (test code = 850416) NEGATIVE TITER NUCLEOLAR (test code = 311918) NEGATIVE TITER NUCLEAR MEMBRANE (test code = 362186) NEGATIVE TITER CYTO. RETICULAR (JESSICA) (test code = 550730) NEGATIVE COMMENTS (test code = 261709) NONE METHOD (test code = 26004) (NOTE) SJOGREN'S SS-A ANTIBODY (rocío t code = 78665) <0.2 AI SJOGREN'S SS-B ANTIBODY (rocío t code = 02144) <0.2 AI SHEEHAN (Sm) ANTIBODY (test co de = 47803) <0.2 AI LOAN CLERK ANTIBODY (test code = 83273) <0.2 AI SCL-70 ANTIBODY (test code = 4606) <0.2 AI Nadeen-1 ANTIBODY (test code = 4680) <0.2 AI CENTROMERE B ANTIBODY (test code = 4630) <0.2 AI RIBOSOMAL P ANTIBODY (test code = 63542) <0.2 AI CHROMATIN ANTIBODY (test cod e = 05940) <0.2 AI THYROID PEROXIDASE AB (test code = 27532) <9 IU/ML COMPLEMENT C3 (test code = 3509) 164 MG/DL COMPLEMENT C4 (test code = 3510) 35 MG/DL RHEUMATOID FACTOR, QUANT (te st code = 3502) <10 IU/ML dsDNA ANTIBODY (test code = 56925) 2.0 dsDNA ANTIBODY REFLEX (test code = 34560) (NOTE) Bal Benny Tejada AUTOIMMUNE PANEL REFLEX TO [id number] 00:00:00* Test Item Value Reference Range Interpretation Comme nts ANTI-NUCLEAR ANTIBODIES (rocío t code = 3506) NEGATIVE JEANA PATTERN (REPORTED TITER) (test code = 67431) SEE BELOW HOMOGENEOUS (test code = 35557) NEGATIVE TITER SPECKLED (test code = 135052) NEGATIVE TITER DENSE FINE SPECKLED (test co de = 67103) NEGATIVE TITER CENTROMERE (test code = 435416) NEGATIVE TITER COARSE SPECKLED (test code = 711147) NEGATIVE TITER DISCRETE NUCLEAR DOTS (test code = 059181) NEGATIVE TITER NUCLEOLAR (test code = 612967) NEGATIVE TITER NUCLEAR MEMBRANE (test code = 084391) NEGATIVE TITER CYTO. RETICULAR (JESSICA) (test code = 113152) NEGATIVE COMMENTS (test code = 771357) NONE METHOD (test code = 37221) (NOTE) SJOGREN'S SS-A ANTIBODY (rocío t code = 44443) <0.2 AI SJOGREN'S SS-B ANTIBODY (rocío t code = 03506) <0.2 AI SHEEHAN (Sm) ANTIBODY (test co de = 38656) <0.2 AI LOAN CLERK ANTIBODY (test code = 45084) <0.2 AI SCL-70 ANTIBODY (test code = 4606) <0.2 AI Nadeen-1 ANTIBODY (test code = 4680) <0.2 AI CENTROMERE B ANTIBODY (test code = 4630) <0.2 AI RIBOSOMAL P ANTIBODY (test code = 35203) <0.2 AI CHROMATIN ANTIBODY (test cod e = 16144) <0.2 AI THYROID PEROXIDASE AB (test code = 83891) <9 IU/ML COMPLEMENT C3 (test code = 3509) 164 MG/DL COMPLEMENT C4 (test code = 3510) 35 MG/DL RHEUMATOID FACTOR, QUANT (te st code = 3502) <10 IU/ML dsDNA ANTIBODY (test code = 05588) 2.0 dsDNA ANTIBODY REFLEX (test code = 47798) (NOTE) Bal Tejada AUTOIMMUNE PANEL REFLEX TO [id number] 00:00:00* Test Item Value Reference Range Interpretation Comme nts ANTI-NUCLEAR ANTIBODIES (rocío t code = 3506) NEGATIVE JEANA PATTERN (REPORTED TITER) (test code = 44386) SEE BELOW HOMOGENEOUS (test code = 66941) NEGATIVE TITER SPECKLED (test code = 959963) NEGATIVE TITER DENSE FINE SPECKLED (test co de = 70288) NEGATIVE TITER CENTROMERE (test code = 881088) NEGATIVE TITER COARSE SPECKLED (test code = 548451) NEGATIVE TITER DISCRETE NUCLEAR DOTS (test code = 084657) NEGATIVE TITER NUCLEOLAR (test code = 160006) NEGATIVE TITER NUCLEAR MEMBRANE (test code = 923593) NEGATIVE TITER CYTO. RETICULAR (JESSICA) (test code = 065720) NEGATIVE COMMENTS (test code = 018912) NONE METHOD (test code = 29487) (NOTE) SJOGREN'S SS-A ANTIBODY (rocío t code = 83965) <0.2 AI SJOGREN'S SS-B ANTIBODY (rocío t code = 62510) <0.2 AI SHEEHAN (Sm) ANTIBODY (test co de = 46116) <0.2 AI LOAN CLERK ANTIBODY (test code = 74157) <0.2 AI SCL-70 ANTIBODY (test code = 4606) <0.2 AI Nadeen-1 ANTIBODY (test code = 4680) <0.2 AI CENTROMERE B ANTIBODY (test code = 4630) <0.2 AI RIBOSOMAL P ANTIBODY (test code = 04519) <0.2 AI CHROMATIN ANTIBODY (test cod e = 69348) <0.2 AI THYROID PEROXIDASE AB (test code = 40940) <9 IU/ML COMPLEMENT C3 (test code = 3509) 164 MG/DL COMPLEMENT C4 (test code = 3510) 35 MG/DL RHEUMATOID FACTOR, QUANT (te st code = 3502) <10 IU/ML dsDNA ANTIBODY (test code = 36280) 2.0 dsDNA ANTIBODY REFLEX (test code = 95094) (NOTE) Bal Tejada AUTOIMMUNE PANEL REFLEX TO [id number] 00:00:00* Test Item Value Reference Range Interpretation Comme nts ANTI-NUCLEAR ANTIBODIES (rocío t code = 3506) NEGATIVE JEANA PATTERN (REPORTED TITER) (test code = 57598) SEE BELOW HOMOGENEOUS (test code = 46122) NEGATIVE TITER SPECKLED (test code = 564640) NEGATIVE TITER DENSE FINE SPECKLED (test co de = 01678) NEGATIVE TITER CENTROMERE (test code = 039395) NEGATIVE TITER COARSE SPECKLED (test code = 117625) NEGATIVE TITER DISCRETE NUCLEAR DOTS (test code = 093746) NEGATIVE TITER NUCLEOLAR (test code = 072412) NEGATIVE TITER NUCLEAR MEMBRANE (test code = 621481) NEGATIVE TITER CYTO. RETICULAR (JESSICA) (test code = 098951) NEGATIVE COMMENTS (test code = 213025) NONE METHOD (test code = 17108) (NOTE) SJOGREN'S SS-A ANTIBODY (rocío t code = 90472) <0.2 AI SJOGREN'S SS-B ANTIBODY (rocío t code = 80233) <0.2 AI SHEEHAN (Sm) ANTIBODY (test co de = 44441) <0.2 AI LOAN CLERK ANTIBODY (test code = 54444) <0.2 AI SCL-70 ANTIBODY (test code = 4606) <0.2 AI Nadeen-1 ANTIBODY (test code = 4680) <0.2 AI CENTROMERE B ANTIBODY (test code = 4630) <0.2 AI RIBOSOMAL P ANTIBODY (test code = 36093) <0.2 AI CHROMATIN ANTIBODY (test cod e = 12428) <0.2 AI THYROID PEROXIDASE AB (test code = 40481) <9 IU/ML COMPLEMENT C3 (test code = 3509) 164 MG/DL COMPLEMENT C4 (test code = 3510) 35 MG/DL RHEUMATOID FACTOR, QUANT (te st code = 3502) <10 IU/ML dsDNA ANTIBODY (test code = 97134) 2.0 dsDNA ANTIBODY REFLEX (test code = 64319) (NOTE) Bal F Mallory AUTOIMMUNE PANEL REFLEX TO [id number] 00:00:00* Test Item Value Reference Range Interpretation Comme nts ANTI-NUCLEAR ANTIBODIES (rocío t code = 3506) NEGATIVE JEANA PATTERN (REPORTED TITER) (test code = 50636) SEE BELOW HOMOGENEOUS (test code = 16130) NEGATIVE TITER SPECKLED (test code = 097339) NEGATIVE TITER DENSE FINE SPECKLED (test co de = 78145) NEGATIVE TITER CENTROMERE (test code = 351570) NEGATIVE TITER COARSE SPECKLED (test code = 769684) NEGATIVE TITER DISCRETE NUCLEAR DOTS (test code = 827208) NEGATIVE TITER NUCLEOLAR (test code = 310397) NEGATIVE TITER NUCLEAR MEMBRANE (test code = 840236) NEGATIVE TITER CYTO. RETICULAR (JESSICA) (test code = 085706) NEGATIVE COMMENTS (test code = 811535) NONE METHOD (test code = 45209) (NOTE) SJOGREN'S SS-A ANTIBODY (rocío t code = 63912) <0.2 AI SJOGREN'S SS-B ANTIBODY (rocío t code = 60972) <0.2 AI SHEEHAN (Sm) ANTIBODY (test co de = 28310) <0.2 AI LOAN CLERK ANTIBODY (test code = 77009) <0.2 AI SCL-70 ANTIBODY (test code = 4606) <0.2 AI Nadeen-1 ANTIBODY (test code = 4680) <0.2 AI CENTROMERE B ANTIBODY (test code = 4630) <0.2 AI RIBOSOMAL P ANTIBODY (test code = 52725) <0.2 AI CHROMATIN ANTIBODY (test cod e = 28164) <0.2 AI THYROID PEROXIDASE AB (test code = 60634) <9 IU/ML COMPLEMENT C3 (test code = 3509) 164 MG/DL COMPLEMENT C4 (test code = 3510) 35 MG/DL RHEUMATOID FACTOR, QUANT (te st code = 3502) <10 IU/ML dsDNA ANTIBODY (test code = 42678) 2.0 dsDNA ANTIBODY REFLEX (test code = 53534) (NOTE) Bal Tejada AUTOIMMUNE PANEL REFLEX TO [id number] 00:00:00* Test Item Value Reference Range Interpretation Comme nts ANTI-NUCLEAR ANTIBODIES (rocío t code = 3506) NEGATIVE JEANA PATTERN (REPORTED TITER) (test code = 01197) SEE BELOW HOMOGENEOUS (test code = 58113) NEGATIVE TITER SPECKLED (test code = 648605) NEGATIVE TITER DENSE FINE SPECKLED (test co de = 44360) NEGATIVE TITER CENTROMERE (test code = 171835) NEGATIVE TITER COARSE SPECKLED (test code = 945228) NEGATIVE TITER DISCRETE NUCLEAR DOTS (test code = 871960) NEGATIVE TITER NUCLEOLAR (test code = 817525) NEGATIVE TITER NUCLEAR MEMBRANE (test code = 774236) NEGATIVE TITER CYTO. RETICULAR (JESSICA) (test code = 365321) NEGATIVE COMMENTS (test code = 263318) NONE METHOD (test code = 06084) (NOTE) SJOGREN'S SS-A ANTIBODY (rocío t code = 88658) <0.2 AI SJOGREN'S SS-B ANTIBODY (rocío t code = 64423) <0.2 AI SHEEHAN (Sm) ANTIBODY (test co de = 88506) <0.2 AI LOAN CLERK ANTIBODY (test code = 83280) <0.2 AI SCL-70 ANTIBODY (test code = 4606) <0.2 AI Nadeen-1 ANTIBODY (test code = 4680) <0.2 AI CENTROMERE B ANTIBODY (test code = 4630) <0.2 AI RIBOSOMAL P ANTIBODY (test code = 76927) <0.2 AI CHROMATIN ANTIBODY (test cod e = 97246) <0.2 AI THYROID PEROXIDASE AB (test code = 17539) <9 IU/ML COMPLEMENT C3 (test code = 3509) 164 MG/DL COMPLEMENT C4 (test code = 3510) 35 MG/DL RHEUMATOID FACTOR, QUANT (te st code = 3502) <10 IU/ML dsDNA ANTIBODY (test code = 84388) 2.0 dsDNA ANTIBODY REFLEX (test code = 02862) (NOTE) Bal Tejada AUTOIMMUNE PANEL REFLEX TO [id number] 00:00:00* Test Item Value Reference Range Interpretation Comme nts ANTI-NUCLEAR ANTIBODIES (rocío t code = 3506) NEGATIVE JEANA PATTERN (REPORTED TITER) (test code = 04620) SEE BELOW HOMOGENEOUS (test code = 83793) NEGATIVE TITER SPECKLED (test code = 188740) NEGATIVE TITER DENSE FINE SPECKLED (test co de = 24061) NEGATIVE TITER CENTROMERE (test code = 744567) NEGATIVE TITER COARSE SPECKLED (test code = 844894) NEGATIVE TITER DISCRETE NUCLEAR DOTS (test code = 494591) NEGATIVE TITER NUCLEOLAR (test code = 473641) NEGATIVE TITER NUCLEAR MEMBRANE (test code = 492014) NEGATIVE TITER CYTO. RETICULAR (JESSICA) (test code = 108059) NEGATIVE COMMENTS (test code = 777537) NONE METHOD (test code = 96687) (NOTE) SJOGREN'S SS-A ANTIBODY (rocío t code = 76942) <0.2 AI SJOGREN'S SS-B ANTIBODY (rocío t code = 24045) <0.2 AI SHEEHAN (Sm) ANTIBODY (test co de = 96003) <0.2 AI LOAN CLERK ANTIBODY (test code = 35538) <0.2 AI SCL-70 ANTIBODY (test code = 4606) <0.2 AI Nadeen-1 ANTIBODY (test code = 4680) <0.2 AI CENTROMERE B ANTIBODY (test code = 4630) <0.2 AI RIBOSOMAL P ANTIBODY (test code = 54956) <0.2 AI CHROMATIN ANTIBODY (test cod e = 41996) <0.2 AI THYROID PEROXIDASE AB (test code = 52338) <9 IU/ML COMPLEMENT C3 (test code = 3509) 164 MG/DL COMPLEMENT C4 (test code = 3510) 35 MG/DL RHEUMATOID FACTOR, QUANT (te st code = 3502) <10 IU/ML dsDNA ANTIBODY (test code = 34838) 2.0 dsDNA ANTIBODY REFLEX (test code = 98470) (NOTE) Bal Tejada AUTOIMMUNE PANEL REFLEX TO [id number] 00:00:00* Test Item Value Reference Range Interpretation Comme nts ANTI-NUCLEAR ANTIBODIES (rocío t code = 3506) NEGATIVE JEANA PATTERN (REPORTED TITER) (test code = 11534) SEE BELOW HOMOGENEOUS (test code = 26375) NEGATIVE TITER SPECKLED (test code = 874945) NEGATIVE TITER DENSE FINE SPECKLED (test co de = 57076) NEGATIVE TITER CENTROMERE (test code = 957916) NEGATIVE TITER COARSE SPECKLED (test code = 746237) NEGATIVE TITER DISCRETE NUCLEAR DOTS (test code = 553668) NEGATIVE TITER NUCLEOLAR (test code = 285735) NEGATIVE TITER NUCLEAR MEMBRANE (test code = 006424) NEGATIVE TITER CYTO. RETICULAR (JESSICA) (test code = 708303) NEGATIVE COMMENTS (test code = 093117) NONE METHOD (test code = 36279) (NOTE) SJOGREN'S SS-A ANTIBODY (rocío t code = 56172) <0.2 AI SJOGREN'S SS-B ANTIBODY (rocío t code = 72757) <0.2 AI SHEEHAN (Sm) ANTIBODY (test co de = 52482) <0.2 AI LOAN CLERK ANTIBODY (test code = 54291) <0.2 AI SCL-70 ANTIBODY (test code = 4606) <0.2 AI Nadeen-1 ANTIBODY (test code = 4680) <0.2 AI CENTROMERE B ANTIBODY (test code = 4630) <0.2 AI RIBOSOMAL P ANTIBODY (test code = 24494) <0.2 AI CHROMATIN ANTIBODY (test cod e = 76072) <0.2 AI THYROID PEROXIDASE AB (test code = 49895) <9 IU/ML COMPLEMENT C3 (test code = 3509) 164 MG/DL COMPLEMENT C4 (test code = 3510) 35 MG/DL RHEUMATOID FACTOR, QUANT (te st code = 3502) <10 IU/ML dsDNA ANTIBODY (test code = 84957) 2.0 dsDNA ANTIBODY REFLEX (test code = 89889) (NOTE) Bal Zapata AustinC-REACTIVE [id number] 00:00:00* Test Item Value Reference Range Interpretation Comme nts C-REACTIVE PROTEIN (test cod e = 3513) 1.3 MG/DL Bal SuazoH, THIRD [id number] 00:00:00* Test Item Value Reference Range Interpretation Comme nts TSH, THIRD GENERATION (test code = 2821) 74.300 UIU/ML Bal Zapata AustinC-REACTIVE [id number] 00:00:00* Test Item Value Reference Range Interpretation Comme nts C-REACTIVE PROTEIN (test cod e = 3513) 1.3 MG/DL Bal SuazoH, THIRD [id number] 00:00:00* Test Item Value Reference Range Interpretation Comme nts TSH, THIRD GENERATION (test code = 2821) 74.300 UIU/ML Bal Benny AustinC-REACTIVE [id number] 00:00:00* Test Item Value Reference Range Interpretation Comme nts C-REACTIVE PROTEIN (test cod e = 3513) 1.3 MG/DL Bal RoseTSH, THIRD [id number] 00:00:00* Test Item Value Reference Range Interpretation Comme nts TSH, THIRD GENERATION (test code = 2821) 74.300 UIU/ML Bal RoseC-REACTIVE [id number] 00:00:00* Test Item Value Reference Range Interpretation Comme nts C-REACTIVE PROTEIN (test cod e = 3513) 1.3 MG/DL Bal Henriquez, THIRD [id number] 00:00:00* Test Item Value Reference Range Interpretation Comme nts TSH, THIRD GENERATION (test code = 2821) 74.300 UIU/ML Bal Zapata AustinC-REACTIVE [id number] 00:00:00* Test Item Value Reference Range Interpretation Comme nts C-REACTIVE PROTEIN (test cod e = 3513) 1.3 MG/DL Bal Henriquez, THIRD [id number] 00:00:00* Test Item Value Reference Range Interpretation Comme nts TSH, THIRD GENERATION (test code = 2821) 74.300 UIU/ML Bal Zapata AustinC-REACTIVE [id number] 00:00:00* Test Item Value Reference Range Interpretation Comme nts C-REACTIVE PROTEIN (test cod e = 3513) 1.3 MG/DL Bal Henriquez, THIRD [id number] 00:00:00* Test Item Value Reference Range Interpretation Comme nts TSH, THIRD GENERATION (test code = 2821) 74.300 UIU/ML Bal Zapata AustinC-REACTIVE [id number] 00:00:00* Test Item Value Reference Range Interpretation Comme nts C-REACTIVE PROTEIN (test cod e = 3513) 1.3 MG/DL Bal Henriquez, THIRD [id number] 00:00:00* Test Item Value Reference Range Interpretation Comme nts TSH, THIRD GENERATION (test code = 2821) 74.300 UIU/ML Bal Zapata AustinC-REACTIVE [id number] 00:00:00* Test Item Value Reference Range Interpretation Comme nts C-REACTIVE PROTEIN (test cod e = 3513) 1.3 MG/DL Bal Henriquez, THIRD [id number] 00:00:00* Test Item Value Reference Range Interpretation Comme nts TSH, THIRD GENERATION (test code = 2821) 74.300 UIU/ML Bal Zapata AustinC-REACTIVE [id number] 00:00:00* Test Item Value Reference Range Interpretation Comme nts C-REACTIVE PROTEIN (test cod e = 3513) 1.3 MG/DL Bal Henriquez, THIRD [id number] 00:00:00* Test Item Value Reference Range Interpretation Comme nts TSH, THIRD GENERATION (test code = 2821) 74.300 UIU/ML Bal Zapata AustinC-REACTIVE [id number] 00:00:00* Test Item Value Reference Range Interpretation Comme nts C-REACTIVE PROTEIN (test cod e = 3513) 1.3 MG/DL Bal Henriquez, THIRD [id number] 00:00:00* Test Item Value Reference Range Interpretation Comme nts TSH, THIRD GENERATION (test code = 2821) 74.300 UIU/ML Bal Zapata AustinC-REACTIVE [id number] 00:00:00* Test Item Value Reference Range Interpretation Comme nts C-REACTIVE PROTEIN (test cod e = 3513) 1.3 MG/DL Bal Henriquez, THIRD [id number] 00:00:00* Test Item Value Reference Range Interpretation Comme nts TSH, THIRD GENERATION (test code = 2821) 74.300 UIU/ML Bal Zapata AustinC-REACTIVE [id number] 00:00:00* Test Item Value Reference Range Interpretation Comme nts C-REACTIVE PROTEIN (test cod e = 3513) 1.3 MG/DL Bal Henriquez, THIRD [id number] 00:00:00* Test Item Value Reference Range Interpretation Comme nts TSH, THIRD GENERATION (test code = 2821) 74.300 UIU/ML Bal Zapata AustinC-REACTIVE [id number] 00:00:00* Test Item Value Reference Range Interpretation Comme nts C-REACTIVE PROTEIN (test cod e = 3513) 1.3 MG/DL Bal Henriquez, THIRD [id number] 00:00:00* Test Item Value Reference Range Interpretation Comme nts TSH, THIRD GENERATION (test code = 2821) 74.300 UIU/ML Bal Zapata AustinC-REACTIVE [id number] 00:00:00* Test Item Value Reference Range Interpretation Comme nts C-REACTIVE PROTEIN (test cod e = 3513) 1.3 MG/DL Bal Henriquez, THIRD [id number] 00:00:00* Test Item Value Reference Range Interpretation Comme nts TSH, THIRD GENERATION (test code = 2821) 74.300 UIU/ML Bal Zapata AustinC-REACTIVE [id number] 00:00:00* Test Item Value Reference Range Interpretation Comme nts C-REACTIVE PROTEIN (test cod e = 3513) 1.3 MG/DL Bal Henriquez THIRD [id number] 00:00:00* Test Item Value Reference Range Interpretation Comme nts TSH, THIRD GENERATION (test code = 2821) 74.300 UIU/ML Bal Zapata AustinC-REACTIVE [id number] 00:00:00* Test Item Value Reference Range Interpretation Comme nts C-REACTIVE PROTEIN (test cod e = 3513) 1.3 MG/DL Bal Henriquez, THIRD [id number] 00:00:00* Test Item Value Reference Range Interpretation Comme nts TSH, THIRD GENERATION (test code = 2821) 74.300 UIU/ML Bal RoseC-REACTIVE [id number] 00:00:00* Test Item Value Reference Range Interpretation Comme nts C-REACTIVE PROTEIN (test cod e = 3513) 1.3 MG/DL Bal Henriquez THIRD [id number] 00:00:00* Test Item Value Reference Range Interpretation Comme nts TSH, THIRD GENERATION (test code = 2821) 74.300 UIU/ML Bal Zapata AustinC-REACTIVE [id number] 00:00:00* Test Item Value Reference Range Interpretation Comme nts C-REACTIVE PROTEIN (test cod e = 3513) 1.3 MG/DL Bal Henriquez THIRD [id number] 00:00:00* Test Item Value Reference Range Interpretation Comme nts TSH, THIRD GENERATION (test code = 2821) 74.300 UIU/ML Bal RosePOCT [id number] 12:23:00* Test Item Value Reference Range Interpretation Comme nts POCT PREG (test code = 1605) Negative On board controls acceptable with C Line (test code = 3574) Yes POCT PREG LOT # (test code = 3571) [id number] POCT PREG TEST DATE ( test code = 3576) [facility] [id number] 12:23:00* Test Item Value Reference Range Interpretation Comme nts POCT PREG (test code = 1605) Negative On board controls acceptable with C Line (test code = 3574) Yes POCT PREG LOT # (test code = 3575) [id number] POCT PREG TEST DATE ( test code = 3576) [facility] [id number]:00:00* Test Item Value Reference Range Interpretation Comme nts CULTURE, URINE (test code = 35761) SPECIMEN NUMBER: [id number] Bal Palumbo, [id number] 00:00:00* Test Item Value Reference Range Interpretation Comme nts CULTURE, URINE (test code = 13210) SPECIMEN NUMBER: [id number] Bal Palumbo, [id number] 00:00:00* Test Item Value Reference Range Interpretation Comme nts CULTURE, URINE (test code = 07933) SPECIMEN NUMBER: [id number] Bal Palumbo, [id number] 00:00:00* Test Item Value Reference Range Interpretation Comme nts CULTURE, URINE (test code = 41067) SPECIMEN NUMBER: [id number] Bal TreviñoLTISABEL, [id number] 00:00:00* Test Item Value Reference Range Interpretation Comme nts CULTURE, URINE (test code = 82327) SPECIMEN NUMBER: [id number] Bal Palumbo, [id number] 00:00:00* Test Item Value Reference Range Interpretation Comme nts CULTURE, URINE (test code = 73004) SPECIMEN NUMBER: [id number] Bal TreviñoLTISABEL, [id number] 00:00:00* Test Item Value Reference Range Interpretation Comme nts CULTURE, URINE (test code = 56649) SPECIMEN NUMBER: [id number] Bal Palumbo, [id number] 00:00:00* Test Item Value Reference Range Interpretation Comme nts CULTURE, URINE (test code = 99552) SPECIMEN NUMBER: [id number] Bal TreviñoLTISABEL, [id number] 00:00:00* Test Item Value Reference Range Interpretation Comme nts CULTURE, URINE (test code = 52216) SPECIMEN NUMBER: [id number] Bal Palumbo, [id number] 00:00:00* Test Item Value Reference Range Interpretation Comme nts CULTURE, URINE (test code = 98424) SPECIMEN NUMBER: [id number] Bal Palumbo, [id number] 00:00:00* Test Item Value Reference Range Interpretation Comme nts CULTURE, URINE (test code = 62884) SPECIMEN NUMBER: [id number] Bal Palumbo, [id number] 00:00:00* Test Item Value Reference Range Interpretation Comme nts CULTURE, URINE (test code = 92160) SPECIMEN NUMBER: [id number] Bal Palumbo, [id number] 00:00:00* Test Item Value Reference Range Interpretation Comme nts CULTURE, URINE (test code = 44197) SPECIMEN NUMBER: [id number] Bal Palumbo, [id number] 00:00:00* Test Item Value Reference Range Interpretation Comme nts CULTURE, URINE (test code = 54851) SPECIMEN NUMBER: [id number] Bal Palumbo, [id number] 00:00:00* Test Item Value Reference Range Interpretation Comme nts CULTURE, URINE (test code = 66263) SPECIMEN NUMBER: [id number] Bal Palumbo, [id number] 00:00:00* Test Item Value Reference Range Interpretation Comme nts CULTURE, URINE (test code = 31542) SPECIMEN NUMBER: [id number] Bal Palumbo, [id number] 00:00:00* Test Item Value Reference Range Interpretation Comme nts CULTURE, URINE (test code = 28172) SPECIMEN NUMBER: [id number] Bal Palumbo, [id number] 00:00:00* Test Item Value Reference Range Interpretation Comme nts CULTURE, URINE (test code = 31190) SPECIMEN NUMBER: [id number] [facility]-11 00:00:00* Test Item Value Reference Range Interpretation Comme nts Report Summary (test code = REPORT_SUMMARY) NEGATIVE Footnotes (test code = FOOTNOTES) See Notes PDF Report (test code = EMBEDDED_PDF) PDF Bal Esparza Multi-cncr(5+35)2023-02-11 00:00:00* Test Item Value Reference Range Interpretation Comme nts Report Summary (test code = REPORT_SUMMARY) NEGATIVE Footnotes (test code = FOOTNOTES) See Notes PDF Report (test code = EMBEDDED_PDF) PDF Bal Esparza Multi-cncr(5+35)2023-02-11 00:00:00* Test Item Value Reference Range Interpretation Comme nts Report Summary (test code = REPORT_SUMMARY) NEGATIVE Footnotes (test code = FOOTNOTES) See Notes PDF Report (test code = EMBEDDED_PDF) PDF Bal Esparza Multi-cncr(5+35)2023-02-11 00:00:00* Test Item Value Reference Range Interpretation Comme nts Report Summary (test code = REPORT_SUMMARY) NEGATIVE Footnotes (test code = FOOTNOTES) See Notes PDF Report (test code = EMBEDDED_PDF) PDF Bal Esparza Multi-cncr(5+35)2023-02-11 00:00:00* Test Item Value Reference Range Interpretation Comme nts Report Summary (test code = REPORT_SUMMARY) NEGATIVE Footnotes (test code = FOOTNOTES) See Notes PDF Report (test code = EMBEDDED_PDF) PDF Bal Esparza Multi-cncr(5+35)2023-02-11 00:00:00* Test Item Value Reference Range Interpretation Comme nts Report Summary (test code = REPORT_SUMMARY) NEGATIVE Footnotes (test code = FOOTNOTES) See Notes PDF Report (test code = EMBEDDED_PDF) PDF Bal Esparza Multi-cncr(5+35)2023-02-11 00:00:00* Test Item Value Reference Range Interpretation Comme nts Report Summary (test code = REPORT_SUMMARY) NEGATIVE Footnotes (test code = FOOTNOTES) See Notes PDF Report (test code = EMBEDDED_PDF) PDF Bal Esparza Multi-cncr(5+35)2023-02-11 00:00:00* Test Item Value Reference Range Interpretation Comme nts Report Summary (test code = REPORT_SUMMARY) NEGATIVE Footnotes (test code = FOOTNOTES) See Notes PDF Report (test code = EMBEDDED_PDF) PDF Bal Esparza Multi-cncr(5+35)2023-02-11 00:00:00* Test Item Value Reference Range Interpretation Comme nts Report Summary (test code = REPORT_SUMMARY) NEGATIVE Footnotes (test code = FOOTNOTES) See Notes PDF Report (test code = EMBEDDED_PDF) PDF Bal Esparza Multi-cncr(5+35)2023-02-11 00:00:00* Test Item Value Reference Range Interpretation Comme nts Report Summary (test code = REPORT_SUMMARY) NEGATIVE Footnotes (test code = FOOTNOTES) See Notes PDF Report (test code = EMBEDDED_PDF) PDF Bal Esparza Multi-cncr(5+35)2023-02-11 00:00:00* Test Item Value Reference Range Interpretation Comme nts Report Summary (test code = REPORT_SUMMARY) NEGATIVE Footnotes (test code = FOOTNOTES) See Notes PDF Report (test code = EMBEDDED_PDF) PDF Bal Esparza Multi-cncr(5+35)2023-02-11 00:00:00* Test Item Value Reference Range Interpretation Comme nts Report Summary (test code = REPORT_SUMMARY) NEGATIVE Footnotes (test code = FOOTNOTES) See Notes PDF Report (test code = EMBEDDED_PDF) PDF Bal Esparza Multi-cncr(5+35)2023-02-11 00:00:00* Test Item Value Reference Range Interpretation Comme nts Report Summary (test code = REPORT_SUMMARY) NEGATIVE Footnotes (test code = FOOTNOTES) See Notes PDF Report (test code = EMBEDDED_PDF) PDF Bal Esparza Multi-cncr(5+35)2023-02-11 00:00:00* Test Item Value Reference Range Interpretation Comme nts Report Summary (test code = REPORT_SUMMARY) NEGATIVE Footnotes (test code = FOOTNOTES) See Notes PDF Report (test code = EMBEDDED_PDF) PDF Bal Esparza Multi-cncr(5+35)2023-02-11 00:00:00* Test Item Value Reference Range Interpretation Comme nts Report Summary (test code = REPORT_SUMMARY) NEGATIVE Footnotes (test code = FOOTNOTES) See Notes PDF Report (test code = EMBEDDED_PDF) PDF Bal Esparza Multi-cncr(5+35)2023-02-11 00:00:00* Test Item Value Reference Range Interpretation Comme nts Report Summary (test code = REPORT_SUMMARY) NEGATIVE Footnotes (test code = FOOTNOTES) See Notes PDF Report (test code = EMBEDDED_PDF) PDF Bal Gomez-cncr(5+35)2023-02-11 00:00:00* Test Item Value Reference Range Interpretation Comme nts Report Summary (test code = REPORT_SUMMARY) NEGATIVE Footnotes (test code = FOOTNOTES) See Notes PDF Report (test code = EMBEDDED_PDF) PDF Bal Gomez-cncr(5+35)2023-02-11 00:00:00* Test Item Value Reference Range Interpretation Comme nts Report Summary (test code = REPORT_SUMMARY) NEGATIVE Footnotes (test code = FOOTNOTES) See Notes PDF Report (test code = EMBEDDED_PDF) PDF Bal RoseHPV HIGH RISK WITH GENOTYPE, [id number] 00:00:00* Test Item Value Reference Range Interpretation Comme nts HPV HIGH RISK INTERP (test c ode = 69881) NEGATIVE HPV 16 (test code = 04761) NEGATIVE HPV 18 (test code = 14568) NEGATIVE HPV, HR, OTHER GENOTYPES (te st code = 20168) NEGATIVE Bal Zapata AustinHEPATITIS PROFILE (A,B,C)2023-01-30 00:00:00* Test Item Value Reference Range Interpretation Comme nts HEPATITIS A TOTAL AB (test c ode = 2725) NON-REACTIVE HEPATITIS B SURF AG (test co de = 2739) NON-REACTIVE HEP B CORE TOTAL AB (test co de = 2729) NON-REACTIVE HEPATITIS B SURFACE AB (test code = 2737) NON-REACTIVE HEPATITIS C ANTIBODY (test c ode = 4675) NON-REACTIVE INTERPRETATION HEPATITIS A: (test code = 2552) (NOTE) INTERPRETATION HEPATITIS B: (test code = 14392) (NOTE) INTERPRETATION HEPATITIS C: (test code = 78457) (NOTE) Bal RoseGC AND CHLAMYDIA AMPLIFIED, [id number] 00:00:00* Test Item Value Reference Range Interpretation Comme nts CHLAMYDIA, NAAT, THINPREP (t est code = 42742) NEGATIVE GONORRHEA, NAAT, THINPREP (t est code = 35140) NEGATIVE Bal RoseVAGINAL PATHOGENS DNA [id number] 00:00:00* Test Item Value Reference Range Interpretation Comme nts FREDY SPECIES (test code = 84876) NEGATIVE G. VAGINALIS (test code = ) NEGATIVE T. VAGINALIS (test code = ) NEGATIVE Bal RosePAP TEST, THINPREP, [id number] 00:00:00* Test Item Value Reference Range Interpretation Comme nts SOURCE: (test code = 8001) Cervical/Endocervical SLIDES: (test code = 8011) 1 LMP: (test code = 8021) 01/19/2023 SPECIMEN ADEQUACY: (test code = 79890) (NOTE) INTERPRETATION: (test code = 42284) NILM/NO EPITH. ABNORMALITY;SEE BELOW SUPERVISOR PASTRY: (test code = 8101) CHAI DINH(ASCP)IAC LOCATION: (test code = 08861) (NOTE) CPT: (test code = 8140) (NOTE) Bal RoseHIV 1/2 4TH GEN, RFLX [id number] 00:00:00* Test Item Value Reference Range Interpretation Comme nts HIV 1/2 4TH GEN, RFLX CONF ( test code = 3514) NON-REACTIVE Bal Zapata AustinRPR REFLEX TO T. PALLIDUM - [id number] 00:00:00* Test Item Value Reference Range Interpretation Comme nts RPR (test code = 27403) NON-REACTIVE RPR TITER (test code = 3500) NOT INDIC. TITER Bal RoseHPV HIGH RISK WITH GENOTYPE, [id number] 00:00:00* Test Item Value Reference Range Interpretation Comme nts HPV HIGH RISK INTERP (test c ode = 41104) NEGATIVE HPV 16 (test code = 67158) NEGATIVE HPV 18 (test code = 92220) NEGATIVE HPV, HR, OTHER GENOTYPES (te st code = 51647) NEGATIVE Bal F AustinHEPATITIS PROFILE (A,B,C)2023-01-30 00:00:00* Test Item Value Reference Range Interpretation Comme nts HEPATITIS A TOTAL AB (test c ode = 2725) NON-REACTIVE HEPATITIS B SURF AG (test co de = 2739) NON-REACTIVE HEP B CORE TOTAL AB (test co de = 2729) NON-REACTIVE HEPATITIS B SURFACE AB (test code = 2737) NON-REACTIVE HEPATITIS C ANTIBODY (test c ode = 4675) NON-REACTIVE INTERPRETATION HEPATITIS A: (test code = 2552) (NOTE) INTERPRETATION HEPATITIS B: (test code = 92910) (NOTE) INTERPRETATION HEPATITIS C: (test code = 61320) (NOTE) Bal RoseVAGINAL PATHOGENS DNA [id number] 00:00:00* Test Item Value Reference Range Interpretation Comme nts FREDY SPECIES (test code = 30575) NEGATIVE G. VAGINALIS (test code = 74976) NEGATIVE T. VAGINALIS (test code = 55073) NEGATIVE Bal RoseGC AND CHLAMYDIA AMPLIFIED, [id number] 00:00:00* Test Item Value Reference Range Interpretation Comme nts CHLAMYDIA, NAAT, THINPREP (t est code = 68848) NEGATIVE GONORRHEA, NAAT, THINPREP (t est code = 81441) NEGATIVE Bal RoseHIV 1/2 4TH GEN, RFLX [id number] 00:00:00* Test Item Value Reference Range Interpretation Comme nts HIV 1/2 4TH GEN, RFLX CONF ( test code = 3514) NON-REACTIVE Bal RosePAP TEST, THINPREP, [id number] 00:00:00* Test Item Value Reference Range Interpretation Comme nts SOURCE: (test code = 8001) Cervical/Endocervical SLIDES: (test code = 8011) 1 LMP: (test code = 8021) 01/19/2023 SPECIMEN ADEQUACY: (test code = 67065) (NOTE) INTERPRETATION: (test code = 12820) NILM/NO EPITH. ABNORMALITY;SEE BELOW SUPERVISOR PASTRY: (test code = 8101) CHAI DINH(ASCP)IAC LOCATION: (test code = 16739) (NOTE) CPT: (test code = 8140) (NOTE) Bal F AustinRPR REFLEX TO T. PALLIDUM - [id number] 00:00:00* Test Item Value Reference Range Interpretation Comme nts RPR (test code = 88760) NON-REACTIVE RPR TITER (test code = 3500) NOT INDIC. TITER Bal RoseHPV HIGH RISK WITH GENOTYPE, [id number] 00:00:00* Test Item Value Reference Range Interpretation Comme nts HPV HIGH RISK INTERP (test c ode = 71513) NEGATIVE HPV 16 (test code = 31245) NEGATIVE HPV 18 (test code = 44151) NEGATIVE HPV, HR, OTHER GENOTYPES (te st code = 88339) NEGATIVE Bal RoseHEPATITIS PROFILE (A,B,C)2023-01-30 00:00:00* Test Item Value Reference Range Interpretation Comme nts HEPATITIS A TOTAL AB (test c ode = 2725) NON-REACTIVE HEPATITIS B SURF AG (test co de = 2739) NON-REACTIVE HEP B CORE TOTAL AB (test co de = 2729) NON-REACTIVE HEPATITIS B SURFACE AB (test code = 2737) NON-REACTIVE HEPATITIS C ANTIBODY (test c ode = 4675) NON-REACTIVE INTERPRETATION HEPATITIS A: (test code = 2552) (NOTE) INTERPRETATION HEPATITIS B: (test code = 66995) (NOTE) INTERPRETATION HEPATITIS C: (test code = 92232) (NOTE) Bal RoseGC AND CHLAMYDIA AMPLIFIED, [id number] 00:00:00* Test Item Value Reference Range Interpretation Comme nts CHLAMYDIA, NAAT, THINPREP (t est code = 72877) NEGATIVE GONORRHEA, NAAT, THINPREP (t est code = 61457) NEGATIVE Bal RoseVAGINAL PATHOGENS DNA [id number] 00:00:00* Test Item Value Reference Range Interpretation Comme nts FREDY SPECIES (test code = 07164) NEGATIVE G. VAGINALIS (test code = 88802) NEGATIVE T. VAGINALIS (test code = 83622) NEGATIVE Bal RoseHIV 1/2 4TH GEN, RFLX [id number] 00:00:00* Test Item Value Reference Range Interpretation Comme nts HIV 1/2 4TH GEN, RFLX CONF ( test code = 3514) NON-REACTIVE Bal RosePAP TEST, THINPREP, [id number] 00:00:00* Test Item Value Reference Range Interpretation Comme nts SOURCE: (test code = 8001) Cervical/Endocervical SLIDES: (test code = 8011) 1 LMP: (test code = 8021) 01/19/2023 SPECIMEN ADEQUACY: (test code = 08585) (NOTE) INTERPRETATION: (test code = 24884) NILM/NO EPITH. ABNORMALITY;SEE BELOW SUPERVISOR PASTRY: (test code = 8101) CHAI DINH(ASCP)IAC LOCATION: (test code = 77224) (NOTE) CPT: (test code = 8140) (NOTE) Bal Zapata MiltonHPV HIGH RISK WITH GENOTYPE, [id number] 00:00:00* Test Item Value Reference Range Interpretation Comme nts HPV HIGH RISK INTERP (test c ode = 91696) NEGATIVE HPV 16 (test code = 14908) NEGATIVE HPV 18 (test code = 15667) NEGATIVE HPV, HR, OTHER GENOTYPES (te st code = 66959) NEGATIVE Bal Zapata MiltonRPR REFLEX TO T. PALLIDUM - [id number] 00:00:00* Test Item Value Reference Range Interpretation Comme nts RPR (test code = 88723) NON-REACTIVE RPR TITER (test code = 3500) NOT INDIC. TITER Bal Zapata MiltonHEPATITIS PROFILE (A,B,C)2023-01-30 00:00:00* Test Item Value Reference Range Interpretation Comme nts HEPATITIS A TOTAL AB (test c ode = 2725) NON-REACTIVE HEPATITIS B SURF AG (test co de = 2739) NON-REACTIVE HEP B CORE TOTAL AB (test co de = 2729) NON-REACTIVE HEPATITIS B SURFACE AB (test code = 2737) NON-REACTIVE HEPATITIS C ANTIBODY (test c ode = 4675) NON-REACTIVE INTERPRETATION HEPATITIS A: (test code = 2552) (NOTE) INTERPRETATION HEPATITIS B: (test code = 12440) (NOTE) INTERPRETATION HEPATITIS C: (test code = 66780) (NOTE) Bal RsoeGC AND CHLAMYDIA AMPLIFIED, [id number] 00:00:00* Test Item Value Reference Range Interpretation Comme nts CHLAMYDIA, NAAT, THINPREP (t est code = 41340) NEGATIVE GONORRHEA, NAAT, THINPREP (t est code = 05592) NEGATIVE Bal Zapata AustinVAGINAL PATHOGENS DNA [id number] 00:00:00* Test Item Value Reference Range Interpretation Comme nts FREDY SPECIES (test code = 71536) NEGATIVE G. VAGINALIS (test code = 83062) NEGATIVE T. VAGINALIS (test code = 93899) NEGATIVE Bal Zapata AustinHIV 1/2 4TH GEN, RFLX [id number] 00:00:00* Test Item Value Reference Range Interpretation Comme nts HIV 1/2 4TH GEN, RFLX CONF ( test code = 3514) NON-REACTIVE Bal RosePAP TEST, THINPREP, [id number] 00:00:00* Test Item Value Reference Range Interpretation Comme nts SOURCE: (test code = 8001) Cervical/Endocervical SLIDES: (test code = 8011) 1 LMP: (test code = 8021) 01/19/2023 SPECIMEN ADEQUACY: (test code = 19482) (NOTE) INTERPRETATION: (test code = 13137) NILM/NO EPITH. ABNORMALITY;SEE BELOW SUPERVISOR PASTRY: (test code = 8101) CHAI DINH(ASCP)IAC LOCATION: (test code = 95830) (NOTE) CPT: (test code = 8140) (NOTE) Bal Zapata AustinHPV HIGH RISK WITH GENOTYPE, [id number] 00:00:00* Test Item Value Reference Range Interpretation Comme nts HPV HIGH RISK INTERP (test c ode = 24956) NEGATIVE HPV 16 (test code = 52530) NEGATIVE HPV 18 (test code = 30506) NEGATIVE HPV, HR, OTHER GENOTYPES (te st code = 64011) NEGATIVE Bal Zapata AustinRPR REFLEX TO T. PALLIDUM - [id number] 00:00:00* Test Item Value Reference Range Interpretation Comme nts RPR (test code = 08805) NON-REACTIVE RPR TITER (test code = 3500) NOT INDIC. TITER Bal Zapata AustinHEPATITIS PROFILE (A,B,C)2023-01-30 00:00:00* Test Item Value Reference Range Interpretation Comme nts HEPATITIS A TOTAL AB (test c ode = 2725) NON-REACTIVE HEPATITIS B SURF AG (test co de = 2739) NON-REACTIVE HEP B CORE TOTAL AB (test co de = 2729) NON-REACTIVE HEPATITIS B SURFACE AB (test code = 2737) NON-REACTIVE HEPATITIS C ANTIBODY (test c ode = 4643) NON-REACTIVE INTERPRETATION HEPATITIS A: (test code = 2552) (NOTE) INTERPRETATION HEPATITIS B: (test code = 01130) (NOTE) INTERPRETATION HEPATITIS C: (test code = 17206) (NOTE) Bal RoseGC AND CHLAMYDIA AMPLIFIED, [id number] 00:00:00* Test Item Value Reference Range Interpretation Comme nts CHLAMYDIA, NAAT, THINPREP (t est code = 60745) NEGATIVE GONORRHEA, NAAT, THINPREP (t est code = 47252) NEGATIVE Bal RoseVAGINAL PATHOGENS DNA [id number] 00:00:00* Test Item Value Reference Range Interpretation Comme nts FREDY SPECIES (test code = 95389) NEGATIVE G. VAGINALIS (test code = 97197) NEGATIVE T. VAGINALIS (test code = 54578) NEGATIVE Bal RoseHIV 1/2 4TH GEN, RFLX [id number] 00:00:00* Test Item Value Reference Range Interpretation Comme nts HIV 1/2 4TH GEN, RFLX CONF ( test code = 3514) NON-REACTIVE Bal RosePAP TEST, THINPREP, [id number] 00:00:00* Test Item Value Reference Range Interpretation Comme nts SOURCE: (test code = 8001) Cervical/Endocervical SLIDES: (test code = 8011) 1 LMP: (test code = 8021) 01/19/2023 SPECIMEN ADEQUACY: (test code = 32057) (NOTE) INTERPRETATION: (test code = 65680) NILM/NO EPITH. ABNORMALITY;SEE BELOW SUPERVISOR PASTRY: (test code = 8101) CHAI DINH(ASCP)IAC LOCATION: (test code = 70614) (NOTE) CPT: (test code = 8140) (NOTE) Bal RoseHPV HIGH RISK WITH GENOTYPE, [id number] 00:00:00* Test Item Value Reference Range Interpretation Comme nts HPV HIGH RISK INTERP (test c ode = 61646) NEGATIVE HPV 16 (test code = 77972) NEGATIVE HPV 18 (test code = 73238) NEGATIVE HPV, HR, OTHER GENOTYPES (te st code = 79728) NEGATIVE Bal RoseRPR REFLEX TO T. PALLIDUM - [id number] 00:00:00* Test Item Value Reference Range Interpretation Comme nts RPR (test code = 05456) NON-REACTIVE RPR TITER (test code = 3500) NOT INDIC. TITER Bal RoseHEPATITIS PROFILE (A,B,C)2023-01-30 00:00:00* Test Item Value Reference Range Interpretation Comme nts HEPATITIS A TOTAL AB (test c ode = 2725) NON-REACTIVE HEPATITIS B SURF AG (test co de = 2739) NON-REACTIVE HEP B CORE TOTAL AB (test co de = 2729) NON-REACTIVE HEPATITIS B SURFACE AB (test code = 2737) NON-REACTIVE HEPATITIS C ANTIBODY (test c ode = 4675) NON-REACTIVE INTERPRETATION HEPATITIS A: (test code = 2552) (NOTE) INTERPRETATION HEPATITIS B: (test code = 64335) (NOTE) INTERPRETATION HEPATITIS C: (test code = 05034) (NOTE) Bal RoseVAGINAL PATHOGENS DNA [id number] 00:00:00* Test Item Value Reference Range Interpretation Comme christopher FREDY SPECIES (test code = 96308) NEGATIVE G. VAGINALIS (test code = 63981) NEGATIVE T. VAGINALIS (test code = 03622) NEGATIVE Bal RoseGC AND CHLAMYDIA AMPLIFIED, [id number] 00:00:00* Test Item Value Reference Range Interpretation Comme christopher CHLAMYDIA, NAAT, THINPREP (t est code = 00394) NEGATIVE GONORRHEA, NAAT, THINPREP (t est code = 82162) NEGATIVE Bal RoseHIV 1/2 4TH GEN, RFLX [id number] 00:00:00* Test Item Value Reference Range Interpretation Comme nts HIV 1/2 4TH GEN, RFLX CONF ( test code = 3514) NON-REACTIVE Bal RosePAP TEST, THINPREP, [id number] 00:00:00* Test Item Value Reference Range Interpretation Comme nts SOURCE: (test code = 8001) Cervical/Endocervical SLIDES: (test code = 8011) 1 LMP: (test code = 8021) 01/19/2023 SPECIMEN ADEQUACY: (test code = 21546) (NOTE) INTERPRETATION: (test code = 17116) NILM/NO EPITH. ABNORMALITY;SEE BELOW SUPERVISOR PASTRY: (test code = 8101) CHAI DINH(ASCP)IAC LOCATION: (test code = 91125) (NOTE) CPT: (test code = 8140) (NOTE) Bal RoseHPV HIGH RISK WITH GENOTYPE, [id number] 00:00:00* Test Item Value Reference Range Interpretation Comme nts HPV HIGH RISK INTERP (test c ode = 48732) NEGATIVE HPV 16 (test code = 07657) NEGATIVE HPV 18 (test code = 74806) NEGATIVE HPV, HR, OTHER GENOTYPES (te st code = 25378) NEGATIVE Bal RoseRPR REFLEX TO T. PALLIDUM - [id number] 00:00:00* Test Item Value Reference Range Interpretation Comme nts RPR (test code = 65946) NON-REACTIVE RPR TITER (test code = 3500) NOT INDIC. TITER Bal RoseHEPATITIS PROFILE (A,B,C)2023-01-30 00:00:00* Test Item Value Reference Range Interpretation Comme nts HEPATITIS A TOTAL AB (test c ode = 2725) NON-REACTIVE HEPATITIS B SURF AG (test co de = 2739) NON-REACTIVE HEP B CORE TOTAL AB (test co de = 2729) NON-REACTIVE HEPATITIS B SURFACE AB (test code = 2737) NON-REACTIVE HEPATITIS C ANTIBODY (test c ode = 4675) NON-REACTIVE INTERPRETATION HEPATITIS A: (test code = 2552) (NOTE) INTERPRETATION HEPATITIS B: (test code = 07152) (NOTE) INTERPRETATION HEPATITIS C: (test code = 95953) (NOTE) Bal RoseVAGINAL PATHOGENS DNA [id number] 00:00:00* Test Item Value Reference Range Interpretation Comme nts FREDY SPECIES (test code = 92924) NEGATIVE G. VAGINALIS (test code = ) NEGATIVE T. VAGINALIS (test code = 21079) NEGATIVE Bal RoseGC AND CHLAMYDIA AMPLIFIED, [id number] 00:00:00* Test Item Value Reference Range Interpretation Comme nts CHLAMYDIA, NAAT, THINPREP (t est code = 24641) NEGATIVE GONORRHEA, NAAT, THINPREP (t est code = 07246) NEGATIVE Bal RoseHIV 1/2 4TH GEN, RFLX [id number] 00:00:00* Test Item Value Reference Range Interpretation Comme nts HIV 1/2 4TH GEN, RFLX CONF ( test code = 3514) NON-REACTIVE Bal RosePAP TEST, THINPREP, [id number] 00:00:00* Test Item Value Reference Range Interpretation Comme nts SOURCE: (test code = 8001) Cervical/Endocervical SLIDES: (test code = 8011) 1 LMP: (test code = 8021) 01/19/2023 SPECIMEN ADEQUACY: (test code = 99509) (NOTE) INTERPRETATION: (test code = 31519) NILM/NO EPITH. ABNORMALITY;SEE BELOW SUPERVISOR PASTRY: (test code = 8101) CHAI DINH(ASCP)IAC LOCATION: (test code = 98084) (NOTE) CPT: (test code = 8140) (NOTE) Bal Zapata AustinHPV HIGH RISK WITH GENOTYPE, [id number] 00:00:00* Test Item Value Reference Range Interpretation Comme nts HPV HIGH RISK INTERP (test c ode = 37200) NEGATIVE HPV 16 (test code = 26365) NEGATIVE HPV 18 (test code = 26396) NEGATIVE HPV, HR, OTHER GENOTYPES (te st code = 16598) NEGATIVE Bal Zapata AustinRPR REFLEX TO T. PALLIDUM - [id number] 00:00:00* Test Item Value Reference Range Interpretation Comme nts RPR (test code = 76510) NON-REACTIVE RPR TITER (test code = 3500) NOT INDIC. TITER Bal Zapata AustinHEPATITIS PROFILE (A,B,C)2023-01-30 00:00:00* Test Item Value Reference Range Interpretation Comme nts HEPATITIS A TOTAL AB (test c ode = 2725) NON-REACTIVE HEPATITIS B SURF AG (test co de = 2739) NON-REACTIVE HEP B CORE TOTAL AB (test co de = 2729) NON-REACTIVE HEPATITIS B SURFACE AB (test code = 2737) NON-REACTIVE HEPATITIS C ANTIBODY (test c ode = 7775) NON-REACTIVE INTERPRETATION HEPATITIS A: (test code = 2552) (NOTE) INTERPRETATION HEPATITIS B: (test code = 21399) (NOTE) INTERPRETATION HEPATITIS C: (test code = 62996) (NOTE) Bal Zapata AustinVAGINAL PATHOGENS DNA [id number] 00:00:00* Test Item Value Reference Range Interpretation Comme nts FREDY SPECIES (test code = 96646) NEGATIVE G. VAGINALIS (test code = 34801) NEGATIVE T. VAGINALIS (test code = 39538) NEGATIVE Bal RoseGC AND CHLAMYDIA AMPLIFIED, [id number] 00:00:00* Test Item Value Reference Range Interpretation Comme nts CHLAMYDIA, NAAT, THINPREP (t est code = 01104) NEGATIVE GONORRHEA, NAAT, THINPREP (t est code = 83294) NEGATIVE Bal RoseHIV 1/2 4TH GEN, RFLX [id number] 00:00:00* Test Item Value Reference Range Interpretation Comme nts HIV 1/2 4TH GEN, RFLX CONF ( test code = 3514) NON-REACTIVE Bal RosePAP TEST, THINPREP, [id number] 00:00:00* Test Item Value Reference Range Interpretation Comme nts SOURCE: (test code = 8001) Cervical/Endocervical SLIDES: (test code = 8011) 1 LMP: (test code = 8021) 01/19/2023 SPECIMEN ADEQUACY: (test code = 77608) (NOTE) INTERPRETATION: (test code = 22780) NILM/NO EPITH. ABNORMALITY;SEE BELOW SUPERVISOR PASTRY: (test code = 8101) CHAI DINH(ASCP)IAC LOCATION: (test code = 87108) (NOTE) CPT: (test code = 8140) (NOTE) Bal Zapata AustinHPV HIGH RISK WITH GENOTYPE, [id number] 00:00:00* Test Item Value Reference Range Interpretation Comme nts HPV HIGH RISK INTERP (test c ode = 91264) NEGATIVE HPV 16 (test code = 36117) NEGATIVE HPV 18 (test code = 75705) NEGATIVE HPV, HR, OTHER GENOTYPES (te st code = 06651) NEGATIVE Bal Zapata AustinRPR REFLEX TO T. PALLIDUM - [id number] 00:00:00* Test Item Value Reference Range Interpretation Comme nts RPR (test code = 37827) NON-REACTIVE RPR TITER (test code = 3500) NOT INDIC. TITER Bal RoseHEPATITIS PROFILE (A,B,C)2023-01-30 00:00:00* Test Item Value Reference Range Interpretation Comme nts HEPATITIS A TOTAL AB (test c ode = 2725) NON-REACTIVE HEPATITIS B SURF AG (test co de = 2739) NON-REACTIVE HEP B CORE TOTAL AB (test co de = 2729) NON-REACTIVE HEPATITIS B SURFACE AB (test code = 2737) NON-REACTIVE HEPATITIS C ANTIBODY (test c ode = 4675) NON-REACTIVE INTERPRETATION HEPATITIS A: (test code = 2552) (NOTE) INTERPRETATION HEPATITIS B: (test code = 51478) (NOTE) INTERPRETATION HEPATITIS C: (test code = 20885) (NOTE) Bal RoseVAGINAL PATHOGENS DNA [id number] 00:00:00* Test Item Value Reference Range Interpretation Comme nts FREDY SPECIES (test code = 90131) NEGATIVE G. VAGINALIS (test code = 41172) NEGATIVE T. VAGINALIS (test code = 12969) NEGATIVE Bal RoseGC AND CHLAMYDIA AMPLIFIED, [id number] 00:00:00* Test Item Value Reference Range Interpretation Comme christopher CHLAMYDIA, NAAT, THINPREP (t est code = 31422) NEGATIVE GONORRHEA, NAAT, THINPREP (t est code = 59314) NEGATIVE Bal RosePAP TEST, THINPREP, [id number] 00:00:00* Test Item Value Reference Range Interpretation Comme nts SOURCE: (test code = 8001) Cervical/Endocervical SLIDES: (test code = 8011) 1 LMP: (test code = 8021) 01/19/2023 SPECIMEN ADEQUACY: (test code = 87084) (NOTE) INTERPRETATION: (test code = 36010) NILM/NO EPITH. ABNORMALITY;SEE BELOW SUPERVISOR PASTRY: (test code = 8101) CHAI DINH(ASCP)IAC LOCATION: (test code = 21169) (NOTE) CPT: (test code = 8140) (NOTE) Bal RoseHIV 1/2 4TH GEN, RFLX [id number] 00:00:00* Test Item Value Reference Range Interpretation Comme nts HIV 1/2 4TH GEN, RFLX CONF ( test code = 3514) NON-REACTIVE Bal RoseHPV HIGH RISK WITH GENOTYPE, [id number] 00:00:00* Test Item Value Reference Range Interpretation Comme nts HPV HIGH RISK INTERP (test c ode = 29018) NEGATIVE HPV 16 (test code = 36559) NEGATIVE HPV 18 (test code = 49235) NEGATIVE HPV, HR, OTHER GENOTYPES (te st code = 41181) NEGATIVE Bal Zapata AustinRPR REFLEX TO T. PALLIDUM - [id number] 00:00:00* Test Item Value Reference Range Interpretation Comme nts RPR (test code = 73973) NON-REACTIVE RPR TITER (test code = 3500) NOT INDIC. TITER Bal RoseHEPATITIS PROFILE (A,B,C)2023-01-30 00:00:00* Test Item Value Reference Range Interpretation Comme nts HEPATITIS A TOTAL AB (test c ode = 2725) NON-REACTIVE HEPATITIS B SURF AG (test co de = 2739) NON-REACTIVE HEP B CORE TOTAL AB (test co de = 2729) NON-REACTIVE HEPATITIS B SURFACE AB (test code = 2737) NON-REACTIVE HEPATITIS C ANTIBODY (test c ode = 4675) NON-REACTIVE INTERPRETATION HEPATITIS A: (test code = 2552) (NOTE) INTERPRETATION HEPATITIS B: (test code = 08088) (NOTE) INTERPRETATION HEPATITIS C: (test code = 29753) (NOTE) Bal RoseVAGINAL PATHOGENS DNA [id number] 00:00:00* Test Item Value Reference Range Interpretation Comme [facility] FREDY SPECIES (test code = 88417) NEGATIVE G. VAGINALIS (test code = 85408) NEGATIVE T. VAGINALIS (test code = 18128) NEGATIVE Bal RoseGC AND CHLAMYDIA AMPLIFIED, [id number] 00:00:00* Test Item Value Reference Range Interpretation Comme nts CHLAMYDIA, NAAT, THINPREP (t est code = 07314) NEGATIVE GONORRHEA, NAAT, THINPREP (t est code = 81319) NEGATIVE Bal RoseHIV 1/2 4TH GEN, RFLX [id number] 00:00:00* Test Item Value Reference Range Interpretation Comme nts HIV 1/2 4TH GEN, RFLX CONF ( test code = 3514) NON-REACTIVE Bal Zapata AustinPAP TEST, THINPREP, [id number] 00:00:00* Test Item Value Reference Range Interpretation Comme nts SOURCE: (test code = 8001) Cervical/Endocervical SLIDES: (test code = 8011) 1 LMP: (test code = 8021) 01/19/2023 SPECIMEN ADEQUACY: (test code = 07082) (NOTE) INTERPRETATION: (test code = 49602) NILM/NO EPITH. ABNORMALITY;SEE BELOW SUPERVISOR PASTRY: (test code = 8101) CHAI DINH(ASCP)IAC LOCATION: (test code = 70994) (NOTE) CPT: (test code = 8140) (NOTE) Bal Zapata AustinHPV HIGH RISK WITH GENOTYPE, [id number] 00:00:00* Test Item Value Reference Range Interpretation Comme nts HPV HIGH RISK INTERP (test c ode = 95693) NEGATIVE HPV 16 (test code = 84563) NEGATIVE HPV 18 (test code = 20423) NEGATIVE HPV, HR, OTHER GENOTYPES (te st code = 32301) NEGATIVE Bal Zapata AustinRPR REFLEX TO T. PALLIDUM - [id number] 00:00:00* Test Item Value Reference Range Interpretation Comme nts RPR (test code = 41296) NON-REACTIVE RPR TITER (test code = 3500) NOT INDIC. TITER Bal RoseHEPATITIS PROFILE (A,B,C)2023-01-30 00:00:00* Test Item Value Reference Range Interpretation Comme nts HEPATITIS A TOTAL AB (test c ode = 2725) NON-REACTIVE HEPATITIS B SURF AG (test co de = 2739) NON-REACTIVE HEP B CORE TOTAL AB (test co de = 2729) NON-REACTIVE HEPATITIS B SURFACE AB (test code = 2737) NON-REACTIVE HEPATITIS C ANTIBODY (test c ode = 4675) NON-REACTIVE INTERPRETATION HEPATITIS A: (test code = 2552) (NOTE) INTERPRETATION HEPATITIS B: (test code = 71720) (NOTE) INTERPRETATION HEPATITIS C: (test code = 64734) (NOTE) Bal Zapata AustinVAGINAL PATHOGENS DNA [id number] 00:00:00* Test Item Value Reference Range Interpretation Comme nts FREDY SPECIES (test code = 66310) NEGATIVE G. VAGINALIS (test code = 36403) NEGATIVE T. VAGINALIS (test code = 97296) NEGATIVE Bal RoseGC AND CHLAMYDIA AMPLIFIED, [id number] 00:00:00* Test Item Value Reference Range Interpretation Comme nts CHLAMYDIA, NAAT, THINPREP (t est code = 63392) NEGATIVE GONORRHEA, NAAT, THINPREP (t est code = 11580) NEGATIVE Bal RoseHIV 1/2 4TH GEN, RFLX [id number] 00:00:00* Test Item Value Reference Range Interpretation Comme nts HIV 1/2 4TH GEN, RFLX CONF ( test code = 3514) NON-REACTIVE Bal RosePAP TEST, THINPREP, [id number] 00:00:00* Test Item Value Reference Range Interpretation Comme nts SOURCE: (test code = 8001) Cervical/Endocervical SLIDES: (test code = 8011) 1 LMP: (test code = 8021) 01/19/2023 SPECIMEN ADEQUACY: (test code = 28017) (NOTE) INTERPRETATION: (test code = 79849) NILM/NO EPITH. ABNORMALITY;SEE BELOW SUPERVISOR PASTRY: (test code = 8101) CHAI DINH(ASCP)IAC LOCATION: (test code = 59312) (NOTE) CPT: (test code = 8140) (NOTE) Bal RoseHPV HIGH RISK WITH GENOTYPE, [id number] 00:00:00* Test Item Value Reference Range Interpretation Comme nts HPV HIGH RISK INTERP (test c ode = 84613) NEGATIVE HPV 16 (test code = 00878) NEGATIVE HPV 18 (test code = 02930) NEGATIVE HPV, HR, OTHER GENOTYPES (te st code = 32557) NEGATIVE Bal Zapata AustinRPR REFLEX TO T. PALLIDUM - [id number] 00:00:00* Test Item Value Reference Range Interpretation Comme nts RPR (test code = 46983) NON-REACTIVE RPR TITER (test code = 3500) NOT INDIC. TITER Bal Zapata AustinHEPATITIS PROFILE (A,B,C)2023-01-30 00:00:00* Test Item Value Reference Range Interpretation Comme nts HEPATITIS A TOTAL AB (test c ode = 2725) NON-REACTIVE HEPATITIS B SURF AG (test co de = 2739) NON-REACTIVE HEP B CORE TOTAL AB (test co de = 5130) NON-REACTIVE HEPATITIS B SURFACE AB (test code = 3487) NON-REACTIVE HEPATITIS C ANTIBODY (test c ode = 9341) NON-REACTIVE INTERPRETATION HEPATITIS A: (test code = 2552) (NOTE) INTERPRETATION HEPATITIS B: (test code = 18345) (NOTE) INTERPRETATION HEPATITIS C: (test code = 54360) (NOTE) Bal RoseVAGINAL PATHOGENS DNA [id number] 00:00:00* Test Item Value Reference Range Interpretation Comme nts FREDY SPECIES (test code = 19162) NEGATIVE G. VAGINALIS (test code = ) NEGATIVE T. VAGINALIS (test code = 33641) NEGATIVE Bal RoseGC AND CHLAMYDIA AMPLIFIED, [id number] 00:00:00* Test Item Value Reference Range Interpretation Comme nts CHLAMYDIA, NAAT, THINPREP (t est code = 05827) NEGATIVE GONORRHEA, NAAT, THINPREP (t est code = 10360) NEGATIVE Bal RosePAP TEST, THINPREP, [id number] 00:00:00* Test Item Value Reference Range Interpretation Comme nts SOURCE: (test code = 8001) Cervical/Endocervical SLIDES: (test code = 8011) 1 LMP: (test code = 8021) 01/19/2023 SPECIMEN ADEQUACY: (test code = 47127) (NOTE) INTERPRETATION: (test code = 35674) NILM/NO EPITH. ABNORMALITY;SEE BELOW SUPERVISOR PASTRY: (test code = 8101) CHAI DINH(ASCP)IAC LOCATION: (test code = 44666) (NOTE) CPT: (test code = 8140) (NOTE) Bal Zapata AustinHIV 1/2 4TH GEN, RFLX [id number] 00:00:00* Test Item Value Reference Range Interpretation Comme nts HIV 1/2 4TH GEN, RFLX CONF ( test code = 3514) NON-REACTIVE Bal RoseRPR REFLEX TO T. PALLIDUM - [id number] 00:00:00* Test Item Value Reference Range Interpretation Comme nts RPR (test code = 16207) NON-REACTIVE RPR TITER (test code = 3500) NOT INDIC. TITER Bal F AustinHPV HIGH RISK WITH GENOTYPE, [id number] 00:00:00* Test Item Value Reference Range Interpretation Comme nts HPV HIGH RISK INTERP (test c ode = 72575) NEGATIVE HPV 16 (test code = 31018) NEGATIVE HPV 18 (test code = 65605) NEGATIVE HPV, HR, OTHER GENOTYPES (te st code = 09975) NEGATIVE Bal RoseHEPATITIS PROFILE (A,B,C)2023-01-30 00:00:00* Test Item Value Reference Range Interpretation Comme nts HEPATITIS A TOTAL AB (test c ode = 2725) NON-REACTIVE HEPATITIS B SURF AG (test co de = 2739) NON-REACTIVE HEP B CORE TOTAL AB (test co de = 2729) NON-REACTIVE HEPATITIS B SURFACE AB (test code = 2737) NON-REACTIVE HEPATITIS C ANTIBODY (test c ode = 4675) NON-REACTIVE INTERPRETATION HEPATITIS A: (test code = 2552) (NOTE) INTERPRETATION HEPATITIS B: (test code = 72239) (NOTE) INTERPRETATION HEPATITIS C: (test code = 63461) (NOTE) Bal RoseVAGINAL PATHOGENS DNA [id number] 00:00:00* Test Item Value Reference Range Interpretation Comme christopher FREDY SPECIES (test code = 87212) NEGATIVE G. VAGINALIS (test code = 58412) NEGATIVE T. VAGINALIS (test code = 05919) NEGATIVE Bal RoseGC AND CHLAMYDIA AMPLIFIED, [id number] 00:00:00* Test Item Value Reference Range Interpretation Comme christopher CHLAMYDIA, NAAT, THINPREP (t est code = 11786) NEGATIVE GONORRHEA, NAAT, THINPREP (t est code = 66049) NEGATIVE Bal RoseHIV 1/2 4TH GEN, RFLX [id number] 00:00:00* Test Item Value Reference Range Interpretation Comme nts HIV 1/2 4TH GEN, RFLX CONF ( test code = 3514) NON-REACTIVE Bal RosePAP TEST, THINPREP, [id number] 00:00:00* Test Item Value Reference Range Interpretation Comme nts SOURCE: (test code = 8001) Cervical/Endocervical SLIDES: (test code = 8011) 1 LMP: (test code = 8021) 01/19/2023 SPECIMEN ADEQUACY: (test code = 88094) (NOTE) INTERPRETATION: (test code = 36554) NILM/NO EPITH. ABNORMALITY;SEE BELOW SUPERVISOR PASTRY: (test code = 8101) CHAI DINH(ASCP)IAC LOCATION: (test code = 29076) (NOTE) CPT: (test code = 8140) (NOTE) Bal Zapata MiltonRPR REFLEX TO T. PALLIDUM - [id number] 00:00:00* Test Item Value Reference Range Interpretation Comme nts RPR (test code = 31847) NON-REACTIVE RPR TITER (test code = 3500) NOT INDIC. TITER Bal RoseHPV HIGH RISK WITH GENOTYPE, [id number] 00:00:00* Test Item Value Reference Range Interpretation Comme nts HPV HIGH RISK INTERP (test c ode = 03052) NEGATIVE HPV 16 (test code = 67714) NEGATIVE HPV 18 (test code = 15582) NEGATIVE HPV, HR, OTHER GENOTYPES (te st code = 37505) NEGATIVE Bal Zapata MiltonHEPATITIS PROFILE (A,B,C)2023-01-30 00:00:00* Test Item Value Reference Range Interpretation Comme nts HEPATITIS A TOTAL AB (test c ode = 2725) NON-REACTIVE HEPATITIS B SURF AG (test co de = 2739) NON-REACTIVE HEP B CORE TOTAL AB (test co de = 2729) NON-REACTIVE HEPATITIS B SURFACE AB (test code = 2737) NON-REACTIVE HEPATITIS C ANTIBODY (test c ode = 4675) NON-REACTIVE INTERPRETATION HEPATITIS A: (test code = 2552) (NOTE) INTERPRETATION HEPATITIS B: (test code = 83970) (NOTE) INTERPRETATION HEPATITIS C: (test code = 85539) (NOTE) Bal Zapata MiltonGC AND CHLAMYDIA AMPLIFIED, [id number] 00:00:00* Test Item Value Reference Range Interpretation Comme nts CHLAMYDIA, NAAT, THINPREP (t est code = 02417) NEGATIVE GONORRHEA, NAAT, THINPREP (t est code = 57454) NEGATIVE Bal Zapata MiltonVAGINAL PATHOGENS DNA [id number] 00:00:00* Test Item Value Reference Range Interpretation Comme nts FREDY SPECIES (test code = 81521) NEGATIVE G. VAGINALIS (test code = 54073) NEGATIVE T. VAGINALIS (test code = 66955) NEGATIVE Bal Zapata AustinHIV 1/2 4TH GEN, RFLX [id number] 00:00:00* Test Item Value Reference Range Interpretation Comme nts HIV 1/2 4TH GEN, RFLX CONF ( test code = 3514) NON-REACTIVE Bal RosePAP TEST, THINPREP, [id number] 00:00:00* Test Item Value Reference Range Interpretation Comme nts SOURCE: (test code = 8001) Cervical/Endocervical SLIDES: (test code = 8011) 1 LMP: (test code = 8021) 01/19/2023 SPECIMEN ADEQUACY: (test code = 82711) (NOTE) INTERPRETATION: (test code = 35383) NILM/NO EPITH. ABNORMALITY;SEE BELOW SUPERVISOR PASTRY: (test code = 8101) CHAI DINH(ASCP)IAC LOCATION: (test code = 56108) (NOTE) CPT: (test code = 8140) (NOTE) Bal Zapata AustinRPR REFLEX TO T. PALLIDUM - [id number] 00:00:00* Test Item Value Reference Range Interpretation Comme nts RPR (test code = 73850) NON-REACTIVE RPR TITER (test code = 3500) NOT INDIC. TITER Bal Zapata AustinHPV HIGH RISK WITH GENOTYPE, [id number] 00:00:00* Test Item Value Reference Range Interpretation Comme nts HPV HIGH RISK INTERP (test c ode = 01030) NEGATIVE HPV 16 (test code = 84399) NEGATIVE HPV 18 (test code = 74404) NEGATIVE HPV, HR, OTHER GENOTYPES (te st code = 60897) NEGATIVE Bal Zapata AustinHEPATITIS PROFILE (A,B,C)2023-01-30 00:00:00* Test Item Value Reference Range Interpretation Comme nts HEPATITIS A TOTAL AB (test c ode = 2725) NON-REACTIVE HEPATITIS B SURF AG (test co de = 2739) NON-REACTIVE HEP B CORE TOTAL AB (test co de = 2729) NON-REACTIVE HEPATITIS B SURFACE AB (test code = 2737) NON-REACTIVE HEPATITIS C ANTIBODY (test c ode = 0175) NON-REACTIVE INTERPRETATION HEPATITIS A: (test code = 2552) (NOTE) INTERPRETATION HEPATITIS B: (test code = 01550) (NOTE) INTERPRETATION HEPATITIS C: (test code = 49633) (NOTE) Bal RoseVAGINAL PATHOGENS DNA [id number] 00:00:00* Test Item Value Reference Range Interpretation Comme nts FREDY SPECIES (test code = 77418) NEGATIVE G. VAGINALIS (test code = 55794) NEGATIVE T. VAGINALIS (test code = 31892) NEGATIVE Bal RoseGC AND CHLAMYDIA AMPLIFIED, [id number] 00:00:00* Test Item Value Reference Range Interpretation Comme nts CHLAMYDIA, NAAT, THINPREP (t est code = 50937) NEGATIVE GONORRHEA, NAAT, THINPREP (t est code = 12729) NEGATIVE Bal RoseHIV 1/2 4TH GEN, RFLX [id number] 00:00:00* Test Item Value Reference Range Interpretation Comme nts HIV 1/2 4TH GEN, RFLX CONF ( test code = 3514) NON-REACTIVE Bal RosePAP TEST, THINPREP, [id number] 00:00:00* Test Item Value Reference Range Interpretation Comme nts SOURCE: (test code = 8001) Cervical/Endocervical SLIDES: (test code = 8011) 1 LMP: (test code = 8021) 01/19/2023 SPECIMEN ADEQUACY: (test code = 16815) (NOTE) INTERPRETATION: (test code = 43740) NILM/NO EPITH. ABNORMALITY;SEE BELOW SUPERVISOR PASTRY: (test code = 8101) CHAI DINH(ASCP)IAC LOCATION: (test code = 00704) (NOTE) CPT: (test code = 8140) (NOTE) Bal Zapata AustinRPR REFLEX TO T. PALLIDUM - [id number] 00:00:00* Test Item Value Reference Range Interpretation Comme nts RPR (test code = 09168) NON-REACTIVE RPR TITER (test code = 3500) NOT INDIC. TITER Bal Zapata AustinHPV HIGH RISK WITH GENOTYPE, [id number] 00:00:00* Test Item Value Reference Range Interpretation Comme nts HPV HIGH RISK INTERP (test c ode = 05615) NEGATIVE HPV 16 (test code = 21826) NEGATIVE HPV 18 (test code = 31609) NEGATIVE HPV, HR, OTHER GENOTYPES (te st code = 25326) NEGATIVE Bal RoseHEPATITIS PROFILE (A,B,C)2023-01-30 00:00:00* Test Item Value Reference Range Interpretation Comme nts HEPATITIS A TOTAL AB (test c ode = 2725) NON-REACTIVE HEPATITIS B SURF AG (test co de = 2739) NON-REACTIVE HEP B CORE TOTAL AB (test co de = 2729) NON-REACTIVE HEPATITIS B SURFACE AB (test code = 2737) NON-REACTIVE HEPATITIS C ANTIBODY (test c ode = 4675) NON-REACTIVE INTERPRETATION HEPATITIS A: (test code = 2552) (NOTE) INTERPRETATION HEPATITIS B: (test code = 08631) (NOTE) INTERPRETATION HEPATITIS C: (test code = 85014) (NOTE) Bal RoseGC AND CHLAMYDIA AMPLIFIED, [id number] 00:00:00* Test Item Value Reference Range Interpretation Comme nts CHLAMYDIA, NAAT, THINPREP (t est code = 45229) NEGATIVE GONORRHEA, NAAT, THINPREP (t est code = 03972) NEGATIVE Bal RoseVAGINAL PATHOGENS DNA [id number] 00:00:00* Test Item Value Reference Range Interpretation Comme nts FREDY SPECIES (test code = 31895) NEGATIVE G. VAGINALIS (test code = 32941) NEGATIVE T. VAGINALIS (test code = 10334) NEGATIVE Bal RosePAP TEST, THINPREP, [id number] 00:00:00* Test Item Value Reference Range Interpretation Comme nts SOURCE: (test code = 8001) Cervical/Endocervical SLIDES: (test code = 8011) 1 LMP: (test code = 8021) 01/19/2023 SPECIMEN ADEQUACY: (test code = 05627) (NOTE) INTERPRETATION: (test code = 86491) NILM/NO EPITH. ABNORMALITY;SEE BELOW SUPERVISOR PASTRY: (test code = 8101) CHAI DINH(ASCP)IAC LOCATION: (test code = 96029) (NOTE) CPT: (test code = 8140) (NOTE) Bal RoseHIV 1/2 4TH GEN, RFLX [id number] 00:00:00* Test Item Value Reference Range Interpretation Comme nts HIV 1/2 4TH GEN, RFLX CONF ( test code = 3514) NON-REACTIVE Bal Zapata AustinRPR REFLEX TO T. PALLIDUM - [id number] 00:00:00* Test Item Value Reference Range Interpretation Comme nts RPR (test code = 50946) NON-REACTIVE RPR TITER (test code = 3500) NOT INDIC. TITER Bal RoseHPV HIGH RISK WITH GENOTYPE, [id number] 00:00:00* Test Item Value Reference Range Interpretation Comme [facility] HPV HIGH RISK INTERP (test c ode = 14624) NEGATIVE HPV 16 (test code = 93968) NEGATIVE HPV 18 (test code = 63325) NEGATIVE HPV, HR, OTHER GENOTYPES (te st code = 23824) NEGATIVE Bal RoseHEPATITIS PROFILE (A,B,C)2023-01-30 00:00:00* Test Item Value Reference Range Interpretation Comme [facility] HEPATITIS A TOTAL AB (test c ode = 2725) NON-REACTIVE HEPATITIS B SURF AG (test co de = 2739) NON-REACTIVE HEP B CORE TOTAL AB (test co de = 2729) NON-REACTIVE HEPATITIS B SURFACE AB (test code = 2737) NON-REACTIVE HEPATITIS C ANTIBODY (test c ode = 4675) NON-REACTIVE INTERPRETATION HEPATITIS A: (test code = 2552) (NOTE) INTERPRETATION HEPATITIS B: (test code = 87180) (NOTE) INTERPRETATION HEPATITIS C: (test code = 81248) (NOTE) Bal RoseVAGINAL PATHOGENS DNA [id number] 00:00:00* Test Item Value Reference Range Interpretation Comme [facility] FREDY SPECIES (test code = 34144) NEGATIVE G. VAGINALIS (test code = 96113) NEGATIVE T. VAGINALIS (test code = 01386) NEGATIVE Bal RoseGC AND CHLAMYDIA AMPLIFIED, [id number] 00:00:00* Test Item Value Reference Range Interpretation Comme [facility] CHLAMYDIA, NAAT, THINPREP (t est code = 54719) NEGATIVE GONORRHEA, NAAT, THINPREP (t est code = 54442) NEGATIVE Bal RosePAP TEST, THINPREP, [id number] 00:00:00* Test Item Value Reference Range Interpretation Comme [facility] SOURCE: (test code = 8001) Cervical/Endocervical SLIDES: (test code = 8011) 1 LMP: (test code = 8021) 01/19/2023 SPECIMEN ADEQUACY: (test code = 15456) (NOTE) INTERPRETATION: (test code = 30467) NILM/NO EPITH. ABNORMALITY;SEE BELOW SUPERVISOR PASTRY: (test code = 8101) CHAI DINH(ASCP)IAC LOCATION: (test code = 87152) (NOTE) CPT: (test code = 8140) (NOTE) Bal Zapata AustinHIV 1/2 4TH GEN, RFLX [id number] 00:00:00* Test Item Value Reference Range Interpretation Comme nts HIV 1/2 4TH GEN, RFLX CONF ( test code = 3514) NON-REACTIVE Bal Zapata AustinHPV HIGH RISK WITH GENOTYPE, [id number] 00:00:00* Test Item Value Reference Range Interpretation Comme nts HPV HIGH RISK INTERP (test c ode = 68106) NEGATIVE HPV 16 (test code = 58003) NEGATIVE HPV 18 (test code = 21868) NEGATIVE HPV, HR, OTHER GENOTYPES (te st code = 52958) NEGATIVE Bal Zapata AustinRPR REFLEX TO T. PALLIDUM - [id number] 00:00:00* Test Item Value Reference Range Interpretation Comme nts RPR (test code = 64418) NON-REACTIVE RPR TITER (test code = 3500) NOT INDIC. TITER Bal RoseHEPATITIS PROFILE (A,B,C)2023-01-30 00:00:00* Test Item Value Reference Range Interpretation Comme nts HEPATITIS A TOTAL AB (test c ode = 2725) NON-REACTIVE HEPATITIS B SURF AG (test co de = 2739) NON-REACTIVE HEP B CORE TOTAL AB (test co de = 2729) NON-REACTIVE HEPATITIS B SURFACE AB (test code = 2737) NON-REACTIVE HEPATITIS C ANTIBODY (test c ode = 8975) NON-REACTIVE INTERPRETATION HEPATITIS A: (test code = 2552) (NOTE) INTERPRETATION HEPATITIS B: (test code = 38020) (NOTE) INTERPRETATION HEPATITIS C: (test code = 97731) (NOTE) Bal Zapata AustinVAGINAL PATHOGENS DNA [id number] 00:00:00* Test Item Value Reference Range Interpretation Comme nts FREDY SPECIES (test code = 51816) NEGATIVE G. VAGINALIS (test code = 97157) NEGATIVE T. VAGINALIS (test code = 89195) NEGATIVE Bal RoseGC AND CHLAMYDIA AMPLIFIED, [id number] 00:00:00* Test Item Value Reference Range Interpretation Comme nts CHLAMYDIA, NAAT, THINPREP (t est code = 41547) NEGATIVE GONORRHEA, NAAT, THINPREP (t est code = 72371) NEGATIVE Bal RosePAP TEST, THINPREP, [id number] 00:00:00* Test Item Value Reference Range Interpretation Comme nts SOURCE: (test code = 8001) Cervical/Endocervical SLIDES: (test code = 8011) 1 LMP: (test code = 8021) 01/19/2023 SPECIMEN ADEQUACY: (test code = 42048) (NOTE) INTERPRETATION: (test code = 02072) NILM/NO EPITH. ABNORMALITY;SEE BELOW SUPERVISOR PASTRY: (test code = 8101) CHAI DINH(ASCP)IAC LOCATION: (test code = 41368) (NOTE) CPT: (test code = 8140) (NOTE) Bal Zapata AustinHIV 1/2 4TH GEN, RFLX [id number] 00:00:00* Test Item Value Reference Range Interpretation Comme nts HIV 1/2 4TH GEN, RFLX CONF ( test code = 3514) NON-REACTIVE Bal Zapata AustinRPR REFLEX TO T. PALLIDUM - [id number] 00:00:00* Test Item Value Reference Range Interpretation Comme nts RPR (test code = 70620) NON-REACTIVE RPR TITER (test code = 3500) NOT INDIC. TITER Bal RoseTHYROID II PROFILE (TU,T4,FTI,TSH)2022-10-17 05:25:14* Test Item Value Reference Range Interpretation Comme nts T-UPTAKE (test code = 2817) 30.2 % 24.3-39.0 THYROX. BIND. CAPAC. (test c ode = 43978) 1.1 0.8-1.3 T4 (THYROXINE) (test code = 2819) 6.8 UG/DL 4.5-10.5 CORRECTED T4 (FTI) (test cod e = 2820) 6.2 UG/DL 4.2-11.6 TSH, THIRD GENERATION (test code = 2821) 65.800 UIU/ML 0.400-4.100 H LIPID [id number] 03:38:10* Test Item Value Reference Range Interpretation Comme nts CHOLESTEROL (test code = 2210) 152 MG/DL <200 TRIGLYCERIDES (test code = 2232) 40 MG/DL <150 HDL CHOLESTEROL (test code = 2220) 63 MG/DL >39 CALC LDL CHOL (test code = 2237) 78 MG/DL <100 NOTE: CALCULATED LDL IS BASED ON TROY-MARTINEZ METHOD WHICHINCLUDES ADJUSTABLE TRIGLYCERIDE:VLDL CHOLESTEROL RATIO.THIS FACTOR VARIES BY MEASURED TRIGLYCERIDE AND NON-HDLCHOLESTEROL CONCENTRATIONS WITH INCREASED CALCULATED LDL SEENIN HIGHER TRIGLYCERIDE OR LOWER NON-HDL SPECIMENS. FOR MOREINFORMATION, SEE CLIENT ANNOUNCEMENT AT [email or web address] RISK RATIO LDL/HDL (test code = 2238) 1.24 RATIO <3.22 [facility] has i mportant pathology staff changes effective 10/15/2022. New pathology staff will provide uninterrupted, excellent patient care and clinical consultation. See URL: [email or web address] UNLESS OTHERWISE INDICATED, ALL TESTING PERFORMED AT [facility] [address] [place] [address] BLANKET WEAVER: KYLIE OBRIEN M.D. CLIA NUMBER [id number] [facility] [place]. [id number] THYROID II PROFILE (TU, T4, T7, TSH)2022-10-17 00:00:00* Test Item Value Reference Range Interpretation Comme nts T-UPTAKE (test code = 2817) 30.2 % THYROX. BIND. CAPAC. (test c ode = 85235) 1.1 T4 (THYROXINE) (test code = 2819) 6.8 UG/DL CORRECTED T4 (FTI) (test cod e = 2820) 6.2 UG/DL TSH, THIRD GENERATION (test code = 2821) 65.800 UIU/ML Bal RoseLIPID [id number] 00:00:00* Test Item Value Reference Range Interpretation Comme nts CHOLESTEROL (test code = 2210) 152 MG/DL TRIGLYCERIDES (test code = 2232) 40 MG/DL HDL CHOLESTEROL (test code = 2220) 63 MG/DL CALC LDL CHOL (test code = 2237) 78 MG/DL RISK RATIO LDL/HDL (test cod e = 2238) 1.24 RATIO Bal Zapata AustinTHYROID II PROFILE (TU, T4, T7, TSH)2022-10-17 00:00:00* Test Item Value Reference Range Interpretation Comme nts T-UPTAKE (test code = 2817) 30.2 % THYROX. BIND. CAPAC. (test c ode = 71845) 1.1 T4 (THYROXINE) (test code = 2819) 6.8 UG/DL CORRECTED T4 (FTI) (test cod e = 2820) 6.2 UG/DL TSH, THIRD GENERATION (test code = 2821) 65.800 UIU/ML Bal Zapata AustinLIPID [id number] 00:00:00* Test Item Value Reference Range Interpretation Comme nts CHOLESTEROL (test code = 2210) 152 MG/DL TRIGLYCERIDES (test code = 2232) 40 MG/DL HDL CHOLESTEROL (test code = 2220) 63 MG/DL CALC LDL CHOL (test code = 2237) 78 MG/DL RISK RATIO LDL/HDL (test cod e = 2238) 1.24 RATIO Bal Zapata AustinTHYROID II PROFILE (TU, T4, T7, TSH)2022-10-17 00:00:00* Test Item Value Reference Range Interpretation Comme nts T-UPTAKE (test code = 2817) 30.2 % THYROX. BIND. CAPAC. (test c ode = 97892) 1.1 T4 (THYROXINE) (test code = 2819) 6.8 UG/DL CORRECTED T4 (FTI) (test cod e = 2820) 6.2 UG/DL TSH, THIRD GENERATION (test code = 2821) 65.800 UIU/ML Bal F AustinLIPID [id number] 00:00:00* Test Item Value Reference Range Interpretation Comme nts CHOLESTEROL (test code = 2210) 152 MG/DL TRIGLYCERIDES (test code = 2232) 40 MG/DL HDL CHOLESTEROL (test code = 2220) 63 MG/DL CALC LDL CHOL (test code = 2237) 78 MG/DL RISK RATIO LDL/HDL (test cod e = 2238) 1.24 RATIO Bal Zapata AustinTHYROID II PROFILE (TU, T4, T7, TSH)2022-10-17 00:00:00* Test Item Value Reference Range Interpretation Comme nts T-UPTAKE (test code = 2817) 30.2 % THYROX. BIND. CAPAC. (test c ode = 34971) 1.1 T4 (THYROXINE) (test code = 2819) 6.8 UG/DL CORRECTED T4 (FTI) (test cod e = 2820) 6.2 UG/DL TSH, THIRD GENERATION (test code = 2821) 65.800 UIU/ML Bal Zapata AustinLIPID [id number] 00:00:00* Test Item Value Reference Range Interpretation Comme nts CHOLESTEROL (test code = 2210) 152 MG/DL TRIGLYCERIDES (test code = 2232) 40 MG/DL HDL CHOLESTEROL (test code = 2220) 63 MG/DL CALC LDL CHOL (test code = 2237) 78 MG/DL RISK RATIO LDL/HDL (test cod e = 2238) 1.24 RATIO Bal Zapata AustinTHYROID II PROFILE (TU, T4, T7, TSH)2022-10-17 00:00:00* Test Item Value Reference Range Interpretation Comme nts T-UPTAKE (test code = 2817) 30.2 % THYROX. BIND. CAPAC. (test c ode = 02990) 1.1 T4 (THYROXINE) (test code = 2819) 6.8 UG/DL CORRECTED T4 (FTI) (test cod e = 2820) 6.2 UG/DL TSH, THIRD GENERATION (test code = 2821) 65.800 UIU/ML Bal F AustinLIPID [id number] 00:00:00* Test Item Value Reference Range Interpretation Comme nts CHOLESTEROL (test code = 2210) 152 MG/DL TRIGLYCERIDES (test code = 2232) 40 MG/DL HDL CHOLESTEROL (test code = 2220) 63 MG/DL CALC LDL CHOL (test code = 2237) 78 MG/DL RISK RATIO LDL/HDL (test cod e = 2238) 1.24 RATIO Bal F AustinTHYROID II PROFILE (TU, T4, T7, TSH)2022-10-17 00:00:00* Test Item Value Reference Range Interpretation Comme nts T-UPTAKE (test code = 281) 30.2 % THYROX. BIND. CAPAC. (test c ode = 65318) 1.1 T4 (THYROXINE) (test code = 2819) 6.8 UG/DL CORRECTED T4 (FTI) (test cod e = 2820) 6.2 UG/DL TSH, THIRD GENERATION (test code = 2821) 65.800 UIU/ML Bal RoseLIPID [id number] 00:00:00* Test Item Value Reference Range Interpretation Comme nts CHOLESTEROL (test code = 2210) 152 MG/DL TRIGLYCERIDES (test code = 2232) 40 MG/DL HDL CHOLESTEROL (test code = 2220) 63 MG/DL CALC LDL CHOL (test code = 2237) 78 MG/DL RISK RATIO LDL/HDL (test cod e = 2238) 1.24 RATIO Bal Zapata AustinTHYROID II PROFILE (TU, T4, T7, TSH)2022-10-17 00:00:00* Test Item Value Reference Range Interpretation Comme nts T-UPTAKE (test code = 2817) 30.2 % THYROX. BIND. CAPAC. (test c ode = 26403) 1.1 T4 (THYROXINE) (test code = 2819) 6.8 UG/DL CORRECTED T4 (FTI) (test cod e = 2820) 6.2 UG/DL TSH, THIRD GENERATION (test code = 2821) 65.800 UIU/ML Bal RoseLIPID [id number] 00:00:00* Test Item Value Reference Range Interpretation Comme nts CHOLESTEROL (test code = 2210) 152 MG/DL TRIGLYCERIDES (test code = 2232) 40 MG/DL HDL CHOLESTEROL (test code = 2220) 63 MG/DL CALC LDL CHOL (test code = 2237) 78 MG/DL RISK RATIO LDL/HDL (test cod e = 2238) 1.24 RATIO Bal Zapata AustinTHYROID II PROFILE (TU, T4, T7, TSH)2022-10-17 00:00:00* Test Item Value Reference Range Interpretation Comme nts T-UPTAKE (test code = 2817) 30.2 % THYROX. BIND. CAPAC. (test c ode = 24652) 1.1 T4 (THYROXINE) (test code = 2819) 6.8 UG/DL CORRECTED T4 (FTI) (test cod e = 2820) 6.2 UG/DL TSH, THIRD GENERATION (test code = 2821) 65.800 UIU/ML Bal RoseLIPID [id number] 00:00:00* Test Item Value Reference Range Interpretation Comme nts CHOLESTEROL (test code = 2210) 152 MG/DL TRIGLYCERIDES (test code = 2232) 40 MG/DL HDL CHOLESTEROL (test code = 2220) 63 MG/DL CALC LDL CHOL (test code = 2237) 78 MG/DL RISK RATIO LDL/HDL (test cod e = 2238) 1.24 RATIO Bal Zapata AustinTHYROID II PROFILE (TU, T4, T7, TSH)2022-10-17 00:00:00* Test Item Value Reference Range Interpretation Comme nts T-UPTAKE (test code = 2817) 30.2 % THYROX. BIND. CAPAC. (test c ode = 27682) 1.1 T4 (THYROXINE) (test code = 2819) 6.8 UG/DL CORRECTED T4 (FTI) (test cod e = 2820) 6.2 UG/DL TSH, THIRD GENERATION (test code = 2821) 65.800 UIU/ML Bal Zapata AustinLIPID [id number] 00:00:00* Test Item Value Reference Range Interpretation Comme nts CHOLESTEROL (test code = 2210) 152 MG/DL TRIGLYCERIDES (test code = 2232) 40 MG/DL HDL CHOLESTEROL (test code = 2220) 63 MG/DL CALC LDL CHOL (test code = 2237) 78 MG/DL RISK RATIO LDL/HDL (test cod e = 2238) 1.24 RATIO Bal Zapata AustinTHYROID II PROFILE (TU, T4, T7, TSH)2022-10-17 00:00:00* Test Item Value Reference Range Interpretation Comme nts T-UPTAKE (test code = 2817) 30.2 % THYROX. BIND. CAPAC. (test c ode = 04828) 1.1 T4 (THYROXINE) (test code = 2819) 6.8 UG/DL CORRECTED T4 (FTI) (test cod e = 2820) 6.2 UG/DL TSH, THIRD GENERATION (test code = 2821) 65.800 UIU/ML Bal Zapata AustinLIPID [id number] 00:00:00* Test Item Value Reference Range Interpretation Comme nts CHOLESTEROL (test code = 2210) 152 MG/DL TRIGLYCERIDES (test code = 2232) 40 MG/DL HDL CHOLESTEROL (test code = 2220) 63 MG/DL CALC LDL CHOL (test code = 2237) 78 MG/DL RISK RATIO LDL/HDL (test cod e = 2238) 1.24 RATIO Bal Zapata AustinTHYROID II PROFILE (TU, T4, T7, TSH)2022-10-17 00:00:00* Test Item Value Reference Range Interpretation Comme nts T-UPTAKE (test code = 2817) 30.2 % THYROX. BIND. CAPAC. (test c ode = 76175) 1.1 T4 (THYROXINE) (test code = 2819) 6.8 UG/DL CORRECTED T4 (FTI) (test cod e = 2820) 6.2 UG/DL TSH, THIRD GENERATION (test code = 2821) 65.800 UIU/ML Bal Zapata AustinLIPID [id number] 00:00:00* Test Item Value Reference Range Interpretation Comme nts CHOLESTEROL (test code = 2210) 152 MG/DL TRIGLYCERIDES (test code = 2232) 40 MG/DL HDL CHOLESTEROL (test code = 2220) 63 MG/DL CALC LDL CHOL (test code = 2237) 78 MG/DL RISK RATIO LDL/HDL (test cod e = 2238) 1.24 RATIO Bal Zapata AustinTHYROID II PROFILE (TU, T4, T7, TSH)2022-10-17 00:00:00* Test Item Value Reference Range Interpretation Comme nts T-UPTAKE (test code = 2817) 30.2 % THYROX. BIND. CAPAC. (test c ode = 48352) 1.1 T4 (THYROXINE) (test code = 2819) 6.8 UG/DL CORRECTED T4 (FTI) (test cod e = 2820) 6.2 UG/DL TSH, THIRD GENERATION (test code = 2821) 65.800 UIU/ML Bal F AustinLIPID [id number] 00:00:00* Test Item Value Reference Range Interpretation Comme nts CHOLESTEROL (test code = 2210) 152 MG/DL TRIGLYCERIDES (test code = 2232) 40 MG/DL HDL CHOLESTEROL (test code = 2220) 63 MG/DL CALC LDL CHOL (test code = 2237) 78 MG/DL RISK RATIO LDL/HDL (test cod e = 2238) 1.24 RATIO Bal Zapata AustinTHYROID II PROFILE (TU, T4, T7, TSH)2022-10-17 00:00:00* Test Item Value Reference Range Interpretation Comme nts T-UPTAKE (test code = 2817) 30.2 % THYROX. BIND. CAPAC. (test c ode = 81605) 1.1 T4 (THYROXINE) (test code = 2819) 6.8 UG/DL CORRECTED T4 (FTI) (test cod e = 2820) 6.2 UG/DL TSH, THIRD GENERATION (test code = 2821) 65.800 UIU/ML Bal Zapata AustinLIPID [id number] 00:00:00* Test Item Value Reference Range Interpretation Comme nts CHOLESTEROL (test code = 2210) 152 MG/DL TRIGLYCERIDES (test code = 2232) 40 MG/DL HDL CHOLESTEROL (test code = 2220) 63 MG/DL CALC LDL CHOL (test code = 2237) 78 MG/DL RISK RATIO LDL/HDL (test cod e = 2238) 1.24 RATIO Bal F AustinTHYROID II PROFILE (TU, T4, T7, TSH)2022-10-17 00:00:00* Test Item Value Reference Range Interpretation Comme nts T-UPTAKE (test code = 2817) 30.2 % THYROX. BIND. CAPAC. (test c ode = 40230) 1.1 T4 (THYROXINE) (test code = 2819) 6.8 UG/DL CORRECTED T4 (FTI) (test cod e = 2820) 6.2 UG/DL TSH, THIRD GENERATION (test code = 2821) 65.800 UIU/ML Bal F AustinLIPID [id number] 00:00:00* Test Item Value Reference Range Interpretation Comme nts CHOLESTEROL (test code = 2210) 152 MG/DL TRIGLYCERIDES (test code = 2232) 40 MG/DL HDL CHOLESTEROL (test code = 2220) 63 MG/DL CALC LDL CHOL (test code = 2237) 78 MG/DL RISK RATIO LDL/HDL (test cod e = 2238) 1.24 RATIO Bal F AustinTHYROID II PROFILE (TU, T4, T7, TSH)2022-10-17 00:00:00* Test Item Value Reference Range Interpretation Comme nts T-UPTAKE (test code = 2817) 30.2 % THYROX. BIND. CAPAC. (test c ode = 65491) 1.1 T4 (THYROXINE) (test code = 2819) 6.8 UG/DL CORRECTED T4 (FTI) (test cod e = 2820) 6.2 UG/DL TSH, THIRD GENERATION (test code = 2821) 65.800 UIU/ML Bal RoseLIPID [id number] 00:00:00* Test Item Value Reference Range Interpretation Comme nts CHOLESTEROL (test code = 2210) 152 MG/DL TRIGLYCERIDES (test code = 2232) 40 MG/DL HDL CHOLESTEROL (test code = 2220) 63 MG/DL CALC LDL CHOL (test code = 2237) 78 MG/DL RISK RATIO LDL/HDL (test cod e = 2238) 1.24 RATIO Bal Zapata AustinTHYROID II PROFILE (TU, T4, T7, TSH)2022-10-17 00:00:00* Test Item Value Reference Range Interpretation Comme nts T-UPTAKE (test code = 2817) 30.2 % THYROX. BIND. CAPAC. (test c ode = 37060) 1.1 T4 (THYROXINE) (test code = 2819) 6.8 UG/DL CORRECTED T4 (FTI) (test cod e = 2820) 6.2 UG/DL TSH, THIRD GENERATION (test code = 2821) 65.800 UIU/ML Bal RoseLIPID [id number] 00:00:00* Test Item Value Reference Range Interpretation Comme nts CHOLESTEROL (test code = 2210) 152 MG/DL TRIGLYCERIDES (test code = 2232) 40 MG/DL HDL CHOLESTEROL (test code = 2220) 63 MG/DL CALC LDL CHOL (test code = 2237) 78 MG/DL RISK RATIO LDL/HDL (test cod e = 2238) 1.24 RATIO Bal Zapata AustinTHYROID II PROFILE (TU, T4, T7, TSH)2022-10-17 00:00:00* Test Item Value Reference Range Interpretation Comme nts T-UPTAKE (test code = 2817) 30.2 % THYROX. BIND. CAPAC. (test c ode = 18263) 1.1 T4 (THYROXINE) (test code = 2819) 6.8 UG/DL CORRECTED T4 (FTI) (test cod e = 2820) 6.2 UG/DL TSH, THIRD GENERATION (test code = 2821) 65.800 UIU/ML Bal RoseLIPID [id number] 00:00:00* Test Item Value Reference Range Interpretation Comme nts CHOLESTEROL (test code = 2210) 152 MG/DL TRIGLYCERIDES (test code = 2232) 40 MG/DL HDL CHOLESTEROL (test code = 2220) 63 MG/DL CALC LDL CHOL (test code = 2237) 78 MG/DL RISK RATIO LDL/HDL (test cod e = 2238) 1.24 RATIO Bal RoseTHYROID II PROFILE (TU, T4, T7, TSH)2022-10-17 00:00:00* Test Item Value Reference Range Interpretation Comme nts T-UPTAKE (test code = 2817) 30.2 % THYROX. BIND. CAPAC. (test c ode = 57207) 1.1 T4 (THYROXINE) (test code = 2819) 6.8 UG/DL CORRECTED T4 (FTI) (test cod e = 2820) 6.2 UG/DL TSH, THIRD GENERATION (test code = 2821) 65.800 UIU/ML Bal RoseLIPID [id number] 00:00:00* Test Item Value Reference Range Interpretation Comme nts CHOLESTEROL (test code = 2210) 152 MG/DL TRIGLYCERIDES (test code = 2232) 40 MG/DL HDL CHOLESTEROL (test code = 2220) 63 MG/DL CALC LDL CHOL (test code = 2237) 78 MG/DL RISK RATIO LDL/HDL (test cod e = 2238) 1.24 RATIO Bal RoseTSH, THIRD [id number] 05:09:03* Test Item Value Reference Range Interpretation Comme [facility] TSH, THIRD GENERATION (test code = 2821) 79.900 UIU/ML 0.400-4.100 H FSH + LH [id number] 05:09:03* Test Item Value Reference Range Interpretation Comme nts FOLLICLE STIM HORMONE (test code = 2700) 6.4 IU/L SEE BELOW EXPEC NANCY VALUES FOR FSH FOR FEMALES >17 YEARS MALES FEMALES >=18 YEARS 1.5-12.4 IU/L FOLLICULAR 3.5-12.5 IU/L MID-CYCLE PEAK 4.7-21.5 IU/L LUTEAL PHASE 1.7-7.7 IU/L POSTMENOPAUSAL 25.8-134.8 IU/L LUTEINIZING HORMONE (test code = 2776) 3.5 IU/L SEE BELOW EXPEC NANCY VALUES FOR LH FOR FEMALES >17 YEARS MALES FEMALES >=18 YEARS 1.8-8.6 IU/L FOLLICULAR 2.4-12.6 IU/L MID-CYCLE PEAK 14.0-95.6 IU/L LUTEAL PHASE 1.0-11.4 IU/L POSTMENOPAUSAL 7.7-58.5 IU/L [id number] 05:09:03* Test Item Value Reference Range Interpretation Comme nts PROLACTIN (test code = 2800) 14.4 NG/ML 5.0-37.0 NOTE: Methodolog y is [employer] Electrochemiluminescence Immunoassay (ECLIA). Values obtained with different assays/manufacturers cannot be used interchangeably. Results should not be used as sole basis to establish the presence or absence of malignancy. CBC W/AUTO DIFF WITH [id number] 04:40:06* Test Item Value Reference Range Interpretation Comme nts WBC (test code = 1001) 5.1 K/UL 3.5-11.0 RBC (test code = 1002) 3.99 M/UL 3.80-5.40 HEMOGLOBIN (test code = 1003) 11.5 G/DL 11.5-15.5 HEMATOCRIT (test code = 1004) 34.7 % 34.0-45.0 MCV (test code = 1005) 87.0 fL 80.0-99.0 MCH (test code = 1006) 28.8 PG 25.0-33.0 MCHC (test code = 1007) 33.1 G/DL 31.0-36.0 RDW (test code = 1038) 12.9 % 11.5-15.0 NEUTROPHILS (test code = 1008) 54.0 % LYMPHOCYTES (test code = 1010) 36.9 % MONOCYTES (test code = 1011) 5.5 % EOSINOPHILS (test code = 1012) 2.2 % BASOPHILS (test code = 1013) 1.2 % IMMATURE GRANULOCYTES (test code = 1036) 0.2 % NUCLEATED RBCS (test code = 1065) 0.0 /100 WBC'S See_Comment [Automated message] The system which generated this result transmitted reference range: 0.0. The reference range was not used to interpret this result as normal/abnormal. PLATELET COUNT (test code = 1015) 208 K/UL 130-400 ABSOLUTE NEUTROPHILS (test code = 1066) 2.76 K/UL 1.50-7.50 ABSOLUTE LYMPHOCYTES (test code = 1067) 1.88 K/UL 1.00-4.00 ABSOLUTE MONOCYTES (test code = 1068) 0.28 K/UL 0.20-1.00 ABSOLUTE EOSINOPHILS (test code = 1040) 0.11 K/UL 0.00-0.50 ABSOLUTE BASOPHILS (test code = 1069) 0.06 K/UL 0.00-0.20 ABS IMMATURE GRANULOCYTES (test code = 1020) 0.01 K/UL 0.00-0.10 ABS NUCLEATED RBCS (test code = 31520) 0.00 K/UL 0.00-0.11 UNLESS OTHER [place] INDICATED, ALL TESTING PERFORMED [facility] [employer] [employer] [facility] [employer] [address] [place] [id number] BLANKET WEAVER: KYLIE OBRIEN M.D. CLIA NUMBER [id number] [facility] [place]. [id number] 00:00:00* Test Item Value Reference Range Interpretation Comme nts PROLACTIN (test code = 2800) 14.4 NG/[facility] [id number] 00:00:00* Test Item Value Reference Range Interpretation Comme nts WBC (test code = 1001) 5.1 K/UL RBC (test code = 1002) 3.99 M/UL HEMOGLOBIN (test code = 1003) 11.5 G/DL HEMATOCRIT (test code = 1004) 34.7 % MCV (test code = 1005) 87.0 fL MCH (test code = 1006) 28.8 PG MCHC (test code = 1007) 33.1 G/DL RDW (test code = 1038) 12.9 % NEUTROPHILS (test code = 1008) 54.0 % LYMPHOCYTES (test code = 1010) 36.9 % MONOCYTES (test code = 1011) 5.5 % EOSINOPHILS (test code = 1012) 2.2 % BASOPHILS (test code = 1013) 1.2 % IMMATURE GRANULOCYTES (test code = 1036) 0.2 % NUCLEATED RBCS (test code = 1065) 0.0 /100WBC'S PLATELET COUNT (test code = 1015) 208 K/UL ABSOLUTE NEUTROPHILS (test c ode = 1066) 2.76 K/UL ABSOLUTE LYMPHOCYTES (test c ode = 1067) 1.88 K/UL ABSOLUTE MONOCYTES (test cod e = 1068) 0.28 K/UL ABSOLUTE EOSINOPHILS (test c ode = 1040) 0.11 K/UL ABSOLUTE BASOPHILS (test cod e = 1069) 0.06 K/UL ABS IMMATURE GRANULOCYTES (t est code = 1020) 0.01 K/UL ABS NUCLEATED RBCS (test cod e = 74906) 0.00 K/UL Bal RoseTSH, THIRD [id number] 00:00:00* Test Item Value Reference Range Interpretation Comme nts TSH, THIRD GENERATION (test code = 2821) 79.900 UIU/ML Bal RoseFSH + LH [id number] 00:00:00* Test Item Value Reference Range Interpretation Comme nts FOLLICLE STIM HORMONE (test code = 2700) 6.4 IU/L LUTEINIZING HORMONE (test co de = 2776) 3.5 IU/L Bal [id number] 00:00:00* Test Item Value Reference Range Interpretation Comme nts PROLACTIN (test code = 2800) 14.4 NG/ML Bal RoseCBC W/AUTO [id number] 00:00:00* Test Item Value Reference Range Interpretation Comme nts WBC (test code = 1001) 5.1 K/UL RBC (test code = 1002) 3.99 M/UL HEMOGLOBIN (test code = 1003) 11.5 G/DL HEMATOCRIT (test code = 1004) 34.7 % MCV (test code = 1005) 87.0 fL MCH (test code = 1006) 28.8 PG MCHC (test code = 1007) 33.1 G/DL RDW (test code = 1038) 12.9 % NEUTROPHILS (test code = 1008) 54.0 % LYMPHOCYTES (test code = 1010) 36.9 % MONOCYTES (test code = 1011) 5.5 % EOSINOPHILS (test code = 1012) 2.2 % BASOPHILS (test code = 1013) 1.2 % IMMATURE GRANULOCYTES (test code = 1036) 0.2 % NUCLEATED RBCS (test code = 1065) 0.0 /100WBC'S PLATELET COUNT (test code = 1015) 208 K/UL ABSOLUTE NEUTROPHILS (test c ode = 1066) 2.76 K/UL ABSOLUTE LYMPHOCYTES (test c ode = 1067) 1.88 K/UL ABSOLUTE MONOCYTES (test cod e = 1068) 0.28 K/UL ABSOLUTE EOSINOPHILS (test c ode = 1040) 0.11 K/UL ABSOLUTE BASOPHILS (test cod e = 1069) 0.06 K/UL ABS IMMATURE GRANULOCYTES (t est code = 1020) 0.01 K/UL ABS NUCLEATED RBCS (test cod e = 70819) 0.00 K/UL Bal RoseTSH, THIRD [id number] 00:00:00* Test Item Value Reference Range Interpretation Comme nts TSH, THIRD GENERATION (test code = 2821) 79.900 UIU/ML Bal RoseFSH + LH [id number] 00:00:00* Test Item Value Reference Range Interpretation Comme nts FOLLICLE STIM HORMONE (test code = 2700) 6.4 IU/L LUTEINIZING HORMONE (test co de = 2776) 3.5 IU/L Bal [id number] 00:00:00* Test Item Value Reference Range Interpretation Comme nts PROLACTIN (test code = 2800) 14.4 NG/ML Bal RoseCBC W/AUTO [id number] 00:00:00* Test Item Value Reference Range Interpretation Comme nts WBC (test code = 1001) 5.1 K/UL RBC (test code = 1002) 3.99 M/UL HEMOGLOBIN (test code = 1003) 11.5 G/DL HEMATOCRIT (test code = 1004) 34.7 % MCV (test code = 1005) 87.0 fL MCH (test code = 1006) 28.8 PG MCHC (test code = 1007) 33.1 G/DL RDW (test code = 1038) 12.9 % NEUTROPHILS (test code = 1008) 54.0 % LYMPHOCYTES (test code = 1010) 36.9 % MONOCYTES (test code = 1011) 5.5 % EOSINOPHILS (test code = 1012) 2.2 % BASOPHILS (test code = 1013) 1.2 % IMMATURE GRANULOCYTES (test code = 1036) 0.2 % NUCLEATED RBCS (test code = 1065) 0.0 /100WBC'S PLATELET COUNT (test code = 1015) 208 K/UL ABSOLUTE NEUTROPHILS (test c ode = 1066) 2.76 K/UL ABSOLUTE LYMPHOCYTES (test c ode = 1067) 1.88 K/UL ABSOLUTE MONOCYTES (test cod e = 1068) 0.28 K/UL ABSOLUTE EOSINOPHILS (test c ode = 1040) 0.11 K/UL ABSOLUTE BASOPHILS (test cod e = 1069) 0.06 K/UL ABS IMMATURE GRANULOCYTES (t est code = 1020) 0.01 K/UL ABS NUCLEATED RBCS (test cod e = 66397) 0.00 K/UL Bal RoseTSH, THIRD [id number] 00:00:00* Test Item Value Reference Range Interpretation Comme nts TSH, THIRD GENERATION (test code = 2821) 79.900 UIU/ML Bal RoseFSH + LH [id number] 00:00:00* Test Item Value Reference Range Interpretation Comme nts FOLLICLE STIM HORMONE (test code = 2700) 6.4 IU/L LUTEINIZING HORMONE (test co de = 2776) 3.5 IU/L Bal [id number] 00:00:00* Test Item Value Reference Range Interpretation Comme nts PROLACTIN (test code = 2800) 14.4 NG/ML Bal RoseCBC W/AUTO [id number] 00:00:00* Test Item Value Reference Range Interpretation Comme nts WBC (test code = 1001) 5.1 K/UL RBC (test code = 1002) 3.99 M/UL HEMOGLOBIN (test code = 1003) 11.5 G/DL HEMATOCRIT (test code = 1004) 34.7 % MCV (test code = 1005) 87.0 fL MCH (test code = 1006) 28.8 PG MCHC (test code = 1007) 33.1 G/DL RDW (test code = 1038) 12.9 % NEUTROPHILS (test code = 1008) 54.0 % LYMPHOCYTES (test code = 1010) 36.9 % MONOCYTES (test code = 1011) 5.5 % EOSINOPHILS (test code = 1012) 2.2 % BASOPHILS (test code = 1013) 1.2 % IMMATURE GRANULOCYTES (test code = 1036) 0.2 % NUCLEATED RBCS (test code = 1065) 0.0 /100WBC'S PLATELET COUNT (test code = 1015) 208 K/UL ABSOLUTE NEUTROPHILS (test c ode = 1066) 2.76 K/UL ABSOLUTE LYMPHOCYTES (test c ode = 1067) 1.88 K/UL ABSOLUTE MONOCYTES (test cod e = 1068) 0.28 K/UL ABSOLUTE EOSINOPHILS (test c ode = 1040) 0.11 K/UL ABSOLUTE BASOPHILS (test cod e = 1069) 0.06 K/UL ABS IMMATURE GRANULOCYTES (t est code = 1020) 0.01 K/UL ABS NUCLEATED RBCS (test cod e = 56522) 0.00 K/UL Bal RoseTSH, THIRD [id number] 00:00:00* Test Item Value Reference Range Interpretation Comme nts TSH, THIRD GENERATION (test code = 2821) 79.900 UIU/ML Bal RoseFSH + LH [id number] 00:00:00* Test Item Value Reference Range Interpretation Comme nts FOLLICLE STIM HORMONE (test code = 2700) 6.4 IU/L LUTEINIZING HORMONE (test co de = 2776) 3.5 IU/L Bal [id number] 00:00:00* Test Item Value Reference Range Interpretation Comme nts PROLACTIN (test code = 2800) 14.4 NG/ML Bal RoseCBC W/AUTO [id number] 00:00:00* Test Item Value Reference Range Interpretation Comme nts WBC (test code = 1001) 5.1 K/UL RBC (test code = 1002) 3.99 M/UL HEMOGLOBIN (test code = 1003) 11.5 G/DL HEMATOCRIT (test code = 1004) 34.7 % MCV (test code = 1005) 87.0 fL MCH (test code = 1006) 28.8 PG MCHC (test code = 1007) 33.1 G/DL RDW (test code = 1038) 12.9 % NEUTROPHILS (test code = 1008) 54.0 % LYMPHOCYTES (test code = 1010) 36.9 % MONOCYTES (test code = 1011) 5.5 % EOSINOPHILS (test code = 1012) 2.2 % BASOPHILS (test code = 1013) 1.2 % IMMATURE GRANULOCYTES (test code = 1036) 0.2 % NUCLEATED RBCS (test code = 1065) 0.0 /100WBC'S PLATELET COUNT (test code = 1015) 208 K/UL ABSOLUTE NEUTROPHILS (test c ode = 1066) 2.76 K/UL ABSOLUTE LYMPHOCYTES (test c ode = 1067) 1.88 K/UL ABSOLUTE MONOCYTES (test cod e = 1068) 0.28 K/UL ABSOLUTE EOSINOPHILS (test c ode = 1040) 0.11 K/UL ABSOLUTE BASOPHILS (test cod e = 1069) 0.06 K/UL ABS IMMATURE GRANULOCYTES (t est code = 1020) 0.01 K/UL ABS NUCLEATED RBCS (test cod e = 72963) 0.00 K/UL Bal RoseTSH, THIRD [id number] 00:00:00* Test Item Value Reference Range Interpretation Comme nts TSH, THIRD GENERATION (test code = 2821) 79.900 UIU/ML Bal RoseFSH + LH [id number] 00:00:00* Test Item Value Reference Range Interpretation Comme nts FOLLICLE STIM HORMONE (test code = 2700) 6.4 IU/L LUTEINIZING HORMONE (test co de = 2776) 3.5 IU/L Bal [id number] 00:00:00* Test Item Value Reference Range Interpretation Comme nts PROLACTIN (test code = 2800) 14.4 NG/ML Bal RoseCBC W/AUTO [id number] 00:00:00* Test Item Value Reference Range Interpretation Comme nts WBC (test code = 1001) 5.1 K/UL RBC (test code = 1002) 3.99 M/UL HEMOGLOBIN (test code = 1003) 11.5 G/DL HEMATOCRIT (test code = 1004) 34.7 % MCV (test code = 1005) 87.0 fL MCH (test code = 1006) 28.8 PG MCHC (test code = 1007) 33.1 G/DL RDW (test code = 1038) 12.9 % NEUTROPHILS (test code = 1008) 54.0 % LYMPHOCYTES (test code = 1010) 36.9 % MONOCYTES (test code = 1011) 5.5 % EOSINOPHILS (test code = 1012) 2.2 % BASOPHILS (test code = 1013) 1.2 % IMMATURE GRANULOCYTES (test code = 1036) 0.2 % NUCLEATED RBCS (test code = 1065) 0.0 /100WBC'S PLATELET COUNT (test code = 1015) 208 K/UL ABSOLUTE NEUTROPHILS (test c ode = 1066) 2.76 K/UL ABSOLUTE LYMPHOCYTES (test c ode = 1067) 1.88 K/UL ABSOLUTE MONOCYTES (test cod e = 1068) 0.28 K/UL ABSOLUTE EOSINOPHILS (test c ode = 1040) 0.11 K/UL ABSOLUTE BASOPHILS (test cod e = 1069) 0.06 K/UL ABS IMMATURE GRANULOCYTES (t est code = 1020) 0.01 K/UL ABS NUCLEATED RBCS (test cod e = 40139) 0.00 K/UL Bal RoseTSH, THIRD [id number] 00:00:00* Test Item Value Reference Range Interpretation Comme nts TSH, THIRD GENERATION (test code = 2821) 79.900 UIU/ML Bal RoseFSH + LH [id number] 00:00:00* Test Item Value Reference Range Interpretation Comme nts FOLLICLE STIM HORMONE (test code = 2700) 6.4 IU/L LUTEINIZING HORMONE (test co de = 2776) 3.5 IU/L Bal [id number] 00:00:00* Test Item Value Reference Range Interpretation Comme nts PROLACTIN (test code = 2800) 14.4 NG/ML Bal RoseCBC W/AUTO [id number] 00:00:00* Test Item Value Reference Range Interpretation Comme nts WBC (test code = 1001) 5.1 K/UL RBC (test code = 1002) 3.99 M/UL HEMOGLOBIN (test code = 1003) 11.5 G/DL HEMATOCRIT (test code = 1004) 34.7 % MCV (test code = 1005) 87.0 fL MCH (test code = 1006) 28.8 PG MCHC (test code = 1007) 33.1 G/DL RDW (test code = 1038) 12.9 % NEUTROPHILS (test code = 1008) 54.0 % LYMPHOCYTES (test code = 1010) 36.9 % MONOCYTES (test code = 1011) 5.5 % EOSINOPHILS (test code = 1012) 2.2 % BASOPHILS (test code = 1013) 1.2 % IMMATURE GRANULOCYTES (test code = 1036) 0.2 % NUCLEATED RBCS (test code = 1065) 0.0 /100WBC'S PLATELET COUNT (test code = 1015) 208 K/UL ABSOLUTE NEUTROPHILS (test c ode = 1066) 2.76 K/UL ABSOLUTE LYMPHOCYTES (test c ode = 1067) 1.88 K/UL ABSOLUTE MONOCYTES (test cod e = 1068) 0.28 K/UL ABSOLUTE EOSINOPHILS (test c ode = 1040) 0.11 K/UL ABSOLUTE BASOPHILS (test cod e = 1069) 0.06 K/UL ABS IMMATURE GRANULOCYTES (t est code = 1020) 0.01 K/UL ABS NUCLEATED RBCS (test cod e = 51793) 0.00 K/UL Bal RoseTSH, THIRD [id number] 00:00:00* Test Item Value Reference Range Interpretation Comme nts TSH, THIRD GENERATION (test code = 2821) 79.900 UIU/ML Bal RoseFSH + LH [id number] 00:00:00* Test Item Value Reference Range Interpretation Comme nts FOLLICLE STIM HORMONE (test code = 2700) 6.4 IU/L LUTEINIZING HORMONE (test co de = 2776) 3.5 IU/L Bal [id number] 00:00:00* Test Item Value Reference Range Interpretation Comme nts PROLACTIN (test code = 2800) 14.4 NG/ML Bal RoseCBC W/AUTO [id number] 00:00:00* Test Item Value Reference Range Interpretation Comme nts WBC (test code = 1001) 5.1 K/UL RBC (test code = 1002) 3.99 M/UL HEMOGLOBIN (test code = 1003) 11.5 G/DL HEMATOCRIT (test code = 1004) 34.7 % MCV (test code = 1005) 87.0 fL MCH (test code = 1006) 28.8 PG MCHC (test code = 1007) 33.1 G/DL RDW (test code = 1038) 12.9 % NEUTROPHILS (test code = 1008) 54.0 % LYMPHOCYTES (test code = 1010) 36.9 % MONOCYTES (test code = 1011) 5.5 % EOSINOPHILS (test code = 1012) 2.2 % BASOPHILS (test code = 1013) 1.2 % IMMATURE GRANULOCYTES (test code = 1036) 0.2 % NUCLEATED RBCS (test code = 1065) 0.0 /100WBC'S PLATELET COUNT (test code = 1015) 208 K/UL ABSOLUTE NEUTROPHILS (test c ode = 1066) 2.76 K/UL ABSOLUTE LYMPHOCYTES (test c ode = 1067) 1.88 K/UL ABSOLUTE MONOCYTES (test cod e = 1068) 0.28 K/UL ABSOLUTE EOSINOPHILS (test c ode = 1040) 0.11 K/UL ABSOLUTE BASOPHILS (test cod e = 1069) 0.06 K/UL ABS IMMATURE GRANULOCYTES (t est code = 1020) 0.01 K/UL ABS NUCLEATED RBCS (test cod e = 67630) 0.00 K/UL Bal RoseTSH, THIRD [id number] 00:00:00* Test Item Value Reference Range Interpretation Comme nts TSH, THIRD GENERATION (test code = 2821) 79.900 UIU/ML Bal RoseFSH + LH [id number] 00:00:00* Test Item Value Reference Range Interpretation Comme nts FOLLICLE STIM HORMONE (test code = 2700) 6.4 IU/L LUTEINIZING HORMONE (test co de = 2776) 3.5 IU/L Bal [id number] 00:00:00* Test Item Value Reference Range Interpretation Comme nts PROLACTIN (test code = 2800) 14.4 NG/ML Bal RoseCBC W/AUTO [id number] 00:00:00* Test Item Value Reference Range Interpretation Comme nts WBC (test code = 1001) 5.1 K/UL RBC (test code = 1002) 3.99 M/UL HEMOGLOBIN (test code = 1003) 11.5 G/DL HEMATOCRIT (test code = 1004) 34.7 % MCV (test code = 1005) 87.0 fL MCH (test code = 1006) 28.8 PG MCHC (test code = 1007) 33.1 G/DL RDW (test code = 1038) 12.9 % NEUTROPHILS (test code = 1008) 54.0 % LYMPHOCYTES (test code = 1010) 36.9 % MONOCYTES (test code = 1011) 5.5 % EOSINOPHILS (test code = 1012) 2.2 % BASOPHILS (test code = 1013) 1.2 % IMMATURE GRANULOCYTES (test code = 1036) 0.2 % NUCLEATED RBCS (test code = 1065) 0.0 /100WBC'S PLATELET COUNT (test code = 1015) 208 K/UL ABSOLUTE NEUTROPHILS (test c ode = 1066) 2.76 K/UL ABSOLUTE LYMPHOCYTES (test c ode = 1067) 1.88 K/UL ABSOLUTE MONOCYTES (test cod e = 1068) 0.28 K/UL ABSOLUTE EOSINOPHILS (test c ode = 1040) 0.11 K/UL ABSOLUTE BASOPHILS (test cod e = 1069) 0.06 K/UL ABS IMMATURE GRANULOCYTES (t est code = 1020) 0.01 K/UL ABS NUCLEATED RBCS (test cod e = 83669) 0.00 K/UL Bal RoseTSH, THIRD [id number] 00:00:00* Test Item Value Reference Range Interpretation Comme nts TSH, THIRD GENERATION (test code = 2821) 79.900 UIU/ML Bal RoseFSH + LH [id number] 00:00:00* Test Item Value Reference Range Interpretation Comme nts FOLLICLE STIM HORMONE (test code = 2700) 6.4 IU/L LUTEINIZING HORMONE (test co de = 1776) 3.5 IU/L Bal [id number] 00:00:00* Test Item Value Reference Range Interpretation Comme nts PROLACTIN (test code = 2800) 14.4 NG/ML Bal RoseCBC W/AUTO [id number] 00:00:00* Test Item Value Reference Range Interpretation Comme nts WBC (test code = 1001) 5.1 K/UL RBC (test code = 1002) 3.99 M/UL HEMOGLOBIN (test code = 1003) 11.5 G/DL HEMATOCRIT (test code = 1004) 34.7 % MCV (test code = 1005) 87.0 fL MCH (test code = 1006) 28.8 PG MCHC (test code = 1007) 33.1 G/DL RDW (test code = 1038) 12.9 % NEUTROPHILS (test code = 1008) 54.0 % LYMPHOCYTES (test code = 1010) 36.9 % MONOCYTES (test code = 1011) 5.5 % EOSINOPHILS (test code = 1012) 2.2 % BASOPHILS (test code = 1013) 1.2 % IMMATURE GRANULOCYTES (test code = 1036) 0.2 % NUCLEATED RBCS (test code = 1065) 0.0 /100WBC'S PLATELET COUNT (test code = 1015) 208 K/UL ABSOLUTE NEUTROPHILS (test c ode = 1066) 2.76 K/UL ABSOLUTE LYMPHOCYTES (test c ode = 1067) 1.88 K/UL ABSOLUTE MONOCYTES (test cod e = 1068) 0.28 K/UL ABSOLUTE EOSINOPHILS (test c ode = 1040) 0.11 K/UL ABSOLUTE BASOPHILS (test cod e = 1069) 0.06 K/UL ABS IMMATURE GRANULOCYTES (t est code = 1020) 0.01 K/UL ABS NUCLEATED RBCS (test cod e = 94272) 0.00 K/UL Bal RoseTSH, THIRD [id number] 00:00:00* Test Item Value Reference Range Interpretation Comme nts TSH, THIRD GENERATION (test code = 2821) 79.900 UIU/ML Bal RoseFSH + LH [id number] 00:00:00* Test Item Value Reference Range Interpretation Comme nts FOLLICLE STIM HORMONE (test code = 2700) 6.4 IU/L LUTEINIZING HORMONE (test co de = 2776) 3.5 IU/L Bal [id number] 00:00:00* Test Item Value Reference Range Interpretation Comme nts PROLACTIN (test code = 2800) 14.4 NG/ML Bal RoseCBC W/AUTO [id number] 00:00:00* Test Item Value Reference Range Interpretation Comme nts WBC (test code = 1001) 5.1 K/UL RBC (test code = 1002) 3.99 M/UL HEMOGLOBIN (test code = 1003) 11.5 G/DL HEMATOCRIT (test code = 1004) 34.7 % MCV (test code = 1005) 87.0 fL MCH (test code = 1006) 28.8 PG MCHC (test code = 1007) 33.1 G/DL RDW (test code = 1038) 12.9 % NEUTROPHILS (test code = 1008) 54.0 % LYMPHOCYTES (test code = 1010) 36.9 % MONOCYTES (test code = 1011) 5.5 % EOSINOPHILS (test code = 1012) 2.2 % BASOPHILS (test code = 1013) 1.2 % IMMATURE GRANULOCYTES (test code = 1036) 0.2 % NUCLEATED RBCS (test code = 1065) 0.0 /100WBC'S PLATELET COUNT (test code = 1015) 208 K/UL ABSOLUTE NEUTROPHILS (test c ode = 1066) 2.76 K/UL ABSOLUTE LYMPHOCYTES (test c ode = 1067) 1.88 K/UL ABSOLUTE MONOCYTES (test cod e = 1068) 0.28 K/UL ABSOLUTE EOSINOPHILS (test c ode = 1040) 0.11 K/UL ABSOLUTE BASOPHILS (test cod e = 1069) 0.06 K/UL ABS IMMATURE GRANULOCYTES (t est code = 1020) 0.01 K/UL ABS NUCLEATED RBCS (test cod e = 31824) 0.00 K/UL Bal RoseTSH, THIRD [id number] 00:00:00* Test Item Value Reference Range Interpretation Comme nts TSH, THIRD GENERATION (test code = 2821) 79.900 UIU/ML Bal RoseFSH + LH [id number] 00:00:00* Test Item Value Reference Range Interpretation Comme nts FOLLICLE STIM HORMONE (test code = 2700) 6.4 IU/L LUTEINIZING HORMONE (test co de = 2776) 3.5 IU/L Bal [id number] 00:00:00* Test Item Value Reference Range Interpretation Comme nts PROLACTIN (test code = 2800) 14.4 NG/ML Bal RoseCBC W/AUTO [id number] 00:00:00* Test Item Value Reference Range Interpretation Comme nts WBC (test code = 1001) 5.1 K/UL RBC (test code = 1002) 3.99 M/UL HEMOGLOBIN (test code = 1003) 11.5 G/DL HEMATOCRIT (test code = 1004) 34.7 % MCV (test code = 1005) 87.0 fL MCH (test code = 1006) 28.8 PG MCHC (test code = 1007) 33.1 G/DL RDW (test code = 1038) 12.9 % NEUTROPHILS (test code = 1008) 54.0 % LYMPHOCYTES (test code = 1010) 36.9 % MONOCYTES (test code = 1011) 5.5 % EOSINOPHILS (test code = 1012) 2.2 % BASOPHILS (test code = 1013) 1.2 % IMMATURE GRANULOCYTES (test code = 1036) 0.2 % NUCLEATED RBCS (test code = 1065) 0.0 /100WBC'S PLATELET COUNT (test code = 1015) 208 K/UL ABSOLUTE NEUTROPHILS (test c ode = 1066) 2.76 K/UL ABSOLUTE LYMPHOCYTES (test c ode = 1067) 1.88 K/UL ABSOLUTE MONOCYTES (test cod e = 1068) 0.28 K/UL ABSOLUTE EOSINOPHILS (test c ode = 1040) 0.11 K/UL ABSOLUTE BASOPHILS (test cod e = 1069) 0.06 K/UL ABS IMMATURE GRANULOCYTES (t est code = 1020) 0.01 K/UL ABS NUCLEATED RBCS (test cod e = 69202) 0.00 K/UL Bal RoseTSH, THIRD [id number] 00:00:00* Test Item Value Reference Range Interpretation Comme nts TSH, THIRD GENERATION (test code = 2821) 79.900 UIU/ML Bal RoseFSH + LH [id number] 00:00:00* Test Item Value Reference Range Interpretation Comme nts FOLLICLE STIM HORMONE (test code = 2700) 6.4 IU/L LUTEINIZING HORMONE (test co de = 2776) 3.5 IU/L Bal [id number] 00:00:00* Test Item Value Reference Range Interpretation Comme nts PROLACTIN (test code = 2800) 14.4 NG/ML Bal RoseCBC W/AUTO [id number] 00:00:00* Test Item Value Reference Range Interpretation Comme nts WBC (test code = 1001) 5.1 K/UL RBC (test code = 1002) 3.99 M/UL HEMOGLOBIN (test code = 1003) 11.5 G/DL HEMATOCRIT (test code = 1004) 34.7 % MCV (test code = 1005) 87.0 fL MCH (test code = 1006) 28.8 PG MCHC (test code = 1007) 33.1 G/DL RDW (test code = 1038) 12.9 % NEUTROPHILS (test code = 1008) 54.0 % LYMPHOCYTES (test code = 1010) 36.9 % MONOCYTES (test code = 1011) 5.5 % EOSINOPHILS (test code = 1012) 2.2 % BASOPHILS (test code = 1013) 1.2 % IMMATURE GRANULOCYTES (test code = 1036) 0.2 % NUCLEATED RBCS (test code = 1065) 0.0 /100WBC'S PLATELET COUNT (test code = 1015) 208 K/UL ABSOLUTE NEUTROPHILS (test c ode = 1066) 2.76 K/UL ABSOLUTE LYMPHOCYTES (test c ode = 1067) 1.88 K/UL ABSOLUTE MONOCYTES (test cod e = 1068) 0.28 K/UL ABSOLUTE EOSINOPHILS (test c ode = 1040) 0.11 K/UL ABSOLUTE BASOPHILS (test cod e = 1069) 0.06 K/UL ABS IMMATURE GRANULOCYTES (t est code = 1020) 0.01 K/UL ABS NUCLEATED RBCS (test cod e = 37063) 0.00 K/UL Bal RoseTSH, THIRD [id number] 00:00:00* Test Item Value Reference Range Interpretation Comme nts TSH, THIRD GENERATION (test code = 2821) 79.900 UIU/ML Bal RoseFSH + LH [id number] 00:00:00* Test Item Value Reference Range Interpretation Comme nts FOLLICLE STIM HORMONE (test code = 2700) 6.4 IU/L LUTEINIZING HORMONE (test co de = 2776) 3.5 IU/L Bal [id number] 00:00:00* Test Item Value Reference Range Interpretation Comme nts PROLACTIN (test code = 2800) 14.4 NG/ML Bal RoseCBC W/AUTO [id number] 00:00:00* Test Item Value Reference Range Interpretation Comme nts WBC (test code = 1001) 5.1 K/UL RBC (test code = 1002) 3.99 M/UL HEMOGLOBIN (test code = 1003) 11.5 G/DL HEMATOCRIT (test code = 1004) 34.7 % MCV (test code = 1005) 87.0 fL MCH (test code = 1006) 28.8 PG MCHC (test code = 1007) 33.1 G/DL RDW (test code = 1038) 12.9 % NEUTROPHILS (test code = 1008) 54.0 % LYMPHOCYTES (test code = 1010) 36.9 % MONOCYTES (test code = 1011) 5.5 % EOSINOPHILS (test code = 1012) 2.2 % BASOPHILS (test code = 1013) 1.2 % IMMATURE GRANULOCYTES (test code = 1036) 0.2 % NUCLEATED RBCS (test code = 1065) 0.0 /100WBC'S PLATELET COUNT (test code = 1015) 208 K/UL ABSOLUTE NEUTROPHILS (test c ode = 1066) 2.76 K/UL ABSOLUTE LYMPHOCYTES (test c ode = 1067) 1.88 K/UL ABSOLUTE MONOCYTES (test cod e = 1068) 0.28 K/UL ABSOLUTE EOSINOPHILS (test c ode = 1040) 0.11 K/UL ABSOLUTE BASOPHILS (test cod e = 1069) 0.06 K/UL ABS IMMATURE GRANULOCYTES (t est code = 1020) 0.01 K/UL ABS NUCLEATED RBCS (test cod e = 59793) 0.00 K/UL Bal RoseTSH, THIRD [id number] 00:00:00* Test Item Value Reference Range Interpretation Comme nts TSH, THIRD GENERATION (test code = 2821) 79.900 UIU/ML Bal RoseFSH + LH [id number] 00:00:00* Test Item Value Reference Range Interpretation Comme nts FOLLICLE STIM HORMONE (test code = 2700) 6.4 IU/L LUTEINIZING HORMONE (test co de = 2776) 3.5 IU/L Bal [id number] 00:00:00* Test Item Value Reference Range Interpretation Comme nts PROLACTIN (test code = 2800) 14.4 NG/ML Bal RoseCBC W/AUTO [id number] 00:00:00* Test Item Value Reference Range Interpretation Comme nts WBC (test code = 1001) 5.1 K/UL RBC (test code = 1002) 3.99 M/UL HEMOGLOBIN (test code = 1003) 11.5 G/DL HEMATOCRIT (test code = 1004) 34.7 % MCV (test code = 1005) 87.0 fL MCH (test code = 1006) 28.8 PG MCHC (test code = 1007) 33.1 G/DL RDW (test code = 1038) 12.9 % NEUTROPHILS (test code = 1008) 54.0 % LYMPHOCYTES (test code = 1010) 36.9 % MONOCYTES (test code = 1011) 5.5 % EOSINOPHILS (test code = 1012) 2.2 % BASOPHILS (test code = 1013) 1.2 % IMMATURE GRANULOCYTES (test code = 1036) 0.2 % NUCLEATED RBCS (test code = 1065) 0.0 /100WBC'S PLATELET COUNT (test code = 1015) 208 K/UL ABSOLUTE NEUTROPHILS (test c ode = 1066) 2.76 K/UL ABSOLUTE LYMPHOCYTES (test c ode = 1067) 1.88 K/UL ABSOLUTE MONOCYTES (test cod e = 1068) 0.28 K/UL ABSOLUTE EOSINOPHILS (test c ode = 1040) 0.11 K/UL ABSOLUTE BASOPHILS (test cod e = 1069) 0.06 K/UL ABS IMMATURE GRANULOCYTES (t est code = 1020) 0.01 K/UL ABS NUCLEATED RBCS (test cod e = 26998) 0.00 K/UL Bal RoseTSH, THIRD [id number] 00:00:00* Test Item Value Reference Range Interpretation Comme nts TSH, THIRD GENERATION (test code = 2821) 79.900 UIU/ML Bal RoseFSH + LH [id number] 00:00:00* Test Item Value Reference Range Interpretation Comme nts FOLLICLE STIM HORMONE (test code = 2700) 6.4 IU/L LUTEINIZING HORMONE (test co de = 8856) 3.5 IU/L Bal [id number] 00:00:00* Test Item Value Reference Range Interpretation Comme nts PROLACTIN (test code = 2800) 14.4 NG/ML Bal RoseCBC W/AUTO [id number] 00:00:00* Test Item Value Reference Range Interpretation Comme nts WBC (test code = 1001) 5.1 K/UL RBC (test code = 1002) 3.99 M/UL HEMOGLOBIN (test code = 1003) 11.5 G/DL HEMATOCRIT (test code = 1004) 34.7 % MCV (test code = 1005) 87.0 fL MCH (test code = 1006) 28.8 PG MCHC (test code = 1007) 33.1 G/DL RDW (test code = 1038) 12.9 % NEUTROPHILS (test code = 1008) 54.0 % LYMPHOCYTES (test code = 1010) 36.9 % MONOCYTES (test code = 1011) 5.5 % EOSINOPHILS (test code = 1012) 2.2 % BASOPHILS (test code = 1013) 1.2 % IMMATURE GRANULOCYTES (test code = 1036) 0.2 % NUCLEATED RBCS (test code = 1065) 0.0 /100WBC'S PLATELET COUNT (test code = 1015) 208 K/UL ABSOLUTE NEUTROPHILS (test c ode = 1066) 2.76 K/UL ABSOLUTE LYMPHOCYTES (test c ode = 1067) 1.88 K/UL ABSOLUTE MONOCYTES (test cod e = 1068) 0.28 K/UL ABSOLUTE EOSINOPHILS (test c ode = 1040) 0.11 K/UL ABSOLUTE BASOPHILS (test cod e = 1069) 0.06 K/UL ABS IMMATURE GRANULOCYTES (t est code = 1020) 0.01 K/UL ABS NUCLEATED RBCS (test cod e = 69854) 0.00 K/UL Bal RoseTSH, THIRD [id number] 00:00:00* Test Item Value Reference Range Interpretation Comme nts TSH, THIRD GENERATION (test code = 2821) 79.900 UIU/ML Bal RoseFSH + LH [id number] 00:00:00* Test Item Value Reference Range Interpretation Comme nts FOLLICLE STIM HORMONE (test code = 2700) 6.4 IU/L LUTEINIZING HORMONE (test co de = 2776) 3.5 IU/L Bal [id number] 00:00:00* Test Item Value Reference Range Interpretation Comme nts PROLACTIN (test code = 2800) 14.4 NG/ML Bal RoseCBC W/AUTO [id number] 00:00:00* Test Item Value Reference Range Interpretation Comme nts WBC (test code = 1001) 5.1 K/UL RBC (test code = 1002) 3.99 M/UL HEMOGLOBIN (test code = 1003) 11.5 G/DL HEMATOCRIT (test code = 1004) 34.7 % MCV (test code = 1005) 87.0 fL MCH (test code = 1006) 28.8 PG MCHC (test code = 1007) 33.1 G/DL RDW (test code = 1038) 12.9 % NEUTROPHILS (test code = 1008) 54.0 % LYMPHOCYTES (test code = 1010) 36.9 % MONOCYTES (test code = 1011) 5.5 % EOSINOPHILS (test code = 1012) 2.2 % BASOPHILS (test code = 1013) 1.2 % IMMATURE GRANULOCYTES (test code = 1036) 0.2 % NUCLEATED RBCS (test code = 1065) 0.0 /100WBC'S PLATELET COUNT (test code = 1015) 208 K/UL ABSOLUTE NEUTROPHILS (test c ode = 1066) 2.76 K/UL ABSOLUTE LYMPHOCYTES (test c ode = 1067) 1.88 K/UL ABSOLUTE MONOCYTES (test cod e = 1068) 0.28 K/UL ABSOLUTE EOSINOPHILS (test c ode = 1040) 0.11 K/UL ABSOLUTE BASOPHILS (test cod e = 1069) 0.06 K/UL ABS IMMATURE GRANULOCYTES (t est code = 1020) 0.01 K/UL ABS NUCLEATED RBCS (test cod e = 76969) 0.00 K/UL Bal RoseTSH, THIRD [id number] 00:00:00* Test Item Value Reference Range Interpretation Comme nts TSH, THIRD GENERATION (test code = 2821) 79.900 UIU/ML Bal RoseFSH + LH [id number] 00:00:00* Test Item Value Reference Range Interpretation Comme nts FOLLICLE STIM HORMONE (test code = 2700) 6.4 IU/L LUTEINIZING HORMONE (test co de = 2776) 3.5 IU/L Bal [id number] 00:00:00* Test Item Value Reference Range Interpretation Comme nts PROLACTIN (test code = 2800) 14.4 NG/ML Bal RoseCBC W/AUTO [id number] 00:00:00* Test Item Value Reference Range Interpretation Comme nts WBC (test code = 1001) 5.1 K/UL RBC (test code = 1002) 3.99 M/UL HEMOGLOBIN (test code = 1003) 11.5 G/DL HEMATOCRIT (test code = 1004) 34.7 % MCV (test code = 1005) 87.0 fL MCH (test code = 1006) 28.8 PG MCHC (test code = 1007) 33.1 G/DL RDW (test code = 1038) 12.9 % NEUTROPHILS (test code = 1008) 54.0 % LYMPHOCYTES (test code = 1010) 36.9 % MONOCYTES (test code = 1011) 5.5 % EOSINOPHILS (test code = 1012) 2.2 % BASOPHILS (test code = 1013) 1.2 % IMMATURE GRANULOCYTES (test code = 1036) 0.2 % NUCLEATED RBCS (test code = 1065) 0.0 /100WBC'S PLATELET COUNT (test code = 1015) 208 K/UL ABSOLUTE NEUTROPHILS (test c ode = 1066) 2.76 K/UL ABSOLUTE LYMPHOCYTES (test c ode = 1067) 1.88 K/UL ABSOLUTE MONOCYTES (test cod e = 1068) 0.28 K/UL ABSOLUTE EOSINOPHILS (test c ode = 1040) 0.11 K/UL ABSOLUTE BASOPHILS (test cod e = 1069) 0.06 K/UL ABS IMMATURE GRANULOCYTES (t est code = 1020) 0.01 K/UL ABS NUCLEATED RBCS (test cod e = 73781) 0.00 K/UL Bal RoseTSH, THIRD [id number] 00:00:00* Test Item Value Reference Range Interpretation Comme nts TSH, THIRD GENERATION (test code = 2821) 79.900 UIU/ML Bal RoseFSH + LH [id number] 00:00:00* Test Item Value Reference Range Interpretation Comme nts FOLLICLE STIM HORMONE (test code = 2700) 6.4 IU/L LUTEINIZING HORMONE (test co de = 2776) 3.5 IU/L Bal RoseFECAL PANCREATIC [id number] 16:12:00* Test Item Value Reference Range Interpretation Comme nts FECAL PANCREATIC ELASTACE (test code = PANELAST) Please se e hard copy for results CALPROTECTIN [id number] 16:12:00* Test Item Value Reference Range Interpretation Comme nts CALPROTECTIN FECAL (test code = CALFECAL) 26 ug/g 0-120 Concentration Interpretation Follow-Up<16 - 50 ug/g Normal None>50 -120 ug/g Borderline Re-evaluate in 4-6 weeks >120 ug/g Abnormal Repeat as clinically indicatedPerformed At: [facility] [id number] [place], [place] [id number] Hanson MD Ph:[phone] FECAL PANCREATIC [id number] 16:11:00* Test Item Value Reference Range Interpretation Comme nts FECAL PANCREATIC ELASTACE (test code = PANELAST) Please se e hard copy for results CALPROTECTIN [id number] 16:11:00* Test Item Value Reference Range Interpretation Comme nts CALPROTECTIN FECAL (test code = CALFECAL) ug/g 0-120 Concentration Interpretation Follow-Up<16 - 50 ug/g Normal None>50 -120 ug/g Borderline Re-evaluate in 4-6 weeks >120 ug/g Abnormal Repeat as clinically indicatedPerformed At: [facility] [id number] Hanson MD Ph:[phone] CHEMISTRY MISCELLANEOUS [id number] 14:06:00* Test Item Value Reference Range Interpretation Comme nts CHEMISTRY TEST (test code = TESTC) [facility]err[facility] hard copy for results LACTOFERRIN ANTINUCLEAR ANTIBODIES [id number] 17:07:00* Test Item Value Reference Range Interpretation Comme nts JEANA SCREEN (test code = ANASCR) NEGATIVE NEGATIVE AB HEPATITIS [id number] 17:07:00* Test Item Value Reference Range Interpretation Comme nts AB HEPATITIS A (test code = HAVAB) Negative Negative Performed At: [facility] [id number] Elias MD Ph:[phone] AB HEPATITIS A [id number] 17:07:00* Test Item Value Reference Range Interpretation Comme nts AB HEPATITIS A IGM (test code = HAVMAB) NONREAC NONREACTIVE The results were obtained using the [employer] HAV IgMassay. Values obtained from other waste recycler's assaymethods may not be used interchangeably. AB HEPATITIS B [id number] 17:07:00* Test Item Value Reference Range Interpretation Comme nts AB HEPATITIS B SURFACE (test code = HBSAB) <3.1 mIU/mL Immunity>9.9 A Status of Im [facility] Anti-HBs Level Incons istent with Immunity 0.0 - 9.9Consistent with Immunity >9.9 AG HEPATITIS B [id number] 17:07:00* Test Item Value Reference Range Interpretation Comme nts AG HEPATITIS B SURFACE (test code = HBSAG) NONREAC NONREAC The results were obtained using the [employer] HBsAg assay. AB HEPATITIS [id number] 17:07:00* Test Item Value Reference Range Interpretation Comme nts AB HEPATITIS C (test code = HCVAB) NONREAC NONREAC These results we re obtained using the [employer] XP HCV IgGAssay. Values obtained from other waste recycler's assaymethods may not be used interchangeably. AB [id number] 17:07:00* Test Item Value Reference Range Interpretation Comme nts AB ANTI-MITOCHONDRIAL (test code = MITOAB) <20.0 Units 0.0-20.0 Negative 0.0 - 2 0.0 Equivocal 20.1 - 24.9 Positive >24.9Mitochondrial (M2) Antibodies are found in 90-96% ofpatients with primary biliary cirrhosis.Performed At: [address] [id number] Sanjai MD Ph:[phone] AB ANTI-SMOOTH [id number] 17:07:00* Test Item Value Reference Range Interpretation Comme nts AB ANTI-SMOOTH MUSCLE (test code = SMOOTHAB) 5 Units 0-19 Negative 0 - 19 Weak positive 20 - 30 Moderate to strong positive >30 Actin Antibodies are found in 52-85% of patients with autoimmune hepatitis or chronic active hepatitis and in 22% of patients with primary biliary cirrhosis. TISSUE TRANSGLUTAMINASE [id number] 17:07:00* Test Item Value Reference Range Interpretation Comme nts TISSUE TRANSGLUTAMINASE IGA (test code = TTGIGAAB) <2 U/mL 0-3 Negative 0 - 3 [place] Positive 4 - 10 Positive >10 Tissue Transglutaminase (tTG) has been identified as the endomysial antigen. Studies have demonstr- ated that endomysial IgA antibodies have over 99% specificity for gluten sensitive enteropathy. AB ENDOMYSIAL [id number] 17:07:00* Test Item Value Reference Range Interpretation Comme nts AB ENDOMYSIAL IGA (test code = ENDOMAAB) Negative UNITS Negative Performed At: [address] [id number] Hanson MD Ph:[phone] TISSUE TRANSGLUTAMINASE [id number] 17:07:00* Test Item Value Reference Range Interpretation Comme nts TISSUE TRANSGLUTAMINASE IGG (test code = TTGIGGAB) <2 U/mL 0-5 Negative 0 - 5 Weak Positive 6 - 9 Positive >9Performed At: [address] [id number] Hanson MD Ph:[phone] CHEMISTRY MISCELLANEOUS [id number] 10:27:00* Test Item Value Reference Range Interpretation Comme nts CHEMISTRY TEST (test code = TESTC) [facility] see hard copy for results FIBROSURE REILLY AG HELICOBACTER PYLORI [id number] 10:17:00* Test Item Value Reference Range Interpretation Comme nts AG HELICOBACTER PYLORI STOOL (test code = HELIGAG) Negative Negative Performed At: [address] [id number] Hanson MD Ph:[phone] ANTINUCLEAR ANTIBODIES [id number] 14:27:00* Test Item Value Reference Range Interpretation Comme nts JEANA SCREEN (test code = ANASCR) NEGATIVE NEGATIVE AB HEPATITIS [id number] 14:27:00* Test Item Value Reference Range Interpretation Comme nts AB HEPATITIS A (test code = HAVAB) Negative Performed At: [address] [id number] Kyle L MD Ph:[phone] AB HEPATITIS A [id number] 14:27:00* Test Item Value Reference Range Interpretation Comme nts AB HEPATITIS A IGM (test code = HAVMAB) NONREAC NONREACTIVE The results were obtained using the [employer] HAV IgMassay. Values obtained from other waste recycler's assaymethods may not be used interchangeably. AB HEPATITIS B [id number] 14:27:00* Test Item Value Reference Range Interpretation Comme nts AB HEPATITIS B SURFACE (test code = HBSAB) mIU/mL Immunity>9.9 A Status of Im munity Anti-HBs Level Inconsist ent with Immunity 0.0 - 9.9Consistent with Immunity >9.9 AG HEPATITIS B [id number] 14:27:00* Test Item Value Reference Range Interpretation Comme nts AG HEPATITIS B SURFACE (test code = HBSAG) NONREAC NONREAC The results were obtained using the [employer] HBsAg assay. AB HEPATITIS [id number] 14:27:00* Test Item Value Reference Range Interpretation Comme nts AB HEPATITIS C (test code = HCVAB) NONREAC NONREAC These results we re obtained using the [employer] XP HCV IgGAssay. Values obtained from other waste recycler's assaymethods may not be used interchangeably. AB [id number] 14:27:00* Test Item Value Reference Range Interpretation Comme nts AB ANTI-MITOCHONDRIAL (test code = MITOAB) <1:20 AB ANTI-SMOOTH [id number] 14:27:00* Test Item Value Reference Range Interpretation Comme nts AB ANTI-SMOOTH MUSCLE (test code = SMOOTHAB) TISSUE TRANSGLUTAMINASE [id number] 14:27:00* Test Item Value Reference Range Interpretation Comme nts TISSUE TRANSGLUTAMINASE IGA (test code = TTGIGAAB) AB ENDOMYSIAL [id number] 14:27:00* Test Item Value Reference Range Interpretation Comme nts AB ENDOMYSIAL IGA (test code = ENDOMAAB) UNITS <20 TISSUE TRANSGLUTAMINASE [id number] 14:27:00* Test Item Value Reference Range Interpretation Comme nts TISSUE TRANSGLUTAMINASE IGG (test code = TTGIGGAB) COMPREHENSIVE METABOLIC [id number] 16:33:00* Test Item Value Reference Range Interpretation Comme nts SODIUM (test code = NA) 140 mmol/L 136-145 N POTASSIUM (test code = K) 3.4 mmol/L 3.5-5.1 L CHLORIDE (test code = CL) 104 mmol/L 98-107 N CARBON DIOXIDE (test code = CO2) 30 mmol/L 21-32 N GLUCOSE (test code = GLU) 85 mg/dL 70-100 N BLOOD UREA NITROGEN (test code = BUN) 11 mg/dL 7-18 N GLOMERULAR FILTRATION RATE (test code = GFR) > 60.00 >=60 Reporting units: mL/min/1.73m\\S\\2 (Modified MDRD formula)REFERENCE RANGE: > or = 60 ml/min/1.73M2IF PATIENT IS -LAO, MULTIPLY REPORTED RESULT BY1.21. CREATININE (test code = CREAT) 0.91 mg/dl 0.55-1.02 N TOTAL PROTEIN (test code = PROT) 8.1 g/dl 6.4-8.2 N ALBUMIN (test code = ALB) 3.7 g/dl 3.4-5.0 N CALCIUM (test code = CA) 8.9 mg/dl 8.5-10.1 N BILIRUBIN TOTAL (test code = BILT) 0.5 mg/dL 0.2-1.0 N SGOT/AST (test code = AST) 13 U/L 15-37 L SGPT/ALT (test code = ALT) 13 U/L 12-78 N ALKALINE PHOSPHATASE TOTAL (test code = ALKP) 77 U/L 45-117 N LIPID PROFILE (CORONARY RISK)[id number] 16:33:00* Test Item Value Reference Range Interpretation Comme nts TRIGLYCERIDES (test code = TRIG) 68 mg/dL <150 CHOLESTEROL (test code = CHOL) 117 mg/dL < 200 HDL CHOLESTEROL (test code = HDL) 43 mg/dL 40-59 N NON-HDL CHOLESTEROL (test code = NHDL) 74 mg/dl <130 LIPOPROTEIN LDL RUTHY (test code = LDLC) 60 mg/dl <100 LDL/HDL (test code = LDL/HDL) 1.4 Ratio LDL/HDL RATIO [facility] 3.22 Average 5.03 Twice average 6.14 Three times average BILIRUBIN [id number] 16:33:00* Test Item Value Reference Range Interpretation Comme nts BILIRUBIN DIRECT (test code = BILD) 0.12 mg/dl 0.0-0.2 N [id number] 16:33:00* Test Item Value Reference Range Interpretation Comme nts AMYLASE (test code = LILIBETH) 29 IU/L 25-115 N [id number] 16:33:00* Test Item Value Reference Range Interpretation Comme nts LIPASE (test code = LIP) 79 U/L 73-393 N ALPHA 1 [id number] 16:33:00* Test Item Value Reference Range Interpretation Comme nts ALPHA 1 ANTITRYPSIN (test code = KRZU8MFN) 156 mg/dL 100-188 Performed At: [facility] [address] [place], [place] [id number] CN MD Ph:[phone] [id number] 16:33:00* Test Item Value Reference Range Interpretation Comme nts CERULOPLASMIN (test code = CER) 25.5 mg/dL 19.0-39.0 Performed At: [facility] [place], [place] [id number] CN MD Ph:[phone] IMMUNOGLOBULIN [id number] 16:33:00* Test Item Value Reference Range Interpretation Comme [facility] IMMUNOGLOBULIN A (test code = IGA) 228 mg/dL 87-352 Performed At: [facility] [address] [place], [place] [id number] Kyle L MD Ph:[phone] OTHER SPECIMEN [id number] 11:02:00 RUN DATE: 05/17/20 [facility] LIVE PAGE 1 RUN TIME: 1103 Specimen Inquiry RUN USER: INTERFACE PATIENT: MERISSA MORTON LOC: TWAN U #: [id number] AGE/SX: 35/F ROOM: RE05/16/20REG DR: Deuce Jordan : 85 BED: DIS: STATUS: DIS RCR TLOC: SPEC #: [id number]: 05/17/20 STATUS: SOUT REQ #: [id number] NYDIA: 05/16/20- SUBM DR: Deuce Jordan ENTERED:05/17/20 SP TYPE: OTHER OTHR DR: ORDERED: PATHOLOGY REVIE COMMENTS: BLOOD,NOS CODES: [id number] -BLOOD CELL, NOS PROCEDURES: PATHOLOGY REVIE (05/17/20) TISSUES: B. BLOOD CELL, NOS - PERIPHERAL SMEAR---[facility] Signed SIGNATURE ON FILE Rashaun Castle 05/17/20 1102 END OF REPORT ANTINUCLEAR ANTIBODIES [id number] 09:12:00* Test Item Value Reference Range Interpretation Comme nts JEANA SCREEN (test code = ANASCR) NEGATIVE AB HEPATITIS [id number] 09:12:00* Test Item Value Reference Range Interpretation Comme nts AB HEPATITIS A (test code = HAVAB) Negative Performed At: [facility] [id number] Kyle L MD Ph:[phone] AB HEPATITIS A [id number] 09:12:00* Test Item Value Reference Range Interpretation Comme nts AB HEPATITIS A IGM (test code = HAVMAB) NONREAC NONREACTIVE The results were obtained using the [employer] HAV IgMassay. Values obtained from other waste recycler's assaymethods may not be used interchangeably. AB HEPATITIS B [id number] 09:12:00* Test Item Value Reference Range Interpretation Comme nts AB HEPATITIS B SURFACE (test code = HBSAB) mIU/mL Immunity>9.9 A Status of Im munity Anti-HBs Level Inconsist ent with Immunity 0.0 - 9.9Consistent with Immunity >9.9 AG HEPATITIS B [id number] 09:12:00* Test Item Value Reference Range Interpretation Comme nts AG HEPATITIS B SURFACE (test code = HBSAG) NONREAC NONREAC The results were obtained using the [employer] XP HBsAg assay. AB HEPATITIS [id number] 09:12:00* Test Item Value Reference Range Interpretation Comme nts AB HEPATITIS C (test code = HCVAB) NONREAC NONREAC These results we re obtained using the [employer] HCV IgGAssay. Values obtained from other waste recycler's assaymethods may not be used interchangeably. AB [id number] 09:12:00* Test Item Value Reference Range Interpretation Comme nts AB ANTI-MITOCHONDRIAL (test code = MITOAB) <1:20 AB ANTI-SMOOTH [id number] 09:12:00* Test Item Value Reference Range Interpretation Comme nts AB ANTI-SMOOTH MUSCLE (test code = SMOOTHAB) TISSUE TRANSGLUTAMINASE [id number] 09:12:00* Test Item Value Reference Range Interpretation Comme nts TISSUE TRANSGLUTAMINASE IGA (test code = TTGIGAAB) AB ENDOMYSIAL [id number] 09:12:00* Test Item Value Reference Range Interpretation Comme nts AB ENDOMYSIAL IGA (test code = ENDOMAAB) UNITS <20 TISSUE TRANSGLUTAMINASE [id number] 09:12:00* Test Item Value Reference Range Interpretation Comme nts TISSUE TRANSGLUTAMINASE IGG (test code = TTGIGGAB) ANTINUCLEAR ANTIBODIES [id number] 08:17:00* Test Item Value Reference Range Interpretation Comme nts JEANA SCREEN (test code = ANASCR) NEGATIVE AB HEPATITIS [id number] 08:17:00* Test Item Value Reference Range Interpretation Comme nts AB HEPATITIS A (test code = HAVAB) Negative Performed At: [facility] [address] [id number] Jim Elias MD Ph:[phone] AB HEPATITIS A [id number] 08:17:00* Test Item Value Reference Range Interpretation Comme nts AB HEPATITIS A IGM (test code = HAVMAB) NONREAC TIVE AB HEPATITIS B [id number] 08:17:00* Test Item Value Reference Range Interpretation Comme nts AB HEPATITIS B SURFACE (test code = HBSAB) mIU/mL Immunity>9.9 A Status of Im munity Anti-HBs Level Inconsist ent with Immunity 0.0 - 9.9Consistent with Immunity >9.9 AG HEPATITIS B [id number] 08:17:00* Test Item Value Reference Range Interpretation Comme nts AG HEPATITIS B SURFACE (test code = HBSAG) NONREAC NONREAC The results were obtained using the [employer] HBsAg assay. AB HEPATITIS [id number] 08:17:00* Test Item Value Reference Range Interpretation Comme nts AB HEPATITIS C (test code = HCVAB) NONREAC AB [id number] 08:17:00* Test Item Value Reference Range Interpretation Comme nts AB ANTI-MITOCHONDRIAL (test code = MITOAB) <1:20 AB ANTI-SMOOTH [id number] 08:17:00* Test Item Value Reference Range Interpretation Comme nts AB ANTI-SMOOTH MUSCLE (test code = SMOOTHAB) TISSUE TRANSGLUTAMINASE [id number] 08:17:00* Test Item Value Reference Range Interpretation Comme nts TISSUE TRANSGLUTAMINASE IGA (test code = TTGIGAAB) AB ENDOMYSIAL [id number] 08:17:00* Test Item Value Reference Range Interpretation Comme nts AB ENDOMYSIAL IGA (test code = ENDOMAAB) UNITS <20 TISSUE TRANSGLUTAMINASE [id number] 08:17:00* Test Item Value Reference Range Interpretation Comme nts TISSUE TRANSGLUTAMINASE IGG (test code = TTGIGGAB) CBC W/O [id number] 07:40:00* Test Item Value Reference Range Interpretation Comme nts WHITE BLOOD CELL (test code = WBC) 8.1 X10(3) 4.5-11.0 N RED BLOOD CELL (test code = RBC) 4.66 X10(6) 4.2-5.4 N HEMOGLOBIN (test code = HGB) 12.8 g/dL 12.5-16.0 N HEMATOCRIT (test code = HCT) 40.1 % 37.0-47.0 N MEAN CELL VOLUME (test code = MCV) 86.1 fL 78-100 N MEAN CELL HGB (test code = MCH) 27.5 pg 26.0-34.0 N MEAN CELL HGB CONCETRATION ( test code = MCHC) 31.9 g/dl 30.0-37.0 N RED CELL DISTRIBUTION WIDTH (test code = RDW) 12.6 % 11.5-14.5 N PLATELET COUNT (test code = PLT) 253 X10(3) 150-350 N MEAN PLATELET VOLUME (test c ode = MPV) 11.0 fl 8.7-11.4 N IMMATURE PLATELET [id number] 07:40:00* Test Item Value Reference Range Interpretation Comme nts IMMATURE PLATELET FRACTION ( test code = IPF) 4.8 % 0.9-11.2 N WBC [id number] 07:40:00* Test Item Value Reference Range Interpretation Comme nts TOTAL CELLS COUNTED (test code = TCC) 100 #CELLS SEGMENTED NEUTROPHILS (test code = SEG) 43 % 36-66 N LYMPHOCYTE (test code = LYMPH) 50 % 16-50 N MONOCYTE (test code = MON) 6 % 0-13 N EOSINOPHIL (test code = EOS) 1 % 0-4.5 N BAND ABSOLUTE (test code = BAND#) 0.00 X10(3) 0.0-0.7 N NEUTROPHIL ABSOLUTE (test code = NEUTR#) 3.40 X10(3) 1.7-7.7 N LYMPH ABSOLUTE (test code = LYMPH#) 4.00 X10(3) 1.0-4.8 N MONOCYTE ABSOLUTE (test code = MON#) 0.40 X10(3) 0.0-0.89 N BASOPHIL ABSOLUTE (test code = BASO#) 0.0 X10(3) 0.0-0.2 N EOSINOPHIL ABSOLUTE (test code = EOS#) 0.00 X10(3) 0.0-0.6 N METAMYELO ABSOLUTE (test code = META#) 0.0 X10(3) 0.0-0.0 N MYELOCYTE ABSOLUTE (test code = MYELO#) 0.00 X10(3) 0.0-0.0 N PROMYELOCYTE ABSOLUTE (test code = PROM#) 0.00 X10(3) 0.0-0.0 N OTHER CELLS ABSOLUTE (test code = OCT#) 0.0 X10(3) 0.0-0.0 N POIKILOCYTOSIS (test code = POIK) 1+ NOT PRESENT PLATELET ESTIMATE (test code = PLTEST) ADEQUATE ADEQUATE PLATELET MORPHOLOGY (test code = PLTMORPH) VARIABLE PLT SIZE NORMAL A RETICULOCYTE [id number] 07:40:00* Test Item Value Reference Range Interpretation Comme nts RETIC COUNT (AUTOMATED) (rocío t code = RETICA) 1.7 % 0.5-2.7 N IMMATURE RETICULOCYTE [id number] 07:40:00* Test Item Value Reference Range Interpretation Comme nts IMMATURE RETICULOCYTE FRACTI ON (test code = IRF) 5.6 % 3.0-15.9 N RETICULOCYTE HGB [id number] 07:40:00* Test Item Value Reference Range Interpretation Comme nts RETICULOCYTE HGB EQUIVALENT (test code = RETHE) 31.5 pg 28.2-35.7 N SMEAR PERIPHERAL [id number] 07:40:00* Test Item Value Reference Range Interpretation Comme nts SMEAR PERIPHERAL BLOOD (test code = BLDSM) SEE PATHOLOGIST REPT CBC W/O [id number] 07:39:00* Test Item Value Reference Range Interpretation Comme nts WHITE BLOOD CELL (test code = WBC) 8.1 X10(3) 4.5-11.0 N RED BLOOD CELL (test code = RBC) 4.66 X10(6) 4.2-5.4 N HEMOGLOBIN (test code = HGB) 12.8 g/dL 12.5-16.0 N HEMATOCRIT (test code = HCT) 40.1 % 37.0-47.0 N MEAN CELL VOLUME (test code = MCV) 86.1 fL 78-100 N MEAN CELL HGB (test code = MCH) 27.5 pg 26.0-34.0 N MEAN CELL HGB CONCETRATION ( test code = MCHC) 31.9 g/dl 30.0-37.0 N RED CELL DISTRIBUTION WIDTH (test code = RDW) 12.6 % 11.5-14.5 N PLATELET COUNT (test code = PLT) 253 X10(3) 150-350 N MEAN PLATELET VOLUME (test c ode = MPV) 11.0 fl 8.7-11.4 N IMMATURE PLATELET [id number] 07:39:00* Test Item Value Reference Range Interpretation Comme nts IMMATURE PLATELET FRACTION ( test code = IPF) 4.8 % 0.9-11.2 N WBC [id number] 07:39:00* Test Item Value Reference Range Interpretation Comme nts TOTAL CELLS COUNTED (test co de = TCC) 100 #CELLS SEGMENTED NEUTROPHILS (test code = SEG) 43 % 36-66 N LYMPHOCYTE (test code = LYMPH) 50 % 16-50 N MONOCYTE (test code = MON) 6 % 0-13 N EOSINOPHIL (test code = EOS) 1 % 0-4.5 N BAND ABSOLUTE (test code = BAND#) 0.00 X10(3) 0.0-0.7 N NEUTROPHIL ABSOLUTE (test co de = NEUTR#) 3.40 X10(3) 1.7-7.7 N LYMPH ABSOLUTE (test code = LYMPH#) 4.00 X10(3) 1.0-4.8 N MONOCYTE ABSOLUTE (test code = MON#) 0.40 X10(3) 0.0-0.89 N BASOPHIL ABSOLUTE (test code = BASO#) 0.0 X10(3) 0.0-0.2 N EOSINOPHIL ABSOLUTE (test co de = EOS#) 0.00 X10(3) 0.0-0.6 N METAMYELO ABSOLUTE (test cod e = META#) 0.0 X10(3) 0.0-0.0 N MYELOCYTE ABSOLUTE (test cod e = MYELO#) 0.00 X10(3) 0.0-0.0 N PROMYELOCYTE ABSOLUTE (test code = PROM#) 0.00 X10(3) 0.0-0.0 N OTHER CELLS ABSOLUTE (test c ode = OCT#) 0.0 X10(3) 0.0-0.0 N RETICULOCYTE [id number] 07:39:00* Test Item Value Reference Range Interpretation Comme nts RETIC COUNT (AUTOMATED) (rocío t code = RETICA) 1.7 % 0.5-2.7 N IMMATURE RETICULOCYTE [id number] 07:39:00* Test Item Value Reference Range Interpretation Comme nts IMMATURE RETICULOCYTE FRACTI ON (test code = IRF) 5.6 % 3.0-15.9 N RETICULOCYTE HGB [id number] 07:39:00* Test Item Value Reference Range Interpretation Comme nts RETICULOCYTE HGB EQUIVALENT (test code = RETHE) 31.5 pg 28.2-35.7 N SMEAR PERIPHERAL [id number] 07:39:00* Test Item Value Reference Range Interpretation Comme nts SMEAR PERIPHERAL BLOOD (test code = BLDSM) SEE PATHOLOGIST REPT CBC W/O [id number] 07:33:00* Test Item Value Reference Range Interpretation Comme nts WHITE BLOOD CELL (test code = WBC) 8.1 X10(3) 4.5-11.0 N RED BLOOD CELL (test code = RBC) 4.66 X10(6) 4.2-5.4 N HEMOGLOBIN (test code = HGB) 12.8 g/dL 12.5-16.0 N HEMATOCRIT (test code = HCT) 40.1 % 37.0-47.0 N MEAN CELL VOLUME (test code = MCV) 86.1 fL 78-100 N MEAN CELL HGB (test code = MCH) 27.5 pg 26.0-34.0 N MEAN CELL HGB CONCETRATION ( test code = MCHC) 31.9 g/dl 30.0-37.0 N RED CELL DISTRIBUTION WIDTH (test code = RDW) 12.6 % 11.5-14.5 N PLATELET COUNT (test code = PLT) 253 X10(3) 150-350 N MEAN PLATELET VOLUME (test c ode = MPV) 11.0 fl 8.7-11.4 N IMMATURE PLATELET [id number] 07:33:00* Test Item Value Reference Range Interpretation Comme nts IMMATURE PLATELET FRACTION ( test code = IPF) 4.8 % 0.9-11.2 N RETICULOCYTE [id number] 07:33:00* Test Item Value Reference Range Interpretation Comme nts RETIC COUNT (AUTOMATED) (rocío t code = RETICA) 1.7 % 0.5-2.7 N IMMATURE RETICULOCYTE [id number] 07:33:00* Test Item Value Reference Range Interpretation Comme nts IMMATURE RETICULOCYTE FRACTI ON (test code = IRF) 5.6 % 3.0-15.9 N RETICULOCYTE HGB [id number] 07:33:00* Test Item Value Reference Range Interpretation Comme nts RETICULOCYTE HGB EQUIVALENT (test code = RETHE) 31.5 pg 28.2-35.7 N SMEAR PERIPHERAL [id number] 07:33:00* Test Item Value Reference Range Interpretation Comme nts SMEAR PERIPHERAL BLOOD (test code = BLDSM) SEE PATHOLOGIST REPT PROTHROMBIN [id number] 18:40:00* Test Item Value Reference Range Interpretation Comments PROTHROMBIN TIME PATIENT (test code = PTP) 10.9 SECONDS 8.7-12.1 N THERAPEUTIC LEVE L: 1.5 TO 1.9 TIMES NORMAL RANGE INTERNATIONAL NORMAL RATIO (test code = INR) 1.0 Recommended Ther apeutic PT Ratios For Oral AnticoagulantTherapy. CONDITION INT'L NORMALIZED PT RATIO Prophylaxis of venous thrombosis 2.0 - 3.0in high risk medical or surgicalpatients, treatment of venousthrombosis, prevention of embolism. Prevention of recurrent embolism, 2.5 - 3.5or treatment of patients with mechanicalprosthetic heart valves. THROMBOPLASTIN TIME [id number] 18:40:00* Test Item Value Reference Range Interpretation Comme nts THROMBOPLASTIN TIME PARTIAL (test code = PTT) 28.8 seconds 22.8-34.4 N VITAMIN [id number] 18:33:00* Test Item Value Reference Range Interpretation Comme nts VITAMIN B12 (test code = VITB12) 365 pg/ml 193-986 N Results of th is assay method may be falsely depressed orelevated if patient is taking high doses of Biotin [id number] 18:33:00* Test Item Value Reference Range Interpretation Comme nts FOLATE (test code = FOL) 19.0 ng/ml >8.6 Results of th is assay method may be falsely depressed orelevated if patient is taking high doses of Biotin ALPHA [id number] 18:33:00* Test Item Value Reference Range Interpretation Comme nts ALPHA FETOPROTEIN (test code = AFP) 1.50 NG/ML <8.10 N CBC W/O [id number] 18:30:00* Test Item Value Reference Range Interpretation Comme nts WHITE BLOOD CELL (test code = WBC) 8.1 X10(3) 4.5-11.0 N RED BLOOD CELL (test code = RBC) 4.66 X10(6) 4.2-5.4 N HEMOGLOBIN (test code = HGB) 12.8 g/dL 12.5-16.0 N HEMATOCRIT (test code = HCT) 40.1 % 37.0-47.0 N MEAN CELL VOLUME (test code = MCV) 86.1 fL 78-100 N MEAN CELL HGB (test code = MCH) 27.5 pg 26.0-34.0 N MEAN CELL HGB CONCETRATION ( test code = MCHC) 31.9 g/dl 30.0-37.0 N RED CELL DISTRIBUTION WIDTH (test code = RDW) 12.6 % 11.5-14.5 N PLATELET COUNT (test code = PLT) 253 X10(3) 150-350 N MEAN PLATELET VOLUME (test c ode = MPV) 11.0 fl 8.7-11.4 N IMMATURE PLATELET [id number] 18:30:00* Test Item Value Reference Range Interpretation Comme nts IMMATURE PLATELET FRACTION ( test code = IPF) 4.8 % 0.9-11.2 N RETICULOCYTE [id number] 18:30:00* Test Item Value Reference Range Interpretation Comme nts RETIC COUNT (AUTOMATED) (rocío t code = RETICA) 1.7 % 0.5-2.7 N IMMATURE RETICULOCYTE [id number] 18:30:00* Test Item Value Reference Range Interpretation Comme nts IMMATURE RETICULOCYTE FRACTI ON (test code = IRF) 5.6 % 3.0-15.9 N RETICULOCYTE HGB [id number] 18:30:00* Test Item Value Reference Range Interpretation Comme nts RETICULOCYTE HGB EQUIVALENT (test code = RETHE) 31.5 pg 28.2-35.7 N SMEAR PERIPHERAL [id number] 18:30:00* Test Item Value Reference Range Interpretation Comme [facility] SMEAR PERIPHERAL BLOOD (test code = BLDSM) VITAMIN [id number] 13:35:00* Test Item Value Reference Range Interpretation Comme nts VITAMIN B12 (test code = VITB12) 365 pg/ml 193-986 N Results of th is assay method may be falsely depressed orelevated if patient is taking high doses of Biotin [id number] 13:35:00* Test Item Value Reference Range Interpretation Comme [facility] FOLATE (test code = FOL) 19.0 ng/ml >8.6 Results of th is assay method may be falsely depressed orelevated if patient is taking high doses of Biotin ALPHA [id number] 13:35:00* Test Item Value Reference Range Interpretation Comme nts ALPHA FETOPROTEIN (test code = AFP) NG/ML <8.10 COMPREHENSIVE METABOLIC [id number] 13:34:00* Test Item Value Reference Range Interpretation Comme nts SODIUM (test code = NA) 140 mmol/L 136-145 N POTASSIUM (test code = K) 3.4 mmol/L 3.5-5.1 L CHLORIDE (test code = CL) 104 mmol/L 98-107 N CARBON DIOXIDE (test code = CO2) 30 mmol/L 21-32 N GLUCOSE (test code = GLU) 85 mg/dL 70-100 N BLOOD UREA NITROGEN (test code = BUN) 11 mg/dL 7-18 N GLOMERULAR FILTRATION RATE (test code = GFR) > 60.00 >=60 Reporting units: mL/min/1.73m\\S\\2 (Modified MDRD formula)REFERENCE RANGE: > or = 60 ml/min/1.73M2IF PATIENT IS -LAO, MULTIPLY REPORTED RESULT BY1.21. CREATININE (test code = CREAT) 0.91 mg/dl 0.55-1.02 N TOTAL PROTEIN (test code = PROT) 8.1 g/dl 6.4-8.2 N ALBUMIN (test code = ALB) 3.7 g/dl 3.4-5.0 N CALCIUM (test code = CA) 8.9 mg/dl 8.5-10.1 N BILIRUBIN TOTAL (test code = BILT) 0.5 mg/dL 0.2-1.0 N SGOT/AST (test code = AST) 13 U/L 15-37 L SGPT/ALT (test code = ALT) 13 U/L 12-78 N ALKALINE PHOSPHATASE TOTAL (test code = ALKP) 77 U/L 45-117 N LIPID PROFILE (CORONARY RISK)[id number] 13:34:00* Test Item Value Reference Range Interpretation Comme nts TRIGLYCERIDES (test code = TRIG) 68 mg/dL <150 CHOLESTEROL (test code = CHOL) 117 mg/dL < 200 HDL CHOLESTEROL (test code = HDL) 43 mg/dL 40-59 N NON-HDL CHOLESTEROL (test code = NHDL) 74 mg/dl <130 LIPOPROTEIN LDL RUTHY (test code = LDLC) 60 mg/dl <100 LDL/HDL (test code = LDL/HDL) 1.4 Ratio LDL/HDL RATIO [facility] 3.22 Average 5.03 Twice average 6.14 Three times average BILIRUBIN [id number] 13:34:00* Test Item Value Reference Range Interpretation Comme nts BILIRUBIN DIRECT (test code = BILD) 0.12 mg/dl 0.0-0.2 N [id number] 13:34:00* Test Item Value Reference Range Interpretation Comme nts AMYLASE (test code = LILIBETH) 29 IU/L 25-115 N [id number] 13:34:00* Test Item Value Reference Range Interpretation Comme nts LIPASE (test code = LIP) 79 U/L 73-393 N ALPHA 1 [id number] 13:34:00* Test Item Value Reference Range Interpretation Comme nts ALPHA 1 ANTITRYPSIN (test co de = YEAT6XVE) mg/dl [id number] 13:34:00* Test Item Value Reference Range Interpretation Comme nts CERULOPLASMIN (test code = CER) 21-53 IMMUNOGLOBULIN [id number] 13:34:00* Test Item Value Reference Range Interpretation Comme nts IMMUNOGLOBULIN A (test code = IGA) mg/dL [id number] 13:34:00* Test Item Value Reference Range Interpretation Comme nts GLYCOSYLATED HEMOGLOBIN (HA1C) (test code = GLYHGB) 5.7 % <5.7 H * DUE TO METHOD REVISION, REFERENCE RANGE HAS BEEN UPDATED * ESTIMATED AVERAGE GLUCOSE (test code = EAG) 117 MG/DL <126 CBC W/O [id number] 12:43:00* Test Item Value Reference Range Interpretation Comme nts WHITE BLOOD CELL (test code = WBC) 8.1 X10(3) 4.5-11.0 N RED BLOOD CELL (test code = RBC) 4.66 X10(6) 4.2-5.4 N HEMOGLOBIN (test code = HGB) 12.8 g/dL 12.5-16.0 N HEMATOCRIT (test code = HCT) 40.1 % 37.0-47.0 N MEAN CELL VOLUME (test code = MCV) 86.1 fL 78-100 N MEAN CELL HGB (test code = MCH) 27.5 pg 26.0-34.0 N MEAN CELL HGB CONCETRATION ( test code = MCHC) 31.9 g/dl 30.0-37.0 N RED CELL DISTRIBUTION WIDTH (test code = RDW) 12.6 % 11.5-14.5 N PLATELET COUNT (test code = PLT) 253 X10(3) 150-350 N MEAN PLATELET VOLUME (test c ode = MPV) 11.0 fl 8.7-11.4 N IMMATURE PLATELET [id number] 12:43:00* Test Item Value Reference Range Interpretation Comme nts IMMATURE PLATELET FRACTION ( test code = IPF) % 0.9-11.2 RETICULOCYTE [id number] 12:43:00* Test Item Value Reference Range Interpretation Comme nts RETIC COUNT (AUTOMATED) (rocío t code = RETICA) % 0.5-2.7 IMMATURE RETICULOCYTE [id number] 12:43:00* Test Item Value Reference Range Interpretation Comme nts IMMATURE RETICULOCYTE FRACTI ON (test code = IRF) % 3.0-15.9 RETICULOCYTE HGB [id number] 12:43:00* Test Item Value Reference Range Interpretation Comme nts RETICULOCYTE HGB EQUIVALENT (test code = RETHE) pg 28.2-35.7 SMEAR PERIPHERAL [id number] 12:43:00* Test Item Value Reference Range Interpretation Comme nts SMEAR PERIPHERAL BLOOD (test code = BLDSM) CBC W/AUTO [id number] 12:43:00* Test Item Value Reference Range Interpretation Comme nts WHITE BLOOD CELL (test code = WBC) 8.1 X10(3) 4.5-11.0 N RED BLOOD CELL (test code = RBC) 4.66 X10(6) 4.2-5.4 N HEMOGLOBIN (test code = HGB) 12.8 g/dL 12.5-16.0 N HEMATOCRIT (test code = HCT) 40.1 % 37.0-47.0 N MEAN CELL VOLUME (test code = MCV) 86.1 fL 78-100 N MEAN CELL HGB (test code = MCH) 27.5 pg 26.0-34.0 N MEAN CELL HGB CONCETRATION (test code = MCHC) 31.9 g/dl 30.0-37.0 N RED CELL DISTRIBUTION WIDTH (test code = RDW) 12.6 % 11.5-14.5 N PLATELET COUNT (test code = PLT) 253 X10(3) 150-350 N MEAN PLATELET VOLUME (test c ode = MPV) 11.0 fl 8.7-11.4 N NEUTROPHIL % (test code = NT%) 55.2 % 36.0-66.0 N IMMATURE GRANULOCYTE % (test code = IG%) 0.0 % 0.0-2.0 N LYMPHOCYTE % (test code = LY%) 37.9 % 16-50 N MONOCYTE % (test code = MO%) 5.3 % 0.0-13.0 N EOSINOPHIL % (test code = EO%) 1.2 % 0.0-4.5 N BASOPHIL % (test code = BA%) 0.4 % 0.0-1.5 N NEUTROPHIL # (test code = NT#) 4.5 X10(3) 1.7-7.7 N IMMATURE GRANULOCYTE # (test code = IG#) 0.00 X10(3)uL 0.00-0.03 N LYMPHOCYTE # (test code = LY#) 3.1 X10(3) 1.0-4.8 N MONOCYTE # (test code = MO#) 0.4 X10(3) 0.0-0.89 N EOSINOPHIL # (test code = EO#) 0.1 X10(3) 0.0-0.6 N BASOPHIL # (test code = BA#) 0.0 X10(3) 0.0-0.2 N IMMATURE PLATELET [id number] 12:43:00* Test Item Value Reference Range Interpretation Comme nts IMMATURE PLATELET FRACTION ( test code = IPF) % 0.9-11.2 RETICULOCYTE [id number] 12:43:00* Test Item Value Reference Range Interpretation Comme nts RETIC COUNT (AUTOMATED) (rocío t code = RETICA) % 0.5-2.7 IMMATURE RETICULOCYTE [id number] 12:43:00* Test Item Value Reference Range Interpretation Comme nts IMMATURE RETICULOCYTE FRACTI ON (test code = IRF) % 3.0-15.9 RETICULOCYTE HGB [id number] 12:43:00* Test Item Value Reference Range Interpretation Comme nts RETICULOCYTE HGB EQUIVALENT (test code = RETHE) pg 28.2-35.7 SMEAR PERIPHERAL [id number] 12:43:00* Test Item Value Reference Range Interpretation Comme nts SMEAR PERIPHERAL BLOOD (test code = BLDSM) CBC W/AUTO [id number] 10:13:00* Test Item Value Reference Range Interpretation Comme nts WHITE BLOOD CELL (test code = WBC) 6.9 X10(3) 4.5-11.0 N RED BLOOD CELL (test code = RBC) 4.44 X10(6) 4.2-5.4 N HEMOGLOBIN (test code = HGB) 12.0 g/dL 12.5-16.0 L HEMATOCRIT (test code = HCT) 36.9 % 37.0-47.0 L MEAN CELL VOLUME (test code = MCV) 83.1 fL 78-100 N MEAN CELL HGB (test code = MCH) 27.0 pg 26.0-34.0 N MEAN CELL HGB CONCETRATION (test code = MCHC) 32.5 g/dl 32.0-36.0 N RED CELL DISTRIBUTION WIDTH (test code = RDW) 13.8 % 11.5-14.5 N PLATELET COUNT (test code = PLT) 164 X10(3) 150-350 N MEAN PLATELET VOLUME (test code = MPV) 11.8 fl 8.7-11.4 H NEUTROPHIL % (test code = NT%) 79.7 % 36.0-66.0 H LYMPHOCYTE % (test code = LY%) 12.0 % 16-50 L MONOCYTE % (test code = MO%) 8.1 % 0.0-13.0 N EOSINOPHIL % (test code = EO%) 0.1 % 0.0-4.5 N BASOPHIL % (test code = BA%) 0.1 % 0.0-1.5 N NEUTROPHIL # (test code = NT#) 5.5 X10(3) 1.7-7.7 N LYMPHOCYTE # (test code = LY#) 0.8 X10(3) 1.0-4.8 L MONOCYTE # (test code = MO#) 0.6 X10(3) 0.0-0.89 N EOSINOPHIL # (test code = EO#) 0.0 X10(3) 0.0-0.6 N BASOPHIL # (test code = BA#) 0.0 X10(3) 0.0-0.2 N RBC MORPHOLOGY REQUIRED (test code = RBCM) MORPHOLOGY NEEDED NORMAL RBC [id number] 10:13:00* Test Item Value Reference Range Interpretation Comme nts PLATELET ESTIMATE (test code = PLTEST) ADEQUATE ADEQUATE PLATELET MORPHOLOGY (test co de = PLTMORPH) NORMAL NORMAL COMPREHENSIVE METABOLIC [id number] 08:02:00* Test Item Value Reference Range Interpretation Comme nts SODIUM (test code = NA) 137 mmol/L 136-145 N POTASSIUM (test code = K) 3.7 mmol/L 3.5-5.1 N CHLORIDE (test code = CL) 101 mmol/L 98-107 N CARBON DIOXIDE (test code = CO2) 23 mmol/L 21-32 N GLUCOSE (test code = GLU) 107 mg/dL 70-100 H BLOOD UREA NITROGEN (test code = BUN) 7 mg/dL 7-18 N GLOMERULAR FILTRATION RATE (test code = GFR) > 60.00 >=60 Reporting units: mL/min/1.73m\\S\\2 (Modified MDRD formula)REFERENCE RANGE: > or = 60 ml/min/1.73M2IF PATIENT IS -LAO, MULTIPLY REPORTED RESULT BY1.21. CREATININE (test code = CREAT) 0.89 mg/dl 0.55-1.02 N TOTAL PROTEIN (test code = PROT) 7.5 g/dl 6.4-8.2 N ALBUMIN (test code = ALB) 3.5 g/dl 3.4-5.0 N CALCIUM (test code = CA) 8.8 mg/dL 8.5-10.1 N BILIRUBIN TOTAL (test code = BILT) 0.5 mg/dL 0.2-1.0 N SGOT/AST (test code = AST) 14 U/L 15-37 L SGPT/ALT (test code = ALT) 10 U/L 30-65 L ALKALINE PHOSPHATASE TOTAL (test code = ALKP) 93 U/L 50-136 N CREATINE KINASE (CK)2018-09-25 08:02:00* Test Item Value Reference Range Interpretation Comme [facility] CREATINE KINASE (CK) (test code = CK) 63 U/L 21-215 N THYROID STIMULATING [id number] 08:02:00* Test Item Value Reference Range Interpretation Comme nts THYROID STIMULATING HORMONE (test code = TSH) <0.007 0.358-3.74 L [id number] 08:02:00* Test Item Value Reference Range Interpretation Comme nts TROPONIN-I (test code = TROPI) <0.017 ng/ml 0.00-0.045 N GUIDELINES: 0.08 - 0.09 Indeterminate0.10 Risk Stratification Limit: Suggest sequential testing0.11 - 0.50 "[place]": Suggest sequential testing0.60 - 1.50 AMI cutoff: Myocardial Injury by WHO criteria B-TYPE NATRIURETIC [id number] 07:57:00* Test Item Value Reference Range Interpretation Comme [facility] B-TYPE NATRIURETIC PEPTIDE ( test code = BNP) 8 PG/ML 13-100 L D-DIMER [id number] 07:54:00* Test Item Value Reference Range Interpretation Comme [facility] D-DIMER QUANT (test code = DDIMER) 1.95 mg/L FEU <0.59 H "D-DIMER CUT OFF OF 0.50 mg/L (FEU) IS USEFUL TO EXCLUDE DXOF DVT/PEExpected value(RI) is less than 0.59mg/L (FEU) for normalhealthy subjects."Please note: Results of D-dimer assays should always beinterpreted in conjunction with the patient's medicalhistory, clinical presentation/probability and otherfindings. LAB ANTICOAGULANT QUERY NOCOMPREHENSIVE METABOLIC [id number] 07:48:00* Test Item Value Reference Range Interpretation Comme [facility] SODIUM (test code = NA) 137 mmol/L 136-145 N POTASSIUM (test code = K) 3.7 mmol/L 3.5-5.1 N CHLORIDE (test code = CL) 101 mmol/L 98-107 N CARBON DIOXIDE (test code = CO2) 23 mmol/L 21-32 N GLUCOSE (test code = GLU) 107 mg/dL 70-100 H BLOOD UREA NITROGEN (test code = BUN) 7 mg/dL 7-18 N GLOMERULAR FILTRATION RATE (test code = GFR) > 60.00 >=60 Reporting units: mL/min/1.73m\\S\\2 (Modified MDRD formula)REFERENCE RANGE: > or = 60 ml/min/1.73M2IF PATIENT IS -LAO, MULTIPLY REPORTED RESULT BY1.21. CREATININE (test code = CREAT) 0.89 mg/dl 0.55-1.02 N TOTAL PROTEIN (test code = PROT) 7.5 g/dl 6.4-8.2 N ALBUMIN (test code = ALB) 3.5 g/dl 3.4-5.0 N CALCIUM (test code = CA) 8.8 mg/dL 8.5-10.1 N BILIRUBIN TOTAL (test code = BILT) 0.5 mg/dL 0.2-1.0 N SGOT/AST (test code = AST) 14 U/L 15-37 L SGPT/ALT (test code = ALT) 10 U/L 30-65 L ALKALINE PHOSPHATASE TOTAL (test code = ALKP) 93 U/L 50-136 N THYROID STIMULATING [id number] 07:48:00* Test Item Value Reference Range Interpretation Comme nts THYROID STIMULATING HORMONE (test code = TSH) <0.007 0.358-3.74 L [id number] 07:48:00* Test Item Value Reference Range Interpretation Comme nts TROPONIN-I (test code = TROPI) <0.017 ng/ml 0.00-0.045 N GUIDELINES: 0.08 - 0.09 Indeterminate0.10 Risk Stratification Limit: Suggest sequential testing0.11 - 0.50 "[place]": Suggest sequential testing0.60 - 1.50 AMI cutoff: Myocardial Injury by WHO criteria THYROID STIMULATING [id number] 07:46:00* Test Item Value Reference Range Interpretation Comme nts THYROID STIMULATING HORMONE (test code = TSH) 0.358-3.74 [id number] 07:46:00* Test Item Value Reference Range Interpretation Comme nts TROPONIN-I (test code = TROPI) <0.017 ng/ml 0.00-0.045 N GUIDELINES: 0.08 - 0.09 Indeterminate0.10 Risk Stratification Limit: Suggest sequential testing0.11 - 0.50 "[place]": Suggest sequential testing0.60 - 1.50 AMI cutoff: Myocardial Injury by WHO criteria COMPREHENSIVE METABOLIC [id number] 07:46:00* Test Item Value Reference Range Interpretation Comme nts SODIUM (test code = NA) 137 mmol/L 136-145 N POTASSIUM (test code = K) 3.7 mmol/L 3.5-5.1 N CHLORIDE (test code = CL) 101 mmol/L 98-107 N CARBON DIOXIDE (test code = CO2) 23 mmol/L 21-32 N GLUCOSE (test code = GLU) 107 mg/dL 70-100 H BLOOD UREA NITROGEN (test code = BUN) 7 mg/dL 7-18 N GLOMERULAR FILTRATION RATE (test code = GFR) > 60.00 >=60 Reporting units: mL/min/1.73m\\S\\2 (Modified MDRD formula)REFERENCE RANGE: > or = 60 ml/min/1.73M2IF PATIENT IS -LAO, MULTIPLY REPORTED RESULT BY1.21. CREATININE (test code = CREAT) 0.89 mg/dl 0.55-1.02 N TOTAL PROTEIN (test code = PROT) 7.5 g/dl 6.4-8.2 N ALBUMIN (test code = ALB) 3.5 g/dl 3.4-5.0 N CALCIUM (test code = CA) 8.8 mg/dL 8.5-10.1 N BILIRUBIN TOTAL (test code = BILT) 0.5 mg/dL 0.2-1.0 N SGOT/AST (test code = AST) 14 U/L 15-37 L SGPT/ALT (test code = ALT) 10 U/L 30-65 L ALKALINE PHOSPHATASE TOTAL (test code = ALKP) 93 U/L 50-136 N UR HCG [id number] 07:43:00* Test Item Value Reference Range Interpretation Comme nts UR HCG QUAL (test code = HCGQLU) NEGATIVE NEGATIVE LACTIC [id number] 07:41:00* Test Item Value Reference Range Interpretation Comme nts LACTIC ACID (test code = LACT) 1.1 mmol/l 0.4-2.0 N CBC W/AUTO [id number] 07:31:00* Test Item Value Reference Range Interpretation Comme nts WHITE BLOOD CELL (test code = WBC) 6.9 X10(3) 4.5-11.0 N RED BLOOD CELL (test code = RBC) 4.44 X10(6) 4.2-5.4 N HEMOGLOBIN (test code = HGB) 12.0 g/dL 12.5-16.0 L HEMATOCRIT (test code = HCT) 36.9 % 37.0-47.0 L MEAN CELL VOLUME (test code = MCV) 83.1 fL 78-100 N MEAN CELL HGB (test code = MCH) 27.0 pg 26.0-34.0 N MEAN CELL HGB CONCETRATION (test code = MCHC) 32.5 g/dl 32.0-36.0 N RED CELL DISTRIBUTION WIDTH (test code = RDW) 13.8 % 11.5-14.5 N PLATELET COUNT (test code = PLT) 164 X10(3) 150-350 N MEAN PLATELET VOLUME (test code = MPV) 11.8 fl 8.7-11.4 H NEUTROPHIL % (test code = NT%) 79.7 % 36.0-66.0 H LYMPHOCYTE % (test code = LY%) 12.0 % 16-50 L MONOCYTE % (test code = MO%) 8.1 % 0.0-13.0 N EOSINOPHIL % (test code = EO%) 0.1 % 0.0-4.5 N BASOPHIL % (test code = BA%) 0.1 % 0.0-1.5 N NEUTROPHIL # (test code = NT#) 5.5 X10(3) 1.7-7.7 N LYMPHOCYTE # (test code = LY#) 0.8 X10(3) 1.0-4.8 L MONOCYTE # (test code = MO#) 0.6 X10(3) 0.0-0.89 N EOSINOPHIL # (test code = EO#) 0.0 X10(3) 0.0-0.6 N BASOPHIL # (test code = BA#) 0.0 X10(3) 0.0-0.2 N RBC MORPHOLOGY REQUIRED (test code = RBCM) MORPHOLOGY NEEDED NORMAL CBC W/AUTO [id number] 07:31:00* Test Item Value Reference Range Interpretation Comme nts WHITE BLOOD CELL (test code = WBC) 6.9 X10(3) 4.5-11.0 N RED BLOOD CELL (test code = RBC) 4.44 X10(6) 4.2-5.4 N HEMOGLOBIN (test code = HGB) 12.0 g/dL 12.5-16.0 L HEMATOCRIT (test code = HCT) 36.9 % 37.0-47.0 L MEAN CELL VOLUME (test code = MCV) 83.1 fL 78-100 N MEAN CELL HGB (test code = MCH) 27.0 pg 26.0-34.0 N MEAN CELL HGB CONCETRATION (test code = MCHC) 32.5 g/dl 32.0-36.0 N RED CELL DISTRIBUTION WIDTH (test code = RDW) 13.8 % 11.5-14.5 N PLATELET COUNT (test code = PLT) 164 X10(3) 150-350 N MEAN PLATELET VOLUME (test code = MPV) 11.8 fl 8.7-11.4 H NEUTROPHIL % (test code = NT%) 79.7 % 36.0-66.0 H LYMPHOCYTE % (test code = LY%) 12.0 % 16-50 L MONOCYTE % (test code = MO%) 8.1 % 0.0-13.0 N EOSINOPHIL % (test code = EO%) 0.1 % 0.0-4.5 N BASOPHIL % (test code = BA%) 0.1 % 0.0-1.5 N NEUTROPHIL # (test code = NT#) 5.5 X10(3) 1.7-7.7 N LYMPHOCYTE # (test code = LY#) 0.8 X10(3) 1.0-4.8 L MONOCYTE # (test code = MO#) 0.6 X10(3) 0.0-0.89 N EOSINOPHIL # (test code = EO#) 0.0 X10(3) 0.0-0.6 N BASOPHIL # (test code = BA#) 0.0 X10(3) 0.0-0.2 N RBC MORPHOLOGY REQUIRED (test code = RBCM) MORPHOLOGY NEEDED NORMAL - XR CHEST 1 [id number] 07:05:00FAX: Odette Dietrich Kaleva: E St: REG FAX: Ac Willis MD [phone] Name: MERISSA MORTON [facility] ER FS : 1985 Age/S: 33/F [address] Unit #: [id number] Loc: [place] [address] Phys: Odette Cedillo Guzman Acct: [id number] Dis Date: Status: REG ER PHONE #: [phone] Exam Date: 09/25/2018 0700 FAX #: [phone] Reason: CHEST PAIN COUGH FEVER EXAMS: CPT CODE: [id number] XR CHEST 1 V [id number] Site ID: [id number] HISTORY: Cough, chest pain FINDINGS: Partial right medial lung base consolidation/pneumonia. Left lung is clear. The heart and pulmonary vasculature is normal. Osseous structures are unremarkable. IMPRESSION: Partial right medial lung base consolidation/pneumonia. at 0705 Reported and signed by: KAIA PELAYO M.D. CC: Odette Salazar; Ac Willis MD Technologist: Carlos Guadarrama RT (R) CT (R) Trnsdrd Date/Time/By: 09/25/2018 (0705) : By: [email or web address] Orig Print D/T: S: 09/25/2018 (0708) PAGE 1 Signed Report
[2024-09-19] MEDS ORDERED: ONDANSETRON 4 MG/2 ML VIAL ONE (16:08)
[2024-09-19 16:27] LABS: Absolute Basophils 0.1 K/uL (0-0.5); Absolute Eosinophils 0.1 K/uL (0-0.5); Absolute Lymphocytes (CBC) 1.9 K/uL (0.7-4.9); Absolute Monocytes 0.4 K/uL (0.1-1.3); Absolute Neutrophil 5.1 K/uL (1.8-8.0); Basophils % 0.8 % (0-1.3); Eosinophils % 0.8 % (0-4.4); Hematocrit 39.1 % (36.0-45.0); Hemoglobin 12.8 g/dL (12.0-15.0); Lymphocytes % 25.4 % (15.3-44.8); MCH 26.4 pg (27.0-35.0); MCHC 32.7 g/dL (32.0-36.0); MCV 80.8 fL (80-100); MPV 9.3 fL (7.6-11.3); Monocytes % 5.1 % (3.3-12.3); Neutrophils % 67.9 % (41.7-73.7); Platelets 226 thou/uL (152-406); RBC Red Blood Cell Count 4.84 M/uL (3.86-4.86); Red Cell Distribution Width 15.5 % (12.1-15.2)
[2024-09-19 16:44] LABS: Albumin 3.4 g/dL (3.4-5.0); Albumin/Globulin Ratio 0.8 (1.1-1.8); Alkaline Phosphatase 82 U/L (45-117); Anion Gap 5.2 mEq/L (5.0-15.0); BUN Blood Urea Nitrogen 12 mg/dL (7-18); Bicarbonate 26 mEq/L (21-32); Bilirubin Total 0.3 mg/dL (0.2-1.0); Globulin 4.3 g/dL (2.3-3.5); Glomerular Filtration Rate 89 ml/min (=/>90); Glucose Level 97 mg/dL (74-106); Lipase 21 U/L (13-75); Potassium 4.2 mEq/L (3.5-5.1); Protein, Total 7.7 g/dL (6.4-8.2); Sodium Level 137 mEq/L (136-145)
[2024-09-19 16:46] LABS: ALT/SGPT < 14 U/L (13-56); AST/SGOT < 10 U/L (15-37)
--- NOTE | 2024-09-19 18:05 | RAD REPORT ---
EXAMINATION: CT ABDOMEN AND PELVIS WITH CONTRAST CLINICAL INDICATION: Female, 39 years old.ABD PAIN TECHNIQUE: CT abdomen and pelvis was performed, after the administration of [facility] Axial, sagittal and coronal reconstructions were obtained. One or more of the following dose reduction techniques were used: Automated exposure control, adjustment of the mA and/o r kV according to patient size, and/or iterative reconstruction. Unless otherwise specified, incidental findings do not require dedicated imaging follow-up. [id number]. COMPARISON: No prior exam. FINDINGS: LOWER CHEST: No acute process identified.No significant pericardial effusion. Small hiatal hernia. UPPER GI: No significant abnormality. LIVER: Hepatic steatosis, but otherwise unremarkable. GALLBLADDER/BILE DUCTS: Cholecystectomy. No significant biliary ductal dilatation.? PANCREAS: No mass, ductal dilation, or emilee-pancreatic fluid. SPLEEN: Unremarkable. ADRENALS: No adrenal masses. KIDNEYS AND URETERS: No hydronephrosis.No suspicious renal mass. ABDOMINAL AORTA AND OTHER VESSELS: Normal caliber aorta and IVC. PERITONEUM: Small volume of pelvic free fluid which is likely physiologic. LYMPH NODES: No pathologic lymphadenopathy. ABDOMINAL WALL: Small fat containing umbilical hernia. No evidence of a fluid collection or findings to indicate source of drainage. SMALL BOWEL/COLON: Small bowel has normal course and caliber. No colonic wall thickening or pericolon ic inflammatory changes.Normal appendix. URINARY BLADDER: Underdistended but grossly unremarkable. REPRODUCTIVE ORGANS: No pathologic process. MUSCULOSKELETAL: No acute or suspicious osseous abnormality. ADDITIONAL FINDINGS: None. IMPRESSION: No acute or significant abnormalities seen in the abdomen or pelvis. Incidental findings as noted abo ve.
[2024-09-19 18:22] LABS: Specific Gravity 1.021 (1.005-1.030)
[2024-09-19 18:24] LABS: Specific Gravity 1.021 (1.005-1.030); Sqamous Epithelial <5 /HPF (None Seen); Urine Bacteria None Seen /HPF (<20); Urine Bilirubin NEGATIVE (Negative); Urine Blood 2+ (Negative); Urine Clarity Turbid (Clear); Urine Color Light-Yellow (Yellow); Urine Crystals Unidentified Few /HPF (None Seen); Urine Culture Reflex Order NOT NEEDED; Urine Glucose NEGATIVE (Negative); Urine Ketones NEGATIVE (Negative); Urine Micro Reflex YN NO BILL MICROSCOPIC; Urine Mucus Slight /HPF (None Seen); Urine Nitrite NEGATIVE (Negative); Urine Protein NEGATIVE (Negative); Urine Urobilinogen Normal (Normal); Urine WBC <5 /HPF (<5); Urine Yeast (Budding) Trace /HPF (None Seen); Urine pH 5.5 (5.0-7.0)
--- NOTE | 2024-09-19 18:32 | ER ---
Nurse's Notes [facility] Name: Merissa Mistry Age: 39 yrs Sex: Female : 1985 Arrival Date: 09/19/2024 Time: 13:52 Bed 6 Private MD: Diagnosis: Abdominal pain, Generalized;Umbilical Discharge Presentation: 09/19 14:11 Chief complaint: Lower abdominal pain, pain with urination, and foul smelling blood hb coming from navel that started this morning. Coronavirus screen: At this time, the client does not indicate any symptoms associated with coronavirus-19. Ebola Screen: No symptoms or risks identified at this time. 14:11 Method Of Arrival: Ambulatory hb 14:11 Initial Sepsis Screen: Does the patient meet any 2 criteria? No. Patient's initial hb sepsis screen is negative. Does the patient have a suspected source of infection? No. Patient's initial sepsis screen is negative. Risk Assessment: Do you want to hurt yourself or someone else? Patient reports no desire to harm self or others. Onset of symptoms was September 19, 2024. 14:11 Acuity: IMAN 3 hb Triage Assessment: 16:25 General: Appears uncomfortable. ko1 Historical: - Allergies: 14:13 Sulfa (Sulfonamide Antibiotics); hb 14:13 Codeine; hb - Home Meds: 16:25 Protonix Oral 40 mg daily for GI Distress/GERD [Active]; Pepcid Oral 10 mg daily for GI ko1 Distress/GERD [Active]; Synthroid Oral [Active]; Macrobid Oral [Active]; - PMHx: 14:13 RA; Hypothyroidism; Ovarian Cysts; hb 16:25 stomach ulcer; ko1 - PSHx: 14:13 Cholecystectomy; Thyroidectomy; Right Knee; hb - Immunization history:: Adult Immunizations up to date. - Infectious Disease History:: Denies. - Social history:: Smoking status: Patient denies any tobacco usage or history of. Screenin:22 [facility] ED Fall Risk Assessment (Adult) History of falling in the last 3 months, ko1 including since admission No falls in past 3 months (0 pts) Confusion or Disorientation No (0 pts) Intoxicated or Sedated No (0 pts) Impaired Gait No (0 pts) Mobility Assist Device Used No (0 pt) Altered Elimination No (0 pt) Score/Fall Risk Level 0 - 2 = Low Risk Oriented to surroundings, Maintained a safe environment, Educated pt \T\ family on fall prevention, incl call for assistance when getting out of bed, Assessed \T\ reinforced patient's understanding of fall precautions, Provided non-skid footwear, Hourly rounding (assess needs \T\ fall precautionary measures) done. Abuse screen: Denies threats or abuse. Denies injuries from another. Nutritional screening: No deficits noted. Tuberculosis screening: No symptoms or risk factors identified. Assessment: 16:24 General: Appears in no apparent distress. Behavior is calm, cooperative, appropriate ko1 for age. Pain: Complains of pain in suprapubic area. Neuro: No deficits noted. Cardiovascular: No deficits noted. Respiratory: No deficits noted. GI: Bowel sounds present X 4 quads. Abd is soft X 4 quads. : Reports burning with urination. EENT: No deficits noted. No signs and/or symptoms were reported regarding the EENT system. Derm: No deficits noted. No signs and/or symptoms reported regarding the dermatologic system. Musculoskeletal: No deficits noted. No signs and/or symptoms reported regarding the musculoskeletal system. Vital Signs: 14:11 BP 127 / 103; Pulse 79; Resp 16; Temp 97(TE); Pulse Ox 100% on R/A; Weight 127.91 kg; hb Height 5 ft. 9 in. ; Pain 8/10; 18:40 BP 132 / 90; Pulse 72; Resp 15; Pulse Ox 100% ; ko1 14:11 Body Mass Index 41.64 (127.91 kg, 175.26 cm) hb 14:11 Pain Scale: Adult hb ED Course: 13:54 Patient arrived in ED. im 13:57 Darryn Riley DO is Attending Physician. ms3 14:17 Triage completed. hb 14:17 Arm band placed on. hb 14:44 Radiology exam delayed due to lab results not completed at this time. (BUN/Creatinine) sj IV insertion attempt and/or patient not having appropriate IV at this time. 15:34 Patient placed in an exam room, on a stretcher. kb3 15:35 Amada Lutz, RN is Primary Nurse. ko1 15:43 Radiology exam delayed due to lab results not completed at this time. (BUN/Creatinine) nj IV insertion attempt and/or patient not having appropriate IV at this time. 16:22 Patient has correct armband on for positive identification. Allergy band placed. Bed in ko1 low position. Call light in reach. Side rails up X 1. Provided Education on: labs. Client placed on continuous cardiac and pulse oximetry monitoring. NIBP monitoring applied. engine monitor on. Door closed. Noise minimized. Lights dimmed. Warm blanket given. Pillow given. 16:22 CBC with Diff Sent. ko1 16:22 CMP Sent. ko1 16:22 Lipase Sent. ko1 16:22 No provider procedures requiring assistance completed. Initial lab(s) drawn, by pa, ko1 sent to lab. Inserted saline lock: 20 gauge in right antecubital area, using aseptic technique. Blood collected. Flushed with 10 mL NS. 17:37 Attending Physician role handed off by Darryn Riley DO ec2 17:37 Fritz Haskins MD is Attending Physician. ec2 17:49 CT Abd/Pelvis - IV Contrast Only In Process Unspecified. EDMS 18:40 IV discontinued, intact, bleeding controlled, No redness/swelling at site. Pressure ko1 dressing applied. Administered Medications: 16:21 Drug: Ondansetron IVP 4 mg IVP once; over 2 minutes Route: IVP; Site: right antecubital;ko1 16:35 Follow up: Response: No adverse reaction ko1 18:40 Drug: Ketorolac IVP 15 mg IVP once Route: IVP; Site: right antecubital; ko1 18:55 Follow up: Response: No adverse reaction ko1 Medication: 16:22 VIS not applicable for this client. ko1 Outcome: 18:31 Discharge ordered by . ec2 18:54 Discharged to home ambulatory, with family, ko1 18:54 Condition: stable 18:54 Discharge instructions given to patient, family, Instructed on discharge instructions, follow up and referral plans. medication usage, Demonstrated understanding of instructions, follow-up care, medications, Prescriptions given X 1, 18:58 Patient left the ED. ko1 Signatures: Dispatcher [employer] EDMS Carly Parker Heather, BILLIE WISE Vance Turpin Marcus, DO DO ms3 Brandi Pinto RN RN kb3 Amada Lutz RN RN ko1 Irene Monterroso Edwin, MD MD ec2 Corrections: (The following items were deleted from the chart) 14:17 14:11 BP 127 / 103; Pulse 79bpm; Resp 16bpm; Pulse Ox 100% RA; Temp 97F Temporal; Pain hb 8/10, Adult; hb
--- NOTE | 2024-09-19 18:32 | EDPHYS ---
Physician Documentation [facility] Name: Merissa Mistry Age: 39 yrs Sex: Female : 1985 Arrival Date: 09/19/2024 Time: 13:52 Bed 6 Private MD: ED Physician Fritz Haskins HPI: 09/19 14:26 This 39 yrs old Female presents to ER via Ambulatory with complaints of ms3 Abdominal Pain, belly button is bleeding. 14:26 Merissa Mistry, a 39-year-old female, presents to the emergency department ms3 with abdominal pain. The pain worsened after she attempted to reach for her body wash, experiencing an excruciating sensation in her abdomen. She describes the pain as wrapping around to her lower back and buttocks, with increased intensity while sitting. She reports a foul smell from her belly button accompanied by blood. Standing alleviates some of the pain. . Historical: - Allergies: 14:13 Sulfa (Sulfonamide Antibiotics); hb 14:13 Codeine; hb - Home Meds: 16:25 Protonix Oral 40 mg daily for GI Distress/GERD [Active]; Pepcid Oral 10 mg daily for GI ko1 Distress/GERD [Active]; Synthroid Oral [Active]; Macrobid Oral [Active]; - PMHx: 14:13 RA; Hypothyroidism; Ovarian Cysts; hb 16:25 stomach ulcer; ko1 - PSHx: 14:13 Cholecystectomy; Thyroidectomy; Right Knee; hb - Immunization history:: Adult Immunizations up to date. - Infectious Disease History:: Denies. - Social history:: Smoking status: Patient denies any tobacco usage or history of. ROS: 14:26 Constitutional: Negative for fever, and chills. Cardiovascular: Negative for chest ms3 pain, and palpitations. Respiratory: Negative for shortness of breath, cough, wheezing, and pleuritic chest pain, 14:26 MS/Extremity: Negative for injury and deformity, Skin: Negative for injury, rash, and discoloration, 14:26 Abdomen/GI: Positive for abdominal pain, Exam: 14:26 Constitutional: This is a well developed, well nourished patient who is awake, alert, ms3 and in no acute distress. Cardiovascular: Regular rate and rhythm with a normal S1 and S2. No gallops, murmurs, or rubs. Normal PMI, no JVD. No pulse deficits. Respiratory: Lungs have equal breath sounds bilaterally, clear to auscultation and percussion. No rales, rhonchi or wheezes noted. No increased work of breathing, no retractions or nasal flaring. 14:26 Abdomen/GI: Inspection: abdomen appears normal, Bowel sounds: normal, Palpation: moderate abdominal tenderness, in the suprapubic area, Vital Signs: 14:11 BP 127 / 103; Pulse 79; Resp 16; Temp 97(TE); Pulse Ox 100% on R/A; Weight 127.91 kg; hb Height 5 ft. 9 in. ; Pain 8/10; 18:40 BP 132 / 90; Pulse 72; Resp 15; Pulse Ox 100% ; ko1 14:11 Body Mass Index 41.64 (127.91 kg, 175.26 cm) hb 14:11 Pain Scale: Adult hb MDM: 14:25 Medical Screening Exam initiated ms3 14:26 Differential diagnosis: appendicitis, non-specific abd pain, kidney stone vs fistula. ms3 17:39 Transition of care: After a detail discussion of the patient's case, care is ms3 transferred to Fritz Haskins MD. 17:42 Data reviewed: vital signs, nurses notes. ED course: Patient signed out to me by ec2 previous physician, in brief arrives today for abdominal pain along with discharge from the [facility]. Plans follow-up CT abdomen pelvis and reassess.. 18:30 ED course: CBC reassuring, metabolic profile is nonactionable, urine is noninfectious ec2 appearing. Lipase within normal ranges. CT abdomen pelvis shows no acute intra-abdominal process. Will discharge home. Will prescribe topical antibiotic ointment for her reported discharge however on my examination did not appear cellulitic or any significant discharge appreciated.. 09/19 14:17 Order name: CBC with Diff; Complete Time: 17:26 ms3 09/19 14:17 Order name: CMP; Complete Time: 17:26 ms3 09/19 14:17 Order name: Lipase; Complete Time: 17:26 ms3 09/19 17:42 Order name: Test, Urine; Complete Time: 18:27 ec2 09/19 17:42 Order name: UAM; Complete Time: 18:27 ec2 09/19 14:17 Order name: CT Abd/Pelvis - IV Contrast Only; Complete Time: 18:21 ms3 09/19 14:17 Order name: IV Saline Lock; Complete Time: 16:22 ms3 09/19 14:17 Order name: Labs collected and sent; Complete Time: 16:22 ms3 Administered Medications: 16:21 Drug: Ondansetron IVP 4 mg IVP once; over 2 minutes Route: IVP; Site: right antecubital;ko1 16:35 Follow up: Response: No adverse reaction ko1 18:40 Drug: Ketorolac IVP 15 mg IVP once Route: IVP; Site: right antecubital; ko1 18:55 Follow up: Response: No adverse reaction ko1 Disposition Summary: 09/19/24 18:31 Discharge Ordered Notes: Location: Home ec2 Condition: Stable ec2 Diagnosis - Abdominal pain, Generalized ec2 - Umbilical Discharge ec2 Followup: ec2 - With: Private Physician - When: - Reason: Re-evaluation by your physician Discharge Instructions: - Discharge Summary Sheet ec2 - Abdominal Pain, Adult ec2 Forms: - Medication Reconciliation Form ec2 - Antibiotic Education ec2 - Prescription Opioid Use ec2 - Patient Portal Instructions ec2 - Leadership Thank You Letter ec2 Prescriptions: - bacitracin 500 unit/gram Topical ointment - apply 1 application TOPICAL route 2 times per day; 14 gram tube; Refills: 0, ec2 Product Selection Permitted Signatures: Dispatcher [employer] EDMS Lucero Zeng RN RN hb Sims, Marcus, DO DO ms3 Amada Lutz RN RN ko1 Fritz Haskins MD MD ec2 Corrections: (The following items were deleted from the chart) 17:43 17:43 Test, Urine+UC.LAB.BRZ ordered. EDMS EDMS 17:43 17:43 TEST, SERUM+SC.LAB.BRZ ordered. EDMS EDMS 17:43 17:43 Urinalysis W/Microscopic+U.LAB.BRZ ordered. EDMS EDMS
[2024-09-19] MEDS ORDERED: KETOROLAC 30 MG/ML INJ ONE (18:38)
[2024-09-19 19:05] VITALS: TEMP 97; O2SAT 100
[2024-09-19 19:06] VITALS: BP 132/90
== END 2024-09-19 18:58 | disposition home or self-care (01) ==
LOC: ER 13:52
DX: R10.84 Generalized abdominal pain (principal); R19.8 Other specified symptoms and signs involving the digestive system and abdomen
CPT/HCPCS: 85025; 81001; 36415; 81025; 83690; 80053; 74177; 96375; 96374; 99285; Q9967; J2405